=== PATIENT | male | born 1935 | race Caucasian/White ===

== ENCOUNTER → 2017-01-11 | Outpatient (CLI) | payer OTHER ==
[~2017-01-11] MED LIST: ADVIN25050 INH; ALBUAER INH; ASPI-232 PO; CLOP1TAB15 PO; ISOS120T5 PO; LPT/40 PO; LSN/10125 PO; METO50TA16 PO; MULT-506 PO; NITR0.4S UT; PANT40TA PO; SENNTAB23 PO
[2017-01-11 13:35] LABS: BLOOD UREA NITROGEN 21 mg/dl (7-18); BUN/CREATININE RATIO 13.1 (10-20); CALCIUM 8.8 mg/dl (8.5-10.1); CARBON DIOXIDE 29 mmol/L (21-32); CHLORIDE 105 mmol/L (98-107); CHOLESTEROL 94 mg/dl (0-200); GLUCOSE 87 mg/dl (70-99); POTASSIUM 4.4 mmol/L (3.5-5.1); SODIUM 141 mmol/L (136-145); TRIGLYCERIDES 129 mg/dl (0-150); VERY LOW DENSITY LIPOPROT CALC 26 mg/dl
[2017-01-11 13:38] LABS: CHOLESTEROL/HDL RATIO 2.9; HDL CHOLESTEROL 32 mg/dl
[2017-01-11 13:47] LABS: ESTIMATED AVERAGE GLUCOSE 126 mg/dl; HA1C FLAG Normal (Normal)
== END | disposition home or self-care (01) ==
LOC: C.LABSPEC 12:31
PROVIDERS: ATTEND Internal Medicine
DX: Z00.00 Encounter for general adult medical examination without abnormal findings (principal); R73.9 Hyperglycemia, unspecified; I25.10 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of native coronary artery without angina pectoris; I10 Essential (primary) hypertension

== ENCOUNTER → 2017-02-01 | Outpatient (CLI) | payer OTHER | END | disposition home or self-care (01) | LOC: C.LABSPEC 14:37 | PROVIDERS: ATTEND Internal Medicine | DX: Z12.11 Encounter for screening for malignant neoplasm of colon (principal) ==

== ENCOUNTER → 2017-04-23 | Outpatient (CLI) | payer OTHER ==
[~2017-04-23] MED LIST changes: +REGADENOSON 0.4 MG/5 ML SYR ONE
--- NOTE | 2017-04-23 23:47 | Myocardial Perfusion Study ---
Myocardial Perfusion Study Rpt Myocardial Perfusion Study Rpt Date of Service 04/23/2017 Myocardial Perfusion Study Rpt ONE DAY NUCLEAR MEDICINE LEXISCAN TECHNETIUM 99M MYOCARDIAL PERFUSION SCAN Indication: History of CAD Baseline ECG: Sinus bradycardia, resting inferior T wave inversions. Ventricular rate 57. Stress ECG: No Lexiscan induced ST changes. Occasional PVCs. HR petr from 56 - 71 representing 51% MPHR. Technique: For the stress portion of the study 33 mCi of Technetium 99m Cardiolite IV was injected at 11:30 am on 04/23/2017. 30 minutes following the injection, imaging of the heart was performed in multiple projections. For the rest portion of the study, 10.9 mCi of Technetium 99m Cardiolite was injected IV at 09:30 am. One hour following the injection, imaging of the hear was performed in the same projections. Findings: Rotating raw images were reviewed in detail. Potential sources of attenuation included diaphragmatic shadow, and minimal gut/liver uptake impacting the inferior imaging border of the heart. No significant extracardiac pathologic uptake. Short axis, vertical long axis and horizontal long axis images were reviewed in detail. No visual TID. Small, mild in intensity, mostly reversible perfusion defect involving base to mid inferior wall. Otherwise normal myocardial perfusion on both stress and rest. Normal LV size. EDV 72 ml. Calculated EF 74%. No regional wall motion abnormalities. SUMMARY: 1. Grossly normal resting/Lexiscan-induced myocardial perfusion. There is a small, mild, mostly reversible perfusion defect involving the inferior wall from base to mid segments. Similar defects have been seen on prior studies and suspect this represents diaphragmatic attenuation. Cannot rule out a small amount of single-vessel, low risk coronary ischemia (SDS 3). 2. Normal LV size and function. LVEF 74% with no regional wall motion abnormalities. 3. Non-diagnostic stress ECG due to inability to reach target HR with Lexiscan. 4. Compared with prior study on 12/16/2015: No significant changes.
== END | disposition home or self-care (01) ==
LOC: C.NUCL 09:10
PROVIDERS: ATTEND Internal Medicine
DX: I25.10 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of native coronary artery without angina pectoris (principal); R07.9 Chest pain, unspecified; R94.31 Abnormal electrocardiogram [ECG] [EKG]

== ENCOUNTER → 2017-12-23 | Outpatient (CLI) | payer OTHER ==
[~2017-12-23] MED LIST changes: -REGADENOSON 0.4 MG/5 ML SYR ONE
--- NOTE | 2017-12-23 15:34 | DIAGNOSTIC IMAGING REPORT ---
CHEST 2 VIEWS ROUTINE HISTORY: 82 years-old Male J44.9 Chronic obstructive pulmonary [id number] COMPARISON: Chest radiograph 11/27/2015 TECHNIQUE: PA and lateral views of the chest FINDINGS: Cardiomediastinal and hilar silhouettes are within normal limits. Suggested coronary arterial stent graft. Atherosclerosis of the aorta. No pneumothorax, pleural effusion or overt pulmonary edema. Minimal dependent subsegmental bibasilar atelectasis. Lungs are mildly hyperinflated. Increased lucency of the lungs suggests emphysema. IMPRESSION: Hyperinflation without acute process. The above report was generated using voice recognition software. It may contain grammatical, syntax or spelling errors. Electronically signed by: Shilo Olivo M.D. 12/23/2017 3:33 PM Dictated Date/Time: 12/23/2017 3:30 PM
== END | disposition home or self-care (01) ==
LOC: C.RAD1850 15:23
PROVIDERS: ATTEND Internal Medicine Pulmonary Disease
DX: J44.9 Chronic obstructive pulmonary disease, unspecified (principal); R91.8 Other nonspecific abnormal finding of lung field

== ENCOUNTER → 2018-01-06 | Outpatient (CLI) | payer OTHER ==
--- NOTE | 2018-01-10 07:56 | POLYSOMNOGRAPH REPORT ---
CLINICAL DATA: The patient is an 82-year-old male with a history of snoring and disturbed nocturnal sleep and excessive daytime somnolence. His [place] sleepiness scale score is 9. His BMI is 31.77. This was an in lab overnight polysomnography. SLEEP ARCHITECTURE: The total sleep period was 258 minutes. The total sleep time was 165.5 minutes. The sleep efficiency was severely reduced to 42%. The sleep latency was 20 minutes. Wake after sleep onset was prolonged to 216 minutes. The patient had no sleep after 2:00 a.m. Sleep consisted of stage N1 17%, stage N2 64%, stage N3 19%, stage REM 0%. AROUSAL DATA: The patient had a total of 35 arousals including 8 spontaneous arousals, 2 respiratory arousals, 21 PLM arousals, and 4 snoring arousals. The arousal index was 13. PLM DATA: The patient had 172 periodic limb movements of sleep for a PLM index of 62.4. There were 21 arousals, associated with limb movements for a PLM arousal index of 7.6. EKG: The cardiac rates ranged from 51-83 beats per minute with an average of 75 beats per minute. No arrhythmias noted. RESPIRATORY DATA: The patient had a total of 6 respiratory events, all hypopneas. Hypopneas were scored according to the 4% desaturation rule. The mean duration of the hypopneas was 22 seconds. There were 2 RERAs. The apnea hypopnea index was 2.2. This would suggest no significant sleep apnea. OXIMETRY DATA: The average saturation for the night was 89%. The minimum recorded saturation was 65%, but this was clearly artifactual. His true minimum saturation is 85%. He did have 185.4 minutes with saturations less than 89%. DITCH CLEANER COMMENTS: The patient slept in the right, left, and supine positions. No cardiac arrhythmia. PLMs noted. No bruxism noted. Snoring was noted and scored as a 1 on a scale of 0 through 5. The patient awakened to use the restroom once during the night. Following the study, he stated that he did not think he slept. IMPRESSION: 1. No evidence of significant obstructive sleep apnea. 2. Periodic limb movement disorder. 3. Hypoxia. COMMENTS: The patient had severe insomnia with poor sleep. His sleep efficiency was poor. It was unknown if this was due to a first night effect. He typically has disturbed sleep at home but that would be more frequent brief awakenings. He did have a modest number of periodic limb movements with a mild number of arousals. The patient's had noticed leg movements during sleep. Consideration could be given to a trial of medication for the limb movements if clinically indicated. Oxygen saturations were decreased somewhat as noted. He does have a history of shortness of breath and COPD. RECOMMENDATIONS: 1. Clinical correlation is advised to determine if he is a candidate for pharmacologic treatment of the limb movements. 2. If he is not already on nocturnal oxygen therapy, consideration is given to doing an overnight pulse oximetry to see if he may be a candidate for nocturnal oxygen therapy. 3. The patient should be advised of the appropriate principles of sleep hygiene including having a regular sleep-wake schedule and allowing sufficient sleep time.
== END | disposition home or self-care (01) ==
LOC: C.NEUR 20:00
PROVIDERS: ATTEND Internal Medicine Pulmonary Disease
DX: G47.33 Obstructive sleep apnea (adult) (pediatric) (principal); J44.9 Chronic obstructive pulmonary disease, unspecified; Z88.0 Allergy status to penicillin

== ENCOUNTER → 2018-01-21 | Outpatient (CLI) | payer OTHER | END | disposition home or self-care (01) | LOC: C.LAB1850 15:12 | PROVIDERS: ATTEND Internal Medicine Pulmonary Disease | DX: G25.81 Restless legs syndrome (principal) ==

== ENCOUNTER 2018-11-10 09:32 | Inpatient (IN) ==
[2018-11-10] MEDS ORDERED: ALBUT/IPRATROP 3MG/0.5MG NEB 3 ML VIAL NEB STA (09:49)
[2018-11-10 10:29] LABS: Basophils # (auto) 0.02 K/uL (0-0.2); Basophils % (auto) 0.2 %; Eosinophils % (auto) 2.3 %; Hematocrit (blood only) 34.6 % (42-52); Hemoglobin 11.2 g/dL (14.0-18.0); Immature Granulocytes # (auto) 0.05 K/uL (0.00-0.02); Immature Granulocytes % (auto) 0.6 %; Lymphocytes # (auto) 1.45 K/uL (1.2-3.4); Lymphocytes % (auto) 16.4 %; Mean Corpuscular Hgb Conc 32.4 g/dL (32-36); Mean Platelet Volume 9.2 fL (7.4-10.4); Monocytes # (auto) 0.85 K/uL (0.11-0.59); Monocytes % (auto) 9.6 %; Neutrophils # (auto) 6.28 K/uL (1.4-6.5); Neutrophils % (auto) 70.9 %; Platelet Count 434 K/uL (130-400); RDW Standard Deviation 53.8 fL (36.4-46.3); Red Blood Count 3.53 M/uL (4.7-6.1); White Blood Count 8.85 K/uL (4.8-10.8)
--- NOTE | 2018-11-10 10:29 | XRay Report ---
XR chest 1V portable CLINICAL HISTORY: Chest Pain COMPARISON STUDY: Chest radiograph and chest CT October 12, 2018. FINDINGS: There is no pneumothorax or pleural effusion. Cardiomediastinal silhouette is stable. Mild interstitial thickening is noted. There is underlying emphysema. There is mild left lower lung opacit y. Right midlung opacity is no longer identified. IMPRESSION: 1. Mild left lower lung opacity which may reflect atelectasis or an infectious process. 2. Slight increase in interstitial thickening, a nonspecific finding. 3. Emphysema. Electronically signed by: Fidel Strauss M.D. 11/10/2018 10:28 AM
[2018-11-10 10:38] LABS: INR 1.2 (0.9-1.1); Prothrombin Time 12.1 Seconds (9.0-12.0)
--- NOTE | 2018-11-10 10:38 | CT Scan Report ---
CT OF THE HEAD WITHOUT CONTRAST CLINICAL HISTORY: LUE weakness, resolved COMPARISON STUDY: Head CT June 17, 2018. CT DOSE: 729.78 mGycm TECHNIQUE: Helical axial images of the head were obtained without IV contrast. Automated exposure con trol was utilized for the study. A dose lowering technique was utilized adhering to the principles o f ALARA. FINDINGS: No acute intracranial hemorrhage, midline shift or mass effect is present. Ventricular syst em is stable. Basilar cisterns are patent. There are no extra-axial collections. White matter hypoden sity suggests small vessel disease. There are no findings to suggest acute dural sinus thrombosis or acute territorial infarct. Small lucencies within the bilateral basal ganglia may reflect old lacunar infarcts or prominent perivascular spaces. There are no significant calvarial abnormalities. There a re left maxillary sinus secretions. These are decreased when compared to CT of June 17, 2018. IMPRESSION: No acute intracranial findings. Electronically signed by: Fidel Strauss M.D. 11/10/2018 10:37 AM
[2018-11-10 10:41] LABS: Base Excess VBG 2.8 mEq/L; HCO3 VBG 29 mmol/L; PCO2 VBG 52 mmHg (38-50); PO2 VBG 25 mmHg; pH VBG 7.37 (7.36-7.41)
[2018-11-10 10:46] LABS: Albumin Level 1.9 gm/dl (3.4-5.0); BUN Creatinine Ratio 13.8 (10-20); Calcium 8.6 mg/dl (8.5-10.1); Creatinine Clr Calc Pharmacy 44.6 ml/min; Est GFR (African American) 52.9; Est GFR (Non-African American) 45.7; Potassium 4.3 mmol/L (3.5-5.1)
[2018-11-10 10:53] LABS: Albumin Globulin Ratio 0.4 (0.9-2); Bilirubin,Total 0.8 mg/dl (0.2-1); Globulin 5.2 gm/dl (2.5-4.0); Phosphorus 3.9 mg/dl (2.5-4.9); Total Protein 7.1 gm/dl (6.4-8.2); Troponin I 0.073 ng/ml (0-0.045)
[2018-11-10 10:54] LABS: Oxygen Saturation VBG < 60.0 %
--- NOTE | 2018-11-10 12:27 | History & Physical Report ---
Date of Service November 10, 2018 Assessment & Plan (1) Stroke-like symptoms: Likely TIA given quick resolution CT head neg for acute MRI/MRA pending ECHO pending Takes aspirin 81mg at baseline, may need to increase this to full strength vs plavix pending further studies Hold on neuro c/s pending imaging PT/OT (2) Elevated troponin: In the setting of CKD Elevated to 0.07, serials pending EKG with 1st degree AV block, seen prior (3) COPD (chronic obstructive pulmonary disease): Stable, no exacerbation Upper airway congestion noted Nebs as at home Baseline O2 2L at rest, HS and 4L with activity (4) Chronic kidney disease: Cr 1.4 on admission which is improved from more recent admission Monitor (5) Congestive heart failure: Stable, continue home meds (6) Hypertension: continue home meds (7) Hyperlipidemia: continue home meds (8) Restless leg syndrome: continue home meds (9) GERD (gastroesophageal reflux disease): continue home meds (10) CAD (coronary artery disease): s/p stents x5, completed course of plavix (11) 1st degree AV block: Seen prior Does appear to have regular lightheadedness moving from seated to standing Monitor (12) DVT prophylaxis: SCDs, Heparin for DVT proph History of Present Illness Primary Care Provider: Berry Tan MD 83 y/o M c/o L LE/UE weakness. Pt states he woke around 4am to use his bedside urinal and could not use his L UE/LE. He states that he could move both of them , but could not stand or push off with his arm. He yelled for his to help him and she states that his speech was not slurred. He had no issues with vision, although the room was dark so he is not certain. This lasted about 30 minutes and resolved fully without recurrence. Pt was not planning to seek care for this, however a home nurse called to check on him as was planned prior and advised they come to the ED. Pt has no prior hx of similar sx. He states that he has felt a bit "run down" the last two days. "Like I don't want to do nothing." His states that he had been "zipping right around" the few days prior to that though. Pt states he is tired now, but otherwise feels fine. Pt denies fever, SOB, chest pain, abd pain, n/v/c/d, LE pain or swelling now or with this incident early this AM. Pt takes aspirin 81mg daily and does not miss doses. Pt was a recent d/c from [facility] on 10/20 after being hospitalized for COPD flare and possible aspiration PNA. Since that d/c he has had increased O2 use. Prior to admission he used 2L HS only. Since d/c he uses 2L around the clock and increases to 4L with activity. This has worked well for him. He also has two neb tx which he is consistent with. states that pt gets lightheaded when moving from seating to standing frequently. No syncope though other than an isolated episode in July. Allergies Allergy/AdvReac Type Severity Reaction Status Date / Time Penicillins Allergy Unknown PASSES OUT Verified 06/17/18 17:23 AND LOW HEART RATE Home Medications Home Medications Medication Instructions Recorded Confirmed Type albuterol sulfate 2 puff INHALATION Q6H PRN 06/17/18 11/10/18 History aspirin [Aspir-81] 81 mg PO QAM 06/17/18 11/10/18 History atorvastatin 40 mg PO QAM 06/17/18 11/10/18 History furosemide 40 mg PO BID 10/09/18 11/10/18 History isosorbide mononitrate 60 mg PO QAM 10/09/18 11/10/18 History metoprolol succinate 25 mg PO HS 10/09/18 11/10/18 History multivitamin 1 tab PO QAM 10/09/18 11/10/18 History nitroglycerin [Nitrostat] 0.4 mg SUBLINGUAL DAILY PRN 10/09/18 11/10/18 History pantoprazole 40 mg PO BID 10/09/18 11/10/18 History ranolazine 500 mg PO BID 10/09/18 11/10/18 History sennosides-docusate sodium [Stool 8.6 mg PO BID 10/09/18 11/10/18 History Softener-Laxative] budesonide 1 ml INH Q12H #60 ml 10/17/18 11/10/18 Rx formoterol fumarate 2 ml INH Q12H #60 ml 10/17/18 11/10/18 Rx gabapentin 100 mg PO BID 30 Days #60 cap 10/17/18 11/10/18 Rx pramipexole 0.25 mg PO HS 11/10/18 11/10/18 History Past Med/Surg History Medical History CHF (congestive heart failure) GERD (gastroesophageal reflux disease) HTN (hypertension) Hyperlipidemia CAD (coronary artery disease) RLS (restless legs syndrome) COPD (chronic obstructive pulmonary disease) 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[place] coronary artery w/angina pectoris (Acute ) Coronary arteriosclerosis (Acute 03/30/14) Family History Father Heart attack Other No pertinent family history Social History Current Living Situation: Significant Other Current Living Situation Comment: Girlfriend Other Information That Helps Us Care for You: No Feels Safe at Home: Yes Safety Concerns: Feels Safe At This Time Smoking Status: Former smoker Tobacco Type: cigarettes Number of Years Since Quit: 8 Hx Alcohol Use: No Hx Substance Use: No Beliefs That Will Affect Care: None Preferred Language: [place] Communication Ability: Effective Review of Systems Pertinent positives and negatives reviewed in HPI--all others negative Physical Exam 2 Vital Signs (Past 24 Hours): Last Vital Signs Temp 36.4 C L 11/10/18 09:43 Pulse 86 11/10/18 10:58 Resp 16 11/10/18 10:58 BP 122/70 11/10/18 10:58 Pulse Ox 93 11/10/18 10:58 Constitutional: WD/WN, vitals as above Eyes: normal visual moura by confrontation and + anicteric sclerae Neck: normal visual inspection and trachea midline Respiratory: normal respiratory effort; no respiratory distress upper airway congestion Cardiovascular: Rate/Rhythm: regular rate and regular rhythm Gastrointestinal (Abdomen): Inspection/Auscultation: abdomen not distended Percussion/Palpation: abdomen soft; abdomen nontender Musculoskeletal: Head/Neck/Chest: normocephalic and head atraumatic negative for edema, peripheral pulses intact Skin: no rashes, warm and dry Neurologic: CN's II-XI intact bilaterally and awake; not confused Speech / Cognition: normal speech Skin Specialist strength 5/5 b/l, LE strength against resistance 5/5 in all planes Psychiatric: A+Ox3, euthymic affect Results & Data Diagnostic Findings CXR: neg for acute CT head: neg for acute ECG Findings: + 1st degree AV block (seen prior) Code Status & VTE Plan Code Status Full code VTE Prophylaxis Plan VTE Prophylaxis will be ordered: Yes _ (1) Congestive heart failure Heart failure type: diastolic Heart failure chronicity: acute on chronic Qualified Code(s): I50.33 - Acute on chronic diastolic (congestive) heart failure (2) Hypertension Hypertension type: essential hypertension Qualified Code(s): I10 - Essential (primary) hypertension
[2018-11-10] MEDS ORDERED: MAGNESIUM HYDROXIDE SUSP 30 ML UDC PO PRN (13:14)
[2018-11-10] MEDS ORDERED: ALBUTEROL HFA 8 GM INHALER INH PRN (13:14)
[2018-11-10] MEDS ORDERED: ONDANSETRON INJ 2 MG/ML 2 ML VIAL IV PRN (13:14)
[2018-11-10] MEDS ORDERED: NITROGLYCERIN SL 0.4 MG/TAB TAB SL PRN (13:14)
[2018-11-10] MEDS ORDERED: PHARMACIST DISCHARGE MED REC CONSULT PRN (13:14)
[2018-11-10] MEDS ORDERED: ACETAMINOPHEN 325 MG TAB PO PRN (13:14)
--- NOTE | 2018-11-10 13:27 | Emergency Department Note ---
Entered by Fernando Finn acting as a scribe for History of Present Illness General Chief complaint: Illness Time Seen by Provider: 11/10/18 09:36 Source: patient Limitations: no limitations History of Present Illness Provider complaint: Weakness Onset (ago): hour(s) (5.5) Location: upper extremity and left Pain Consistency: + now resolved Quality: + other (weakness) Associated symptoms: + cough, + shortness of breath and + weakness (Diffuse) The patient is an 83 year old male who presents to the Emergency Room with complaints of an episode of weakness that he noticed at 0400 this morning, about 5.5 hours ago. The patient states that he woke up from sleep this morning at 0400 to use the restroom. He sat up and swung his legs over the side of his bed when he noticed that he felt weak all over his body. The weakness was most prevalent in the left upper extremity which was totally limp. He called his home -health nurse for help, and she did come help the patient get up. When the home- health nurse staff called later on this morning they referred him to the ED immediately. The patient notes the weakness is now resolved at this time, and he currently feels how he has throughout the past week. The patient does feel short of breath intermittently and is coughing, but this is baseline for him since his discharge from a recent inpatient stay. The cough is intermittently productive. He denies any other nausea, vomiting, diarrhea, fevers, or headaches. The patient is on 2 L of nasal cannula at baseline, but will intermittently increase the flow rate. Review of the patient's EMS shows that he was discharged from the hospital on October 20 for COPD exacerbation with Aspiration. He did have hematuria at this time, which resolved throughout the stay. There was no evidence of urethral cancer on urine cytology. He was experiencing dysphagia throughout the stay, Barium swallow showed a normal esophagus. He has CKD with baseline creatinine of 2.0. The patient has a history of chronic hyponatremia. Diastolic CHF on Lasix. On IMDUR for coronary artery disease. Home Medications Home Medications Medication Instructions Recorded Confirmed Type albuterol sulfate 2 puff INHALATION Q6H PRN 06/17/18 11/10/18 History aspirin [Aspir-81] 81 mg PO QAM 06/17/18 11/10/18 History atorvastatin 40 mg PO QAM 06/17/18 11/10/18 History furosemide 40 mg PO BID 10/09/18 11/10/18 History isosorbide mononitrate 60 mg PO QAM 10/09/18 11/10/18 History metoprolol succinate 25 mg PO HS 10/09/18 11/10/18 History multivitamin 1 tab PO QAM 10/09/18 11/10/18 History nitroglycerin [Nitrostat] 0.4 mg SUBLINGUAL DAILY PRN 10/09/18 11/10/18 History pantoprazole 40 mg PO BID 10/09/18 11/10/18 History ranolazine 500 mg PO BID 10/09/18 11/10/18 History sennosides-docusate sodium [Stool 8.6 mg PO BID 10/09/18 11/10/18 History Softener-Laxative] budesonide 1 ml INH Q12H #60 ml 10/17/18 11/10/18 Rx formoterol fumarate 2 ml INH Q12H #60 ml 10/17/18 11/10/18 Rx gabapentin 100 mg PO BID 30 Days #60 cap 10/17/18 11/10/18 Rx pramipexole 0.25 mg PO HS 11/10/18 11/10/18 History Allergies Allergy/AdvReac Type Severity Reaction Status Date / Time Penicillins Allergy Unknown PASSES OUT Verified 06/17/18 17:23 AND LOW HEART RATE Past Med/Surg History Medical History CHF (congestive heart failure) GERD (gastroesophageal reflux disease) HTN (hypertension) Hyperlipidemia CAD (coronary artery disease) RLS (restless legs syndrome) COPD (chronic obstructive pulmonary disease) 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cachil dehe coronary artery w/angina pectoris (Acute ) Coronary arteriosclerosis (Acute 03/30/14) Family History Father Heart attack Other No pertinent family history Social History Current Living Situation: Significant Other Current Living Situation Comment: Girlfriend Other Information That Helps Us Care for You: No Feels Safe at Home: Yes Safety Concerns: Feels Safe At This Time Smoking Status: Former smoker Tobacco Type: cigarettes Number of Years Since Quit: 8 Hx Alcohol Use: No Hx Substance Use: No Beliefs That Will Affect Care: None Preferred Language: Turkmen Communication Ability: Effective Review of Systems See HPI for pertinent positives & negatives. and A total of 10 systems reviewed and were otherwise negative Physical Exam Vital Signs Vital Signs - 24 hr 11/10/18 09:43 11/10/18 10:58 11/10/18 11:39 Temperature 36.4 C L Temperature Source Oral Sepsis Recent Fever Within 48 Hours No Sepsis New/Unexplained Change in Mental Status No Sepsis Action Taken by Nursing No Action Required Pulse Rate 88 84 Pulse Rate [Right Finger] 86 Pulse Rhythm Regular Regular Pulse Rhythm [Right Finger] Regular Pulse Strength Normal Pulse Strength [Right Finger] Normal Respiratory Rate 16 16 Respiratory Effort / Characteristics Non-Labored Non-Labored Respiratory Depth Normal Normal Respiratory Pattern Regular Regular Regular Blood Pressure 109/60 Blood Pressure [Left Arm] 122/70 Blood Pressure Mean 76 Blood Pressure Mean [Left Arm] 87 Blood Pressure Position Sitting Blood Pressure Position [Left Arm] Sitting Pulse Oximetry 96 93 Oxygen Delivery Method Nasal Cannula Nasal Cannula Nasal Cannula Oxygen Flow Rate 3 2 2 11/10/18 12:31 11/10/18 12:57 11/10/18 15:59 Temperature 36.7 C Temperature Source Oral Sepsis Recent Fever Within 48 Hours Sepsis New/Unexplained Change in Mental Status Sepsis Action Taken by Nursing Pulse Rate 92 H Pulse Rate [Right Finger] 84 90 Pulse Rhythm Pulse Rhythm [Right Finger] Regular Pulse Strength Pulse Strength [Right Finger] Normal Respiratory Rate 16 16 Respiratory Effort / Characteristics Non-Labored Respiratory Depth Normal Respiratory Pattern Regular Blood Pressure 104/58 L Blood Pressure [Left Arm] 93/53 L 96/61 L Blood Pressure Mean Blood Pressure Mean [Left Arm] 66 72 Blood Pressure Position Blood Pressure Position [Left Arm] Sitting Pulse Oximetry 94 95 Oxygen Delivery Method Nasal Cannula Nasal Cannula Oxygen Flow Rate 2 2 11/10/18 17:00 11/10/18 17:55 11/10/18 19:11 Temperature Temperature Source Sepsis Recent Fever Within 48 Hours Sepsis New/Unexplained Change in Mental Status Sepsis Action Taken by Nursing Pulse Rate 91 H Pulse Rate [Right Finger] 97 H 93 H Pulse Rhythm Pulse Rhythm [Right Finger] Pulse Strength Pulse Strength [Right Finger] Respiratory Rate 18 Respiratory Effort / Characteristics Non-Labored Spontaneous Respiratory Depth Respiratory Pattern Blood Pressure Blood Pressure [Left Arm] 112/67 Blood Pressure Mean Blood Pressure Mean [Left Arm] 82 Blood Pressure Position Blood Pressure Position [Left Arm] Sitting Pulse Oximetry 95 Oxygen Delivery Method Nasal Cannula Nasal Cannula Oxygen Flow Rate 2 2 11/10/18 20:00 11/10/18 20:25 11/10/18 20:29 Temperature 36.6 C Temperature Source Oral Sepsis Recent Fever Within 48 Hours Sepsis New/Unexplained Change in Mental Status Sepsis Action Taken by Nursing Pulse Rate Pulse Rate [Right Finger] 98 H 96 H 98 H Pulse Rhythm Pulse Rhythm [Right Finger] Pulse Strength Pulse Strength [Right Finger] Respiratory Rate 20 Respiratory Effort / Characteristics Respiratory Depth Respiratory Pattern Blood Pressure Blood Pressure [Left Arm] 93/55 L 97/60 L 96/61 L Blood Pressure Mean Blood Pressure Mean [Left Arm] 67 72 72 Blood Pressure Position Blood Pressure Position [Left Arm] Standing Lying Sitting Pulse Oximetry 95 Oxygen Delivery Method Nasal Cannula Oxygen Flow Rate 2 GENERAL: Awake, alert, chronically ll-appearing, in no distress HENT: Normocephalic, atraumatic. Oropharynx with dry mucous membranes and otherwise unremarkable. EYES: Normal conjunctiva. Sclera non-icteric. NECK: Supple. No nuchal rigidity. FROM. No JVD. RESPIRATORY: Scattered wheezes and rhonchi throughout. CARDIAC: Regular rate, normal rhythm. Extremities warm and well perfused. Pulses equal. ABDOMEN: Soft, non-distended. No tenderness to palpation. No rebound or guarding. No masses. RECTAL: Deferred. MUSCULOSKELETAL: Chest examination reveals no tenderness. The back is symmetrical on inspection without obvious abnormality. There is no CVA tenderness to palpation. No joint edema. LOWER EXTREMITIES: Calves are equal size bilaterally and non-tender. Scant edema. No discoloration. NEURO: Cranial nerves 2-12 grossly intact. Normal sensorium. No sensory or motor deficits noted. Speech normal. No pronator drift. 5/5 strength and SILT x4 extremities. Intact finger to nose. SKIN: No rash or jaundice noted. Course 0940: Past medical records reviewed. The patient was evaluated in room B11B, and a complete history and physical examination were performed. 1139: I reviewed the patient's case with Dr. Yissel Mane [facility] Hospitalist. She will evaluate the patient for further management. Consultations Consultation #1: 1139: I reviewed the patient's case with Dr. Yissel Mane [facility] Hospitalist. She will evaluate the patient for further management. Administered Medications Budesonide (Pulmicort Respules) 0.25 mg INH Q12R NADEEN Stop: 12/10/18 19:59 Last Admin: 11/10/18 19:10 Dose: 0.25 mg Formoterol Fumarate (Perforomist) 20 mcg INH Q12R NADEEN Stop: 12/10/18 19:59 Last Admin: 11/10/18 19:10 Dose: 20 mcg Furosemide (Lasix) 40 mg PO BID17 NADEEN Stop: 12/10/18 16:59 Last Admin: 11/10/18 17:56 Dose: 40 mg Gabapentin (Neurontin) 100 mg PO BID NADEEN Stop: 12/10/18 20:59 Last Admin: 11/10/18 20:25 Dose: 100 mg Gadobutrol (Gadavist 65ml) 9.5 ml IV ONCE PRN PRN Reason: Interaction Checking Stop: 11/14/18 17:38 Last Admin: 11/10/18 17:39 Dose: 9.5 ml Heparin Sodium (Porcine) (Heparin Sodium (Porcine)) 5,000 units SQ Q8 NADEEN Stop: 12/10/18 13:59 Last Admin: 11/10/18 20:31 Dose: Not Given Admin: 11/10/18 15:07 Dose: Not Given Metoprolol Succinate (Toprol Xl) 25 mg PO HS NADEEN Stop: 12/10/18 20:59 Last Admin: 11/10/18 20:23 Dose: Not Given Pantoprazole Sodium (Protonix) 40 mg PO BID NADEEN Stop: 12/10/18 20:59 Last Admin: 11/10/18 20:25 Dose: 40 mg Pramipexole Dihydrochloride (Mirapex) 0.25 mg PO HS NADEEN Stop: 12/10/18 20:59 Last Admin: 11/10/18 20:25 Dose: 0.25 mg Ranolazine (Ranexa) 500 mg PO BID NADEEN Stop: 12/10/18 20:59 Last Admin: 11/10/18 20:24 Dose: 500 mg Senna/Docusate Sodium (Senokot S) 1 tab PO BID NADEEN Stop: 12/10/18 20:59 Last Admin: 11/10/18 20:24 Dose: Not Given Discontinued Medications Albuterol (Duoneb) 3 ml NEB NOW STA Stop: 11/10/18 09:50 Last Admin: 11/10/18 10:56 Dose: 3 ml Perflutren Lipid Microsphere (Definity) 2 ml IV ONCE ONE Stop: 11/10/18 14:44 Last Admin: 11/10/18 14:44 Dose: 2 ml Medical Decision Making Differential Diagnosis Differential Diagnosis includes: Differential includes acute coronary syndrome, myocardial infarction, CVA, TIA, anemia, infection, pneumonia, UTI, pyelonephritis, poor nutrition, dehydration, electrolyte disturbance,hypoglycemia. Medical Records Attestation: I reviewed the patient's medical records. Home Medications Current Medication List: was personally reviewed by me Laboratory Data Attestation: I reviewed the patient's lab results. Result diagrams: 11/10/18 10:19 11/10/18 10: Lab Results 11/10/18 11/10/18 11/10/18 Range/Units 10:19 10:19 10:19 WBC 8.85 (4.8-10.8) K/uL RBC 3.53 L (4.7-6.1) M/uL Hgb 11.2 L (14.0-18.0) g/dL Hct 34.6 L (42-52) % MCV 98.0 (80-100) fL MCH 31.7 (25-34) pg MCHC 32.4 (32-36) g/dL RDW Std Deviation 53.8 H (36.4-46.3) fL RDW Coeff of Tim 15.0 H (11.5-14.5) % Plt Count 434 H (130-400) K/uL MPV 9.2 (7.4-10.4) fL Immature Gran % (Auto) 0.6 % Neut % (Auto) 70.9 % Lymph % (Auto) 16.4 % Mills % (Auto) 9.6 % Eos % (Auto) 2.3 % Baso % (Auto) 0.2 % Immature Gran # (Auto) 0.05 H (0.00-0.02) K/uL Neut # (Auto) 6.28 (1.4-6.5) K/uL Lymph # (Auto) 1.45 (1.2-3.4) K/uL Mills # (Auto) 0.85 H (0.11-0.59) K/uL Eos # (Auto) 0.20 (0-0.5) K/uL Baso # (Auto) 0.02 (0-0.2) K/uL PT 12.1 H (9.0-12.0) Seconds INR 1.2 H (0.9-1.1) VBG pH (7.36-7.41) VBG pCO2 (38-50) mmHg VBG pO2 mmHg VBG HCO3 mmol/L VBG O2 Saturation % VBG Base Excess mEq/L Barometric Pressure mm/Hg Sodium 135 L (136-145) mmol/L Potassium 4.3 (3.5-5.1) mmol/L Chloride 100 (98-107) mmol/L Carbon Dioxide 29 (21-32) mmol/L Anion Gap 6.0 (3-11) BUN 20 H (7-18) mg/dl Creatinine 1.42 H (0.6-1.4) mg/dl Est Cr Clr Drug Dosing 44.6 ml/min Est GFR ( Amer) 52.9 Est GFR (Non-Af Amer) 45.7 BUN/Creatinine Ratio 13.8 (10-20) Glucose 74 (70-99) mg/dl Calcium 8.6 (8.5-10.1) mg/dl Phosphorus 3.9 (2.5-4.9) mg/dl Magnesium 2.0 (1.8-2.4) mg/dl Total Bilirubin 0.8 (0.2-1) mg/dl AST 12 L (15-37) U/L ALT 22 (12-78) U/L Alkaline Phosphatase 104 (45-117) U/L Troponin I 0.073 H* (0-0.045) ng/ml NT-Pro-B Natriuret Pep 4684 H (0-1800) pg/ml Total Protein 7.1 (6.4-8.2) gm/dl Albumin 1.9 L (3.4-5.0) gm/dl Globulin 5.2 H (2.5-4.0) gm/dl Albumin/Globulin Ratio 0.4 L (0.9-2) Lipase 72 L (73-393) U/L 11/10/18 11/10/18 11/10/18 Range/Units 10:19 14:53 19:14 WBC (4.8-10.8) K/uL RBC (4.7-6.1) M/uL Hgb (14.0-18.0) g/dL Hct (42-52) % MCV (80-100) fL MCH (25-34) pg MCHC (32-36) g/dL RDW Std Deviation (36.4-46.3) fL RDW Coeff of Tim (11.5-14.5) % Plt Count (130-400) K/uL MPV (7.4-10.4) fL Immature Gran % (Auto) % Neut % (Auto) % Lymph % (Auto) % Mills % (Auto) % Eos % (Auto) % Baso % (Auto) % Immature Gran # (Auto) (0.00-0.02) K/uL Neut # (Auto) (1.4-6.5) K/uL Lymph # (Auto) (1.2-3.4) K/uL Mills # (Auto) (0.11-0.59) K/uL Eos # (Auto) (0-0.5) K/uL Baso # (Auto) (0-0.2) K/uL PT (9.0-12.0) Seconds INR (0.9-1.1) VBG pH 7.37 (7.36-7.41) VBG pCO2 52 H (38-50) mmHg VBG pO2 25 mmHg VBG HCO3 29 mmol/L VBG O2 Saturation < 60.0 % VBG Base Excess 2.8 mEq/L Barometric Pressure 733.8 mm/Hg Sodium (136-145) mmol/L Potassium (3.5-5.1) mmol/L Chloride (98-107) mmol/L Carbon Dioxide (21-32) mmol/L Anion Gap (3-11) BUN (7-18) mg/dl Creatinine (0.6-1.4) mg/dl Est Cr Clr Drug Dosing ml/min Est GFR ( Amer) Est GFR (Non-Af Amer) BUN/Creatinine Ratio (10-20) Glucose (70-99) mg/dl Calcium (8.5-10.1) mg/dl Phosphorus (2.5-4.9) mg/dl Magnesium (1.8-2.4) mg/dl Total Bilirubin (0.2-1) mg/dl AST (15-37) U/L ALT (12-78) U/L Alkaline Phosphatase (45-117) U/L Troponin I 0.065 H* 0.070 H* (0-0.045) ng/ml NT-Pro-B Natriuret Pep (0-1800) pg/ml Total Protein (6.4-8.2) gm/dl Albumin (3.4-5.0) gm/dl Globulin (2.5-4.0) gm/dl Albumin/Globulin Ratio (0.9-2) Lipase (73-393) U/L Imaging Data Attestation: I personally reviewed and interpreted this imaging study as follows : Radiologist's Impression: XR chest 1V portable CLINICAL HISTORY: Chest Pain COMPARISON STUDY: Chest radiograph and chest CT October 12, 2018. FINDINGS: There is no pneumothorax or pleural effusion. Cardiomediastinal silhouette is stable. Mild interstitial thickening is noted. There is underlying emphysema. There is mild left lower lung opacity. Right midlung opacity is no longer identified. IMPRESSION: 1. Mild left lower lung opacity which may reflect atelectasis or an infectious process. 2. Slight increase in interstitial thickening, a nonspecific finding. 3. Emphysema. Electronically signed by: Fidel Strauss M.D. 11/10/2018 10:[address] OF THE HEAD WITHOUT CONTRAST CLINICAL HISTORY: LUE weakness, resolved COMPARISON STUDY: Head CT June 17, 2018. CT DOSE: 729.78 mGycm TECHNIQUE: Helical axial images of the head were obtained without IV contrast. Automated exposure control was utilized for the study. A dose lowering technique was utilized adhering to the principles of ALARA. FINDINGS: No acute intracranial hemorrhage, midline shift or mass effect is present. Ventricular system is stable. Basilar cisterns are patent. There are no extra-axial collections. White matter hypodensity suggests small vessel disease. There are no findings to suggest acute dural sinus thrombosis or acute territorial infarct. Small lucencies within the bilateral basal ganglia may reflect old lacunar infarcts or prominent perivascular spaces. There are no significant calvarial abnormalities. There are left maxillary sinus secretions. These are decreased when compared to CT of June 17, 2018. IMPRESSION: No acute intracranial findings. Electronically signed by: Fidel Strauss M.D. 11/10/2018 10:37 AM ECG Data Attestation: I personally reviewed and interpreted this ECG as follows: Indication: weakness Rate (beats per minute): 84 Rhythm: sinus rhythm Findings: + 1st degree AV block and + nonspecific-ST abn; no acute ischemic change Comparison ECG Date: from (10/16/2018) Change: no significant change Blood Pressure Blood Pressure Findings: Normal blood pressure MDM Narrative The patient is a pleasant 83-year-old gentleman with a past medical history of COPD on 2 L home O2, CHF, CAD who presents emergency department with transient episode of left upper extremity weakness that happened around 4 AM this morning per hpi. Otherwise, the patient reports feeling at his recent baseline ending in setting of recent admission for COPD exacerbation and aspiration in October. On arrival the patient is chronically ill-appearing but no acute distress, afebrile stable vital signs on his home 2 L nasal cannula saturating 95%. EKG demonstrates first-degree AV block with nonspecific inferior T wave abnormality but otherwise no evidence of acute ischemia. Chest x-ray with questionable left basilar opacity that could be atelectasis versus pneumonia. CT head with evidence of old lacunar infarcts however negative for acute findings. WBC within normal limits. H/H 11.2/34.6 decreased from 12.6/36.9 on 10/17. Platelets 434 increased from 262 on 10/17. Chemistry without acidosis. Cr. 1.4 similar to recent baseline. Troponin elevated at 0.073 without prior history of chronic elevations. BNP 4600 decreased from prior values. Given the patient's transient left upper extremity weakness as well as patient's troponin elevation reasonable to admit the patient for further stroke rule out as well as trending of troponins. Case was discussed with Dr. Mahmood, [facility] hospitalist, who will evaluate the patient for admission. Impression & Plan Stroke-like symptoms, Elevated troponin Discharge Plan Visit Data *Final* Discharge Date/Time: 11/10/18 12:57 Chief Complaint: Illness ED Provider: Ernst Bedoya Discharge Problem: Stroke-like symptoms, Elevated troponin Patient Disposition: Admitted As Inpatient Discharge Instructions Interventions: ED Discharge Assessment Last Done: 11/10/18 12:57 The scribe's documentation has been prepared under my direction and personally reviewed by me in its entirety. I confirm that the note above accurately reflects all work, treatment, procedures, and medical decision making performed by me.
[2018-11-10] MEDS ORDERED: PERFLUTREN LIPID MICROSPHERE (DEFINITY) IV ONE (14:43)
[2018-11-10] MEDS: HEPARIN SOD 5,000 UNIT/0.5 ML VIAL SQ SCH ×2 (15:07→20:31)
--- NOTE | 2018-11-10 16:28 | XRay Report ---
XR orbits for MRI HISTORY: Pre-MRI pre-MRI screening. COMPARISON: None. FINDINGS: There are no radiopaque foreign bodies identified within the orbits. IMPRESSION: No radiopaque foreign bodies identified within the orbits. The above report was generated using voice recognition software. It may contain grammatical, syntax or spelling errors. Electronically signed by: Oscar Handley M.D. 11/10/2018 4:26 PM
[2018-11-10] MEDS ORDERED: GADOBUTROL 65ML VIAL IV PRN (17:39)
--- NOTE | 2018-11-10 17:49 | Magnetic Resonance Report ---
MR brain wo/w con HISTORY: 83 years-old Male stroke vs TIA acute strokelike symptoms COMPARISON: CT head of same day TECHNIQUE: Multiplanar multisequence MRI of the brain was obtained both with and without the use of 9 .5 mL Gadavist FINDINGS: There is no restricted diffusion to suggest acute or subacute infarct. Midline structures including t he corpus callosum, brainstem, optic chiasm, pituitary gland, infundibulum and pineal gland appear un remarkable the sagittal T1 series. No cerebellar tonsillar herniation. Degenerative changes are noted about the imaged cervical spine. Study is mildly motion degraded. No acute intracranial hemorrhage, midline shift, abnormal extra-axia l collections, hydrocephalus or intracranial mass. Age-related involutional changes with mild ex vacu o ventriculomegaly. Mild to moderate scattered T2/FLAIR hyperintensities about the white matter sugge stive of chronic microvascular ischemic changes. There is no abnormal intra-axial or extra-axial enha ncement identified. The major flow voids appear to be patent. Mastoid air cells are clear. Mild to mo derate mucosal thickening with aerosolized secretions noted about the left maxillary sinus. Skull and soft tissues are unremarkable. Prior bilateral cataract repair. IMPRESSION: 1. No acute intracranial abnormality. 2. No acute or subacute infarction or abnormal enhancement. 3. Age-related involutional changes with suggestion of chronic microvascular ischemic changes. The above report was generated using voice recognition software. It may contain grammatical, syntax o r spelling errors. Electronically signed by: Shilo Olivo M.D. 11/10/2018 5:48 PM
--- NOTE | 2018-11-10 17:53 | Magnetic Resonance Report ---
MR angio head wo con HISTORY: Mental status change stroke vs TIA TECHNIQUE: 3-D [id number] MRA of the brain was performed without contrast. COMPARISON STUDY: None. FINDINGS: Visualized intracranial internal carotid arteries, distal vertebral arteries, and basilar a rtery are widely patent. There is no significant stenosis, occlusion, or aneurysm seen within the johanna ateral ACAs, MCAs, or latin teacher. IMPRESSION: No significant stenosis, occlusion, or aneurysm within the [place] of [place]. The above report was generated using voice recognition software. It may contain grammatical, syntax or spelling errors. Electronically signed by: Oscar Handley M.D. 11/10/2018 5:51 PM
[2018-11-10] MEDS: FUROSEMIDE 40 MG TAB PO SCH (17:56)
--- NOTE | 2018-11-10 17:58 | Magnetic Resonance Report ---
MR angio neck wo/w con HISTORY: 83 years-old Male stroke vs TIA acute strokelike symptoms COMPARISON: MRI brain of same day TECHNIQUE: MRA of the neck was obtained both with and without the use of 9.5 mL Gadavist utilizing 3- D [id number] sequencing with MIP reformats. All measurements were obtained according to NASCET cr iteria. FINDINGS: The advance scout localizer images demonstrate no gross abnormality about the imaged soft tissues and upper t horax. Mild luminal narrowing about the proximal cervical segments of the bilaterally ICAs of less th an 50%, likely secondary to underlying atherosclerotic plaque. Mild narrowing about the petrous segme nt left ICA of less than than 50% is also likely secondary to underlying atherosclerotic vascular dis ease. Dominant left vertebral artery. Bilateral vertebral arteries and basilar artery appear to be widely p atent and unremarkable. No aneurysm, dissection, high-grade stenosis or proximal branch occlusion. IMPRESSION: 1. No aneurysm, dissection, high-grade stenosis or proximal branch occlusion. 2. Mild luminal narrowing of less than 50% involves the bilateral carotid bulbs, proximal ICA's and p etrous segment left ICA, likely secondary to underlying atherosclerotic vascular disease. The above report was generated using voice recognition software. It may contain grammatical, syntax o r spelling errors. Electronically signed by: Shilo Olivo M.D. 11/10/2018 5:57 PM
[2018-11-10] MEDS: BUDESONIDE 0.5 MG/2 ML VIAL (PULMICORT) INH SCH (19:10)
[2018-11-10] MEDS: FORMOTEROL 20 MCG/2 ML VIAL INH SCH (19:10)
[2018-11-10] MEDS: DOCUSATE SODIUM/SENNA 50/8.6MG TAB PO SCH (20:24)
[2018-11-10] MEDS: RANOLAZINE 500 MG ER TAB PO SCH (20:24)
[2018-11-10] MEDS: PANTOprazole 40 MG TAB PO SCH (20:25)
[2018-11-10] MEDS: GABAPENTIN 100 MG CAP PO SCH (20:25)
[2018-11-10] MEDS ORDERED: METOPROLOL SUCC 25MG EXT REL TAB PO SCH (21:00)
[2018-11-10] MEDS ORDERED: PRAMIPEXOLE DIHYDROCHLO 0.25 MG TAB PO SCH (21:00)
[2018-11-11 00:12] LABS: Appearance Urine Clear (Clear); Bacteria Urine Automated Negative (Negative); Bilirubin Urine Negative (Negative); Color Urine Dark Yellow; Epithelial Cell Urine Auto 0-5 /lpf (0-5); Glucose Urine UA Negative (Negative); Ketones Urine Negative (Negative); Leukocyte Esterase Urine Trace (Negative); Nitrite Urine Negative (Negative); Protein Urine Trace (Negative); Specific Gravity Urine 1.023 (1.000-1.030); Urobilinogen Urine Negative (Negative)
[2018-11-11 06:04] LABS: Estimated Average Glucose 134 mg/dl
[2018-11-11] MEDS: HEPARIN SOD 5,000 UNIT/0.5 ML VIAL SQ SCH (06:13)
[2018-11-11 07:02] LABS: Basophils # (auto) 0.02 K/uL (0-0.2); Basophils % (auto) 0.2 %; Eosinophils # (auto) 0.24 K/uL (0-0.5); Eosinophils % (auto) 2.3 %; Hematocrit (blood only) 33.9 % (42-52); Immature Granulocytes # (auto) 0.05 K/uL (0.00-0.02); Immature Granulocytes % (auto) 0.5 %; Lymphocytes # (auto) 1.29 K/uL (1.2-3.4); Lymphocytes % (auto) 12.3 %; Mean Corpuscular Hgb Conc 32.4 g/dL (32-36); Mean Corpuscular Volume 96.3 fL (80-100); Mean Platelet Volume 9.3 fL (7.4-10.4); Monocytes # (auto) 0.96 K/uL (0.11-0.59); Monocytes % (auto) 9.1 %; Neutrophils # (auto) 7.97 K/uL (1.4-6.5); Neutrophils % (auto) 75.6 %; Platelet Count 431 K/uL (130-400); RDW Coefficient of Variation 14.8 % (11.5-14.5); Red Blood Count 3.52 M/uL (4.7-6.1); White Blood Count 10.53 K/uL (4.8-10.8)
[2018-11-11] MEDS: BUDESONIDE 0.5 MG/2 ML VIAL (PULMICORT) INH SCH (07:10)
[2018-11-11] MEDS: FORMOTEROL 20 MCG/2 ML VIAL INH SCH (07:10)
[2018-11-11 07:34] LABS: Potassium 4.1 mmol/L (3.5-5.1)
[2018-11-11 07:35] LABS: BUN Creatinine Ratio 14.1 (10-20); Calcium 8.3 mg/dl (8.5-10.1); Creatinine Clr Calc Pharmacy 37.3 ml/min; Est GFR (African American) 42.9
[2018-11-11] MEDS ORDERED: ISOSORBIDE MONO EXTENDED REL 60 MG TABCR PO SCH (09:00)
[2018-11-11] MEDS ORDERED: MULTIVITAMIN TAB PO SCH (09:00)
[2018-11-11] MEDS ORDERED: ATORVASTATIN 40 MG TAB PO SCH (09:00)
[2018-11-11] MEDS ORDERED: ASPIRIN 81 MG ECTAB PO SCH (09:00)
[2018-11-11] MEDS: DOCUSATE SODIUM/SENNA 50/8.6MG TAB PO SCH (09:44)
[2018-11-11] MEDS: PANTOprazole 40 MG TAB PO SCH (09:46)
[2018-11-11] MEDS: GABAPENTIN 100 MG CAP PO SCH (09:46)
[2018-11-11] MEDS: RANOLAZINE 500 MG ER TAB PO SCH (09:47)
[2018-11-11] MEDS: FUROSEMIDE 40 MG TAB PO SCH (09:47)
[2018-11-11] MEDS ORDERED: ASPIRIN 325 MG ECTAB PO SCH (10:00)
--- NOTE | 2018-11-11 13:44 | Discharge Summary ---
Date of Service November 11, 2018 Admission HPI Per Admitting Provider 83 y/o M c/o L LE/UE weakness. Pt states he woke around 4am to use his bedside urinal and could not use his L UE/LE. He states that he could move both of them , but could not stand or push off with his arm. He yelled for his to help him and she states that his speech was not slurred. He had no issues with vision, although the room was dark so he is not certain. This lasted about 30 minutes and resolved fully without recurrence. Pt was not planning to seek care for this, however a home nurse called to check on him as was planned prior and advised they come to the ED. Pt has no prior hx of similar sx. He states that he has felt a bit "run down" the last two days. "Like I don't want to do nothing." His states that he had been "zipping right around" the few days prior to that though. Pt states he is tired now, but otherwise feels fine. Pt denies fever, SOB, chest pain, abd pain, n/v/c/d, LE pain or swelling now or with this incident early this AM. Pt takes aspirin 81mg daily and does not miss doses. Pt was a recent d/c from [facility] on 10/20 after being hospitalized for COPD flare and possible aspiration PNA. Since that d/c he has had increased O2 use. Prior to admission he used 2L HS only. Since d/c he uses 2L around the clock and increases to 4L with activity. This has worked well for him. He also has two neb tx which he is consistent with. states that pt gets lightheaded when moving from seating to standing frequently. No syncope though other than an isolated episode in July. Principal Diagnosis TIA Discharge Exam Constitutional WD/WN, vitals as above Respiratory normal respiratory effort, lungs clear to auscultation Cardiovascular RRR, no murmur, no edema Gastrointestinal (Abdomen) normal bowel sounds, soft, nontender, no hepatosplenomegaly Musculoskeletal no cyanosis or clubbing, extremities motor strength 5/5 Skin no rashes, warm and dry Neurologic CN's II-XI intact bilaterally Psychiatric A+Ox3, euthymic affect Discharge Data Allergies Allergy/AdvReac Type Severity Reaction Status Date / Time Penicillins Allergy Unknown PASSES OUT Verified 06/17/18 17:23 AND LOW HEART RATE Consultations 11/10/18 11:35 ED Decision to Admit Stat 11/10/18 13:14 Consult Case Management - Discharge Planning Routine Ordered Studies 11/10/18 09:49 CT head/brain wo con Stat 11/10/18 13:14 MR angio head wo con Urgent MR angio neck wo/w con Routine MR brain wo/w con Routine Hospital Course (1) Stroke-like symptoms: Likely TIA given quick resolution - no further symptoms this admission CT head neg for acute Neck MRA: No aneurysm, dissection, high-grade stenosis or proximal branch occlusion. Mild luminal narrowing of less than 50% involves the bilateral carotid bulbs, proximal ICA's and petrous segment left ICA, likely secondary to underlying atherosclerotic vascular disease. - per UpToDate recommendations - medical management rather than carotid endarterectomy or carotid stenting for patients with symptomatic carotid stenosis that is less than 50 percent. Patient should follow with primary care provider Head MRA, Brain MRI without acute changes ECHO showed normal EF, without WMA Takes aspirin 81mg at baseline - increased to ASA 325 mg daily. Will leave atorvastatin at 40 mg as LDL was 34, HDL 31 PT/OT - recommend continuing home health PT/OT (2) Elevated troponin: In the setting of CKD Troponins around 0.07 x 3 - no chest pain or EKG changes or changes on echo, patient should follow with primary care provider, no need for further testing at this time as this likely does not represent a cardiac event EKG with 1st degree AV block, seen prior (3) COPD (chronic obstructive pulmonary disease): chronic hypoxic respiratory failure Stable, no exacerbation CXR showing left lower lung opacity atelectasis vs infectious - no s/s of infection -no cough, fever, sob, altered mental status or leukocytosis Nebs as at home Baseline O2 2L at rest, HS and 4L with activity (4) Chronic kidney disease: Cr 1.69 which appears to be around his baseline (5) Congestive heart failure: Stable, continue home meds (6) Hypertension: will decrease furosemide by half to 40 mg daily as blood pressures were running a bit on the low side 90s/60s but with ok maps in the 70s. Given cardiac history and mild elevation in troponins, will hold off on changing isosorbide or metoprolol, may need to consider titrating these medications with outpatient providers. (7) Hyperlipidemia: continue atorvastatin 40 mg (8) Restless leg syndrome: continue pramipexole (9) GERD (gastroesophageal reflux disease): continue Protonix (10) CAD (coronary artery disease): s/p stents x5, completed course of plavix - ASA as above (11) 1st degree AV block: Seen prior (12) DVT prophylaxis: SCDs, Heparin for DVT proph Total Time Total Time Spent Total Time Spent (In Minutes): greater than 30 minutes Total Time Includes: Examination of the Patient, Discharge Planning, Medication Reconciliation and Communication With Other Providers Discharge Plan Discharge Items Patient Disposition: Home - Home Health Services Reason For Visit: ILLNESS Discharge Diagnosis: Trans ischemic attack (TIA) Discharge Goals: Diagnostic testing Activity: Resume your previous activity Non-emergency contact: Primary Care Provider Call non-emergency contact if: your symptoms worsen Follow-up/Referrals: Berry Tan MD [Primary Care Provider] - 11/17/18 2:30 pm (Please, follow up with Dr. Stacey Alarcon on SaturdayNovember 17 at 2:30 pm. ) Diet: Heart Healthy Addtl Provider Instructions: Please return to the hospital if your symptoms return. Keep your follow up appointments. I have decreased your furosemide to once daily instead of twice as your blood pressure has been running a bit low. Please take your blood pressure daily at home and bring a log to your provider so that he can adjust the dosing as needed. As I have decreased your water pill (furosemide), please be sure to weight yourself daily and adhere to the following instructions: Call 911 and go to the Emergency Room if: * You have tightness or pain in your chest that does not go away with rest or Nitroglycerin * You are very short of breath even with rest Call your doctor if any of the following symptoms or problems start or get worse: * Shortness of breath or difficulty breathing * Wake up at night short of breath * Chest pain * Cough * Swelling of your hands, fee, or legs * More fatigued or tired with your normal activity * Palpitations - sudden fast heart beats WEIGHT * Weigh yourself every morning after using the bathroom. * Use the same scale. * Wear the same amount of clothing. * Write your weight down on your chart. * Call your doctor if you gain more than 2-3 pounds in 1-2 days. MEDICATIONS * Use this discharge instruction sheet for instructions. * Take your medications at the time your doctor ordered. * Do not skip a dose of your medicines. * If you miss a dose of medicine, take as soon as possible, but DO NOT DOUBLE A DOSE. * Read your medicine information when you get home. * Know all of the side effects of your medicine. * Call your doctor's office if you have any side effects. * Be sure all of your doctors know what medicine and herbs you take (including cold, flu, and herbal medicine). * Pain Medicine: If you do not get relief from your pain, please call your doctor for help. Take the following with you to your follow-up doctor appointments: * Weight Chart * Medication List * List of questions Do not drink excessive alcohol, beer or wine. Prescriptions: New aspirin 325 mg Tablet,Delayed Release (Dr/Ec) 325 mg PO QAM 30 Days Qty: 30 RF: 0 Continue multivitamin Tablet 1 tab PO QAM RF: 0 sennosides-docusate sodium [Stool Softener-Laxative] 8.6-50 mg Tablet 8.6 mg PO BID RF: 0 isosorbide mononitrate 60 mg tablet extended release 24 hr 60 mg PO QAM RF: 0 pantoprazole 40 mg tablet,delayed release (DR/EC) 40 mg PO BID RF: 0 nitroglycerin [Nitrostat] 0.4 mg Tablet, Sublingual 0.4 mg Sublingual DAILY PRN (Reason: Unknown) RF: 0 metoprolol succinate 25 mg tablet extended release 24 hr 25 mg PO HS RF: 0 ranolazine 500 mg tablet extended release 12 hr 500 mg PO BID RF: 0 gabapentin 100 mg Capsule 100 mg PO BID 30 Days Qty: 60 RF: 0 budesonide 0.5 mg/2 mL suspension for nebulization 1 ml INH Q12H Qty: 60 RF: 3 formoterol fumarate 20 mcg/2 mL solution for nebulization 2 ml INH Q12H Qty: 60 RF: 3 atorvastatin 40 mg Tablet 40 mg PO QAM RF: 0 albuterol sulfate 90 mcg/actuation Hfa Aerosol Inhaler 2 puff INHALATION Q6H PRN (Reason: Shortness Of Breath) RF: 0 pramipexole 0.25 mg tablet 0.25 mg PO HS RF: 0 Changed furosemide 40 mg tablet 40 mg PO DAILY Qty: 0 RF: 0 Discontinued aspirin [Aspir-81] 81 mg Tablet,Delayed Release (Dr/Ec) 81 mg PO QAM RF: 0 Stand-Alone Forms: Medications to Prevent Stroke, My [facility]/Other Patient Handouts: Attack Transient Ischemic Dc Discharge Orders: Discharge Order (Routine); Ordered 11/11/18 Ordered By: Clarissa Garcia Admission Data Admit Date/Time: 11/10/18 12:16 Attending Provider: Mitul Bender Admit Provider: Yissel Mahmood Primary Care Provider: Berry Tan Other Providers: Yissel Mahmood ; Home,Nursing Agency ; Clarissa Garcia Service: Telemetry Medical Other Interventions: Discharge Summary Assessment (RN) Last Done: 11/11/18 15:12 DC Date/Time DO NOT enter until pt leaves facility: 11/11/18 16:00 Supervising Physician Co-Signing Physician Notes WEALTH MANAGEMENT MANAGER Physician Supervision Note: I discussed with Clarissa Garcia WEALTH MANAGEMENT MANAGER and agree with findings and plan as documented in the note. Any exceptions or clarifications are listed here: None Documented By: Mitul Bender
[2018-11-11] MEDS ORDERED: STROKE PATIENT DISCHARGE STA (14:24)
--- NOTE | 2018-11-12 07:34 | Pharmacy Report ---
Pharmacist Stroke Counseling - Date of Service November 12, 2018 - Scope: Pharmacy has been consulted to provide medication discharge counseling for this patient admitted with transient ischemic attack as per the Pharmacist Discharge Counseling for Stroke Patients Protocol. - Medications on Discharge: Home Medications Medication Instructions Recorded Confirmed albuterol sulfate 2 puff INHALATION Q6H PRN 06/17/18 11/10/18 atorvastatin 40 mg PO QAM 06/17/18 11/10/18 isosorbide mononitrate 60 mg PO QAM 10/09/18 11/10/18 metoprolol succinate 25 mg PO HS 10/09/18 11/10/18 multivitamin 1 tab PO QAM 10/09/18 11/10/18 nitroglycerin [Nitrostat] 0.4 mg SUBLINGUAL DAILY PRN 10/09/18 11/10/18 pantoprazole 40 mg PO BID 10/09/18 11/10/18 ranolazine 500 mg PO BID 10/09/18 11/10/18 sennosides-docusate sodium [Stool 8.6 mg PO BID 10/09/18 11/10/18 Softener-Laxative] pramipexole 0.25 mg PO HS 11/10/18 11/10/18 New Rx's Medication Instructions Recorded budesonide 1 ml INH Q12H #60 ml 10/17/18 formoterol fumarate 2 ml INH Q12H #60 ml 10/17/18 gabapentin 100 mg PO BID 30 Days #60 cap 10/17/18 aspirin 325 mg PO QAM 30 Days #30 tab 11/11/18 furosemide 40 mg PO DAILY #0 tab 11/11/18 - Action: The above medications, specifically ones for stroke treatment/prophylaxis, have been reviewed in detail with the patient and his prior to discharge. This includes indication, common adverse reactions, drug interactions, and medication administration. Medication counseling has been employed using the teach-back method to ensure understanding. - Outcome: The patient and/o his have demonstrated understanding of the medications. Please note, they are aware that the pharmacist will call them within 72 hours post-discharge to confirm that the appropriate medications are being taken and answer any further medication related questions the patient might have at that time. Contact information Individual to be contacted: patient Relationship to patient (if applicable): N/A Phone number: [phone] Best time to call: after 9 AM Additional comments: Patient had hematuria while on aspirin 81 mg which resolved. This had occurred three times. Referred to Clarissa Garcia regarding increased dose right now. Patient ultimately discharged on higher dose. Instructed him to monitor himself closely. Patient and his are extremely friendly and knowledgeable. Thank you for allowing pharmacy to be involved in the care of this patient. Please call [phone] or [phone] with any additional questions
--- NOTE | 2018-11-12 14:18 | Pharmacy Report ---
Pharmacist Post D/C Phone Note - Phone Note: Date of phone call: November 12, 2018. Individual with whom pharmacist spoke to: RAMANA DOWNEY & The following questions were reviewed during the phone call with responses listed below each: Can you tell me the medications that you are currently taking as well as when and how you take each medication? -See Table Below When have you missed any doses of your medications? - None What side effects are you having from your medications, specifically, the new medications you were started on? - none What questions do you have about your medications? - none What problems are you having obtaining your medications? - none When is your next appointment with your primary care doctor? - 11/17/18 Additional comments: - home health nurse was in today and said he looked good. As per the Pharmacist Discharge Counseling for Stroke Patients Protocol, this phone call has been completed within 72 hours of discharge. . Thank you for allowing us to be involved in the care of this patient. - Home Medications: Home Medications Medication Instructions Recorded Confirmed albuterol sulfate 2 puff INHALATION Q6H PRN 06/17/18 11/10/18 atorvastatin 40 mg PO QAM 06/17/18 11/10/18 isosorbide mononitrate 60 mg PO QAM 10/09/18 11/10/18 metoprolol succinate 25 mg PO HS 10/09/18 11/10/18 multivitamin 1 tab PO QAM 10/09/18 11/10/18 nitroglycerin [Nitrostat] 0.4 mg SUBLINGUAL DAILY PRN 10/09/18 11/10/18 pantoprazole 40 mg PO BID 10/09/18 11/10/18 ranolazine 500 mg PO BID 10/09/18 11/10/18 sennosides-docusate sodium [Stool 8.6 mg PO BID 10/09/18 11/10/18 Softener-Laxative] pramipexole 0.25 mg PO HS 11/10/18 11/10/18 New Rx's Medication Instructions Recorded budesonide 1 ml INH Q12H #60 ml 10/17/18 formoterol fumarate 2 ml INH Q12H #60 ml 10/17/18 gabapentin 100 mg PO BID 30 Days #60 cap 10/17/18 aspirin 325 mg PO QAM 30 Days #30 tab 11/11/18 furosemide 40 mg PO DAILY #0 tab 11/11/18
== END 2018-11-11 16:00 | disposition home health service (06) | DRG 69 ==
LOC: ED 09:32 → 2N 12:16 → SUATTDRO 12:16 → 2N 12:57

== ENCOUNTER 2018-12-06 03:11 | Observation (INO) ==
[2018-12-06 03:51] LABS: Basophils # (auto) 0.05 K/uL (0-0.2); Basophils % (auto) 0.3 %; Eosinophils # (auto) 0.33 K/uL (0-0.5); Eosinophils % (auto) 2.3 %; Hematocrit (blood only) 34.3 % (42-52); Hemoglobin 11.2 g/dL (14.0-18.0); Immature Granulocytes # (auto) 0.05 K/uL (0.00-0.02); Immature Granulocytes % (auto) 0.3 %; Lymphocytes # (auto) 3.64 K/uL (1.2-3.4); Lymphocytes % (auto) 25.1 %; Mean Corpuscular Hgb Conc 32.7 g/dL (32-36); Mean Corpuscular Volume 100.3 fL (80-100); Monocytes # (auto) 0.79 K/uL (0.11-0.59); Monocytes % (auto) 5.4 %; Neutrophils # (auto) 9.67 K/uL (1.4-6.5); Neutrophils % (auto) 66.6 %; Platelet Count 315 K/uL (130-400); RDW Coefficient of Variation 17.2 % (11.5-14.5); RDW Standard Deviation 62.8 fL (36.4-46.3); Red Blood Count 3.42 M/uL (4.7-6.1); White Blood Count 14.53 K/uL (4.8-10.8)
[2018-12-06 04:01] LABS: Albumin Level 2.4 gm/dl (3.4-5.0); BUN Creatinine Ratio 12.7 (10-20); Calcium 8.5 mg/dl (8.5-10.1); Creatinine Clr Calc Pharmacy 36.4 ml/min; Est GFR (African American) 39.7; Est GFR (Non-African American) 34.3; Magnesium 2.3 mg/dl (1.8-2.4); Potassium 4.8 mmol/L (3.5-5.1)
[2018-12-06 04:06] LABS: Albumin Globulin Ratio 0.5 (0.9-2); Bilirubin,Total 0.4 mg/dl (0.2-1); Globulin 5.2 gm/dl (2.5-4.0); Total Protein 7.6 gm/dl (6.4-8.2)
[2018-12-06 04:07] LABS: Troponin I 0.051 ng/ml (0-0.045)
--- NOTE | 2018-12-06 05:10 | History & Physical Report ---
Date of Service December 06, 2018 Assessment & Plan (1) Syncope: 83 y/o M Hx COPD - 2l 02, CAD - multiple stents, HTN, HLD, CKD III, GERD, diastolic CHF, admission for syncope 06/2018. Pt presents following a syncopal episode which occurred after he got up at night to urinate. He was returning to bed when he lost consciousness and struck his head on the floor. He remained basically unresponsive although possibly semiconscious for a period of 15 minutes per his . He was fully conscious when he arrived in the ER, having a poor recollection of the syncopal episode. He sustained significant trauma to his L eye and an orbital floor fracture was confirmed by CT. The pt denies any preceding CP, SOB, N/V or diaphoresis. No seizure activity was witnessed. His prior episode of syncope in June 2018 followed a similar course and also occurred after he got up to urinate. He wore a halter for 30 days in July and was told that "he never missed a beat". Initial labs are notable for an elevated troponin which appears to be chronic. An EKG is unchanged. 1) Syncope - not likely micturition-related as he had finished urinating on both occasions. Previous ambulatory monitor did not show any significant abnormalities. We will monitor him on telemetry and consult his steam drier tender. We will trend his trop although the elevation appears chronic. He may need EPS testing or an additional stint with an ambulatory monitor. This will be left to the discretion of his steam drier tender. A neurogenic etiology is not likely. 2) Orbital fracture - location is unliley to require intervention 3) COPD - no evidence of exacerbation. Continue prescribed inhalers. 4) CHF - euvolemic on admission - cont Lasix, B elliot 5) CAD - trop elevation appears chronic - we will trend to insure this is not trending up. Cont Statin, ASA, Metoprolol, Imdur. 6) CKD - creatinine is at baseline Full code - SCDs due to orbital fracture/head trauma Total time for this admit including review of labs, meds, imaging, records - discussion with pt and ER attendning - 40 min History of Present Illness Chief Complaint: Syncope, orbital fracture Primary Care Provider: Berry Tan MD 83 y/o M Hx COPD - 2l 02, CAD - multiple stents, HTN, HLD, CKD III, GERD, diastolic CHF, admission for syncope 06/2018. Pt presents following a syncopal episode which occurred after he got up at night to urinate. He was returning to bed when he lost consciousness and struck his head on the floor. He remained basically unresponsive although possibly semiconscious for a period of 15 minutes per his . He was fully conscious when he arrived in the ER, having a poor recollection of the syncopal episode. He sustained significant trauma to his L eye and an orbital floor fracture was confirmed by CT. The pt denies any preceding CP, SOB N/V or diaphoresis. No seizure activity was witnessed. His prior episode of syncope in June 2018 followed a similar course and also occurred after he got up to urinate. He wore a halter for 30 days in July and was told that "he never missed a beat". Initial labs are notable for an elevated troponin which appears to be chronic. An EKG is unchanged. 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 Family: Noncontributory to current complaint Allergies Allergy/AdvReac Type Severity Reaction Status Date / Time Penicillins Allergy Unknown PASSES OUT Verified 12/06/18 03:22 AND LOW HEART RATE Home Medications Home Medications Medication Instructions Recorded Confirmed Type albuterol sulfate 2 puff INHALATION Q6H PRN 06/17/18 12/06/18 History atorvastatin 40 mg PO QAM 06/17/18 12/06/18 History isosorbide mononitrate 60 mg PO QAM 10/09/18 12/06/18 History metoprolol succinate 25 mg PO HS 10/09/18 12/06/18 History multivitamin 1 tab PO QAM 10/09/18 12/06/18 History nitroglycerin [Nitrostat] 0.4 mg SUBLINGUAL DIRECTED PRN 10/09/18 12/06/18 History pantoprazole 40 mg PO BID 10/09/18 12/06/18 History ranolazine 500 mg PO BID 10/09/18 12/06/18 History sennosides-docusate sodium [Stool 8.6 mg PO BID 10/09/18 12/06/18 History Softener-Laxative] budesonide 1 ml INH Q12H #60 ml 10/17/18 12/06/18 Rx pramipexole 0.25 mg PO HS 11/10/18 12/06/18 History aspirin, buffered 325 mg PO DAILY 12/06/18 12/06/18 History fluticasone-salmeterol [Advair 1 inh INHALATION BID 12/06/18 12/06/18 History Diskus] furosemide 40 mg PO BID 12/06/18 12/06/18 History Past Med/Surg History Medical History CHF (congestive heart failure) GERD (gastroesophageal reflux disease) HTN (hypertension) Hyperlipidemia CAD (coronary artery disease) RLS (restless legs syndrome) COPD (chronic obstructive pulmonary disease) (Chronic) 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[place] coronary artery w/angina pectoris (Acute 11/25/14) Coronary arteriosclerosis (Acute 03/30/14) TIA (transient ischemic attack) (Chronic) Social History Preferred Language: Welsh Beliefs That Will Affect Care: None Current Living Situation: Significant Other Current Living Situation Comment: Girlfriend Feels Safe at Home: Yes Smoking Status: Former smoker Hx Alcohol Use: No Hx Substance Use: No Review of Systems Gen: Denies fevers, night sweats, rigors, fatigue, malaise, weight loss/gain ENT: Denies orbital pain or visual loss despite fracture Eyes: Denies acute visual changes CV: Denies CP, palpitations Pulmonary: Denies SOB, cough, wheezing GI: Denies N/V, diarrhea, constipation Neuro: Syncopal episode as above - LOC for up to 15 min Musculoskeletal: Denies joint pain, inflammation Endocrine: Denies polydipsia, polyuria Skin: Denies acute rashes or ulcers Physical Exam Vital Signs (Past 24 Hours): Last Vital Signs Temp 36.4 C L 12/06/18 03:15 Pulse 81 12/06/18 04:45 Resp 18 12/06/18 04:45 BP 106/82 12/06/18 04:45 Pulse Ox 98 12/06/18 04:45 Physical Exam: General: AAO x 3, no distress ENT: No erythema or exudates, no thrush Eyes: JUN, EOMI - conjunctival hemorhage present Head and neck: Periorbital swelling L Chest/heart: Nontender, S1,2, RRR, no murmurs, no gallops Lungs: CTAB, no wheezing or crackles Abdomen: Nontender, nondistended, BS+ Neuro: AAO x 3, speech is clear, no unilateral weakness or loss of sensation, coordination intact Musculoskeletal: No joint inflammation, muscle tenderness, FROM Skin: No acute rashes or ulcers Extremities: No clubbing, cyanosis, edema
--- NOTE | 2018-12-06 06:49 | CT Scan Report ---
CT head/brain wo con CT DOSE: HISTORY: Mental status change syncope TECHNIQUE: Multiaxial CT images of the head were performed without the use of intravenous contrast. A dose lowering technique was utilized adhering to the principles of ALARA. Comparison: 11/10/2018 Findings: The paranasal sinuses and mastoid air cells are clear. The calvarium and skull base are int act. The ventricles and sulci are within normal limits. There is no mass, hematoma, midline shift, or acute infarct. Age-related atrophy and chronic small vessel change Impression: No acute intracranial abnormality. Age-related change. The above report was generated using voice recognition software. It may contain grammatical, syntax or spelling errors. Electronically signed by: Oscar Handley M.D. 12/06/2018 6:48 AM
--- NOTE | 2018-12-06 06:59 | CT Scan Report ---
CT facial bones wo con CT DOSE: HISTORY: Trauma eval for left orbital fx TECHNIQUE: Multiaxial CT images of the maxillofacial region were performed and reformatted in the cor onal plane without the use of contrast. A dose lowering technique was utilized adhering to the princ iples of KEVIN. COMPARISON: None. FINDINGS: The visualized cervical spine, skull base, pterygoid plates, nasal bones, lamina papyracea, orbital floors, mandible, and zygomatic arches are intact. No fractures. The orbits are unremarkable . Moderate generalized degenerative change of the bony structures throughout. Moderate mucosal [place]ke [place] of the left and to lesser extent right maxillary sinus. Mild hyperplastic changes the nasal turb inates. IMPRESSION: No acute process. Degenerative change is noted. The above report was generated using voice recognition software. It may contain grammatical, syntax or spelling errors. Electronically signed by: Oscar Handley M.D. 12/06/2018 6:57 AM
--- NOTE | 2018-12-06 07:01 | CT Scan Report ---
CT cervical spine wo con CT DOSE: 1739.57 mGy.cm HISTORY: Trauma fall TECHNIQUE: Multiaxial CT images of the cervical spine were performed and reformatted in the sagittal and coronal plane without the use of contrast. A dose lowering technique was utilized adhering to th e principles of ALARA. COMPARISON: None. FINDINGS: No fractures. No subluxation. Prevertebral soft tissues and the C1-C2 interval are intact. No pneumothorax. Generalized degenerative change IMPRESSION: No fractures within the cervical spine. Degenerative change The above report was generated using voice recognition software. It may contain grammatical, syntax or spelling errors. Electronically signed by: Oscar Handley M.D. 12/06/2018 7:00 AM
[2018-12-06] MEDS ORDERED: ALBUTEROL HFA 8 GM INHALER INH PRN (07:58)
[2018-12-06] MEDS ORDERED: NITROGLYCERIN SL 0.4 MG/TAB TAB SL PRN (07:58)
[2018-12-06] MEDS: FLUTICASONE/SALMETEROL 250/50 (ADVAIR) 14 PUFF/1 INHALER INH SCH ×2 (08:51→20:09)
[2018-12-06] MEDS: ASPIRIN/ALUM/MAGNES/CAL CARB 325 MG TAB PO SCH (08:51)
[2018-12-06] MEDS: ISOSORBIDE MONO EXTENDED REL 60 MG TABCR PO SCH (08:51)
[2018-12-06] MEDS: RANOLAZINE 500 MG ER TAB PO SCH ×2 (08:52→20:10)
[2018-12-06] MEDS: FUROSEMIDE 40 MG TAB PO SCH ×2 (08:52→20:13)
[2018-12-06] MEDS: DOCUSATE SODIUM/SENNA 50/8.6MG TAB PO SCH ×2 (08:52→20:11)
[2018-12-06] MEDS: PANTOprazole 40 MG TAB PO SCH ×2 (08:53→20:11)
[2018-12-06] MEDS: ATORVASTATIN 40 MG TAB PO SCH (08:53)
[2018-12-06 10:58] LABS: Appearance Urine Clear (Clear); Bacteria Urine Automated Negative (Negative); Bilirubin Urine Negative (Negative); Blood Urine Negative (Negative); Color Urine Dark Yellow; Glucose Urine UA Negative (Negative); Ketones Urine Negative (Negative); Leukocyte Esterase Urine Trace (Negative); Nitrite Urine Negative (Negative); Protein Urine 1+ (Negative); RBC Urine Automated 0-4 /hpf (0-4); Specific Gravity Urine 1.025 (1.000-1.030); Urobilinogen Urine Negative (Negative); pH Urine 6.5 (4.5-7.5)
[2018-12-06] MEDS: BUDESONIDE 0.5 MG/2 ML VIAL (PULMICORT) INH SCH ×2 (11:20→19:05)
--- NOTE | 2018-12-06 14:15 | Cardiology Consultation ---
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 Initial episode occurred back in June 2018. Would recommend continued the monitoring on telemetry. We could consider implantation of a loop recorder. We will discuss further with the electrophysiology team. (2) Elevated troponin: The patient's troponin I level is mildly elevated and has been recognized as a chronic finding. May be related to his renal insufficiency. No need for further cardiac evaluation at this time. (3) Coronary artery disease: The patient has stents within the mid LAD and left circumflex coronary artery. He has not experienced any exertional angina pectoris on his current medical regimen. No changes necessary at this time. (4) Aortic stenosis: Aortic stenosis was mild in degree along with mild to moderate aortic insufficiency on an echocardiogram performed last month. History of Present Illness Attending Physician: Torin Steward History of Present Illness Mr. Cosme is an 83-year-old male admitted earlier today after an episode of traumatic syncope. This consultation was ordered to assist his cardiac management. Of note, the patient follows with Cardiology within the [facility]. The patient was in his usual state of health until earlier this morning. The patient awoke and walked to the bathroom to urinate. On walking back to bed, the patient had an episode of syncope falling and injuring his left eye causing an orbital fracture. Although the patient's memory of the event is incomplete, he does not recall any premorbid symptoms. He specifically denies chest discomfort, shortness of breath, nausea, vomiting, and diaphoresis. The patient had a similar event back in June of 2018. The patient [place], and experienced an episode of syncope while walking to his truck. Again, there were no premorbid symptoms. The patient underwent extensive evaluation which was unremarkable. He also wore a 30 day event monitor which was unrevealing according to his report. The patient was admitted here last month with a TIA. His workup included a negative MRI of the brain and negative MRA of the neck. He was found to have less than 50% stenoses of the internal carotid arteries bilaterally. An echocardiogram noted normal left ventricular systolic function, mild aortic s tenosis, mild to moderate aortic insufficiency, and left ventricular hypertrophy. The patient's coronary artery disease has been quiescent. He had a drug-eluting stent placed in the mid LAD in November 2014. He also had a drug-eluting stent placed in the left circumflex in May 2015. Only other disease noted at that time was 60% stenosis in the small diagonal branch. Fortunately, he does not experience exertional angina pectoris or limiting dyspnea. Currently, patient is resting comfortably in bed without complaints. Past medical history 1. Coronary artery disease-see above 2. LAD JENNIFER-November 2014 3. LCx JENNIFER-May 2015 4. Mild aortic stenosis-November 2018 5. Mild to moderate aortic insufficiency 6. Mild LVH 7. Hypertension 8. Hypercholesterolemia 9. Chronically elevated troponin I level 10. Diastolic CHF 11. Syncope-June 2018 12. COPD 13. Chronic renal failure 14. GERD 15. TIA-November 2018 Social history The patient is lives with his Does not use tobacco or alcohol. Family history Noncontributory Review of systems A 10 point review of systems was negative except for that described above. Allergies Allergy/AdvReac Type Severity Reaction Status Date / Time Penicillins Allergy Unknown PASSES OUT Verified 12/06/18 03:22 AND LOW HEART RATE Home Medications Home Medications Medication Instructions Recorded Confirmed Type albuterol sulfate 2 puff INHALATION Q6H PRN 06/17/18 12/06/18 History atorvastatin 40 mg PO QAM 06/17/18 12/06/18 History isosorbide mononitrate 60 mg PO QAM 10/09/18 12/06/18 History metoprolol succinate 25 mg PO HS 10/09/18 12/06/18 History multivitamin 1 tab PO QAM 10/09/18 12/06/18 History nitroglycerin [Nitrostat] 0.4 mg SUBLINGUAL DIRECTED PRN 10/09/18 12/06/18 History pantoprazole 40 mg PO BID 10/09/18 12/06/18 History ranolazine 500 mg PO BID 10/09/18 12/06/18 History sennosides-docusate sodium [Stool 8.6 mg PO BID 10/09/18 12/06/18 History Softener-Laxative] budesonide 1 ml INH Q12H #60 ml 10/17/18 12/06/18 Rx pramipexole 0.25 mg PO HS 11/10/18 12/06/18 History aspirin, buffered 325 mg PO DAILY 12/06/18 12/06/18 History fluticasone-salmeterol [Advair 1 inh INHALATION BID 12/06/18 12/06/18 History Diskus] furosemide 40 mg PO BID 12/06/18 12/06/18 History Patient History Medical History CHF (congestive heart failure) GERD (gastroesophageal reflux disease) HTN (hypertension) Hyperlipidemia CAD (coronary artery disease) RLS (restless legs syndrome) COPD (chronic obstructive pulmonary disease) (Chronic) 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hughes coronary artery w/angina pectoris (Acute 11/25/14) Coronary arteriosclerosis (Acute 03/30/14) TIA (transient ischemic attack) (Chronic) Social History Preferred Language: Citizen Of [place] Communication Ability: Effective Comprehensive Ophthalmologist Required: No Beliefs That Will Affect Care: None Current Living Situation: Significant Other Current Living Situation Comment: Girlfriend Other Information That Helps Us Care for You: No Feels Safe at Home: Yes Safety Concerns: Feels Safe At This Time Smoking Status: Former smoker Hx Alcohol Use: No Hx Substance Use: No Physical Exam Vital Signs (Past 24 Hours): Last Vital Signs Temp 36.3 C L 12/06/18 12:12 Pulse 92 H 12/06/18 12:12 Resp 18 12/06/18 12:12 BP 119/74 12/06/18 12:12 Pulse Ox 97 12/06/18 12:12 Physical Exam: In general is well-developed well-nourished white male in no acute distress. HEENT exam notes ecchymosis across the left orbit. Ecchymosis also noted of the left eye. Extraocular motion intact. Neck is supple with full carotid upstrokes. No obvious bruits. Jugular venous pressure is flat 90. No thyromegaly. Cardiovascular exam reveals a regular rhythm with distant heart sounds. A 1/6 basal systolic ejection murmur is noted. No S3 or S4. Lungs are clear without rales, rhonchi or wheezes. Abdomen is soft nontender without bruises. Extremities reveal intact radial artery pulses bilaterally. Trace pedal edema is noted bilaterally. Results & Data Laboratory Results CBC notes a hemoglobin of 11.2, hematocrit 34.3, white count 14.5, platelet count 315 1000. Electrolytes notice of 140, potassium 4.8, chloride 106, bicarb 30, BUN 23, creatinine 1.8, glucose 99. Initial troponin was 0.051 follow-up positive 0.057 and 0.058. Diagnostic Findings EKG notes sinus rhythm with a first-degree AV block, low voltage, and nonspecific T-wave abnormality. telemetry monitor is benign.
[2018-12-06] MEDS: PRAMIPEXOLE DIHYDROCHLO 0.25 MG TAB PO SCH (20:10)
[2018-12-06] MEDS: METOPROLOL SUCC 25MG EXT REL TAB PO SCH (20:11)
[2018-12-06] MEDS ORDERED: Nursing to Pharmacy Communication ONE (21:46)
--- NOTE | 2018-12-07 01:15 | Emergency Department Note ---
Entered by Edward Dewey acting as a scribe for Margaret Ashley DO History of Present Illness General Chief complaint: Fall Time Seen by Provider: 12/06/18 03:18 Source: patient and family () History of Present Illness Onset (ago): hour(s) (prior to arrival) Location: face (fall) Pain Consistency: + other (episode) Maximum Pain Intensity: 0 Exacerbated By: + none Associated symptoms: + denies other symptoms (neck pain, facial pain, chest pain) and + shortness of breath The patient is a 83 year old M who presents to the Emergency Room with complaints of an episode of a fall that occurred prior to arrival. The patient initially states that he does not know what happened. He adds that he passed out coming back from the bathroom to his bed. He notes that he normally uses a cane but did not use it today. The patients states that her daughter called that the patient was lying on the ground on his stomach. She notes that the patient might have fell and hit his eye on the side of his bed or on the heater. She notes that the patient does not have any current mental health issues The patient states that he is a little short of breath. He denies having neck pain, facial pain, and chest pain. The patients states that the patient has a history of COPD and a TIA. She adds that the patient currently takes Plavix. Home Medications Home Medications Medication Instructions Recorded Confirmed Type albuterol sulfate 2 puff INHALATION Q6H PRN 06/17/18 12/06/18 History atorvastatin 40 mg PO QAM 06/17/18 12/06/18 History isosorbide mononitrate 60 mg PO QAM 10/09/18 12/06/18 History metoprolol succinate 25 mg PO HS 10/09/18 12/06/18 History multivitamin 1 tab PO QAM 10/09/18 12/06/18 History nitroglycerin [Nitrostat] 0.4 mg SUBLINGUAL DIRECTED PRN 10/09/18 12/06/18 History pantoprazole 40 mg PO BID 10/09/18 12/06/18 History ranolazine 500 mg PO BID 10/09/18 12/06/18 History sennosides-docusate sodium [Stool 8.6 mg PO BID 10/09/18 12/06/18 History Softener-Laxative] budesonide 1 ml INH Q12H #60 ml 10/17/18 12/06/18 Rx pramipexole 0.25 mg PO HS 11/10/18 12/06/18 History aspirin, buffered 325 mg PO DAILY 12/06/18 12/06/18 History furosemide 40 mg PO BID 12/06/18 12/06/18 History Allergies Allergy/AdvReac Type Severity Reaction Status Date / Time Penicillins Allergy Unknown PASSES OUT Verified 12/06/18 03:22 AND LOW HEART RATE Past Med/Surg History Medical History CHF (congestive heart failure) GERD (gastroesophageal reflux disease) HTN (hypertension) Hyperlipidemia CAD (coronary artery disease) RLS (restless legs syndrome) COPD (chronic obstructive pulmonary disease) (Chronic) 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 and A total of 10 systems reviewed and were otherwise negative Physical Exam Vital Signs Vital Signs - 24 hr 12/06/18 03:15 12/06/18 04:04 12/06/18 04:45 Temperature 36.4 C L Temperature Source Oral Sepsis Recent Fever Within 48 Hours No Sepsis Action Taken by Nursing No Action Required Pulse Rate 91 H Pulse Rate [Right Finger] 81 Pulse Rhythm Regular Pulse Rhythm [Right Finger] Regular Pulse Strength Normal Pulse Strength [Right Finger] Normal Respiratory Rate 18 18 Respiratory Effort / Characteristics Non-Labored Non-Labored Spontaneous Respiratory Depth Normal Normal Respiratory Pattern Regular Blood Pressure 113/73 Blood Pressure [Right Arm] 106/82 Blood Pressure Mean 86 Blood Pressure Mean [Right Arm] 90 Blood Pressure Position Sitting Blood Pressure Position [Right Arm] Pulse Oximetry 98 98 98 Oxygen Delivery Method Nasal Cannula Room Air Room Air Oxygen Flow Rate 3 12/06/18 05:41 12/06/18 06:45 12/06/18 07:30 Temperature Temperature Source Sepsis Recent Fever Within 48 Hours Sepsis Action Taken by Nursing Pulse Rate 79 Pulse Rate [Right Finger] 80 Pulse Rhythm Pulse Rhythm [Right Finger] Regular Pulse Strength Pulse Strength [Right Finger] Normal Respiratory Rate 18 16 Respiratory Effort / Characteristics Non-Labored Spontaneous Non-Labored Spontaneous Respiratory Depth Normal Normal Respiratory Pattern Regular Regular Blood Pressure 104/61 Blood Pressure [Right Arm] 97/59 L Blood Pressure Mean Blood Pressure Mean [Right Arm] 71 Blood Pressure Position Blood Pressure Position [Right Arm] Pulse Oximetry 99 98 Oxygen Delivery Method Room Air Nasal Cannula Room Air Oxygen Flow Rate 3 12/06/18 07:58 12/06/18 11:20 12/06/18 11:30 Temperature 36.4 C L Temperature Source Oral Sepsis Recent Fever Within 48 Hours Sepsis Action Taken by Nursing Pulse Rate 78 Pulse Rate [Right Finger] 86 78 Pulse Rhythm Pulse Rhythm [Right Finger] Regular Pulse Strength Pulse Strength [Right Finger] Normal Respiratory Rate 18 18 Respiratory Effort / Characteristics Non-Labored Spontaneous Non-Labored Spontaneous Non-Labored Spontaneous SOB on Exertion Respiratory Depth Normal Normal Respiratory Pattern Regular Regular Blood Pressure Blood Pressure [Right Arm] 127/75 Blood Pressure Mean Blood Pressure Mean [Right Arm] 92 Blood Pressure Position Blood Pressure Position [Right Arm] Sitting Pulse Oximetry 100 98 Oxygen Delivery Method Nasal Cannula Nasal Cannula Nasal Cannula Oxygen Flow Rate 2 3 2 12/06/18 12:12 12/06/18 15:20 12/06/18 16:00 Temperature 36.3 C L 36.4 C L Temperature Source Oral Oral Sepsis Recent Fever Within 48 Hours Sepsis Action Taken by Nursing Pulse Rate Pulse Rate [Right Finger] 92 H 83 Pulse Rhythm Pulse Rhythm [Right Finger] Regular Pulse Strength Pulse Strength [Right Finger] Normal Respiratory Rate 18 18 Respiratory Effort / Characteristics Non-Labored Respiratory Depth Normal Normal Normal Respiratory Pattern Regular Blood Pressure Blood Pressure [Right Arm] 119/74 100/65 Blood Pressure Mean Blood Pressure Mean [Right Arm] 89 76 Blood Pressure Position Blood Pressure Position [Right Arm] Sitting Lying Pulse Oximetry 97 99 Oxygen Delivery Method Room Air Nasal Cannula Oxygen Flow Rate 3 12/06/18 19:07 12/06/18 19:24 12/06/18 20:31 Temperature 36.7 C Temperature Source Oral Sepsis Recent Fever Within 48 Hours Sepsis Action Taken by Nursing Pulse Rate Pulse Rate [Right Finger] 83 85 Pulse Rhythm Pulse Rhythm [Right Finger] Pulse Strength Pulse Strength [Right Finger] Respiratory Rate 20 17 Respiratory Effort / Characteristics Non-Labored Spontaneous Non-Labored Spontaneous SOB on Exertion Respiratory Depth Normal Respiratory Pattern Regular Blood Pressure Blood Pressure [Right Arm] 111/75 Blood Pressure Mean Blood Pressure Mean [Right Arm] 87 Blood Pressure Position Blood Pressure Position [Right Arm] Lying Pulse Oximetry 98 99 Oxygen Delivery Method Nasal Cannula Nasal Cannula Nasal Cannula Oxygen Flow Rate 3 3 2 12/07/18 00:00 Temperature 36.7 C Temperature Source Oral Sepsis Recent Fever Within 48 Hours Sepsis Action Taken by Nursing Pulse Rate Pulse Rate [Right Finger] 81 Pulse Rhythm Pulse Rhythm [Right Finger] Pulse Strength Pulse Strength [Right Finger] Respiratory Rate 18 Respiratory Effort / Characteristics Respiratory Depth Normal Respiratory Pattern Blood Pressure Blood Pressure [Right Arm] 112/67 Blood Pressure Mean Blood Pressure Mean [Right Arm] 82 Blood Pressure Position Blood Pressure Position [Right Arm] Lying Pulse Oximetry 99 Oxygen Delivery Method Nasal Cannula Oxygen Flow Rate 2.0 HEENT: Head - normocephalic. Pupils are equal, round, and reactive to light. Extraocular eye muscles are intact and sclera are anicteric. Significant left eye hyphema, subconjunctival hemorrhage, 3cm curvalinear abrasion beneath left eye, contusion to lateral left eye extending up to left temporal region. Ears - bilaterally patent canals with no evidence of hemotympanum. Nose - moist nasal mucosa without evidence of trauma or discharge. Mouth - moist buccal mucosa with no trauma to the teeth or signs of malocclusion. Neck: The cervical collar was removed while in-line stabilization was main tained. The neck is supple and there is no pain to palpation over the posterior cervical spine and no obvious step-offs or deformities. There is no JVD or tracheal deviation. Chest: There are no signs of deformities, contusions or abrasions to the chest wall. There is no obvious crepitus or paradoxical chest rise. Heart: Regular, rate, and rhythm. There is a normal S1 and S2 with no murmurs, clicks, or gallops appreciated. Lungs: Clear to auscultation bilaterally with no wheezes, rales, or rhonchi. Abdomen: Soft, completely nontender, nondistended, with good bowel sounds. There is no sign of trauma such as contusions, abrasions or penetrations. There are no palpable pulsatile masses or hepatosplenomegaly. There is no guarding, rigidity, or rebound noted. Pelvis: Stable to rock and compression. Extremities: No obvious trauma, deformities, contusions, or edema. There are easily palpable peripheral pulses. Neuro: The patient is awake and alert and easily able to follow commands. Muscle strength is 5 out of 5 in all 4 extremities. Otherwise, neuro exam is unremarkable. Back: The entire thoracic, lumbar, and sacral spine were palpated. There are no obvious step-offs or deformities noted. There are no obvious signs of trauma such as contusions abrasions penetrations noted to the back. Course 0328: Past medical records reviewed. The patient was evaluated in room B2, and a complete history and physical examination were performed. Laboratory studies were drawn as above. A twelve-lead EKG was obtained as described above. Patient went for CT scan of the brain, cervical spine, and facial bones. 0451: I re-evaluated the patient and updated him on his test results. The patient states that he is willing to be admitted. 0458: I reviewed the patient's case with Dr. Loi Bingham, [facility] Hospitalist. He will evaluate the patient for further management. Consultations Consultation #1: I reviewed the patient's case with Dr. Loi Bingham, [facility] Hospitalist. He will evaluate the patient for further management. Time: 04:54 Administered Medications Aspirin Buffered (Ascriptin) 325 mg PO DAILY [facility] Stop: 01/05/19 08:59 Last Admin: 12/06/18 08:51 Dose: 325 mg Documented by: [id number] Atorvastatin Calcium (Lipitor) 40 mg PO QAM [facility] Stop: 01/05/19 08:59 Last Admin: 12/06/18 08:53 Dose: 40 mg Documented by: [id number] Budesonide (Pulmicort Respules) 0.25 mg INH Q12R [facility] Stop: 01/05/19 07:59 Last Admin: 12/06/18 19:05 Dose: 0.25 mg Documented by: [id number] Admin: 12/06/18 11:20 Dose: 0.5 mg Documented by: [id number] Isosorbide Mononitrate (Imdur Extended Rel) 60 mg PO QAM [facility] Stop: 01/05/19 08:59 Last Admin: 12/06/18 08:51 Dose: 60 mg Documented by: [id number] Metoprolol Succinate (Toprol Xl) 25 mg PO HS [facility] Stop: 01/05/19 20:59 Last Admin: 12/06/18 20:11 Dose: 25 mg Documented by: [id number] Pantoprazole Sodium (Protonix) 40 mg PO BID [facility] Stop: 01/05/19 08:59 Last Admin: 12/06/18 20:11 Dose: 40 mg Documented by: [id number] Admin: 12/06/18 08:53 Dose: 40 mg Documented by: [id number] Pramipexole Dihydrochloride (Mirapex) 0.25 mg PO HS [facility] Stop: 01/05/19 20:59 Last Admin: 12/06/18 20:10 Dose: 0.25 mg Documented by: [id number] Ranolazine (Ranexa) 500 mg PO BID [facility] Stop: 01/05/19 08:59 Last Admin: 12/06/18 20:10 Dose: 500 mg Documented by: [id number] Admin: 12/06/18 08:52 Dose: 500 mg Documented by: [id number] Fluticasone/Salmeterol (Advair Diskus 250/50) 1 puffs INH BID [facility] Stop: 01/05/19 08:59 Last Admin: 12/06/18 20:09 Dose: 1 puffs Documented by: [id number] Admin: 12/06/18 08:51 Dose: Not Given Documented by: [id number] Senna/Docusate Sodium (Senokot S) 1 tab PO BID [facility] Stop: 01/05/19 08:59 Last Admin: 12/06/18 20:11 Dose: 1 tab Documented by: [id number] Admin: 12/06/18 08:52 Dose: 1 tab Documented by: [id number] Discontinued Medications Furosemide (Lasix) 40 mg PO BID [facility] Stop: 01/05/19 08:59 Last Admin: 12/06/18 20:13 Dose: Not Given Documented by: [id number] Admin: 12/06/18 08:52 Dose: 40 mg Documented by: [id number] Medical Decision Making Differential Diagnosis Differential Diagnosis includes: orbital fracture, facial fracture, head injury, c-spine fracture, syncope, cardiac dysrhythmia, and mechanical fall Medical Records Attestation: I reviewed the patient's medical records. Home Medications Current Medication List: was personally reviewed by me Laboratory Data Attestation: I reviewed the patient's lab results. Result diagrams: 12/06/18 02:52 12/06/18 02:52 Lab Results 12/06/18 12/06/18 12/06/18 Range/Units 02:52 02:52 08:14 WBC 14.53 H (4.8-10.8) K/uL RBC 3.42 L (4.7-6.1) M/uL Hgb 11.2 L (14.0-18.0) g/dL Hct 34.3 L (42-52) % MCV 100.3 H (80-100) fL MCH 32.7 (25-34) pg MCHC 32.7 (32-36) g/dL RDW Std Deviation 62.8 H (36.4-46.3) fL RDW Coeff of Tim 17.2 H (11.5-14.5) % Plt Count 315 (130-400) K/uL MPV 10.0 (7.4-10.4) fL Immature Gran % (Auto) 0.3 % Neut % (Auto) 66.6 % Lymph % (Auto) 25.1 % Parmer % (Auto) 5.4 % Eos % (Auto) 2.3 % Baso % (Auto) 0.3 % Immature Gran # (Auto) 0.05 H (0.00-0.02) K/uL Neut # (Auto) 9.67 H (1.4-6.5) K/uL Lymph # (Auto) 3.64 H (1.2-3.4) K/uL Parmer # (Auto) 0.79 H (0.11-0.59) K/uL Eos # (Auto) 0.33 (0-0.5) K/uL Baso # (Auto) 0.05 (0-0.2) K/uL Sodium 140 (136-145) mmol/L Potassium 4.8 (3.5-5.1) mmol/L Chloride 106 (98-107) mmol/L Carbon Dioxide 30 (21-32) mmol/L Anion Gap 4.0 (3-11) BUN 23 H (7-18) mg/dl Creatinine 1.80 H (0.6-1.4) mg/dl Est Cr Clr Drug Dosing 36.4 ml/min Est GFR ( Amer) 39.7 Est GFR (Non-Af Amer) 34.3 BUN/Creatinine Ratio 12.7 (10-20) Glucose 99 (70-99) mg/dl Calcium 8.5 (8.5-10.1) mg/dl Magnesium 2.3 (1.8-2.4) mg/dl Total Bilirubin 0.4 (0.2-1) mg/dl AST 21 (15-37) U/L ALT 20 (12-78) U/L Alkaline Phosphatase 96 (45-117) U/L Troponin I 0.051 H* 0.057 H* (0-0.045) ng/ml Total Protein 7.6 (6.4-8.2) gm/dl Albumin 2.4 L (3.4-5.0) gm/dl Globulin 5.2 H (2.5-4.0) gm/dl Albumin/Globulin Ratio 0.5 L (0.9-2) Specimen Hemolysis Urine Color Urine Appearance (Clear) Urine pH (4.5-7.5) Ur Specific Ethridge (1.000-1.030) Urine Protein (Negative) Urine Glucose (UA) (Negative) Urine Ketones (Negative) Urine Blood (Negative) Urine Nitrite (Negative) Urine Bilirubin (Negative) Urine Urobilinogen (Negative) Ur Leukocyte Esterase (Negative) Urine WBC (Auto) (0-5) /hpf Urine RBC (Auto) (0-4) /hpf U Hyaline Cast (Auto) (0-5) /lpf U Epithel Cells (Auto) (0-5) /lpf Urine Bacteria (Auto) (Negative) 12/06/18 12/06/18 Range/Units 10:20 12:05 WBC (4.8-10.8) K/uL RBC (4.7-6.1) M/uL Hgb (14.0-18.0) g/dL Hct (42-52) % MCV (80-100) fL MCH (25-34) pg MCHC (32-36) g/dL RDW Std Deviation (36.4-46.3) fL RDW Coeff of Tim (11.5-14.5) % Plt Count (130-400) K/uL MPV (7.4-10.4) fL Immature Gran % (Auto) % Neut % (Auto) % Lymph % (Auto) % Parmer % (Auto) % Eos % (Auto) % Baso % (Auto) % Immature Gran # (Auto) (0.00-0.02) K/uL Neut # (Auto) (1.4-6.5) K/uL Lymph # (Auto) (1.2-3.4) K/uL Parmer # (Auto) (0.11-0.59) K/uL Eos # (Auto) (0-0.5) K/uL Baso # (Auto) (0-0.2) K/uL Sodium (136-145) mmol/L Potassium (3.5-5.1) mmol/L Chloride (98-107) mmol/L Carbon Dioxide (21-32) mmol/L Anion Gap (3-11) BUN (7-18) mg/dl Creatinine (0.6-1.4) mg/dl Est Cr Clr Drug Dosing ml/min Est GFR ( Amer) Est GFR (Non-Af Amer) BUN/Creatinine Ratio (10-20) Glucose (70-99) mg/dl Calcium (8.5-10.1) mg/dl Magnesium (1.8-2.4) mg/dl Total Bilirubin (0.2-1) mg/dl AST (15-37) U/L ALT (12-78) U/L Alkaline Phosphatase (45-117) U/L Troponin I 0.058 H* (0-0.045) ng/ml Total Protein (6.4-8.2) gm/dl Albumin (3.4-5.0) gm/dl Globulin (2.5-4.0) gm/dl Albumin/Globulin Ratio (0.9-2) Specimen Hemolysis Urine Color Dark Yellow Urine Appearance Clear (Clear) Urine pH 6.5 (4.5-7.5) Ur Specific Ethridge 1.025 (1.000-1.030) Urine Protein 1+ H (Negative) Urine Glucose (UA) Negative (Negative) Urine Ketones Negative (Negative) Urine Blood Negative (Negative) Urine Nitrite Negative (Negative) Urine Bilirubin Negative (Negative) Urine Urobilinogen Negative (Negative) Ur Leukocyte Esterase Trace H (Negative) Urine WBC (Auto) 1-5 (0-5) /hpf Urine RBC (Auto) 0-4 (0-4) /hpf U Hyaline Cast (Auto) 1-5 (0-5) /lpf U Epithel Cells (Auto) 5-10 H (0-5) /lpf Urine Bacteria (Auto) Negative (Negative) Imaging Data Radiologist's Impression: CT Head: Negative CT Facial: Nondisplaced left orbital floor fracture CT C Spine: Negative ECG Data Attestation: I personally reviewed and interpreted this ECG as follows: Indication: syncope Rate (beats per minute): 85 Rhythm: normal sinus Findings: + 1st degree AV block; no acute ischemic change and no ectopy Comparison ECG Date: from (11/10/18) Change: no significant change Blood Pressure Blood Pressure Findings: Normal blood pressure Blood Pressure Disposition: did not require urgent referral MDM Narrative The patient is a 83 year old M who presents to the ED with complaints of an epis ode of a fall that occurred prior to arrival. Differential diagnosis includes orbital fracture, facial fracture, head injury, c-spine fracture, syncope, cardiac dysrhythmia, and mechanical fall. The patient describes another recent episode of syncope. He describes falling to the ground in a parking lot after running back into the building to urinate. His PCP felt that he may be suffering from micturition syncope. This could be the source of what happened tonight as well. I remain somewhat concerned as the patient did pass out, follow the ground, and fracture his left orbit. The patient does have an elevated troponin. This has been elevated in the past during previous visits. The patient has had a recent visit to the hospital for a TIA. He has no strokelike symptoms here today. I discussed the case with the [facility] Hospitalist and they will evaluate for further management. Impression & Plan Syncope, Elevated troponin, Orbital fracture Discharge Plan Visit Data *Final* Discharge Date/Time: 12/06/18 07:30 Chief Complaint: Fall ED Provider: Margaret Ashley Discharge Problem: Syncope, Elevated troponin, Orbital fracture Patient Disposition: Admitted As Inpatient Discharge Instructions Interventions: ED Discharge Assessment Last Done: 12/06/18 07:30 Discharge Problem: Syncope Qualifiers: Syncope type: unspecified Qualified Code(s): R55 - Syncope and collapse Orbital fracture Qualifiers: Encounter type: initial encounter Fracture type: closed Qualified Code(s): S02.80XA - Fracture of other specified skull and facial bones, unspecified side, initial encounter for closed fracture The scribe's documentation has been prepared under my direction and personally reviewed by me in its entirety. I confirm that the note above accurately reflects all work, treatment, procedures, and medical decision making performed by me.
[2018-12-07] MEDS: BUDESONIDE 0.5 MG/2 ML VIAL (PULMICORT) INH SCH ×2 (07:17→19:08)
[2018-12-07] MEDS: PANTOprazole 40 MG TAB PO SCH ×2 (07:56→20:06)
[2018-12-07] MEDS: ASPIRIN/ALUM/MAGNES/CAL CARB 325 MG TAB PO SCH (07:56)
[2018-12-07] MEDS: ATORVASTATIN 40 MG TAB PO SCH (07:56)
[2018-12-07] MEDS: ISOSORBIDE MONO EXTENDED REL 60 MG TABCR PO SCH (07:56)
[2018-12-07] MEDS: FUROSEMIDE 40 MG TAB PO SCH ×2 (07:57→16:15)
[2018-12-07] MEDS: RANOLAZINE 500 MG ER TAB PO SCH ×2 (07:57→20:05)
[2018-12-07] MEDS: FLUTICASONE/SALMETEROL 250/50 (ADVAIR) 14 PUFF/1 INHALER INH SCH ×2 (07:57→20:07)
[2018-12-07] MEDS: DOCUSATE SODIUM/SENNA 50/8.6MG TAB PO SCH ×2 (07:57→20:06)
--- NOTE | 2018-12-07 13:14 | Cardiology Progress Note ---
Date of Service December 07, 2018 Assessment & Plan (1) Syncope: This represents the patient's 2nd episode of post micturition syncope. Initial episode occurred back in June 2018. We will discuss the possibility of loop recorder with Dr. Rojas tomorrow. (2) Elevated troponin: The patient's troponin I level is mildly elevated and is a chronic finding. This may be related to his chronic renal insufficiency. (3) Coronary artery disease: The patient has stents within the mid LAD and left circumflex coronary artery, both placed back in 2014.. He has not experienced any exertional angina pectoris on his current medical regimen. No changes necessary at this time. (4) Aortic stenosis: Aortic stenosis is mild in degree as noted on an echocardiogram performed last month. Was also found have mild to moderate aortic insufficiency. Subjective The patient is resting comfortably in the bedside chair without complaints of chest pain or dyspnea. No recurrent syncope. Physical Exam Vital Signs (Past 24 Hours): Last Vital Signs Temp 36.4 C L 12/07/18 11:34 Pulse 79 12/07/18 11:34 Resp 20 12/07/18 11:34 BP 103/68 12/07/18 11:34 Pulse Ox 98 12/07/18 11:34 Physical Exam: In general is well-developed well-nourished white male in no acute distress. HEENT exam notes ecchymosis across the left orbit. Ecchymosis also noted of the left eye and sclera. Neck is supple with full carotid upstrokes. No obvious bruits. Jugular venous pressure is flat 90. No thyromegaly. Cardiovascular exam reveals a regular rhythm with distant heart sounds. A 1/6 basal systolic ejection murmur is noted. No S3 or S4. Lungs are clear without rales, rhonchi or wheezes. Abdomen is soft nontender without bruises. Extremities reveal intact radial artery pulses bilaterally. Trace pedal edema is noted bilaterally. Results & Data Diagnostic Findings personnel monitor notes sinus rhythm with a first-degree AV block. No pauses were appropriate bradycardias.
[2018-12-07] MEDS: PRAMIPEXOLE DIHYDROCHLO 0.25 MG TAB PO SCH (20:05)
[2018-12-07] MEDS: METOPROLOL SUCC 25MG EXT REL TAB PO SCH (20:07)
--- NOTE | 2018-12-07 22:10 | Hospitalist Progress Note ---
Date of Service December 07, 2018 Assessment & Plan (1) Syncope: 83 y/o M Hx COPD - 2l 02, CAD - multiple stents, HTN, HLD, CKD III, GERD, diastolic CHF, admission for syncope 06/2018. Pt presents following a syncopal episode which occurred after he got up at night to urinate. He was returning to bed when he lost consciousness and struck his head on the floor. He remained basically unresponsive although possibly semiconscious for a period of 15 minutes per his . He was fully conscious when he arrived in the ER, having a poor recollection of the syncopal episode. He sustained significant trauma to his L eye and an orbital floor fracture was confirmed by CT. The pt denies any preceding CP, SOB, N/V or diaphoresis. No seizure activity was witnessed. His prior episode of syncope in June 2018 followed a similar course and also occurred after he got up to urinate. He wore a halter for 30 days in July and was told that "he never missed a beat". Initial labs are notable for an elevated troponin which appears to be chronic. An EKG is unchanged. 1) Syncope - not likely micturition-related as he had finished urinating on both occasions. Previous ambulatory monitor did not show any significant abnormalities. We will monitor him on telemetry and consult his aml analyst. We will trend his trop although the elevation appears chronic. Patient will have a loop recorder placed tomorrow. Appreciate cardio input. 2) Orbital fracture - location is unliley to require intervention 3) COPD - no evidence of exacerbation. Continue prescribed inhalers. 4) CHF - euvolemic on admission - cont Lasix, B elliot 5) CAD - trop elevation appears chronic - we will trend to insure this is not trending up. Cont Statin, ASA, Metoprolol, Imdur. 6) CKD - creatinine is at baseline Full code - SCDs due to orbital fracture/head trauma Spent 25 minutes in management of patient. Subjective Patient reports feeling well. Patient has loop recorder scheduled for tomorrow. Patient denies nausea, vomiting, chest pain, SOB. Physical Exam Vital Signs (Past 24 Hours): Last Vital Signs Temp 36.6 C 12/07/18 19:56 Pulse 91 H 12/07/18 19:56 Resp 18 12/07/18 19:56 BP 110/67 12/07/18 19:56 Pulse Ox 99 12/07/18 19:56 Physical Exam: General: AAO x 3, no distress ENT: No erythema or exudates, no thrush Eyes: JUN, EOMI - conjunctival hemorhage present Head and neck: Periorbital swelling L Chest/heart: Nontender, S1,2, RRR, no murmurs, no gallops Lungs: CTAB, no wheezing or crackles Abdomen: Nontender, nondistended, BS+ Neuro: AAO x 3, speech is clear, no unilateral weakness or loss of sensation, c oordination intact Musculoskeletal: No joint inflammation, muscle tenderness, FROM Skin: No acute rashes or ulcers Extremities: No clubbing, cyanosis, edema
[2018-12-08 06:26] LABS: Basophils # (auto) 0.04 K/uL (0-0.2); Basophils % (auto) 0.3 %; Eosinophils # (auto) 0.37 K/uL (0-0.5); Hematocrit (blood only) 32.5 % (42-52); Hemoglobin 10.3 g/dL (14.0-18.0); Immature Granulocytes # (auto) 0.04 K/uL (0.00-0.02); Immature Granulocytes % (auto) 0.3 %; Lymphocytes # (auto) 2.79 K/uL (1.2-3.4); Lymphocytes % (auto) 22.6 %; Mean Corpuscular Hgb Conc 31.7 g/dL (32-36); Mean Corpuscular Volume 98.8 fL (80-100); Mean Platelet Volume 9.9 fL (7.4-10.4); Monocytes # (auto) 0.79 K/uL (0.11-0.59); Monocytes % (auto) 6.4 %; Neutrophils # (auto) 8.29 K/uL (1.4-6.5); Neutrophils % (auto) 67.4 %; Platelet Count 261 K/uL (130-400); RDW Coefficient of Variation 17.3 % (11.5-14.5); RDW Standard Deviation 62.1 fL (36.4-46.3); Red Blood Count 3.29 M/uL (4.7-6.1); White Blood Count 12.32 K/uL (4.8-10.8)
[2018-12-08] MEDS: BUDESONIDE 0.5 MG/2 ML VIAL (PULMICORT) INH SCH (07:05)
[2018-12-08 07:07] LABS: BUN Creatinine Ratio 13.4 (10-20); Est GFR (African American) 45.8; Est GFR (Non-African American) 39.5
[2018-12-08] MEDS: DOCUSATE SODIUM/SENNA 50/8.6MG TAB PO SCH (08:54)
[2018-12-08] MEDS: PANTOprazole 40 MG TAB PO SCH (08:54)
[2018-12-08] MEDS: ISOSORBIDE MONO EXTENDED REL 60 MG TABCR PO SCH (08:55)
[2018-12-08] MEDS: ASPIRIN/ALUM/MAGNES/CAL CARB 325 MG TAB PO SCH (08:55)
[2018-12-08] MEDS: RANOLAZINE 500 MG ER TAB PO SCH (08:55)
[2018-12-08] MEDS: ATORVASTATIN 40 MG TAB PO SCH (08:55)
[2018-12-08] MEDS: FUROSEMIDE 40 MG TAB PO SCH ×2 (08:56→17:28)
[2018-12-08] MEDS: FLUTICASONE/SALMETEROL 250/50 (ADVAIR) 14 PUFF/1 INHALER INH SCH ×2 (08:56→08:59)
--- NOTE | 2018-12-08 11:12 | Cardiology Progress Note ---
Date of Service December 08, 2018 Assessment & Plan (1) Syncope: This represents the patient's 2nd episode of post micturition syncope. Initial episode occurred back in June 2018. Will likely proceed with a loop recorder later today. (2) Elevated troponin: The patient's troponin I level is mildly elevated chronically. This may be related to his chronic renal insufficiency. (3) Coronary artery disease: The patient has stents within the mid LAD and left circumflex coronary artery, both placed back in 2014. He has not experienced any exertional angina pectoris on his current medical regimen. (4) Aortic stenosis: Aortic stenosis is mild in degree on an echocardiogram performed last month. Was also found have mild to moderate aortic insufficiency. Subjective The patient is resting comfortably in the bed without complaints of chest pain or dyspnea. No recurrent syncope. Physical Exam Vital Signs (Past 24 Hours): Last Vital Signs Temp 37.1 C 12/08/18 07:10 Pulse 90 12/08/18 07:10 Resp 18 12/08/18 07:10 BP 122/75 12/08/18 07:10 Pulse Ox 97 12/08/18 07:10 Physical Exam: In general is well-developed well-nourished white male in no acute distress. HEENT exam notes ecchymosis across the left orbit. Ecchymosis also noted of the left orbit and sclera. Neck is supple with full carotid upstrokes. No obvious bruits. Jugular venous pressure is flat 90. No thyromegaly. Cardiovascular exam reveals a regular rhythm with distant heart sounds. A 1/6 basal systolic ejection murmur is noted. No S3 or S4. Lungs are clear without rales, rhonchi or wheezes. Abdomen is soft nontender without bruises. Extremities reveal intact radial artery pulses bilaterally. Trace pe eamon edema is noted bilaterally. Results & Data Laboratory Results Laboratory Results - last 24 hr 12/08/18 12/08/18 06:14 06:14 WBC 12.32 H RBC 3.29 L Hgb 10.3 L Hct 32.5 L MCV 98.8 MCH 31.3 MCHC 31.7 L RDW Std Deviation 62.1 H RDW Coeff of Tim 17.3 H Plt Count 261 MPV 9.9 Immature Gran % (Auto) 0.3 Neut % (Auto) 67.4 Lymph % (Auto) 22.6 [place] % (Auto) 6.4 Eos % (Auto) 3.0 Baso % (Auto) 0.3 Immature Gran # (Auto) 0.04 H Neut # (Auto) 8.29 H Lymph # (Auto) 2.79 [place] # (Auto) 0.79 H Eos # (Auto) 0.37 Baso # (Auto) 0.04 Sodium 140 Potassium 4.0 Chloride 103 Carbon Dioxide 29 Anion Gap 8.0 BUN 22 H Creatinine 1.60 H Est Cr Clr Drug Dosing 40.0 Est GFR ( Amer) 45.8 Est GFR (Non-Af Amer) 39.5 BUN/Creatinine Ratio 13.4 Glucose 85 Calcium 9.0 Diagnostic Findings artificial inseminator notes sinus rhythm with first-degree AV block.
[2018-12-08] MEDS ORDERED: COUGH DROP (SUGAR FREE) LOZ 24 LOZ/1 BOX BUCCAL ONE (11:58)
[2018-12-08] MEDS ORDERED: COUGH DROP (SUGAR FREE) LOZ 24 LOZ/1 BOX BUCCAL PRN (12:04)
[2018-12-08] MEDS ORDERED: BACITRACIN OINT 0.9 GM PKT ONE (12:43)
[2018-12-08] MEDS ORDERED: LIDOCAINE HCL 1% 20 ML VIAL ONE (12:43)
--- NOTE | 2018-12-08 12:59 | History & Physical Bridge Note ---
Date of Service December 08, 2018 History & Physical Bridge Note I have examined the patient, reviewed the History & Physical and in the interval since the performance of the History & Physical I have noted the following changes of clinical significance: no changes noted. I reviewed the indications, procedure, risks and alternatives of loop recorder implantation with patient and he understands and agrees to proceed. Consent obtained. No sedation required.
[2018-12-08] MEDS ORDERED: CLINDAMYCIN 600 MG/54 ML BAG IV SCH (13:00)
--- NOTE | 2018-12-08 17:36 | Operative Report ---
Post Operative Report Pre & Post Diagnosis Operation Date: 12/08/18 13:00 Pre-Op Diagnosis: syncope Postop diagnosis: Same Procedure Operation Date: 12/08/18 13:00 Actual Procedures p Implant Cardiac Event Recorder(Left) - Tomasz Rojas MD Surgeon Tomasz Rojas MD System Consultant None Estimated Blood Loss 2 Findings Consistent with Post-Op Diagnosis Good implant position Specimens None Complications none Disposition Accompanied Patient To Recovery: No Disposition: PCU Description of Procedure After obtaining informed consent for the procedure, the patient was brought to the laboratory. The patient was prepped and draped in the standard sterile manner for a loop recorder implantation. An area at the fourth left intercostal space and 1 cm left of the left sternal border was infiltrated with 1% lidocaine local anesthetic and a 0.5 cm incision was made through the skin. Using the loop recorder insertion tool the loop recorder was inserted through the incision at a 30 downward and leftward angle. The incision was closed with a subcutaneous continuous closure of 4-0 Vicryl followed by a running subcuticular skin closure of 4-0 Vicryl. Bacitracin ointment was placed on the incision. A dressing was applied. I attest to the content of the Intraoperative Record and any orders documented therein. Any exceptions are noted below.
--- NOTE | 2018-12-15 07:30 | Discharge Summary ---
Date of Service December 08, 2018 Admission HPI Per Admitting Provider 83 y/o M Hx COPD - 2l 02, CAD - multiple stents, HTN, HLD, CKD III, GERD, diastolic CHF, admission for syncope 06/2018. Pt presents following a syncopal episode which occurred after he got up at night to urinate. He was returning to bed when he lost consciousness and struck his head on the floor. He remained basically unresponsive although possibly semiconscious for a period of 15 minutes per his . He was fully conscious when he arrived in the ER, having a poor recollection of the syncopal episode. He sustained significant trauma to his L eye and an orbital floor fracture was confirmed by CT. The pt denies any preceding CP, SOB N/V or diaphoresis. No seizure activity was witnessed. His prior episode of syncope in June 2018 followed a similar course and also occurred after he got up to urinate. He wore a halter for 30 days in July and was told that "he never missed a beat". Initial labs are notable for an elevated troponin which appears to be chronic. An EKG is unchanged. 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 9) Impressive 1' AV block Surgical: Cath x 2 - 2014 Social: retired team truck driver Family: Noncontributory to current complaint Principal Diagnosis Syncope Discharge Exam General: AAO x 3, no distress ENT: No erythema or exudates, no thrush Eyes: JUN, EOMI - conjunctival hemorhage present Head and neck: Periorbital swelling L Chest/heart: Nontender, S1,2, RRR, no murmurs, no gallops Lungs: CTAB, no wheezing or crackles Abdomen: Nontender, nondistended, BS+ Neuro: AAO x 3, speech is clear, no unilateral weakness or loss of sensation, coordination intact Musculoskeletal: No joint inflammation, muscle tenderness, FROM Skin: No acute rashes or ulcers Extremities: No clubbing, cyanosis, edema Discharge Data Allergies Allergy/AdvReac Type Severity Reaction Status Date / Time Penicillins Allergy Unknown PASSES OUT Verified 12/10/18 07:23 AND LOW HEART RATE Consultations 12/06/18 04:53 ED Decision to Admit Stat 12/06/18 07:58 Consult Cardiology Stat Procedures Performed Operation Date: 12/08/18 13:00 Actual Procedures p Implant Cardiac Event Recorder(Left) - Tomasz Rojas MD Ordered Studies 12/06/18 03:35 CT cervical spine wo con Urgent CT facial bones wo con Urgent 12/06/18 03:36 CT head/brain wo con Urgent Hospital Course (1) Syncope: 83 y/o M Hx COPD - 2l 02, CAD - multiple stents, HTN, HLD, CKD III, GERD, diastolic CHF, admission for syncope 06/2018. Pt presents following a syncopal episode which occurred after he got up at night to urinate. He was returning to bed when he lost consciousness and struck his head on the floor. He remained basically unresponsive although possibly semiconscious for a period of 15 minutes per his . He was fully conscious when he arrived in the ER, having a poor recollection of the syncopal episode. He sustained significant trauma to his L eye and an orbital floor fracture was confirmed by CT. The pt denies any preceding CP, SOB, N/V or diaphoresis. No seizure activity was witnessed. His prior episode of syncope in June 2018 followed a similar course and also occurred after he got up to urinate. He wore a halter for 30 days in July and was told that "he never missed a beat". Initial labs are notable for an elevated troponin which appears to be chronic. An EKG is unchanged. 1) Syncope - not likely micturition-related as he had finished urinating on both occasions. Previous ambulatory monitor did not show any significant abnormalities. He was monitored on tele. We will trend his trop although the elevation appears chronic. Patient had a loop recorder placed during hospital sta. Appreciate cardio input. - Syncope: This represents the patient's 2nd episode of post micturition syncope. Initial episode occurred back in June 2018. Will likely proceed with a loop recorder later today. - Elevated troponin: The patient's troponin I level is mildly elevated chronically. This may be related to his chronic renal insufficiency. - Coronary artery disease: The patient has stents within the mid LAD and left circumflex coronary artery, both placed back in 2014. He has not experienced any exertional angina pectoris on his current medical regimen. - Aortic stenosis: Aortic stenosis is mild in degree on an echocardiogram performed last month. Was also found have mild to moderate aortic insufficiency. 2) Orbital fracture - location is unliley to require intervention 3) COPD - no evidence of exacerbation. Continue prescribed inhalers. 4) CHF - euvolemic - cont Lasix, B elliot 5) CAD - trop elevation appears chronic - Cont Statin, ASA, Metoprolol, Imdur. 6) CKD - creatinine is at baseline Full code - SCDs due to orbital fracture/head trauma Patient is requesting to be discharged. Total Time Total Time Spent Total Time Spent (In Minutes): 31 Total Time Includes: Examination of the Patient, Discharge Planning and Medication Reconciliation Discharge Plan Discharge Items Patient Disposition: Home - Home Health Services Reason For Visit: syncope Discharge Diagnosis: Syncope Discharge Goals: Decrease discomfort Activity: Resume your previous activity Non-emergency contact: Primary Care Provider Call non-emergency contact if: you have any medication questions Follow-up/Referrals: Berry Tan MD [Primary Care Provider] - 12/15/18 3:00 pm (Please, follow up with Dr. Stacey Alarcon on SaturdayDecember 15 at 3:00 pm. *If you need to change this appointment, call the office at [phone].) Diet: Heart Healthy Addtl Provider Instructions: Patient will followup with Cardio and primary care provider as an outpatient. You are being evaluated with a loop recorder. Prescriptions: Continued multivitamin Tablet 1 tab PO QAM RF: 0 sennosides-docusate sodium [Stool Softener-Laxative] 8.6-50 mg Tablet 8.6 mg PO BID RF: 0 isosorbide mononitrate 60 mg tablet extended release 24 hr 60 mg PO QAM RF: 0 pantoprazole 40 mg tablet,delayed release (DR/EC) 40 mg PO BID RF: 0 nitroglycerin [Nitrostat] 0.4 mg Tablet, Sublingual 0.4 mg Sublingual DIRECTED PRN (Reason: Chest Pain) RF: 0 metoprolol succinate 25 mg tablet extended release 24 hr 25 mg PO HS RF: 0 ranolazine 500 mg tablet extended release 12 hr 500 mg PO BID RF: 0 budesonide 0.5 mg/2 mL suspension for nebulization 1 ml INH Q12H Qty: 60 RF: 3 atorvastatin 40 mg Tablet 40 mg PO QAM RF: 0 albuterol sulfate 90 mcg/actuation Hfa Aerosol Inhaler 2 puff INHALATION Q6H PRN (Reason: Shortness Of Breath) RF: 0 pramipexole 0.25 mg tablet 0.25 mg PO HS RF: 0 furosemide 40 mg tablet 40 mg PO BID RF: 0 aspirin, buffered 325 mg Tablet 325 mg PO DAILY RF: 0 Stand-Alone Forms: Replaced By [facility] Discharge Orders: Discharge Order (Routine); Ordered 12/08/18 Ordered By: Torin Steward Admission Data Admit Date/Time: 12/06/18 06:32 Attending Provider: Torin Steward Admit Provider: Loi Bingham Primary Care Provider: Berry Tan Other Providers: Loi Bingham ; Catalino Hooper ; Home,Nursing Agency Service: Telemetry Other Interventions: Discharge Summary Assessment (RN) Last Done: 12/08/18 18:46 DC Date/Time DO NOT enter until pt leaves facility: 12/08/18 19:15
== END 2018-12-08 19:15 | disposition home health service (06) ==
LOC: 2S 03:11 → ED 03:11 → SUATTDRO 06:32 → 2S 07:30

== ENCOUNTER 2018-12-10 06:36 | Inpatient (IN) ==
[2018-12-10 07:27] LABS: Basophils # (auto) 0.01 K/uL (0-0.2); Basophils % (auto) 0.1 %; Eosinophils # (auto) 0.28 K/uL (0-0.5); Eosinophils % (auto) 2.7 %; Hematocrit (blood only) 31.6 % (42-52); Hemoglobin 10.1 g/dL (14.0-18.0); Immature Granulocytes # (auto) 0.04 K/uL (0.00-0.02); Immature Granulocytes % (auto) 0.4 %; Lymphocytes # (auto) 1.59 K/uL (1.2-3.4); Lymphocytes % (auto) 15.6 %; Mean Corpuscular Volume 99.1 fL (80-100); Mean Platelet Volume 10.1 fL (7.4-10.4); Monocytes # (auto) 0.71 K/uL (0.11-0.59); Neutrophils # (auto) 7.56 K/uL (1.4-6.5); Neutrophils % (auto) 74.2 %; Platelet Count 228 K/uL (130-400); RDW Coefficient of Variation 17.5 % (11.5-14.5); RDW Standard Deviation 62.6 fL (36.4-46.3); Red Blood Count 3.19 M/uL (4.7-6.1); White Blood Count 10.19 K/uL (4.8-10.8)
--- NOTE | 2018-12-10 07:35 | XRay Report ---
XR chest 1V portable CLINICAL HISTORY: 83 years-old Male presenting with Chest Pain. TECHNIQUE: Portable upright AP view of the chest was obtained. COMPARISON: Chest CT from 10/12/2018 and chest x-ray from 11/20/2018. FINDINGS: Atherosclerosis of the aortic arch. Cardiac silhouette top normal in size. Diffusely coarsened lung m arkings with mildly low lung volume. Persistent vague opacity most pronounced in the left lung base. Degenerative changes of the thoracic spine. IMPRESSION: 1. Persistent vague left basilar opacity on background of chronic lung disease. Chest CT would shiraz r demonstrate the true extent of residual infiltrates that were present on prior CT examination from October. Electronically signed by: Bharath Roldan M.D. 12/10/2018 7:34 AM
[2018-12-10 07:45] LABS: Albumin Level 2.4 gm/dl (3.4-5.0); BUN Creatinine Ratio 13.5 (10-20); Calcium 8.6 mg/dl (8.5-10.1); Creatinine Clr Calc Pharmacy 36.8 ml/min; Est GFR (African American) 41.1; Est GFR (Non-African American) 35.5; Magnesium 2.1 mg/dl (1.8-2.4)
[2018-12-10 07:57] LABS: Albumin Globulin Ratio 0.5 (0.9-2); Bilirubin,Total 0.6 mg/dl (0.2-1); Globulin 4.6 gm/dl (2.5-4.0); Troponin I 0.047 ng/ml (0-0.045)
[2018-12-10] MEDS ORDERED: SODIUM CHLORIDE 0.9% 1000ML 1,000 ML IV SCH (08:30)
[2018-12-10 08:34] LABS: INR 1.1 (0.9-1.1); Partial Thromboplastin Ratio 0.9; Partial Thromboplastin Time 25.5 Seconds (21.0-31.0); Prothrombin Time 11.6 Seconds (9.0-12.0)
[2018-12-10] MEDS ORDERED: ICU PROTOCOL FOR HYPERGLYCEMIA PRN (08:52)
[2018-12-10] MEDS ORDERED: NITROGLYCERIN SL 0.4 MG/TAB TAB SL PRN (08:58)
[2018-12-10] MEDS ORDERED: ALBUTEROL HFA 8 GM INHALER INH PRN (08:58)
--- NOTE | 2018-12-10 09:06 | History & Physical Report ---
Date of Service December 10, 2018 Assessment & Plan (1) Syncope: He has had recurrent syncope, this is similar to what he had before. On this occasion he is seen to have asystole on his loop recorder. (2) Sinus pause: He had either sinus arrest or complete heart block, from the available recordings I cannot tell for sure but I do not see atrial activity. In either case he had prolonged asystole requiring several chest compressions before he awoke. At this point he needs a pacemaker, I discussed this with him and his family who are present at the bedside in the emergency room. I discussed the indications, procedure, risks and alternatives and they understand and agree to proceed. I will admit him to the ICU with an external pacemaker on standby in case this happens again. We will proceed with pacemaker implantation as soon as we can schedule it. (3) Elevated troponin: He has a slightly elevated troponin, similar to what he had before. This is probably consistent to his renal insufficiency and is minimally elevated. If anything it would be demand ischemia from his event. I would not pursue further evaluation. (4) CKD (chronic kidney disease): He has chronic kidney disease and his current creatinine is in a similar range to what he had during his recent hospitalization. I will not further evaluate. History of Present Illness Chief Complaint: Loss of consciousness Primary Care Provider: Berry Tan MD This is an 83-year-old male who has a history of several episodes of syncope, he was recently admitted with an episode however the cause was not clear and he was monitored for several days with no arrhythmia identified. He therefore had an implantable loop recorder placed on December 08, 2018. He was sent home that day, during the night he went to the bathroom, then his noticed that he was unresponsive and she could not wake him up, a neighbor came over and administered several chest compressions and he awoke. His loop recorder was interrogated in the emergency room and he was noted to have asystole, P waves are not easy to discern and I cannot tell whether this is complete heart block or atrial asystole. He had a very poor escape rhythm. He awoke without difficulty in the emergency room is awake and alert. Allergies Allergy/AdvReac Type Severity Reaction Status Date / Time Penicillins Allergy Unknown PASSES OUT Verified 12/10/18 07:23 AND LOW HEART RATE Home Medications Home Medications Medication Instructions Recorded Confirmed Type albuterol sulfate 2 puff INHALATION Q6H PRN 06/17/18 12/10/18 History atorvastatin 40 mg PO QAM 06/17/18 12/10/18 History isosorbide mononitrate 60 mg PO QAM 10/09/18 12/10/18 History metoprolol succinate 25 mg PO HS 10/09/18 12/10/18 History multivitamin 1 tab PO QAM 10/09/18 12/10/18 History nitroglycerin [Nitrostat] 0.4 mg SUBLINGUAL DIRECTED PRN 10/09/18 12/10/18 History pantoprazole 40 mg PO BID 10/09/18 12/10/18 History ranolazine 500 mg PO BID 10/09/18 12/10/18 History sennosides-docusate sodium [Stool 8.6 mg PO BID 10/09/18 12/10/18 History Softener-Laxative] budesonide 1 ml INH Q12H #60 ml 10/17/18 12/10/18 Rx pramipexole 0.25 mg PO HS 11/10/18 12/10/18 History aspirin, buffered 325 mg PO DAILY 12/06/18 12/10/18 History furosemide 40 mg PO BID 12/06/18 12/10/18 History Past Med/Surg History Medical History CHF (congestive heart failure) GERD (gastroesophageal reflux disease) HTN (hypertension) Hyperlipidemia CAD (coronary artery disease) RLS (restless legs syndrome) COPD (chronic obstructive pulmonary disease) (Chronic) 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[place] coronary artery w/angina pectoris (Acute 11/25/14) Coronary arteriosclerosis (Acute 03/30/14) TIA (transient ischemic attack) (Chronic) Family History Father Heart attack Other No pertinent family history Social History Preferred Language: Faroese Beliefs That Will Affect Care: None marital status: Life Partner Current Living Situation: Significant Other Current Living Situation Comment: Girlfriend Feels Safe at Home: Yes Smoking Status: Former smoker Hx Alcohol Use: No Hx Substance Use: No Review of Systems All systems reviewed & are unremarkable except as noted in HPI & below Physical Exam Vital Signs (Past 24 Hours): Last Vital Signs Temp 36.4 C L 12/10/18 06:45 Pulse 82 12/10/18 08:30 Resp 19 12/10/18 08:30 BP 101/69 12/10/18 08:30 Pulse Ox 98 12/10/18 08:30 Physical Exam: Constitutional: Alert, cooperative and in no distress. HEENT: Unremarkable Neck: No jugular venous distention, carotid pulses are normal and equal bilaterally without bruits. Pulmonary: Clear to auscultation bilaterally. Cardiac: Regular rhythm with no murmur, gallop or rub. Abdomen: Soft, nontender with normal bowel sounds. Extremities: No edema. Distal pulses intact. Neurologic: No focal findings. Gait is steady. Skin: No rash, ecchymoses or petechiae. (1) Syncope Syncope type: unspecified Qualified Code(s): R55 - Syncope and collapse (2) CKD (chronic kidney disease) Chronic kidney disease stage: unspecified stage Qualified Code(s): N18.9 - Chronic kidney disease, unspecified
--- NOTE | 2018-12-10 10:11 | Emergency Department Note ---
Entered by Lady Vergara acting as a scribe for Gregory Lebron MD History of Present Illness General Chief complaint: Cardiac Assessment Source: patient and other (nursing staff) History of Present Illness Provider complaint: an episode of unresponsiveness Onset (ago): hour(s) (this morning) Location: left and right Quality: + other (unresponsive) Associated symptoms: + syncope; no fever/chills and no nausea/vomiting The patient is a white 83 year old male w/ PMHx of hypoxia, aortic stenosis, CHF, COPD, CAD, HTN, and GERD who presents to the ED w/ an episode of unresponsiveness this morning. The patient currently denies having any pain. He states that he must have passed out and that he does not remember. The patient currently denies having any chills, nausea, or vomiting. The patient does report having swelling in his legs but states that this is chronic. He states that he is a former smoker and that he last smoked about 9 years ago. The patient states that he has been taking his medication. Per nursing staff, the patient was admitted here several days ago for a syncopal episode. Nursing staff states that the patient's girlfriend heard the patient gasp, saw that he was rubio, and was then unresponsive. Nursing staff states that the patient's neighbor performed compressions on him and then he became responsive. Review of EMR shows that Dr. Rojas put in an implantable cardiac event recorder on December 08. The patient was discharged on the same day. He suffered an orbital fracture the last time he passed out. Home Medications Home Medications Medication Instructions Recorded Confirmed Type albuterol sulfate 2 puff INHALATION Q6H PRN 06/17/18 12/10/18 History atorvastatin 40 mg PO QAM 06/17/18 12/10/18 History isosorbide mononitrate 60 mg PO QAM 10/09/18 12/10/18 History metoprolol succinate 25 mg PO HS 10/09/18 12/10/18 History multivitamin 1 tab PO QAM 10/09/18 12/10/18 History nitroglycerin [Nitrostat] 0.4 mg SUBLINGUAL DIRECTED PRN 10/09/18 12/10/18 History pantoprazole 40 mg PO BID 10/09/18 12/10/18 History ranolazine 500 mg PO BID 10/09/18 12/10/18 History sennosides-docusate sodium [Stool 8.6 mg PO BID 10/09/18 12/10/18 History Softener-Laxative] budesonide 1 ml INH Q12H #60 ml 10/17/18 12/10/18 Rx pramipexole 0.25 mg PO HS 11/10/18 12/10/18 History aspirin, buffered 325 mg PO DAILY 12/06/18 12/10/18 History furosemide 40 mg PO BID 12/06/18 12/10/18 History Allergies Allergy/AdvReac Type Severity Reaction Status Date / Time Penicillins Allergy Unknown PASSES OUT Verified 12/10/18 07:23 AND LOW HEART RATE Past Med/Surg History Medical History CHF (congestive heart failure) GERD (gastroesophageal reflux disease) HTN (hypertension) Hyperlipidemia CAD (coronary artery disease) RLS (restless legs syndrome) COPD (chronic obstructive pulmonary disease) (Chronic) 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[place] coronary artery w/angina pectoris (Acute 11/25/14) Coronary arteriosclerosis (Acute 03/30/14) TIA (transient ischemic attack) (Chronic) Family History Father Heart attack Other No pertinent family history Social History Preferred Language: Yakut Communication Ability: Effective Business Employment Specialist Required: No Beliefs That Will Affect Care: None marital status: Life Partner Current Living Situation: Significant Other Current Living Situation Comment: Girlfriend Feels Safe at Home: Yes Safety Concerns: Feels Safe At This Time Smoking Status: Former smoker Hx Alcohol Use: No Hx Substance Use: No Review of Systems See HPI for pertinent positives & negatives. and A total of 10 systems reviewed and were otherwise negative Physical Exam Vital Signs Vital Signs - 24 hr 12/10/18 06:45 12/10/18 06:53 12/10/18 06:56 Temperature 36.4 C L Temperature Source Oral Sepsis Recent Fever Within 48 Hours No Sepsis New/Unexplained Change in Mental Status No Sepsis Action Taken by Nursing No Action Required Pulse Rate 85 Pulse Rate [Right Finger] 80 Pulse Rhythm [Right Finger] Pulse Strength [Right Finger] Respiratory Rate 15 16 Respiratory Effort / Characteristics Non-Labored Spontaneous Non-Labored Respiratory Depth Normal Normal Respiratory Pattern Blood Pressure 92/61 L Blood Pressure [Right Arm] 85/58 L Blood Pressure Mean 71 Blood Pressure Mean [Right Arm] 67 Blood Pressure Position [Right Arm] Pulse Oximetry 94 94 99 Oxygen Delivery Method Nasal Cannula Nasal Cannula Nasal Cannula Oxygen Flow Rate 2 0 2 12/10/18 07:00 12/10/18 07:15 12/10/18 07:30 Temperature Temperature Source Sepsis Recent Fever Within 48 Hours Sepsis New/Unexplained Change in Mental Status Sepsis Action Taken by Nursing Pulse Rate Pulse Rate [Right Finger] 80 78 80 Pulse Rhythm [Right Finger] Pulse Strength [Right Finger] Respiratory Rate 20 16 18 Respiratory Effort / Characteristics Non-Labored Non-Labored Respiratory Depth Normal Normal Respiratory Pattern Blood Pressure Blood Pressure [Right Arm] 88/61 L 87/60 L 95/61 L Blood Pressure Mean Blood Pressure Mean [Right Arm] 70 69 72 Blood Pressure Position [Right Arm] Pulse Oximetry 97 97 98 Oxygen Delivery Method Nasal Cannula Nasal Cannula Nasal Cannula Oxygen Flow Rate 2 2 2 12/10/18 08:00 12/10/18 08:30 12/10/18 09:00 Temperature Temperature Source Sepsis Recent Fever Within 48 Hours Sepsis New/Unexplained Change in Mental Status Sepsis Action Taken by Nursing Pulse Rate 84 Pulse Rate [Right Finger] 80 82 81 Pulse Rhythm [Right Finger] Pulse Strength [Right Finger] Respiratory Rate 18 19 14 Respiratory Effort / Characteristics Non-Labored Non-Labored Non-Labored Respiratory Depth Normal Normal Normal Respiratory Pattern Regular Blood Pressure Blood Pressure [Right Arm] 89/59 L 101/69 102/73 Blood Pressure Mean Blood Pressure Mean [Right Arm] 69 79 82 Blood Pressure Position [Right Arm] Pulse Oximetry 100 98 98 Oxygen Delivery Method Nasal Cannula Nasal Cannula Nasal Cannula Oxygen Flow Rate 2 2 2 12/10/18 09:30 12/10/18 09:40 12/10/18 10:00 Temperature Temperature Source Sepsis Recent Fever Within 48 Hours Sepsis New/Unexplained Change in Mental Status Sepsis Action Taken by Nursing Pulse Rate 82 Pulse Rate [Right Finger] 83 82 Pulse Rhythm [Right Finger] Regular Pulse Strength [Right Finger] Normal Respiratory Rate 14 14 17 Respiratory Effort / Characteristics Non-Labored Non-Labored Spontaneous Respiratory Depth Normal Normal Respiratory Pattern Regular Blood Pressure Blood Pressure [Right Arm] 99/70 L 102/73 Blood Pressure Mean Blood Pressure Mean [Right Arm] 79 82 Blood Pressure Position [Right Arm] Lying Pulse Oximetry 98 98 100 Oxygen Delivery Method Nasal Cannula Nasal Cannula Nasal Cannula Oxygen Flow Rate 2 2 2 12/10/18 10:18 12/10/18 11:00 12/10/18 12:00 Temperature 36.3 C L Temperature Source Oral Sepsis Recent Fever Within 48 Hours Sepsis New/Unexplained Change in Mental Status Sepsis Action Taken by Nursing Pulse Rate Pulse Rate [Right Finger] 84 84 83 Pulse Rhythm [Right Finger] Regular Regular Pulse Strength [Right Finger] Normal Normal Respiratory Rate 18 15 17 Respiratory Effort / Characteristics Non-Labored Spontaneous Non-Labored Spontaneous Non-Labored Spontaneous Respiratory Depth Normal Normal Respiratory Pattern Regular Regular Blood Pressure Blood Pressure [Right Arm] 98/61 L 112/72 Blood Pressure Mean Blood Pressure Mean [Right Arm] 73 85 Blood Pressure Position [Right Arm] Lying Lying Pulse Oximetry 96 98 97 Oxygen Delivery Method Nasal Cannula Nasal Cannula Nasal Cannula Oxygen Flow Rate 2 2 2 12/10/18 13:00 12/10/18 14:00 Temperature Temperature Source Sepsis Recent Fever Within 48 Hours Sepsis New/Unexplained Change in Mental Status Sepsis Action Taken by Nursing Pulse Rate Pulse Rate [Right Finger] 93 H 100 H Pulse Rhythm [Right Finger] Regular Regular Pulse Strength [Right Finger] Normal Normal Respiratory Rate 17 16 Respiratory Effort / Characteristics Non-Labored Spontaneous Non-Labored Spontaneous Respiratory Depth Normal Normal Respiratory Pattern Regular Regular Blood Pressure Blood Pressure [Right Arm] 106/68 104/65 Blood Pressure Mean Blood Pressure Mean [Right Arm] 80 78 Blood Pressure Position [Right Arm] Lying Lying Pulse Oximetry 95 96 Oxygen Delivery Method Nasal Cannula Nasal Cannula Oxygen Flow Rate 2 2 GENERAL: Well appearing, well nourished, NAD, non-toxic. Nasal cannula in place. EYE EXAM: Some mild chemosis of the left eye. PERRL, no anisocoria and EOM's grossly intact w/o pain OROPHARYNX: No exudate, posterior pharynx is clear, no tonsillar/uvular deviation or swelling. NECK: Supple, no nuchal rigidity, no adenopathy, non-tender. No signs of meningismus. LUNGS: Clear to auscultation bilaterally. Normal chest wall mechanics. HEART: Normal sinus rhythm. Faint systolic ejection murmur. CHEST: Device in the left chest with bandage covering. ABDOMEN: Abdomen soft, non-tender, no masses, no rebound or guarding. BACK: No CVA TTP. SKIN: No rashes and no bruising. UPPER EXTREMITIES: Upper extremities are grossly normal. LOWER EXTREMITIES: No pitting edema. No calf pain. NEURO EXAM: Cranial nerves II-XII grossly intact, normal speech, 5/5 strength throughout, moves all 4 extremities on command w/o issue. Course 0640: Past medical records reviewed. The patient was evaluated in room C2B, and a complete history and physical examination were performed. 0820: I discussed the patient's case with Dr. Rojas-Cardiology who said that he will admit the patient. 0827: I updated the patient who verbalized agreement and understanding of the treatment plan. Consultations Consultation #1: Dr. Rojas-Cardiology Time: 08:20 Administered Medications Aspirin Buffered (Ascriptin) 325 mg PO DAILY NADEEN Stop: 01/09/19 08:59 Last Admin: 12/10/18 11:29 Dose: 325 mg Documented by: [id number] Atorvastatin Calcium (Lipitor) 40 mg PO QAM NADEEN Stop: 01/09/19 08:59 Last Admin: 12/10/18 11:29 Dose: 40 mg Documented by: [id number] Budesonide (Pulmicort Respules) 0.25 mg INH Q12R NADENE Stop: 01/09/19 08:59 Last Admin: 12/10/18 11:40 Dose: 0.25 mg Documented by: [id number] Furosemide (Lasix) 40 mg PO BID NADEEN Stop: 01/09/19 08:59 Last Admin: 12/10/18 11:59 Dose: 40 mg Documented by: [id number] Isosorbide Mononitrate (Imdur Extended Rel) 60 mg PO QAM NADEEN Stop: 01/09/19 08:59 Last Admin: 12/10/18 11:29 Dose: 60 mg Documented by: [id number] Multivitamins (Multivitamin Tab) 1 tab PO QA NADEEN Stop: 01/09/19 08:59 Last Admin: 12/10/18 11:29 Dose: 1 tab Documented by: [id number] Pantoprazole Sodium (Protonix) 40 mg PO BID NADEEN Stop: 01/09/19 08:59 Last Admin: 12/10/18 11:29 Dose: 40 mg Documented by: [id number] Ranolazine (Ranexa) 500 mg PO BID NADEEN Stop: 01/09/19 08:59 Last Admin: 12/10/18 11:28 Dose: 500 mg Documented by: [id number] Senna/Docusate Sodium (Senokot S) 1 tab PO BID [facility] Stop: 01/09/19 08:59 Last Admin: 12/10/18 11:29 Dose: 1 tab Documented by: [id number] Discontinued Medications Sodium Chloride (Nss 1000ml) 1,000 mls @ 80 mls/hr IV .[id number] [facility] Stop: 01/09/19 08:29 Last Admin: 12/10/18 08:44 Dose: 80 mls/hr Documented by: [id number] Medical Decision Making Medical Records Attestation: I reviewed the patient's medical records. Home Medications Current Medication List: was personally reviewed by me Laboratory Data Attestation: I reviewed the patient's lab results. Result diagrams: 12/10/18 07:15 12/10/18 07:15 Lab Results 12/10/18 12/10/18 12/10/18 Range/Units 07:15 07:15 07:15 WBC 10.19 (4.8-10.8) K/uL RBC 3.19 L (4.7-6.1) M/uL Hgb 10.1 L (14.0-18.0) g/dL Hct 31.6 L (42-52) % MCV 99.1 (80-100) fL MCH 31.7 (25-34) pg MCHC 32.0 (32-36) g/dL RDW Std Deviation 62.6 H (36.4-46.3) fL RDW Coeff of Tim 17.5 H (11.5-14.5) % Plt Count 228 (130-400) K/uL MPV 10.1 (7.4-10.4) fL Immature Gran % (Auto) 0.4 % Neut % (Auto) 74.2 % Lymph % (Auto) 15.6 % Parker % (Auto) 7.0 % Eos % (Auto) 2.7 % Baso % (Auto) 0.1 % Immature Gran # (Auto) 0.04 H (0.00-0.02) K/uL Neut # (Auto) 7.56 H (1.4-6.5) K/uL Lymph # (Auto) 1.59 (1.2-3.4) K/uL Parker # (Auto) 0.71 H (0.11-0.59) K/uL Eos # (Auto) 0.28 (0-0.5) K/uL Baso # (Auto) 0.01 (0-0.2) K/uL PT Cancelled INR Cancelled APTT Cancelled PTT Ratio Cancelled Sodium 139 (136-145) mmol/L Potassium 4.0 (3.5-5.1) mmol/L Chloride 104 (98-107) mmol/L Carbon Dioxide 30 (21-32) mmol/L Anion Gap 5.0 (3-11) BUN 24 H (7-18) mg/dl Creatinine 1.75 H (0.6-1.4) mg/dl Est Cr Clr Drug Dosing 36.8 ml/min Est GFR ( Amer) 41.1 Est GFR (Non-Af Amer) 35.5 BUN/Creatinine Ratio 13.5 (10-20) Glucose 89 (70-99) mg/dl Calcium 8.6 (8.5-10.1) mg/dl Magnesium 2.1 (1.8-2.4) mg/dl Total Bilirubin 0.6 (0.2-1) mg/dl AST 13 L (15-37) U/L ALT 17 (12-78) U/L Alkaline Phosphatase 80 (45-117) U/L Troponin I 0.047 H* (0-0.045) ng/ml Total Protein 7.0 (6.4-8.2) gm/dl Albumin 2.4 L (3.4-5.0) gm/dl Globulin 4.6 H (2.5-4.0) gm/dl Albumin/Globulin Ratio 0.5 L (0.9-2) Lipase 107 (73-393) U/L Nasal Screen MRSA (PCR) (Negative) 12/10/18 12/10/18 Range/Units 08:06 10:00 WBC (4.8-10.8) K/uL RBC (4.7-6.1) M/uL Hgb (14.0-18.0) g/dL Hct (42-52) % MCV (80-100) fL MCH (25-34) pg MCHC (32-36) g/dL RDW Std Deviation (36.4-46.3) fL RDW Coeff of Tim (11.5-14.5) % Plt Count (130-400) K/uL MPV (7.4-10.4) fL Immature Gran % (Auto) % Neut % (Auto) % Lymph % (Auto) % Parker % (Auto) % Eos % (Auto) % Baso % (Auto) % Immature Gran # (Auto) (0.00-0.02) K/uL Neut # (Auto) (1.4-6.5) K/uL Lymph # (Auto) (1.2-3.4) K/uL Parker # (Auto) (0.11-0.59) K/uL Eos # (Auto) (0-0.5) K/uL Baso # (Auto) (0-0.2) K/uL PT 11.6 INR 1.1 APTT 25.5 PTT Ratio 0.9 Sodium (136-145) mmol/L Potassium (3.5-5.1) mmol/L Chloride (98-107) mmol/L Carbon Dioxide (21-32) mmol/L Anion Gap (3-11) BUN (7-18) mg/dl Creatinine (0.6-1.4) mg/dl Est Cr Clr Drug Dosing ml/min Est GFR ( Amer) Est GFR (Non-Af Amer) BUN/Creatinine Ratio (10-20) Glucose (70-99) mg/dl Calcium (8.5-10.1) mg/dl Magnesium (1.8-2.4) mg/dl Total Bilirubin (0.2-1) mg/dl AST (15-37) U/L ALT (12-78) U/L Alkaline Phosphatase (45-117) U/L Troponin I (0-0.045) ng/ml Total Protein (6.4-8.2) gm/dl Albumin (3.4-5.0) gm/dl Globulin (2.5-4.0) gm/dl Albumin/Globulin Ratio (0.9-2) Lipase (73-393) U/L Nasal Screen MRSA (PCR) Negative (Negative) Imaging Data Radiologist's Impression: Radiology results as stated below per my review and the radiologist's interpretation: XR chest 1V portable CLINICAL HISTORY: 83 years-old Male presenting with Chest Pain. TECHNIQUE: Portable upright AP view of the chest was obtained. COMPARISON: Chest CT from 10/12/2018 and chest x-ray from 11/20/2018. FINDINGS: Atherosclerosis of the aortic arch. Cardiac silhouette top normal in size. Diffusely coarsened lung markings with mildly low lung volume. Persistent vague opacity most pronounced in the left lung base. Degenerative changes of the thoracic spine. IMPRESSION: 1. Persistent vague left basilar opacity on background of chronic lung disease. Chest CT would better demonstrate the true extent of residual infiltrates that were present on prior CT examination from October. Electronically signed by: Bharath Roldan M.D. 12/10/2018 7:34 AM ECG Data Attestation: I personally reviewed and interpreted this ECG as follows: Indication: syncope Rate (beats per minute): 84 Rhythm: sinus rhythm Findings: + other (T wave flattening inferiorly), + 1st degree AV block and + left axis deviation Comparison ECG Date: from (12/06/18) Change: no significant change Blood Pressure Blood Pressure Findings: Low blood pressure Blood Pressure Disposition: further management by hospitalist MDM Narrative The patient is a white 83 year old male w/ PMHx of hypoxia, aortic stenosis, CHF, COPD, CAD, HTN, and GERD who presents to the ED w/ an episode of unresponsiveness this morning. Differential diagnosis: Etiologies such as vasovagal event, infection, anemia, hypoglycemia, hypovolemia, electrolyte abnormalities, dysrhythmias, cardiac ischemia, cardiac tamponade, valvular heart disease, structural heart disease, seizure, vascular stenosis/dissection, pulmonary embolism, intracerebral event, toxicological process, neurologic event, as well as others were entertained. Patient was seen and evaluated the bedside. The patient does have significant medical comorbidities including CAD status post stent placement, aortic stenosis, COPD previous smoker 9 years prior presents after concern for possible syncope. Patient states that he is relatively asymptomatic currently. No chest pain shortness of breath. Patient does have some pedal edema which he says is chronic per patient. Patient is otherwise well-appearing at the bedside. Pacemaker pads were placed on the patient's upon presentation. Patient did a blood complete along with EKG troponin chest x-ray. Patient did recently have admission and did have an implantable cardiac event recorder. This is placed by Dr. Gusman on December 08. The reported story is that the patient woke up gasping for air appeared pale and diaphoretic he did receive several compressions at his home and improved. Patient's blood work is fairly unremarkable. The patient does have an elevated troponin but it is chronically elevated and improved today. The patient did have his implantable cardiac device interrogated which showed the gentleman likely had a long pause. The patient was seen by Dr. Lewis subsequently admitted to his service for likely pacemaker placement. Impression & Plan Syncope, Sinus pause Critical Care Time I have personally spent greater than 35 minutes of critical care time in direct management of this patient. This includes bedside care, interpretation of diagnostic studies, and testing, discussion with consultants, patient, and family members, and other require inpatient management activities. This 35 minutes is in excess of all separately billable procedures. Critical Care Time: Yes Total Critical Care Time: 35 Discharge Plan Visit Data *Final* Discharge Date/Time: 12/10/18 09:40 Chief Complaint: Cardiac Assessment ED Provider: Gregory Lebron Discharge Problem: Syncope, Sinus pause Patient Disposition: Admitted As Inpatient Discharge Instructions Interventions: ED Discharge Assessment Last Done: 12/10/18 09:40 Discharge Problem: Syncope Qualifiers: Syncope type: unspecified Qualified Code(s): R55 - Syncope and collapse The scribe's documentation has been prepared under my direction and personally reviewed by me in its entirety. I confirm that the note above accurately ref lects all work, treatment, procedures, and medical decision making performed by me.
[2018-12-10] MEDS: RANOLAZINE 500 MG ER TAB PO SCH ×2 (11:28→20:48)
[2018-12-10] MEDS: ISOSORBIDE MONO EXTENDED REL 60 MG TABCR PO SCH (11:29)
[2018-12-10] MEDS: ASPIRIN/ALUM/MAGNES/CAL CARB 325 MG TAB PO SCH (11:29)
[2018-12-10] MEDS: ATORVASTATIN 40 MG TAB PO SCH (11:29)
[2018-12-10] MEDS: DOCUSATE SODIUM/SENNA 50/8.6MG TAB PO SCH ×2 (11:29→20:48)
[2018-12-10] MEDS: MULTIVITAMIN TAB PO SCH (11:29)
[2018-12-10] MEDS: PANTOprazole 40 MG TAB PO SCH ×2 (11:29→20:48)
[2018-12-10] MEDS: BUDESONIDE 0.5 MG/2 ML VIAL (PULMICORT) INH SCH ×2 (11:40→19:04)
[2018-12-10] MEDS: FUROSEMIDE 40 MG TAB PO SCH ×2 (11:59→20:47)
[2018-12-10] MEDS ORDERED: COUGH DROP (SUGAR FREE) LOZ 24 LOZ/1 BOX BUCCAL ONE (15:55)
[2018-12-10] MEDS ORDERED: LACTATED RINGER'S 1,000 ML IV SCH (16:45)
[2018-12-10] MEDS: PRAMIPEXOLE DIHYDROCHLO 0.25 MG TAB PO SCH (20:47)
[2018-12-11] MEDS ORDERED: CLINDAMYCIN 600 MG/54 ML BAG IV SCH (06:00)
[2018-12-11] MEDS: BUDESONIDE 0.5 MG/2 ML VIAL (PULMICORT) INH SCH ×2 (07:17→20:25)
[2018-12-11] MEDS ORDERED: MIDAZOLAM HCL 5 MG/ML 1 ML VIAL ONE (07:51)
[2018-12-11] MEDS ORDERED: fentaNYL citrate 100 MCG/2 ML VIAL ONE (07:51)
[2018-12-11] MEDS ORDERED: LIDOCAINE HCL 1% 20 ML VIAL ONE ×2 (07:54→07:57)
[2018-12-11] MEDS ORDERED: BACITRACIN OINT 0.9 GM PKT ONE (07:54)
[2018-12-11] MEDS ORDERED: BACITRACIN INJ 50,000 UNIT VIAL ONE (07:54)
--- NOTE | 2018-12-11 07:57 | History & Physical Bridge Note ---
Date of Service December 11, 2018 History & Physical Bridge Note I have examined the patient, reviewed the History & Physical and in the interval since the performance of the History & Physical I have noted the following changes of clinical significance: no changes noted. I reviewed the indications, procedure, risks and alternatives of pacemaker implantation with him and he understands and agrees to proceed. Consent obtained. I reviewed conscious sedation with him and he agrees. Consent obtained.
--- NOTE | 2018-12-11 07:59 | Pre Anesthesia Assessment ---
Date of Service December 11, 2018 Pre Sedation Assessment Vital Signs Temp Pulse Pulse Pulse Resp BP BP 12/11/18 07:19 91 H 18 12/11/18 07:00 92 H 12 131/80 12/11/18 06:00 90 12 109/69 12/11/18 04:00 36.6 C 89 14 107/66 12/11/18 02:00 89 18 97/50 L 12/11/18 00:00 36.7 C 85 14 91/52 L 12/10/18 22:00 84 17 111/61 12/10/18 20:00 36.5 C 87 15 99/61 L 12/10/18 19:04 86 16 12/10/18 17:00 91 H 25 H 108/62 12/10/18 16:00 36.5 C 85 18 92/57 L 12/10/18 15:00 86 18 114/67 12/10/18 14:00 100 H 16 104/65 12/10/18 13:00 93 H 17 106/68 12/10/18 12:00 36.3 C L 83 17 112/72 12/10/18 11:00 84 15 98/61 L 12/10/18 10:18 84 18 12/10/18 10:00 82 17 102/73 12/10/18 09:40 82 14 12/10/18 09:30 83 14 99/70 L 12/10/18 09:00 81 14 102/73 12/10/18 08:30 82 19 101/69 12/10/18 08:00 84 80 18 89/59 L Pulse Ox 12/11/18 07:19 97 12/11/18 07:00 97 12/11/18 06:00 95 12/11/18 04:00 94 12/11/18 02:00 97 12/11/18 00:00 96 12/10/18 22:00 96 12/10/18 20:00 100 12/10/18 19:04 97 12/10/18 17:00 98 12/10/18 16:00 100 12/10/18 15:00 98 12/10/18 14:00 96 12/10/18 13:00 95 12/10/18 12:00 97 12/10/18 11:00 98 12/10/18 10:18 96 12/10/18 10:00 100 12/10/18 09:40 98 12/10/18 09:30 98 12/10/18 09:00 98 12/10/18 08:30 98 12/10/18 08:00 100 Cardiovascular RRR, no murmur, no edema Respiratory normal respiratory effort, lungs clear to auscultation Pre-Sedation Airway Assessment Smoking Status: Former smoker Hx Sleep Apnea: No Hx Difficult Intubation: No Short, Thick Neck: No Thyromental Distance: < 3.5 Finger Breadths Mallampati Class: II ASA III NPO Status Date of Last Intake of Fluids: 12/10/18 Date of Last Intake of Solid Food: 12/10/18 Procedure Planning Contraindications for Sedation: none Current Medications Reviewed: Yes Notes The planned sedation has been discussed with the patient. Informed Consent was obtained. I have identified the patient, determined the appropriateness of sedation and have assessed the patient immediately prior to the procedure. All medicine(s) and interventions are by my order.
--- NOTE | 2018-12-11 09:19 | Operative Report ---
Post Operative Report Pre & Post Diagnosis Operation Date: 12/11/18 08:00 Preoperative diagnosis: Sinus arrest Postoperative diagnosis: Same Procedure Operation Date: 12/11/18 08:00 Actual Procedures p Pacer with A/V Leads (Dual)(Left) - Tomasz Rojas MD s Remove Cardiac Event Recorder(Left) - Tomasz Rojas MD Surgeon Tomasz Rojas MD Tree Girdler None Estimated Blood Loss 50 Findings Consistent with Post-Op Diagnosis Good lead position, good measurements. Increased blood loss due to high venous pressures. Specimens Loop recorder, return to [employer] Complications none Slight hypotension several times, this was due to sedation and resolved with fluid administration. No adverse sequela. Disposition Accompanied Patient To Recovery: No Disposition: PCU Description of Procedure After obtaining informed consent for the procedure, the patient was brought to the laboratory and prepped and draped in the standard sterile manner. The left prepectoral region was anesthetized with 1% lidocaine local anesthetic and left axillary venipuncture was performed by percutaneous technique and a guidewire placed through the left subclavian vein into the superior vena cava. The area was further infiltrated with 1% lidocaine local anesthetic and a 5 cm incision was made parallel to the left clavicle and 2 cm below it and carried down to the anterior pectoralis fascia. A pacemaker pocket was formed by blunt dissection anterior to the pectoralis fascia and a bacitracin-soaked sponge (50,000 units in 50 cc normal saline solution) was placed in the pocket. An 8 [place]zer[place] Medtronic lead introducer was placed over the guidewire into the left subclavian vein, the dilator and guidewire were removed and a bipolar active fixation steroid tipped ventricular lead was advanced through the introducer into the superior vena cava. A guidewire was placed through the introducer and the introducer was stripped from the lead and guidewire. Another 8 [place] Medtronic lead introducer was placed over the guidewire into the left subclavian vein, the dilator and guidewire were removed and a bipolar active fixation steroid tipped atrial lead was advanced through the introducer into the superior vena cava. A guidewire was placed back through the introducer and the introducer was stripped from the lead and guidewire. Using a curved stylette the ventricular lead was advanced through the right ventricular outflow tract into the pulmonary artery and then using a straight stylette was positioned in the right ventricular apex. The screw was extended fixing the lead in position. Pacing and sensing thresholds were evaluated in bipolar configuration and are recorded on the implant data sheet. Using a curved stylette the atrial lead was positioned in the region of the atrial appendage and the screw extended fixing the lead in position. Pacing and sensing thresholds were evaluated in bipolar configuration and are recorded on the implant data sheet. Once the leads were in position they were attached to the anterior pectoralis fascia using 2 sutures of 2-0 silk around each lead collar. The bacitracin- soaked sponge was removed from the pocket, hemostasis was obtained, the pacemaker was attached to the leads and placed in the pocket with the leads coiled beneath it. Prior to closing the incision the loop recorder was removed. That incision was anesthetized with lidocaine local anesthetic, a 1 cm incision was made and the loop recorder explanted. The pacemaker incision was then closed with a running double subcutaneous closure of 3-0 Vicryl absorbable suture, followed by running subcuticular skin closure of 4-0 Vicryl absorbable suture. The loop recorder incision was then closed with a subcutaneous closure of 4-0 Vicryl. Bacitracin ointment was placed on the incisions and a dressing applied. I attest to the content of the Intraoperative Record and any orders documented therein. Any exceptions are noted below.
[2018-12-11] MEDS ORDERED: KETOROLAC TROMETHAMINE 10 MG TABLET PO PRN (09:25)
[2018-12-11] MEDS ORDERED: ACETAMINOPHEN 325 MG TAB PO PRN (09:25)
[2018-12-11] MEDS: RANOLAZINE 500 MG ER TAB PO SCH ×2 (10:07→20:12)
[2018-12-11] MEDS: DOCUSATE SODIUM/SENNA 50/8.6MG TAB PO SCH ×2 (10:07→20:13)
[2018-12-11] MEDS: PANTOprazole 40 MG TAB PO SCH ×2 (10:07→20:12)
[2018-12-11] MEDS: ASPIRIN/ALUM/MAGNES/CAL CARB 325 MG TAB PO SCH (10:07)
[2018-12-11] MEDS: FUROSEMIDE 40 MG TAB PO SCH ×2 (10:07→20:11)
[2018-12-11] MEDS: ATORVASTATIN 40 MG TAB PO SCH (10:07)
[2018-12-11] MEDS: MULTIVITAMIN TAB PO SCH (10:07)
[2018-12-11] MEDS: ISOSORBIDE MONO EXTENDED REL 60 MG TABCR PO SCH (10:07)
[2018-12-11] MEDS: PRAMIPEXOLE DIHYDROCHLO 0.25 MG TAB PO SCH (20:11)
[2018-12-11] MEDS ORDERED: METOPROLOL SUCC 25MG EXT REL TAB PO SCH (21:00)
[2018-12-12] MEDS: FUROSEMIDE 40 MG TAB PO SCH (07:11)
[2018-12-12] MEDS: DOCUSATE SODIUM/SENNA 50/8.6MG TAB PO SCH (07:12)
[2018-12-12] MEDS: ISOSORBIDE MONO EXTENDED REL 60 MG TABCR PO SCH (07:13)
[2018-12-12] MEDS: ATORVASTATIN 40 MG TAB PO SCH (07:13)
[2018-12-12] MEDS: ASPIRIN/ALUM/MAGNES/CAL CARB 325 MG TAB PO SCH (07:13)
[2018-12-12] MEDS: RANOLAZINE 500 MG ER TAB PO SCH (07:13)
[2018-12-12] MEDS: PANTOprazole 40 MG TAB PO SCH (07:14)
[2018-12-12] MEDS: MULTIVITAMIN TAB PO SCH (07:14)
[2018-12-12] MEDS: BUDESONIDE 0.5 MG/2 ML VIAL (PULMICORT) INH SCH ×2 (07:19→07:50)
--- NOTE | 2018-12-12 07:21 | XRay Report ---
XR chest 2V routine CLINICAL HISTORY: 83 years-old Male presenting with EXACT TIME ORDERED Evaluate for pneumothorax and l. TECHNIQUE: PA and lateral views of the chest were obtained. COMPARISON: 12/10/2018. FINDINGS: Interval placement of a left subclavian pacer with leads to the right atrium and right ventricular ap ex. Numerous overlying external leads project over the lower thorax degrading evaluation. Allowing fo r this, leads are appropriately positioned. No retained surgical material associated with the pacer. Atherosclerosis of the aortic arch. Cardiac silhouette moderately enlarged. Mild pulmonary vascular p rominence with diffuse coarsening of lung markings. Small right pleural effusion. Improved aeration o f the left lung base. No pneumothorax. Degenerative changes of the thoracic spine. Upper abdomen norm al. IMPRESSION: 1. Left subclavian 2-lead pacer placement. Leads are appropriately positioned. No pneumothorax. 2. Cardiomegaly with mild volume overload and small right pleural effusion. 3. Improved aeration of the left lung base. Electronically signed by: Bharath Roldan M.D. 12/12/2018 7:20 AM
--- NOTE | 2018-12-12 09:24 | Discharge Summary ---
Date of Service December 12, 2018 Admission HPI This is an 83-year-old male who has a history of several episodes of syncope, he was recently admitted with an episode however the cause was not clear and he was monitored for several days with no arrhythmia identified. He therefore had an implantable loop recorder placed on December 08, 2018. He was sent home that day, during the night he went to the bathroom, then his noticed that he was unresponsive and she could not wake him up, a neighbor came over and adm inistered several chest compressions and he awoke. His loop recorder was interrogated in the emergency room and he was noted to have asystole, P waves are not easy to discern and I cannot tell whether this is complete heart block or atrial asystole. He had a very poor escape rhythm. He awoke without difficulty in the emergency room is awake and alert. Admission Exam Per Admitting Provider Constitutional: Alert, cooperative and in no distress. HEENT: Unremarkable Neck: No jugular venous distention, carotid pulses are normal and equal bilaterally without bruits. Pulmonary: Clear to auscultation bilaterally. Cardiac: Regular rhythm with no murmur, gallop or rub. Abdomen: Soft, nontender with normal bowel sounds. Extremities: No edema. Distal pulses intact. Neurologic: No focal findings. Gait is steady. Skin: No rash, ecchymoses or petechiae. Principal Diagnosis Principal Diagnosis Status post loop recorder explantation and dual-chamber pacemaker insertion Discharge Exam Vital Signs (Past 24 Hours): Last Vital Signs Temp 36.5 C 12/12/18 06:57 Pulse 84 12/12/18 07:50 Resp 20 12/12/18 07:50 BP 114/73 12/12/18 06:57 Pulse Ox 98 12/12/18 07:50 Physical Exam: The incision looks clean and dry, minimal ecchymosis. No swelling. Discharge Data Allergies Allergy/AdvReac Type Severity Reaction Status Date / Time Penicillins Allergy Unknown PASSES OUT Verified 12/10/18 07:23 AND LOW HEART RATE Consultations 12/10/18 08:28 ED Decision to Admit Stat 12/10/18 08:53 Consult Case Management - Discharge Planning Routine Procedures Performed Operation Date: 12/11/18 08:00 Actual Procedures p Pacer with A/V Leads (Dual)(Left) - Tomasz Rojas MD s Remove Cardiac Event Recorder(Left) - Tomasz Rojas MD Ordered Studies 12/11/18 07:17 CL Cath Imgs for PACS use only Routine 12/11/18 07:30 EP Lab Images for PACS ONCE Hospital Course (1) Pacemaker: Patient is an 83-year-old male with recurrent syncope and asystole documented on loop recorder who underwent loop recorder explantation and dual- chamber pacemaker insertion on 12/11/[address] Rojas. He tolerated the procedure well. Device check following the procedure showed excellent sensing and pacing characteristics. CXR showed good lead placement with no evidence of pneumothorax. He was deemed stable for discharge on 12/12/2018. He will have follow-up in 3 days for incision check and 1 month for device check. Total Time Total Time Spent Total Time Spent (In Minutes): 20 minutes Discharge Plan Discharge Items Patient Disposition: Home - Self-Care Reason For Visit: CARDIAC ASYSTOLE Discharge Diagnosis: Status post loop recorder explantation and dual-chamber pac emaker implantation Discharge Goals: Improve disease control Activity: Per 'Additional Instructions' section Non-emergency contact: Primary Care Provider and Audiovisual Librarian Call non-emergency contact if: you have any medication questions, your pain is not controlled, you have a fever, your wound has increased redness, your wound has increased drainage and your wound pain has increased Follow-up/Referrals: Berry Tan MD [Primary Care Provider] - Diet: Heart Healthy Addtl Provider Instructions: ACTIVITY RECOMMENDATIONS: * Do not raise affected arm over head for 2 weeks. SPECIAL CARE INSTRUCTIONS: * If bleeding occurs, apply direct pressure to area for 5 minutes. * Call your doctor if you have severe pain, fever, drainage or bleeding at site. * Keep dressing on and dry for 48 hours then remove. * Keep any scheduled doctor's appointment. * Implant Card - hand held device with website information given. SKIN IRRITATION: * You may experience some redness and/or swelling in the area where radiation was administered. If any skin irritation occurs, please contact your family physician. FOLLOW UP VISIT: 12/15/2018 @ 10:30 am for incision check 01/07/2019 @ 2:00 pm for pacemaker check Prescriptions: Continued multivitamin Tablet 1 tab PO QAM RF: 0 sennosides-docusate sodium [Stool Softener-Laxative] 8.6-50 mg Tablet 8.6 mg PO BID RF: 0 isosorbide mononitrate 60 mg tablet extended release 24 hr 60 mg PO QAM RF: 0 pantoprazole 40 mg tablet,delayed release (DR/EC) 40 mg PO BID RF: 0 nitroglycerin [Nitrostat] 0.4 mg Tablet, Sublingual 0.4 mg Sublingual DIRECTED PRN (Reason: Chest Pain) RF: 0 metoprolol succinate 25 mg tablet extended release 24 hr 25 mg PO HS RF: 0 ranolazine 500 mg tablet extended release 12 hr 500 mg PO BID RF: 0 budesonide 0.5 mg/2 mL suspension for nebulization 1 ml INH Q12H Qty: 60 RF: 3 atorvastatin 40 mg Tablet 40 mg PO QAM RF: 0 albuterol sulfate 90 mcg/actuation Hfa Aerosol Inhaler 2 puff INHALATION Q6H PRN (Reason: Shortness Of Breath) RF: 0 pramipexole 0.25 mg tablet 0.25 mg PO HS RF: 0 furosemide 40 mg tablet 40 mg PO BID RF: 0 aspirin, buffered 325 mg Tablet 325 mg PO DAILY RF: 0 Stand-Alone Forms: [facility] Discharge Orders: Discharge Order (Routine); Ordered 12/12/18 Ordered By: Emilee Siegel Admission Data Admit Date/Time: 12/10/18 08:53 Attending Provider: Tomasz Rojas Admit Provider: Tomasz Rojas Primary Care Provider: Berry Tan Other Providers: Tomasz Rojas ; Home,Nursing Agency Service: Telemetry Other Interventions: Discharge Summary Assessment (RN) Last Done: 12/12/18 09:51 DC Date/Time DO NOT enter until pt leaves facility: 12/12/18 10:35
--- NOTE | 2018-12-12 09:35 | Cardiology Progress Note ---
Date of Service December 12, 2018 Assessment & Plan (1) Pacemaker: He is doing well postop day #1, the site looks good, the leads are in good position and measurements are good. He is stable for discharge. Subjective He feels well today, no significant incisional discomfort. Physical Exam Vital Signs (Past 24 Hours): Last Vital Signs Temp 36.5 C 12/12/18 06:57 Pulse 84 12/12/18 07:50 Resp 20 12/12/18 07:50 BP 114/73 12/12/18 06:57 Pulse Ox 98 12/12/18 07:50 Physical Exam: The incision looks clean and dry, minimal ecchymosis. No swelling. Results & Data Diagnostic Findings ECG: Sinus rhythm with first-degree AV block, appropriate pacemaker inhibition Telemetry: Sinus rhythm with first-degree AV block Chest x-ray: Good lead position, no pneumothorax Pacemaker evaluation: Excellent pacing and sensing characteristics
--- NOTE | 2018-12-12 09:46 | Post Anesthesia Assessment ---
Date of Service December 12, 2018 Post Sedation Assessment Vital Signs Temp Pulse Pulse Pulse Resp BP BP 12/12/18 07:50 84 20 12/12/18 06:57 36.5 C 81 18 114/73 12/12/18 03:35 36.8 C 76 18 100/65 12/11/18 23:22 84 18 102/66 12/11/18 21:07 120/70 12/11/18 20:26 98 H 16 12/11/18 18:00 91 H 15 12/11/18 17:00 97 H 21 12/11/18 16:01 88 16 108/64 12/11/18 16:00 88 20 12/11/18 15:01 36.4 C L 85 21 94/59 L 12/11/18 15:00 84 16 12/11/18 14:31 83 16 100/67 12/11/18 14:00 81 20 12/11/18 13:00 81 15 12/11/18 12:00 90 16 12/11/18 11:30 83 20 106/67 12/11/18 11:00 36.6 C 84 16 111/68 12/11/18 10:45 84 16 104/70 12/11/18 10:30 85 18 103/71 12/11/18 10:15 85 20 114/65 12/11/18 10:00 85 24 100/72 Pulse Ox 12/12/18 07:50 98 12/12/18 06:57 100 12/12/18 03:35 97 12/11/18 23:22 97 12/11/18 21:07 12/11/18 20:26 93 12/11/18 18:00 12/11/18 17:00 12/11/18 16:01 94 12/11/18 16:00 94 12/11/18 15:01 96 12/11/18 15:00 97 12/11/18 14:31 96 12/11/18 14:00 12/11/18 13:00 12/11/18 12:00 12/11/18 11:30 98 12/11/18 11:00 95 12/11/18 10:45 97 12/11/18 10:30 92 12/11/18 10:15 91 12/11/18 10:00 93 Recovery Score Activity: Moves 4 extremities Respiration: Deep Breath/Cough Circulation: +/-20% PreAnes Value Consciousness: Fully Awake Oxygen Saturation: > 92% On Room Air Discharge Sedation Level of Care: Fast Track Phase II Post Sedation Plan On clinical assessment, the patient appears to have tolerated the sedation without complications. Patient is recovering as anticipated. Patient will continue to be monitored by nursing and may be discharged when sedation discharge criteria are met per below protocol. Upon Completions of procedure and additional 15 minutes continue every 5 minute vital signs and the P.A.R. score; then discharge to a Phase I or Fast Track to Phase II per the following guidelines: * Discharge Patient to appropriate Phase II area if PAR is 8 or greater or return to pre- procedure baseline. The post - procedure orders will be as directed. * If PAR score is less than 8 or not return to pre-procedure baseline then patient will follow Phase I monitoring till PAR is reached for Phase II. The Phase I may be done in procedure room or may call to secure a Phase I area. * If naloxone or flumazenil are used for reversal, hold in Phase I for continued monitoring from when last reversal dose was given for a minimum of 60 minutes or longer pending the nurse and/or physician discretion of patient condition before discharge to Phase II. Please call the Sedation Physician to re-evaluate and complete post-note for discharge to Phase II area. Do NOT discharge from procedure sedation or Phase 1 until post- sedation evaluation note is complete by procedure /sedation MD Sedation Discharge Instructions to be given to the patient at discharge to home.
== END 2018-12-12 10:35 | disposition home health service (06) | DRG 242 ==
LOC: ED 06:36 → 1E 08:53 → 2S 12-11 20:57

== ENCOUNTER 2019-03-14 09:27 | Inpatient (IN) ==
[2019-03-14] MEDS ORDERED: SODIUM CHLORIDE 0.9% 1000ML 250 ML IV ONE (10:12)
--- NOTE | 2019-03-14 10:14 | XRay Report ---
XR chest 1V portable CLINICAL HISTORY: 84 years-old Male presenting with syncope, wheezing. TECHNIQUE: Portable supine AP view of the chest was obtained. COMPARISON: 12/12/2018. FINDINGS: Left subclavian pacer with leads to the right atrium and right ventricular apex. Atherosclerosis of a ortic arch. Cardiac silhouette mildly enlarged. Mildly low lung volumes. Coarsened lung markings, lik steve prominent interstitial lung markings. No other focal opacity. Trace pleural effusions may be pres ent. No pneumothorax. Degenerative changes of the thoracic spine. Upper abdomen normal. IMPRESSION: 1. Interstitial lung prominence may relate to volume overload/congestive change or interstitial thic kening in the setting of an inflammatory process. No focal infiltrate to suggest pneumonia. 2. Mild cardiomegaly. Trace bilateral pleural effusions suspected. Electronically signed by: Bharath Roldan M.D. 03/14/2019 10:12 AM
[2019-03-14 10:18] LABS: Basophils # (auto) 0.02 K/uL (0-0.2); Basophils % (auto) 0.3 %; Eosinophils # (auto) 0.19 K/uL (0-0.5); Eosinophils % (auto) 2.6 %; Hematocrit (blood only) 32.1 % (42-52); Hemoglobin 10.4 g/dL (14.0-18.0); Immature Granulocytes # (auto) 0.01 K/uL (0.00-0.02); Immature Granulocytes % (auto) 0.1 %; Lymphocytes # (auto) 0.95 K/uL (1.2-3.4); Lymphocytes % (auto) 12.9 %; Mean Corpuscular Hgb Conc 32.4 g/dL (32-36); Mean Corpuscular Volume 92.5 fL (80-100); Mean Platelet Volume 10.5 fL (7.4-10.4); Monocytes % (auto) 6.8 %; Neutrophils # (auto) 5.67 K/uL (1.4-6.5); Neutrophils % (auto) 77.3 %; Platelet Count 210 K/uL (130-400); RDW Coefficient of Variation 15.5 % (11.5-14.5); RDW Standard Deviation 51.8 fL (36.4-46.3); Red Blood Count 3.47 M/uL (4.7-6.1); White Blood Count 7.34 K/uL (4.8-10.8)
[2019-03-14 10:34] LABS: Alanine Aminotransferase 15 U/L (12-78); BUN Creatinine Ratio 10.3 (10-20); Blood Urea Nitrogen 27 mg/dl (7-18); Calcium 9.1 mg/dl (8.5-10.1); Carbon Dioxide 31 mmol/L (21-32); Chloride 103 mmol/L (98-107); Est GFR (African American) 25.7; Est GFR (Non-African American) 22.1; Glucose 89 mg/dl (70-99); Sodium 138 mmol/L (136-145)
[2019-03-14] MEDS ORDERED: ALBUT/IPRATROP 3MG/0.5MG NEB 3 ML VIAL NEB STA (10:45)
[2019-03-14] MEDS ORDERED: methylPREDNISolone 125 MG/2 ML VIAL IV STA ×2 (10:45→13:16)
[2019-03-14 10:50] LABS: INR 1.2 (0.9-1.1); Prothrombin Time 12.5 Seconds (9.0-12.0)
[2019-03-14 10:51] LABS: Albumin Globulin Ratio 0.6 (0.9-2); Alkaline Phosphatase 104 U/L (45-117); Bilirubin,Total 0.9 mg/dl (0.2-1); Creatine Kinase MB 1.1 ng/ml (0.5-3.6); Globulin 4.9 gm/dl (2.5-4.0); Total Protein 7.9 gm/dl (6.4-8.2); Troponin I 0.035 ng/ml (0-0.045)
[2019-03-14 11:19] LABS: Potassium 4.2 mmol/L (3.5-5.1)
[2019-03-14 11:28] LABS: Magnesium 2.5 mg/dl (1.8-2.4)
[2019-03-14] MEDS ORDERED: NORMOSOL-R 1,000 ML IV SCH (12:20)
--- NOTE | 2019-03-14 12:30 | History & Physical Report ---
Date of Service March 14, 2019 Assessment & Plan (1) Orthostasis: Patient presented to the emergency room from home with episode of syncope this morning Prior episodes of syncope with loop recorder evidence of asystole Status post permanent pacemaker placement 12/08/2018 -pacer interrogated in the emergency room and found to have no events Labs demonstrate increased creatinine; orthostatic labs indicate evidence of orthostasis Admit patient to telemetry unit for observation Consult cardiology We will start IV fluids with 70 mL an hour of Normosol IV x1 L Check orthostatics every shift Monitor telemetry Most recent echocardiogram 11/10/2018: Normal LV Mild concentric LVH LVEF 65 to 70% No regional wall motion irregularities Mild aortic stenosis Mild to moderate aortic regurgitation No change as compared to previous echocardiogram 06/18/2018 (2) Syncope and collapse: Prior evidence of asystole with status post pacemaker placement 12/08/2018 Interrogation today reveals no events Patient orthostatic IV fluids Monitor on telemetry Fall precautions (3) CKD (chronic kidney disease): Elevated creatinine Baseline creatinine 1.6-1.8 Hold home diuretics Gentle hydration with normosol at 70 mL/h x 1 L Check repeat labs in the morning No flank pain or CVA tenderness Check UA with reflex culture Follow urine output (4) Coronary artery disease: Patient reports placement of drug-eluting stents x4 over several years No chest pain or tightness Daily EKG Continue metoprolol succinate 12.5 mg at bedtime Continue statin, aspirin, as needed sublingual nitro Following telemetry (5) COPD (chronic obstructive pulmonary disease): Diffuse wheezes consistent with what patient has at home Hold outpatient medications and start every 6 hour leave albuterol/ipratropium nebulizer treatments as well as every 3 as needed nebulizer treatments No current hypoxia Will start methylprednisolone Supplemental oxygen as needed No indication for antibiotics secondary to review of chest x-ray (6) GERD (gastroesophageal reflux disease): Continue home dose of pantoprazole No acute symptoms (7) DVT prophylaxis: Heparin 5000 units every 12 hours [facility] SCDs Please refer to Dr. Bauman's addendum for further recommendations History of Present Illness Attending: Dr. Tres Bauman This is an 84-year-old male with a past medical history of syncope, status post pacemaker placement secondary to asystole as noted on loop recorder, CAD with 4 previous stents placed, chronic kidney disease with a baseline creatinine of 1.6-1.8, COPD, congestive heart failure, hypertension, hyperlipidemia, restless leg syndrome, GERD, obesity and prior tobacco abuse. He was recently admitted in December for syncope. At that time he had a pacemaker inserted by Dr. Rojas. Prior to having the pacemaker placed he was found to have multiple episodes of asystole on loop recorder secondary to previous syncope. This morning the patient was getting up to go to the bathroom and had what appeared to be another syncopal event. He states that he was using his walker and was able to get seated on the cushion without a fall. He was brought to the emergency room and found to be orthostatic with an elevated creatinine. Patient's pacemaker was interrogated and had no events. Patient denies any recent illness. He has no chest pain or tightness. He has no unusual shortness of breath, cough, sputum production. He has no recent nausea, vomiting, diarrhea. He was just in to see his primary care provider secondary to conjunctival hemorrhage what appears to be conjunctivitis. He reports that his primary care provider did not start him on any medications for his eye. He denies any change in vision, diplopia, eye pain. Appetite is usual. He has no other acute complaints. Primary Care Provider: Berry Tan MD Allergies Allergy/AdvReac Type Severity Reaction Status Date / Time Penicillins Allergy Unknown PASSES OUT Verified 03/14/19 11:09 AND LOW HEART RATE Home Medications Home Medications Medication Instructions Recorded Confirmed Type albuterol sulfate 2 puff INHALATION Q6H PRN 06/17/18 03/14/19 History atorvastatin 40 mg PO QAM 06/17/18 03/14/19 History metoprolol succinate 12.5 mg PO HS 10/09/18 03/14/19 History multivitamin 1 tab PO QAM 10/09/18 03/14/19 History nitroglycerin [Nitrostat] 0.4 mg SUBLINGUAL DIRECTED PRN 10/09/18 03/14/19 History pantoprazole 40 mg PO BID 10/09/18 03/14/19 History ranolazine 500 mg PO BID 10/09/18 03/14/19 History sennosides-docusate sodium [Stool 8.6 mg PO BID 10/09/18 03/14/19 History Softener-Laxative] budesonide 1 ml INH Q12H #60 ml 10/17/18 03/14/19 Rx pramipexole 0.25 mg PO HS 11/10/18 03/14/19 History aspirin, buffered 325 mg PO QAM 12/06/18 03/14/19 History bumetanide 1 mg PO UD 03/14/19 03/14/19 History formoterol fumarate [Perforomist] 2 ml INHALATION Q12 03/14/19 03/14/19 History gabapentin 100 mg PO PM 03/14/19 03/14/19 History ipratropium-albuterol 3 ml INHALATION DAILY PRN 03/14/19 03/14/19 History polyethylene glycol 3350 [Miralax] 17 g PO DAILY PRN 03/14/19 03/14/19 History potassium chloride [Klor-Con M20] 20 meq PO QAM 03/14/19 03/14/19 History tamsulosin 0.4 mg PO HS 03/14/19 03/14/19 History Past Med/Surg History Medical History CHF (congestive heart failure) GERD (gastroesophageal reflux disease) HTN (hypertension) Hyperlipidemia CAD (coronary artery disease) RLS (restless legs syndrome) COPD (chronic obstructive pulmonary disease) (Chronic) 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[place] coronary artery w/angina pectoris (Acute 11/25/14) Coronary arteriosclerosis (Acute 03/30/14) CKD (chronic kidney disease) TIA (transient ischemic attack) (Chronic) Surgical History History of permanent cardiac pacemaker placement p Pacer with A/V Leads (Dual)(Left) - Tomasz Rojas MD 12/08/2018 s Remove Cardiac Event Recorder(Left) - Tomasz Rojas MD 12/08/2018 [employer] pacer: Model: [id number] LINQ; serial number [id number]; implanted 12/08/2018 S/P drug eluting coronary stent placement X4 Family History Father Myocardial infarction Other No pertinent family history Social History Preferred Language: Citizen Of [place] Communication Ability: Effective Fine [employer]el[employer] Sales Associate Required: No Beliefs That Will Affect Care: None marital status: Life Partner Current Living Situation: Spouse Current Living Situation Comment: Girlfriend Other Information That Helps Us Care for You: No Feels Safe at Home: No Is there a partner from a previous relationship who is making you feel unsafe now?: No Any Concerns about Your Family Situation: No Would You Like to Speak to Someone About Your Situation: No Safety Concerns: Feels Safe At This Time Smoking Status: Former smoker Tobacco Type: cigarettes Do You Dip or Chew Tobacco: No Second Hand Exposure: No Tobacco Cessation Education Requested by Patient: No Hx Alcohol Use: No Hx Substance Use: No Review of Systems Review of Systems: All systems reviewed & are unremarkable except as noted in HPI & below Physical Exam Physical Exam: GENERAL : No acute distress. Pleasant EYES: No icterus, gaze conjugate. Conjunctivitis/conjunctival hemorrhage right eye. Pupils equal round and reactive to light NOSE: No evidence of epistaxis MOUTH: No lesions or candidiasis. No teeth in place. Tongue midline. [place] score IV NECK: Supple. No JVD LUNGS: Diffuse bronchospasm. Breath sounds equal to bases. HEART: Regular, rate controlled. ABDOMEN: Soft, NT, ND, BS Present. Protuberant EXTREMITIES: Bilateral +1 LE edema, pedal pulses intact and equal bilaterally NEURO: A&OX3. No neurological deficits identified Results & Data Vital Signs (Past 12 Hours) Vital Signs Temp Pulse Pulse Resp BP BP Pulse Ox 03/14/19 11:16 83 19 100/66 96 03/14/19 11:01 81 16 101/59 L 100 03/14/19 10:58 81 18 95 03/14/19 10:46 81 16 96/56 L 94 03/14/19 10:45 80 15 74/49 L 96 03/14/19 10:30 109 H 22 123/72 96 03/14/19 10:22 107 H 21 113/74 98 03/14/19 10:20 109 H 17 94 03/14/19 10:16 108 H 17 82/54 L 90 03/14/19 10:15 108 H 16 113/78 94 03/14/19 10:14 107 H 15 102/71 96 03/14/19 10:10 108 H 19 98 03/14/19 10:08 108 H 22 111/82 93 03/14/19 10:00 107 H 18 92 03/14/19 09:50 108 H 19 95 03/14/19 09:49 97 03/14/19 09:47 107 H 20 94 03/14/19 09:46 101 H 96/70 L 03/14/19 09:42 108 H 21 94 03/14/19 09:39 36.6 C 108 H 20 86/68 L 95 03/14/19 09:33 108 H 17 96/70 L 93 Laboratory Results 03/14/19 09:36 03/14/19 10:51 Laboratory Tests 03/14/19 03/14/19 09:36 10:51 Sodium 138 Potassium 4.2 BUN 27 H Creatinine 2.57 H Magnesium 2.5 H NT-Pro-B Natriuret Pep 4887 H TSH 1.710 Diagnostic Findings XR chest 1V portable CLINICAL HISTORY: 84 years-old Male presenting with syncope, wheezing. TECHNIQUE: Portable supine AP view of the chest was obtained. COMPARISON: 12/12/2018. FINDINGS: Left subclavian pacer with leads to the right atrium and right ventricular apex. Atherosclerosis of aortic arch. Cardiac silhouette mildly enlarged. Mildly low lung volumes. Coarsened lung markings, likely prominent interstitial lung markings. No other focal opacity. Trace pleural effusions may be present. No pneumothorax. Degenerative changes of the thoracic spine. Upper abdomen normal. IMPRESSION: 1. Interstitial lung prominence may relate to volume overload/congestive change or interstitial thickening in the setting of an inflammatory process. No focal infiltrate to suggest pneumonia. 2. Mild cardiomegaly. Trace bilateral pleural effusions suspected. Electronically signed by: Bharath Roldan M.D. 03/14/2019 10:12 AM Code Status & VTE Plan Code Status Level 5: DNR/DNI Supervising Physician Co-Signing Physician Notes Attending note: patient seen and examined with Gabe NELSON I agree with his HPI, history, exam, ROS and A/P. I personally reviewed the labs and imaging findings. Discussed the case with Dr. Esposito, he reviewed the brief report from the pacer interrogation, concerns about the past three weeks with HR in the 100-110 range. On two separate EKG it appears that he has an SVT, could be atrial flu tter. Limited role for beta blockade at the time due to orthostatic hypotenstion. Asked RN to get orthostatic vital signs, the patient's pressure dropped 20 points while standing, although he did not have any symptoms of light headedness or dizziness. - Syncope: most likely due to orthostatic changes, given one liter of Normosol, would not give any further could consider adding Florinef but want to determine rhythm will get a more detailed interrogation of the pacer when wet process technician returns to the hospital Dr. Esposito will follow for time being, patient's hepatologist Dr. Hooper will assume care on Saturday patient with history of atrial pauses that were causing syncope, was treated with pacemaker no history of severe valve disease for rest of details see the H&P (1) CKD (chronic kidney disease) Chronic kidney disease stage: unspecified stage Qualified Code(s): N18.9 - Chronic kidney disease, unspecified
[2019-03-14] MEDS ORDERED: NITROGLYCERIN SL 0.4 MG/TAB TAB SL PRN ×2 (13:16)
[2019-03-14] MEDS ORDERED: POLYETHYLENE (MIRALAX) 17 GM PACK PO PRN ×2 (13:16)
[2019-03-14] MEDS ORDERED: ALBUT/IPRATROP 3MG/0.5MG NEB 3 ML VIAL INH PRN ×2 (13:16)
[2019-03-14] MEDS ORDERED: ALBUTEROL HFA 8 GM INHALER INH PRN (13:16)
[2019-03-14] MEDS ORDERED: BUDESONIDE 0.5 MG/2 ML VIAL (PULMICORT) INH SCH (13:16)
[2019-03-14] MEDS ORDERED: PNEUMOCOCCAL POLYSACCHARIDES 25 MCG/0.5 ML VIAL/SYR IM ONE (13:45)
[2019-03-14] MEDS ORDERED: PNEUMOCOCCAL ADMINISTRATION CHARGE ONE (13:45)
[2019-03-14] MEDS ORDERED: XOPENEX/ATROVENT 1.25mg/0.5MG NEB COMBO NEB SCH (14:00)
[2019-03-14] MEDS: LEVALBUTEROL 1.25MG/0.5ML NEB INH SCH ×2 (14:38→20:30)
[2019-03-14] MEDS: IPRATROPIUM BROMIDE NEB SOLN 0.02% 2.5 ML VIAL INH SCH ×2 (14:39→20:33)
--- NOTE | 2019-03-14 14:52 | Cardiology Consultation ---
Date of Consultation March 14, 2019 Assessment & Plan (1) Syncope: Etiology uncertain however orthostatic hypotension was reported in the ER. Formal orthostatic vitals requested from nursing staff. He has received IV fluids. If he is found to be orthostatic, would consider fludrocortisone but monitor lower extremity edema. Support stockings. Change positions slowly. Remain well hydrated. No significant pauses reported from pacemaker interrogation and pacemaker reportedly functioning in an appropriate fashion. (2) Tachycardia: He appears to have a narrow complex tachycardia. His heart rate remained at 116 bpm +/-1 or 2 beats throughout our conversation. Unfortunately, there is not an ECG available for review. Nursing staff was asked to check an ECG. Also, it was felt on initial interrogation that he was in sinus tachycardia. A formal interrogation was requested but this can be done when a biosolids management technician is available. It is not urgent as this is a narrow complex rhythm based on telemetry. Findings currently on telemetry concerning for atrial tachycardia versus atrial flutter given consistent heart rate. If he does have orthostatic hypotension, and also an atrial arrhythmia, this could contribute to his syncopal episode perhaps. He is currently asymptomatic. (3) CAD (coronary artery disease): Status post LAD and circumflex stents x5. Continue aspirin. Aspirin 81 mg daily is sufficient from a cardiac standpoint and should be continued indefinitely. Continue low-dose beta-elliot for now. Continue high-intensity statin therapy. No angina. (4) Orthostasis: Repeat orthostatic vitals. If continues to have issues and he is found to be orthostatic, would want to address potential tachyarrhythmia as above and could also consider fludrocortisone if symptoms persist. Otherwise, plan as above. (5) Pacemaker: Formal interrogation requested. Dual-chamber Medtronic pacemaker. (6) Edema: When reviewing records, it appears as though he has been having issues with edema. Bumex currently held by hospitalist service for concern of orthostat ic hypotension and instead, he has received fluids. He does not appear to be hypervolemic currently. Some degree of edema could be due to hypoalbuminemia and possibly venous insufficiency. As per primary service. Disposition: Formal interrogation of pacemaker requested. ECG pending. Dr. Hooper, his primary mass spec, will resume his cardiology care on Saturday. Plan of care discussed with Dr. Bauman of the primary hospitalist service. Thank you for allowing me to participate in the care of your patient. Please call for any other questions or concerns. Sincerely, Raj Esposito M.D. History of Present Illness Reason for Consultation: Syncope Requesting Physician: Dr. Bauman Attending Physician: Tres Bauman, DO History of Present Illness Mr. Cosme is an 84-year-old gentleman with a history significant for CAD status post PCI x5, syncope, sinus arrest with prolonged cardiac pauses noted on loop recorder status post dual-chamber Medtronic pacemaker 12/09/2018, hypertension, dyslipidemia, COPD, CKD, and TIA. He was also noted to have paroxysmal atrial flutter on pacemaker interrogation with longest episode of 43 minutes when last seen in [facility] cardiology office on 01/07/2019. Primary mass spec is Dr. Hooper of [facility]. In 2013, for chest discomfort, he underwent cardiac catheterization and PCI x3 to his LAD. In 2014, he had another LAD stent placed locally and then a circumflex stent placed at [facility]. Despite this, he continued to have chest discomfort which he now states was due to acid reflux. He then began having syncope. He had 2 prior syncopal episodes after urinating. This led to a loop recorder with significant pauses which led to a dual-chamber pacemaker placed On 12/09/[address] Rojas. He has not had another syncopal episode until this presentation. Earlier this morning, he was sitting in a recliner and got up to go weigh himself which he does on a daily basis. Prior to walking, he typically stands for a while, which he did this morning. Despite this, he had a syncopal event. He sat down on his walker because he was feeling shaky. His then noted that he was losing consciousness. She was able to help him to the floor and help avoid major injury. She estimates that he was unconscious for approximately 5 minutes but she is not sure of the time. She went to call her neighbor quickly and when she came back from making the telephone call, he was starting to wake up. She states that his �color was not right.� He was also diaphoretic/clammy. He denies chest pain, lightheadedness, palpitations, or any other symptoms just prior to or following the syncopal event. He remembers waking up sitting on the floor. For the past week or so he has had worsening breathing and wheezing. He states that his COPD has been flaring. He has productive cough with ridley sputum. He has chronic lower extremity swelling for which he takes Bumex. He has been taking Bumex 1 mg twice daily according to his home list. He believes that his lower extremity swelling is �good today.� His has noted that his urine has been darker but no hematuria. He was hospitalized for significant hematuria over the winter months with clotting. He did not require transfusion. He has not had melena or hematochezia. He denies fevers, abdominal pain, nausea, vomiting, angina. He has been taking medications as prescribed. Gabapentin was recently reduced to 100 mg daily by his clearing hand. He follows with Nephrology with sujey. Pulmonology is followed by Dr. Miner of [facility]. He follows with Cardiology with [facility]. His stepdaughter, Shaina, was present at the bedside. His was also present at the bedside. He and his stated that if things do not progress as expected, they would request that he be transferred to [facility]. They were made aware that if that is their wish, to notify any of the staff/physicians so that there wishes can be met. They stated that they would like to remain here for this hospitalization for now. According to report, he underwent pacemaker interrogation, however there are no records available to reflect this. Adrien Doyle of [employer] was contacted via telephone. He states that it was interrogated in the emergency department remotely. He has paroxysmal atrial fibrillation intermittently with the most recent episode being 03/08/2019 for approximately 2 hours. Total time in atrial fibrillation is less than 1% of time. He rarely paces in the atrium and has not paced in the ventricle. Since mid February however his baseline heart rate has increased from approximately 75-80 up to approximately 110 bpm. In the emergency department, he also apparently underwent orthostatic vitals which according to records these vitals were abnormal. Unfortunately, the actual data has not been located at the time of this note. Nursing staff was asked to check another set of orthostatic vitals this afternoon. Currently he denies lightheadedness. Review of systems: As above. Review of systems otherwise negative/unremarkable. Social history: He quit smoking approximately 10 years ago. No alcohol. He lives at home with his and stepdaughter, Shaina. Family history: No known premature CAD. Father at the age of 98 from [place]. Mother at 95. Allergies Allergy/AdvReac Type Severity Reaction Status Date / Time Penicillins Allergy Unknown PASSES OUT Verified 03/14/19 11:09 AND LOW HEART RATE Home Medications Home Medications Medication Instructions Recorded Confirmed Type albuterol sulfate 2 puff INHALATION Q6H PRN 06/17/18 03/14/19 History atorvastatin 40 mg PO QAM 06/17/18 03/14/19 History metoprolol succinate 12.5 mg PO HS 10/09/18 03/14/19 History multivitamin 1 tab PO QAM 10/09/18 03/14/19 History nitroglycerin [Nitrostat] 0.4 mg SUBLINGUAL DIRECTED PRN 10/09/18 03/14/19 History pantoprazole 40 mg PO BID 10/09/18 03/14/19 History ranolazine 500 mg PO BID 10/09/18 03/14/19 History sennosides-docusate sodium [Stool 8.6 mg PO BID 10/09/18 03/14/19 History Softener-Laxative] budesonide 1 ml INH Q12H #60 ml 10/17/18 03/14/19 Rx pramipexole 0.25 mg PO HS 11/10/18 03/14/19 History aspirin, buffered 325 mg PO QAM 12/06/18 03/14/19 History bumetanide 1 mg PO UD 03/14/19 03/14/19 History formoterol fumarate [Perforomist] 2 ml INHALATION Q12 03/14/19 03/14/19 History gabapentin 100 mg PO PM 03/14/19 03/14/19 History ipratropium-albuterol 3 ml INHALATION DAILY PRN 03/14/19 03/14/19 History polyethylene glycol 3350 [Miralax] 17 g PO DAILY PRN 03/14/19 03/14/19 History potassium chloride [Klor-Con M20] 20 meq PO QAM 03/14/19 03/14/19 History tamsulosin 0.4 mg PO HS 03/14/19 03/14/19 History Patient History Medical History CHF (congestive heart failure) GERD (gastroesophageal reflux disease) HTN (hypertension) Hyperlipidemia CAD (coronary artery disease) RLS (restless legs syndrome) COPD (chronic obstructive pulmonary disease) (Chronic) 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false pass coronary artery w/angina pectoris (Acute 11/25/14) Coronary arteriosclerosis (Acute 03/30/14) CKD (chronic kidney disease) TIA (transient ischemic attack) (Chronic) Surgical History History of permanent cardiac pacemaker placement p Pacer with A/V Leads (Dual)(Left) - Tomasz Rojas MD 12/08/2018 s Remove Cardiac Event Recorder(Left) - Tomasz Rojas MD 12/08/2018 Medtronic pacer: Model: [id number]; serial number [id number]; implanted 12/08/2018 S/P drug eluting coronary stent placement X4 Family History Father Myocardial infarction Other No pertinent family history Social History Preferred Language: German Communication Ability: Effective Gas Pumper Required: No Beliefs That Will Affect Care: None marital status: Life Partner Current Living Situation: Spouse Current Living Situation Comment: Girlfriend Other Information That Helps Us Care for You: No Feels Safe at Home: No Is there a partner from a previous relationship who is making you feel unsafe now?: No Any Concerns about Your Family Situation: No Would You Like to Speak to Someone About Your Situation: No Safety Concerns: Feels Safe At This Time Smoking Status: Former smoker Tobacco Type: cigarettes Do You Dip or Chew Tobacco: No Second Hand Exposure: No Tobacco Cessation Education Requested by Patient: No Hx Alcohol Use: No Hx Substance Use: No Physical Exam Physical Exam: Gen.: No acute distress. Alert. HEENT: Anicteric sclera. Neck: No appreciable JVD. No bruits. Normal carotid upstrokes bilaterally. Cardiac: PMI was nonpalpable . No ventricular heave. Regular but tachycardic. Normal S1-S2. No audible murmurs, rubs, or gallops. Pulmonary: Bilateral expiratory wheezing throughout all lung moura. Abdomen: Soft, nontender, nondistended, with normoactive bowel sounds. No bruits noted. Extremities: 2+ radial pulses bilaterally. 2+ posterior tibialis pulses bilat erally. 1 to 2+ bilateral pedal edema, right greater than left. No cyanosis. Psychiatric: Affect appears appropriate. Results & Data Vital Signs (Past 12 Hours) Vital Signs Temp Pulse Pulse Resp BP BP Pulse Ox 03/14/19 14:38 94 03/14/19 13:00 36.6 C 117 H 22 131/91 94 03/14/19 12:30 114 H 16 115/77 95 03/14/19 12:20 114 H 15 93 03/14/19 12:15 114 H 17 116/85 94 03/14/19 12:10 113 H 20 93 03/14/19 12:01 83 16 94/67 L 92 03/14/19 12:00 88 15 93 03/14/19 11:50 113 H 19 95 03/14/19 11:45 113 H 18 104/69 95 03/14/19 11:40 113 H 16 94 03/14/19 11:31 83 23 98/71 L 94 03/14/19 11:30 84 17 94 03/14/19 11:20 83 13 94 03/14/19 11:17 83 18 95 03/14/19 11:16 83 19 100/66 96 03/14/19 11:01 81 16 101/59 L 100 03/14/19 10:58 81 18 95 03/14/19 10:46 81 16 96/56 L 94 03/14/19 10:45 80 15 74/49 L 96 03/14/19 10:30 109 H 22 123/72 96 03/14/19 10:22 107 H 21 113/74 98 03/14/19 10:20 109 H 17 94 03/14/19 10:16 108 H 17 82/54 L 90 03/14/19 10:15 108 H 16 113/78 94 03/14/19 10:14 107 H 15 102/71 96 03/14/19 10:10 108 H 19 98 03/14/19 10:08 108 H 22 111/82 93 03/14/19 10:00 107 H 18 92 03/14/19 09:50 108 H 19 95 03/14/19 09:49 97 03/14/19 09:47 107 H 20 94 03/14/19 09:46 101 H 96/70 L 03/14/19 09:42 108 H 21 94 03/14/19 09:39 36.6 C 108 H 20 86/68 L 95 03/14/19 09:33 108 H 17 96/70 L 93 Laboratory Results Laboratory Results - last 24 hr 03/14/19 03/14/19 03/14/19 09:36 09:36 09:36 WBC 7.34 RBC 3.47 L Hgb 10.4 L Hct 32.1 L MCV 92.5 MCH 30.0 MCHC 32.4 RDW Std Deviation 51.8 H RDW Coeff of Tim 15.5 H Plt Count 210 MPV 10.5 H Immature Gran % (Auto) 0.1 Neut % (Auto) 77.3 Lymph % (Auto) 12.9 Terry % (Auto) 6.8 Eos % (Auto) 2.6 Baso % (Auto) 0.3 Immature Gran # (Auto) 0.01 Neut # (Auto) 5.67 Lymph # (Auto) 0.95 L Terry # (Auto) 0.50 Eos # (Auto) 0.19 Baso # (Auto) 0.02 PT INR Sodium 138 Potassium Chloride 103 Carbon Dioxide 31 Anion Gap 4.0 BUN 27 H Creatinine 2.57 H Est Cr Clr Drug Dosing Not Reportable Est GFR ( Amer) 25.7 Est GFR (Non-Af Amer) 22.1 BUN/Creatinine Ratio 10.3 Glucose 89 Calcium 9.1 Magnesium Total Bilirubin 0.9 AST ALT 15 Alkaline Phosphatase 104 Total Creatine Kinase Cancelled CK-MB (CK-2) 1.1 CK/CKMB % Calc TNP Troponin I 0.035 NT-Pro-B Natriuret Pep Total Protein 7.9 Albumin 3.0 L Globulin 4.9 H Albumin/Globulin Ratio 0.6 L TSH 1.710 03/14/19 03/14/19 03/14/19 09:36 09:36 10:51 WBC RBC Hgb Hct MCV MCH MCHC RDW Std Deviation RDW Coeff of Tim Plt Count MPV Immature Gran % (Auto) Neut % (Auto) Lymph % (Auto) Terry % (Auto) Eos % (Auto) Baso % (Auto) Immature Gran # (Auto) Neut # (Auto) Lymph # (Auto) Terry # (Auto) Eos # (Auto) Baso # (Auto) PT 12.5 H INR 1.2 H Sodium Potassium 4.2 Chloride Carbon Dioxide Anion Gap BUN Creatinine Est Cr Clr Drug Dosing Est GFR ( Amer) Est GFR (Non-Af Amer) BUN/Creatinine Ratio Glucose Calcium Magnesium 2.5 H Total Bilirubin AST 13 L ALT Alkaline Phosphatase Total Creatine Kinase 41 CK-MB (CK-2) CK/CKMB % Calc Troponin I Cancelled NT-Pro-B Natriuret Pep 4887 H Total Protein Albumin Globulin Albumin/Globulin Ratio TSH Diagnostic Findings Echocardiogram 11/10/2018: Normal LV size, wall motion, systolic function. EF 65-70%. Mild . Mild to moderate AI. Cardiac catheterization/PCI: 1. PCI 03/30/2014 at [facility]: Mid to distal LAD with 2.25 x 15 mm, 2.25 x 12 mm, and 2.5 x 18 mm stents 2. PCI 11/15/2014 at [facility]: Mid to distal LAD overlapping with previous stent. 2.25 x 15 mm JENNIFER. 3. PCI 05/17/2015 at [facility]: Circumflex 2.5 x 12 mm PFT's 01/26/2019: Moderate to severe obstructive pattern. Significant decline from 12/23/2017 study per report. Lower extremity Doppler 01/27/2019: No DVT bilateral lower extremities. Chest x-ray 03/14/2019: Interstitial lung prominence. No focal infiltrate per Radiology. Trace bilateral pleural effusions suspected. Medications Administered Current Inpatient Medications Acetaminophen (Tylenol) 650 mg PO Q4H PRN PRN Reason: Pain or Fever Stop: 04/13/19 13:15 Albuterol (Ventolin Hfa) 2 puffs INH Q6H PRN PRN Reason: Shortness Of Breath Stop: 04/13/19 13:15 Albuterol (Duoneb) 3 ml INH DAILY PRN PRN Reason: Wheezing Stop: 04/13/19 13:15 Aspirin Buffered (Ascriptin) 325 mg PO QAM NADEEN Stop: 04/14/19 08:59 Atorvastatin Calcium (Lipitor) 40 mg PO QAM NADEEN Stop: 04/14/19 08:59 Budesonide (Pulmicort Respules) 0.25 mg INH Q12R NADEEN Stop: 04/13/19 19:59 Formoterol Fumarate (Perforomist) 20 mcg INH Q12R NADEEN Stop: 04/13/19 19:59 Gabapentin (Neurontin) 100 mg PO PM NADEEN Stop: 04/13/19 20:59 Heparin Sodium (Porcine) (Heparin Sodium (Porcine)) 5,000 units SQ Q12 NADEEN Stop: 04/13/19 20:59 Parenteral Electrolytes (Normosol-R) 1,000 mls @ 70 mls/hr IV .[id number] NADEEN Stop: 03/15/19 02:37 Last Admin: 03/14/19 13:35 Dose: 70 mls/hr Documented by: Methylprednisolone 40 mg/ (Syringe) 0.64 mls @ 1.5 mls/min IV Q12H NADEEN Stop: 04/13/19 17:59 Ipratropium [place] (Atrovent 0.02% 0.5mg/2.5ml) 0.5 mg INH Q6R NADEEN Stop: 04/13/19 13:59 Last Admin: 03/14/19 14:39 Dose: Not Given Documented by: Levalbuterol HCl (Xopenex 1.25mg/0.5ml Neb) 1.25 mg INH Q6R NADEEN Stop: 04/13/19 13:59 Last Admin: 03/14/19 14:38 Dose: Not Given Documented by: Metoprolol Succinate (Toprol Xl) 12.5 mg PO HS [facility] Stop: 04/13/19 20:59 Multivitamins (Multivitamin Tab) 1 tab PO QAM [facility] Stop: 04/14/19 08:59 Nitroglycerin (Nitrostat) 0.4 mg SL UD PRN PRN Reason: Chest Pain Stop: 04/13/19 13:15 Pantoprazole Sodium (Protonix) 40 mg PO BID [facility] Stop: 04/13/19 20:59 Polyethylene Glycol (Miralax Powder Packet) 17 gm PO DAILY PRN PRN Reason: Constipation Stop: 04/13/19 13:15 Potassium Chloride (Klor-Con M20) 20 meq PO QAM [facility] Stop: 04/14/19 08:59 Pramipexole Dihydrochloride (Mirapex) 0.25 mg PO HS [facility] Stop: 04/13/19 20:59 Ranolazine (Ranexa) 500 mg PO BID [facility] Stop: 04/13/19 20:59 Senna/Docusate Sodium (Senokot S) 1 tab PO BID [facility] Stop: 04/13/19 20:59 Tamsulosin HCl (Flomax) 0.4 mg PO HS [facility] Stop: 04/13/19 20:59 (1) Syncope Syncope type: unspecified Qualified Code(s): R55 - Syncope and collapse
--- NOTE | 2019-03-14 14:54 | Emergency Department Note ---
ED Visit Note I have personally seen and evaluated the patient with the PA. I agree with the diagnosis and management decisions and have been personally involved in the case. Patient was given 250 cc of IV normal saline solution x2 separate boluses for persistent hypotension. The patient does have chronic kidney disease with a creatinine today of 2.57. I do suspect he is running dry at this time contributing to his syncopal event. The pacemaker was interrogated without evidence of dysrhythmia to cause the event. Patient will be evaluated by the hospitalist service for further management. Please see Malachi Urbina PA-C's notes for further details of the history, physical and visit. .
[2019-03-14 16:48] LABS: Appearance Urine Clear (Clear); Bacteria Urine Automated Negative (Negative); Blood Urine Negative (Negative); Color Urine Dark Yellow; Glucose Urine UA Negative (Negative); Ketones Urine Negative (Negative); Leukocyte Esterase Urine 1+ (Negative); Nitrite Urine Positive (Negative); Protein Urine 3+ (Negative); RBC Urine Automated 0-4 /hpf (0-4); Specific Gravity Urine 1.024 (1.000-1.030); Urobilinogen Urine Negative (Negative); pH Urine 6.5 (4.5-7.5)
[2019-03-14 16:51] LABS: Bilirubin Urine Negative (Negative); Ictotest Urine Negative (Negative)
[2019-03-14] MEDS: methylPREDNISolone 40 MG in SYRINGE 0 ML IV SCH (18:33)
[2019-03-14] MEDS: FORMOTEROL 20 MCG/2 ML VIAL INH SCH (20:29)
[2019-03-14] MEDS: BUDESONIDE 0.25 MG/2 ML VIAL (PULMICORT) INH SCH (20:30)
[2019-03-14] MEDS ORDERED: METOPROLOL SUCC 25MG EXT REL TAB PO SCH (21:00)
[2019-03-14] MEDS: TAMSULOSIN HCL 0.4 MG CAP PO SCH (21:21)
[2019-03-14] MEDS: PANTOprazole 40 MG TAB PO SCH (21:22)
[2019-03-14] MEDS: PRAMIPEXOLE DIHYDROCHLO 0.25 MG TAB PO SCH (21:22)
[2019-03-14] MEDS: GABAPENTIN 100 MG CAP PO SCH (21:22)
[2019-03-14] MEDS: DOCUSATE SODIUM/SENNA 50/8.6MG TAB PO SCH (21:23)
[2019-03-14] MEDS: RANOLAZINE 500 MG ER TAB PO SCH (21:23)
[2019-03-14] MEDS: HEPARIN SOD 5,000 UNIT/0.5 ML VIAL SQ SCH (21:25)
[2019-03-15] MEDS: LEVALBUTEROL 1.25MG/0.5ML NEB INH SCH ×4 (01:38→20:26)
[2019-03-15] MEDS: IPRATROPIUM BROMIDE NEB SOLN 0.02% 2.5 ML VIAL INH SCH ×3 (01:38→13:43)
[2019-03-15] MEDS: ALBUTEROL HFA 8 GM INHALER INH PRN ×3 (02:13→19:50)
[2019-03-15] MEDS: methylPREDNISolone 40 MG in SYRINGE 0 ML IV SCH ×2 (05:25→17:23)
[2019-03-15] MEDS: FORMOTEROL 20 MCG/2 ML VIAL INH SCH ×2 (07:10→19:26)
[2019-03-15] MEDS: BUDESONIDE 0.25 MG/2 ML VIAL (PULMICORT) INH SCH ×2 (07:12→19:26)
[2019-03-15 07:13] LABS: Hematocrit (blood only) 31.5 % (42-52); Hemoglobin 10.4 g/dL (14.0-18.0); Immature Granulocytes # (auto) 0.02 K/uL (0.00-0.02); Immature Granulocytes % (auto) 0.2 %; Lymphocytes # (auto) 0.47 K/uL (1.2-3.4); Lymphocytes % (auto) 5.5 %; Mean Corpuscular Volume 91.6 fL (80-100); Mean Platelet Volume 10.2 fL (7.4-10.4); Monocytes # (auto) 0.37 K/uL (0.11-0.59); Monocytes % (auto) 4.3 %; Neutrophils # (auto) 7.68 K/uL (1.4-6.5); Platelet Count 229 K/uL (130-400); RDW Coefficient of Variation 15.5 % (11.5-14.5); RDW Standard Deviation 51.1 fL (36.4-46.3); Red Blood Count 3.44 M/uL (4.7-6.1); White Blood Count 8.54 K/uL (4.8-10.8)
[2019-03-15 07:43] LABS: Calcium 9.5 mg/dl (8.5-10.1); Creatinine Clr Calc Pharmacy 27.8 ml/min; Est GFR (African American) 28.9; Est GFR (Non-African American) 24.9; Potassium 4.4 mmol/L (3.5-5.1)
[2019-03-15] MEDS: ASPIRIN/ALUM/MAGNES/CAL CARB 325 MG TAB PO SCH (07:59)
[2019-03-15] MEDS: MULTIVITAMIN TAB PO SCH (08:00)
[2019-03-15] MEDS: ATORVASTATIN 40 MG TAB PO SCH (08:00)
[2019-03-15] MEDS: RANOLAZINE 500 MG ER TAB PO SCH ×2 (08:00→20:03)
[2019-03-15] MEDS: POTASSIUM CHLORIDE 20 MEQ TABCR PO SCH (08:00)
[2019-03-15] MEDS: PANTOprazole 40 MG TAB PO SCH ×2 (08:00→20:01)
[2019-03-15] MEDS: HEPARIN SOD 5,000 UNIT/0.5 ML VIAL SQ SCH ×2 (08:01→20:05)
[2019-03-15] MEDS: DOCUSATE SODIUM/SENNA 50/8.6MG TAB PO SCH ×2 (09:54→20:03)
--- NOTE | 2019-03-15 10:49 | Cardiology Progress Note ---
Date of Service March 15, 2019 Assessment & Plan (1) Syncope: He was found to have orthostatic hypotension yesterday by nursing staff. Orthostatic vitals today have improved. Although he does have lower extremity edema, may have to lower the overall dose of Outpatient diuretics. He had been taking Bumex 1 mg twice daily. Consider restarting 1 mg of oral Bumex tomorrow. Continue support stockings. (2) Tachycardia: Based on most recent ECG, rhythm appears to be accelerated junctional rhythm with retrograde P-wave. Formal interrogation of the pacemaker is pending. He may be able to be paced out of this rhythm and hopefully with adjustments of his pacemaker, and perhaps more atrial pacing with higher rates, this rhythm can be avoided in the future. He was (3) CAD (coronary artery disease): Status post LAD and circumflex stents x5. Continue aspirin. Aspirin 81 mg daily is sufficient from a cardiac standpoint and should be continued indefinitely. Continue low-dose beta-elliot for now. Continue high-intensity statin therapy. No angina. (4) Orthostasis: Found to be orthostatic yesterday but orthostatic vitals today have improved. Consider lowering outpatient dose of Bumex however he does have lower extremity edema. May have to accept some degree of edema for quality of life issues to avoid syncope and possible injury. Support stockings recommended. Change positions slowly. (5) Pacemaker: Formal interrogation requested and is pending. Dual-chamber Medtronic pacemaker. (6) Edema: Consider lowering outpatient dose of Bumex to avoid syncope given orthostatic hypotension, likely causing his syncopal episodes. Support stockings. Low-sodium diet. Disposition: Awaiting formal interrogation of pacemaker with possible adjustments. He is also being treated for COPD by the primary hospitalist service. Dr. Hooper, his primary operator specialist communications, will resume his cardiology care tomorrow. Subjective Breathing is stable. He has dyspnea with exertion. Inhalers are helping. He is upset that he is on prednisone as he is fearful of weight gain. He denies chest pain, palpitations, syncope or worsening edema. No reported bleeding. Formal interrogation of pacemaker has not yet been done but is currently pending. Overnight, his rhythm did break transiently as he was paced for a few beats and appeared to have sinus rhythm for short period of time before once again developing which now appears to be an accelerated junctional rhythm with retrograde P wave. Nursing staff called yesterday after checking orthostatic vitals. On 03/14/2019 at 3:35 p.m., supine blood pressure was 109/78 with a sitting blood pressure of 99/72 and a standing blood pressure 85/62mmHg. Review of systems: As above. Physical Exam Physical Exam: Gen.: No acute distress. Alert. HEENT: Anicteric sclera. Neck: No appreciable JVD. . Cardiac: Regular but tachycardic. Normal S1-S2. No audible murmurs, rubs, or gallops. Pulmonary: Bilateral expiratory wheezing throughout all lung moura. Overall, sounds tight. Abdomen: Soft, nontender, nondistended, with normoactive bowel sounds. No bruits noted. Extremities: 1 to 2+ bilateral pedal edema, right greater than left. No cyanosis. Psychiatric: Affect appears appropriate. Results & Data Vital Signs (Past 12 Hours) Vital Signs Temp Pulse Pulse Resp BP Pulse Ox 03/15/19 08:09 36.6 C 122 H 18 124/77 91 03/15/19 07:15 115 H 18 95 03/15/19 03:38 36.6 C 118 H 16 116/79 93 03/15/19 01:38 115 H 16 95 03/15/19 01:03 79 03/14/19 23:19 36.5 C 118 H 18 131/89 92 Intake & Output 03/13/19 03/14/19 03/15/19 03/16/19 06:59 06:59 06:59 06:59 Intake Total 1650 / 1650 Output Total 602 / 602 Balance 1048 / 1048 Weight 102 kg Laboratory Results Laboratory Results - last 24 hr 03/14/19 03/14/19 03/15/19 10:51 16:37 07:00 WBC 8.54 RBC 3.44 L Hgb 10.4 L Hct 31.5 L MCV 91.6 MCH 30.2 MCHC 33.0 RDW Std Deviation 51.1 H RDW Coeff of Tim 15.5 H Plt Count 229 MPV 10.2 Immature Gran % (Auto) 0.2 Neut % (Auto) 90.0 Lymph % (Auto) 5.5 [place] % (Auto) 4.3 Eos % (Auto) 0.0 Baso % (Auto) 0.0 Immature Gran # (Auto) 0.02 Neut # (Auto) 7.68 H Lymph # (Auto) 0.[address] [place] # (Auto) 0.37 Eos # (Auto) 0.00 Baso # (Auto) 0.00 Sodium Potassium 4.2 Chloride Carbon Dioxide Anion Gap BUN Creatinine Est Cr Clr Drug Dosing Est GFR ( Amer) Est GFR (Non-Af Amer) BUN/Creatinine Ratio Glucose Calcium Magnesium 2.5 H AST 13 L Total Creatine Kinase 41 NT-Pro-B Natriuret Pep 4887 H Urine Color Dark Yellow Urine Appearance Clear Urine pH 6.5 Ur Specific [place] 1.024 Urine Protein 3+ H Urine Glucose (UA) Negative Urine Ketones Negative Urine Blood Negative Urine Nitrite Positive A Urine Bilirubin Negative Urine Urobilinogen Negative Ur Leukocyte Esterase 1+ H Urine WBC (Auto) 1-5 Urine RBC (Auto) 0-4 U Hyaline Cast (Auto) 1-5 U Epithel Cells (Auto) 5-10 H Urine Bacteria (Auto) Negative 03/15/19 07:00 WBC RBC Hgb Hct MCV MCH MCHC RDW Std Deviation RDW Coeff of Tim Plt Count MPV Immature Gran % (Auto) Neut % (Auto) Lymph % (Auto) [place] % (Auto) Eos % (Auto) Baso % (Auto) Immature Gran # (Auto) Neut # (Auto) Lymph # (Auto) [place] # (Auto) Eos # (Auto) Baso # (Auto) Sodium 137 Potassium 4.4 Chloride 101 Carbon Dioxide 29 Anion Gap 7.0 BUN 30 H Creatinine 2.33 H Est Cr Clr Drug Dosing 27.8 Est GFR ( Amer) 28.9 Est GFR (Non-Af Amer) 24.9 BUN/Creatinine Ratio 13.0 Glucose 135 H Calcium 9.5 Magnesium AST Total Creatine Kinase NT-Pro-B Natriuret Pep Urine Color Urine Appearance Urine pH Ur Specific [place] Urine Protein Urine Glucose (UA) Urine Ketones Urine Blood Urine Nitrite Urine Bilirubin Urine Urobilinogen Ur Leukocyte Esterase Urine WBC (Auto) Urine RBC (Auto) U Hyaline Cast (Auto) U Epithel Cells (Auto) Urine Bacteria (Auto) Diagnostic Findings telemetry personally reviewed: Possible accelerated junctional rhythm. There was a few beats of paced rhythm and probable sinus rhythm overnight. ECG personally reviewed: ECG 03/15/2019 at 7:31 a.m.: Accelerated junctional rhythm with retrograde P- wave. Nonspecific T-wave abnormality. Medications Administered Current Inpatient Medications Acetaminophen (Tylenol) 650 mg PO Q4H PRN PRN Reason: Pain or Fever Stop: 04/13/19 13:15 Albuterol (Ventolin Hfa) 2 puffs INH Q6H PRN PRN Reason: Shortness Of Breath Stop: 04/13/19 13:15 Last Admin: 03/15/19 09:53 Dose: 2 puffs Documented by: Albuterol (Duoneb) 3 ml INH DAILY PRN PRN Reason: Wheezing Stop: 04/13/19 13:15 Aspirin Buffered (Ascriptin) 325 mg PO QAM [facility] Stop: 04/14/19 08:59 Last Admin: 03/15/19 07:59 Dose: 325 mg Documented by: Atorvastatin Calcium (Lipitor) 40 mg PO QAM [facility] Stop: 04/14/19 08:59 Last Admin: 03/15/19 08:00 Dose: 40 mg Documented by: Budesonide (Pulmicort Respules) 0.25 mg INH Q12R [facility] Stop: 04/13/19 19:59 Last Admin: 03/15/19 07:12 Dose: 0.25 mg Documented by: Formoterol Fumarate (Perforomist) 20 mcg INH Q12R [facility] Stop: 04/13/19 19:59 Last Admin: 03/15/19 07:10 Dose: 20 mcg Documented by: Gabapentin (Neurontin) 100 mg PO PM [facility] Stop: 04/13/19 20:59 Last Admin: 03/14/19 21:22 Dose: 100 mg Documented by: Heparin Sodium (Porcine) (Heparin Sodium (Porcine)) 5,000 units SQ Q12 [facility] Stop: 04/13/19 20:59 Last Admin: 03/15/19 08:01 Dose: 5,000 units Documented by: Methylprednisolone 40 mg/ (Syringe) 0.64 mls @ 1.5 mls/min IV Q12H [facility] Stop: 04/13/19 17:59 Last Admin: 03/15/19 05:25 Dose: 1.5 mls/min Documented by: Ipratropium [place] (Atrovent 0.02% 0.5mg/2.5ml) 0.5 mg INH Q6R [facility] Stop: 04/13/19 13:59 Last Admin: 03/15/19 07:14 Dose: Not Given Documented by: Levalbuterol HCl (Xopenex 1.25mg/0.5ml Neb) 1.25 mg INH Q6R [facility] Stop: 04/13/19 13:59 Last Admin: 03/15/19 07:14 Dose: Not Given Documented by: Metoprolol Succinate (Toprol Xl) 12.5 mg PO [facility] Stop: 04/13/19 20:59 Last Admin: 03/14/19 21:24 Dose: 12.5 mg Documented by: Multivitamins (Multivitamin Tab) 1 tab PO QAM [facility] Stop: 04/14/19 08:59 Last Admin: 03/15/19 08:00 Dose: 1 tab Documented by: Nitroglycerin (Nitrostat) 0.4 mg SL UD PRN PRN Reason: Chest Pain Stop: 04/13/19 13:15 Pantoprazole Sodium (Protonix) 40 mg PO BID [facility] Stop: 04/13/19 20:59 Last Admin: 03/15/19 08:00 Dose: 40 mg Documented by: Polyethylene Glycol (Miralax Powder Packet) 17 gm PO DAILY PRN PRN Reason: Constipation Stop: 04/13/19 13:15 Potassium Chloride (Klor-Con M20) 20 meq PO QAM [facility] Stop: 04/14/19 08:59 Last Admin: 03/15/19 08:00 Dose: 20 meq Documented by: Pramipexole Dihydrochloride (Mirapex) 0.25 mg PO [facility] Stop: 04/13/19 20:59 Last Admin: 03/14/19 21:22 Dose: 0.25 mg Documented by: Ranolazine (Ranexa) 500 mg PO BID [facility] Stop: 04/13/19 20:59 Last Admin: 03/15/19 08:00 Dose: 500 mg Documented by: Senna/Docusate Sodium (Senokot S) 1 tab PO BID [facility] Stop: 04/13/19 20:59 Last Admin: 03/15/19 09:54 Dose: Not Given Documented by: Tamsulosin HCl (Flomax) 0.4 mg PO [facility] Stop: 04/13/19 20:59 Last Admin: 03/14/19 21:21 Dose: 0.4 mg Documented by: (1) Syncope Syncope type: unspecified Qualified Code(s): R55 - Syncope and collapse
[2019-03-15] MEDS ORDERED: COUGH DROP (SUGAR FREE) LOZ 24 LOZ/1 BOX BUCCAL ONE (11:16)
[2019-03-15] MEDS ORDERED: METOPROLOL TARTRATE 1 MG/ML VIAL IV STA (13:29)
[2019-03-15] MEDS: METOPROLOL TARTRATE 25 MG TAB PO SCH ×2 (15:17→20:37)
--- NOTE | 2019-03-15 16:02 | Hospitalist Progress Note ---
Date of Service March 15, 2019 Assessment & Plan (1) Orthostasis: Found to be orthostatic upon admission but orthostatic vitals have since improved with holding Bumex and giving 1 L IV fluids on admission. -Likely cause of recent syncope -Continue holding Bumex but consider restarting at 1 mg daily in the morning tomorrow as per cardiology -Continue checking orthostatic vital signs -Continue VALENTINE stafford (2) Syncope and collapse: Prior evidence of asystole with status post pacemaker placement 12/08/2018 Formal interrogation here pending but appears to have the same accelerated junctional rhythm noted on telemetry here-cardiology notes may try to adjust pacemaker to pace him out of this rhythm Patient orthostatic as above and likely contributed to syncope Received IV fluids Continue to monitor on telemetry Fall precautions (3) CKD (chronic kidney disease): With KRISTIE Elevated creatinine here on admission which is improved today to 2.33 with IV fluids Baseline creatinine 1.6-1.8 Continue to hold home diuretics No flank pain or CVA tenderness Urinalysis with nitrates but no WBCs, and has no urinary symptoms -Follow urine culture but no antibiotics at this time -Follow urine output (4) Tachycardia: With accelerated junctional rhythm with rates consistently in the 1 teens today -Cardiology increase metoprolol to 25 mg p.o. twice daily of the tartrate version-Home dose was Toprol-XL 12.5 mg once daily -Plans to change pacer settings possibly to pace him out of this rhythm tomorrow -Continue telemetry monitoring (5) Coronary artery disease: Status post LAD and circumflex stents x5. No chest pain or tightness -Cardiology increased metoprolol dose and changed him to tartrate 25 mg p.o. twice daily for tachycardia -Continue statin, aspirin, as needed sublingual nitro, and Ranexa (6) COPD (chronic obstructive pulmonary disease): With acute exacerbation here-has diffuse wheezes here and dyspnea with exertion With chronic hypoxic respiratory failure with 2 L nasal cannula nightly and as needed at home -Continue IV Solu-Medrol No indication for antibiotics -Continue albuterol inhaler as needed, and continue budesonide and formoterol nebulizers every 12 hours here -Consider repeating two-step test prior to discharge to better instruct patient on how much oxygen to use and when as he seems to use it as needed, but perhaps hypoxia from exertion is contributing to some of his syncope (7) GERD (gastroesophageal reflux disease): Continue home dose of pantoprazole No acute symptoms (8) Edema: Secondary to dependent edema, holding Bumex at this time due to orthostasis as above -Continue VALENTINE hose, low-sodium diet Follow (9) Pacemaker: Noted as above Placed for asystole with syncope (10) Aortic stenosis: Mild as noted on echocardiogram from 11/2018-would not contribute to syncope -Follow as an outpatient (11) KRISTIE (acute kidney injury): As above (12) Aortic insufficiency: Mild to moderate as noted on echocardiogram from 11/2018 -Follow as an outpatient (13) Restless leg syndrome: Stable -Continue Mirapex at bedtime -Continue gabapentin at bedtime (14) BPH (benign prostatic hyperplasia): No evidence of urinary retention at this time -Continue BladderScan as needed -Continue tamsulosin with caution as can also contribute to orthostasis (15) DVT prophylaxis: Heparin 5000 units every 12 hours VALENTINE hose SCDs Disposition-remain on telemetry unit Subjective Patient reports he does not feel much better but is happy that he did not pass out today. He did feel almost like he was going to pass out when he was transferring from the chair back to the bed today. He was very short of breath with that. He notes that he was not wearing oxygen at the time he passed out prior to this admission, but typically wears oxygen with exertion at home and at nighttime. I discussed the case with cardiology today. Telemetry shows an accelerated junctional rhythm with rates consistently in the 1 teens. Patient denies chest pains. He reports he is not making as much urine as usual, but denies dysuria or urgency, no foul odor. Review of Systems Review of Systems: All systems reviewed & are unremarkable except as noted in HPI & below Physical Exam Constitutional: WD/WN, vitals as above Eyes: + scleral abnormality (Right knee with subconjunctival hemorrhage) ENMT: external ear and nose normal, oropharynx normal Neck: trachea midline, no thyromegaly Respiratory: normal respiratory effort Auscultation: + crackles (Mild at the right base), + rhonchi (Scattered bilaterally) and + wheezes (Diffuse expiratory) Cardiovascular: Rate/Rhythm: regular rhythm and + tachycardic Heart Sounds: no murmur Extremities: + edema (1+ pitting edema of the feet and ankles bilaterally) Gastrointestinal (Abdomen): normal bowel sounds, soft, nontender, no hepatosplenomegaly Musculoskeletal: Extremities: extremities normal to inspection; no cyanosis and no clubbing Skin: no rashes, warm and dry Neurologic: moves all extremities and awake; no focal motor deficits Psychiatric: A+Ox3, euthymic affect Results & Data Vital Signs (Past 12 Hours) Vital Signs Temp Pulse Pulse Resp BP BP Pulse Ox 03/15/19 15:31 36.7 C 113 H 18 116/77 90 03/15/19 13:43 81 16 95 03/15/19 13:37 116 H 115/84 03/15/19 12:03 36.5 C 120 H 22 117/87 97 03/15/19 11:00 119 H 03/15/19 08:09 36.6 C 122 H 18 124/77 91 03/15/19 07:15 115 H 18 95 Laboratory Results 03/15/19 03/15/19 03/15/19 Range/Units 18:08 07:00 07:00 WBC 8.54 (4.8-10.8) K/uL RBC 3.44 L (4.7-6.1) M/uL Hgb 10.4 L (14.0-18.0) g/dL Hct 31.5 L (42-52) % MCV 91.6 (80-100) fL MCH 30.2 (25-34) pg MCHC 33.0 (32-36) g/dL RDW Std Deviation 51.1 H (36.4-46.3) fL RDW Coeff of Tim 15.5 H (11.5-14.5) % Plt Count 229 (130-400) K/uL MPV 10.2 (7.4-10.4) fL Immature Gran % (Auto) 0.2 % Neut % (Auto) 90.0 % Lymph % (Auto) 5.5 % [place] % (Auto) 4.3 % Eos % (Auto) 0.0 % Baso % (Auto) 0.0 % Immature Gran # (Auto) 0.02 (0.00-0.02) K/uL Neut # (Auto) 7.68 H (1.4-6.5) K/uL Lymph # (Auto) 0.47 L (1.2-3.4) K/uL [place] # (Auto) 0.37 (0.11-0.59) K/uL Eos # (Auto) 0.00 (0-0.5) K/uL Baso # (Auto) 0.00 (0-0.2) K/uL Sodium 137 (136-145) mmol/L Potassium 4.4 (3.5-5.1) mmol/L Chloride 101 (98-107) mmol/L Carbon Dioxide 29 (21-32) mmol/L Anion Gap 7.0 (3-11) BUN 30 H (7-18) mg/dl Creatinine 2.33 H (0.6-1.4) mg/dl Est Cr Clr Drug Dosing 27.8 ml/min Est GFR ( Amer) 28.9 Est GFR (Non-Af Amer) 24.9 BUN/Creatinine Ratio 13.0 (10-20) Glucose 135 H (70-99) mg/dl Calcium 9.5 (8.5-10.1) mg/dl Urine Color Dark Yellow Urine Appearance Clear (Clear) Urine pH 5.0 (4.5-7.5) Ur Specific [place] 1.031 H (1.000-1.030) Urine Protein 3+ H (Negative) Urine Glucose (UA) Negative (Negative) Urine Ketones Negative (Negative) Urine Blood Negative (Negative) Urine Nitrite Positive A (Negative) Urine Bilirubin Negative (Negative) Urine Urobilinogen Negative (Negative) Ur Leukocyte Esterase Trace H (Negative) Urine WBC (Auto) 1-5 (0-5) /hpf Urine RBC (Auto) 0-4 (0-4) /hpf U Hyaline Cast (Auto) 5-10 H (0-5) /lpf U Epithel Cells (Auto) 5-10 H (0-5) /lpf Urine Bacteria (Auto) Negative (Negative) (1) CKD (chronic kidney disease) Chronic kidney disease stage: unspecified stage Qualified Code(s): N18.9 - Chronic kidney disease, unspecified
[2019-03-15 18:20] LABS: Appearance Urine Clear (Clear); Bacteria Urine Automated Negative (Negative); Blood Urine Negative (Negative); Color Urine Dark Yellow; Glucose Urine UA Negative (Negative); Ketones Urine Negative (Negative); Leukocyte Esterase Urine Trace (Negative); Nitrite Urine Positive (Negative); Protein Urine 3+ (Negative); RBC Urine Automated 0-4 /hpf (0-4); Specific Gravity Urine 1.031 (1.000-1.030); Urobilinogen Urine Negative (Negative)
[2019-03-15 18:23] LABS: Bilirubin Urine Negative (Negative); Ictotest Urine Negative (Negative)
[2019-03-15] MEDS: ALUMINUM/MAGNESIUM SUSP 30 ML UDC PO PRN (19:49)
[2019-03-15] MEDS: TAMSULOSIN HCL 0.4 MG CAP PO SCH (20:02)
[2019-03-15] MEDS: GABAPENTIN 100 MG CAP PO SCH (20:02)
[2019-03-15] MEDS: PRAMIPEXOLE DIHYDROCHLO 0.25 MG TAB PO SCH (20:04)
[2019-03-16] MEDS: ALUMINUM/MAGNESIUM SUSP 30 ML UDC PO PRN ×3 (01:49→21:13)
[2019-03-16] MEDS: LEVALBUTEROL 1.25MG/0.5ML NEB INH SCH ×4 (01:55→20:06)
[2019-03-16] MEDS: methylPREDNISolone 40 MG in SYRINGE 0 ML IV SCH (05:45)
[2019-03-16 06:26] LABS: BUN Creatinine Ratio 18.3 (10-20); Calcium 9.4 mg/dl (8.5-10.1); Creatinine Clr Calc Pharmacy 27.2 ml/min; Est GFR (Non-African American) 24.2; Potassium 4.8 mmol/L (3.5-5.1)
[2019-03-16] MEDS: FORMOTEROL 20 MCG/2 ML VIAL INH SCH ×2 (07:08→20:12)
[2019-03-16] MEDS: BUDESONIDE 0.25 MG/2 ML VIAL (PULMICORT) INH SCH ×2 (07:08→20:12)
--- NOTE | 2019-03-16 10:04 | Cardiology Progress Note ---
Date of Service March 16, 2019 Subjective He denies any chest pain chest pressure chest heaviness. He does have shortness of breath today and is audibly wheezing. His lightheadedness and dizziness has improved. His lower extremity edema looks much better than when I last saw him. He denies any palpitations or fluttering or feeling his heart racing. This morning but prior to that his appetite is been stable. Denies any fevers chills or sweats. Denies any dark stools or black stools. He is frustrated given the fact he is back in the hospital and not feeling well. He did smoke 2 packs/day for greater than 50 years. Results & Data Vital Signs (Past 12 Hours) Vital Signs Temp Pulse Resp BP Pulse Ox 03/16/19 08:06 36.6 C 115 H 22 130/95 96 03/16/19 07:10 83 20 95 03/16/19 02:48 36.4 C L 112 H 24 113/87 95 03/16/19 01:55 110 H 16 95 03/15/19 22:57 36.5 C 113 H 15 115/79 93 He is awake alert oriented x3 he appears to be in a mild degree of distress HEENT: 2+ carotid upstrokes no evidence of carotid bruits his hearing is diminished sclerae anicteric Lungs: Inspiratory and expiratory wheezing without evidence of rhonchi Heart regular rate and rhythm no appreciable murmurs rubs or gallops Abdomen firm distended positive bowel sounds nontender Extremities trace to mild bilateral lower extremity edema Psychiatric his affect appeared appropriate 1) Syncope: Secondary to orthostatic hypotension and intravascular depletion from diuretics (2) Tachycardia: At time she appears to be in sinus rhythm at 80 bpm with a KS interval at approximately 250 ms. He then has a rhythm for which the rate is in the 1 teens and he appears to have a very long KS interval that is approaching 450 ms. I do not see a second P wave to suggest that this is 2-1 atrial tach or 2-1 atrial flutter. What is unusual is that the pacemaker is not V pacing him when the KS interval is so prolonged (greater than 400 ms). As an outpatient he was almost never V paced and therefore this is not a reason for him to have diastolic heart failure. We will have his device interrogated today. If it is not pacemaker mediated tachycardia and it appears to be an atrial tachycardia we can try to up titrate his calcium channel blockers as his blood pressure allows the other option would be to add amiodarone to his medical regiment. Depending on his interrogation we may need the EP service to see him. I will stop his beta- blockers due to his ongoing wheezing (3) CAD (coronary artery disease): Status post LAD and circumflex stents x5. Continue aspirin. Aspirin 81 mg daily is sufficient from a cardiac standpoint and should be continued indefinitely. Continue high-intensity statin therapy. (4) Orthostasis: Resolved (5) Pacemaker: Formal interrogation requested. Dual-chamber Medtronic pacemaker. (6) Edema: When reviewing records, it appears as though he has been having issues with edema. Bumex currently held by hospitalist service. I think he has venous insufficiency and chronic lower extremity edema that is not related to heart failure. I would recommend compression stockings and/or Wally wraps and elevation of his feet. Await formal interrogation of his pacemaker and further recommendations will be forthcoming
--- NOTE | 2019-03-16 10:34 | XRay Report ---
XR KUB/Abdomen 1 view CLINICAL HISTORY: 84 years-old Male presenting with Vomiting. TECHNIQUE: Single supine view of the abdomen was obtained. COMPARISON: 10/09/2018. FINDINGS: Thickening of the gastric rugae suggested. Nonobstructive bowel gas pattern. Mild stool burden in the rectum. Allowing for bowel gas and stool, no calcifications to suggest nephrolithiasis. Phleboliths or athero sclerotic calcification noted in the pelvis. Additional hyperdensity projects over the pelvis of inde terminate etiology. Osseous structures normal. Pacer leads to the right atrium and right ventricular apex. IMPRESSION: 1. Findings suggest gastric fold thickening, which can be seen in the setting of gastritis. 2. No bowel obstruction. 3. Indeterminate hyperdensity projects over the rectum. Correlate for an external object versus intr aluminal. This was not apparent on prior CT. Electronically signed by: Bharath Roldan M.D. 03/16/2019 10:33 AM
[2019-03-16] MEDS: HEPARIN SOD 5,000 UNIT/0.5 ML VIAL SQ SCH ×2 (10:35→20:17)
[2019-03-16] MEDS: MULTIVITAMIN TAB PO SCH (10:36)
[2019-03-16] MEDS: ASPIRIN/ALUM/MAGNES/CAL CARB 325 MG TAB PO SCH (10:36)
[2019-03-16] MEDS: POTASSIUM CHLORIDE 20 MEQ TABCR PO SCH (10:36)
[2019-03-16] MEDS: RANOLAZINE 500 MG ER TAB PO SCH ×2 (10:36→20:16)
[2019-03-16] MEDS: PANTOprazole 40 MG TAB PO SCH ×2 (10:36→20:19)
[2019-03-16] MEDS: DOCUSATE SODIUM/SENNA 50/8.6MG TAB PO SCH ×2 (10:36→20:16)
[2019-03-16] MEDS: ATORVASTATIN 40 MG TAB PO SCH (10:37)
[2019-03-16] MEDS: METOPROLOL TARTRATE 25 MG TAB PO SCH (10:37)
--- NOTE | 2019-03-16 11:07 | XRay Report ---
XR chest 1V portable CLINICAL HISTORY: Cough. COMPARISON STUDY: Chest CT January 23, 2019. Chest radiograph March 24, 2019. FINDINGS: Left subclavian pacer is in place. There is no pneumothorax or pleural effusion. Cardiomedi astinal silhouette is stable. No consolidation is identified. Pulmonary vascular congestion is noted. IMPRESSION: Pulmonary vascular congestion with possible mild pulmonary edema. Electronically signed by: Fidel Strauss M.D. 03/16/2019 11:06 AM
[2019-03-16] MEDS: dilTIAZem HCL 30 MG TAB PO SCH ×2 (13:28→20:16)
--- NOTE | 2019-03-16 15:50 | Hospitalist Progress Note ---
Date of Service March 16, 2019 Assessment & Plan (1) Orthostasis: Found to be orthostatic upon admission but orthostatic vitals have since improved with holding Bumex and giving 1 L IV fluids on admission. -Likely cause of recent syncope -Continue holding Bumex today, reassess need to resume tomorrow -Continue checking orthostatic vital signs -Continue VALENTINE stafford (2) Syncope and collapse: Prior evidence of asystole with status post pacemaker placement 12/08/2018 Formal interrogation here pending but appears to have the same accelerated junctional rhythm noted on telemetry here-cardiology notes may try to adjust pacemaker to pace him out of this rhythm Patient orthostatic as above and likely contributed to syncope Received IV fluids Continue to monitor on telemetry Fall precautions (3) CKD (chronic kidney disease): unsure if patient with KRISTIE, a lot of his Cr readings in past months have been above 2, some as high as 3 Cr is 2.39 today, 2.33 yesterday, making uring Continue to hold home diuretics No flank pain or CVA tenderness Urinalysis with nitrates but no WBCs, and has no urinary symptoms -Follow urine culture but no antibiotics at this time -Follow urine output (4) Tachycardia: With accelerated junctional rhythm with rates consistently in the 110's however, when resting his HR is more consistently in the 70-80 range will stop metoprolol due to COPD start on Diltiazem 30mg TID per cardiology, follow response (5) Coronary artery disease: Status post LAD and circumflex stents x5. No chest pain or tightness currently stop metoprolol due to wheezing, bronchospasm -Continue statin, aspirin, as needed sublingual nitro, and Ranexa (6) COPD (chronic obstructive pulmonary disease): With acute exacerbation here-has diffuse wheezes here and dyspnea with exertion With chronic hypoxic respiratory failure with 2 L nasal cannula nightly and as needed at home will increase Solu Medrol to 60mg IV q12 from 40mg, look for improvement still no indication for antibiotics (no fever, no infiltrates on CXR, no change in sputum) -Continue albuterol inhaler as needed, and continue budesonide and formoterol nebulizers every 12 hours here (7) GERD (gastroesophageal reflux disease): Continue home dose of pantoprazole No acute symptoms (8) Edema: Secondary to dependent edema, holding Bumex at this time due to orthostasis as above -Continue VALENTINE hose, low-sodium diet Follow (9) Pacemaker: Noted as above Placed for asystole with syncope (10) Aortic stenosis: Mild as noted on echocardiogram from 11/2018-would not contribute to syncope -Follow as an outpatient (11) KRISTIE (acute kidney injury): As above, unsure if this truly represents KRISTIE repeat BMP tomorrow to better gauge renal function at this time (12) Aortic insufficiency: Mild to moderate as noted on echocardiogram from 11/2018 -Follow as an outpatient (13) Restless leg syndrome: Stable -Continue Mirapex at bedtime -Continue gabapentin at bedtime (14) BPH (benign prostatic hyperplasia): No evidence of urinary retention at this time -Continue BladderScan as needed -Continue tamsulosin with caution as can also contribute to orthostasis (15) DVT prophylaxis: Heparin 5000 units every 12 hours VALENTINE stafford SCDs Disposition-remain on telemetry unit Subjective patient with some nausea and vomiting this morning, came on all of a sudden, unable to eat breakfast said he moved bowels two days ago, does not feel distended no chest pain or pressure continues to have cough with some "stringy" phlegm that is difficult to get out discussed with Dr. Hooper today, awaiting detailed pacer interrogation to determine when tachycardia started he is unsure of why he is having issues pacer was placed and he has never been V paced always has peripheral edema treated with compression, it appears he is intravascularly depleted due to orthostasis and sensitivity to diuretics lungs more course on exam today, more wheezing Dr. Hooper will change metoprolol to Diltiazem personally viewed CXR and KUB no obstruction seen, CXR with some edema but no infiltrates Review of Systems Review of Systems: All systems reviewed & are unremarkable except as noted in HPI & below Constitutional: + fatigue and + weakness; no fever Respiratory: + cough, + dyspnea, + dyspnea on exertion, + sputum production and + wheezing Cardiovascular: + edema; no chest pain, no palpitations and no syncope Gastrointestinal: + nausea and + vomiting; no abdominal pain, no constipation and no diarrhea/loose stools Psychiatric: + hallucinations (visual) Physical Exam Constitutional: WD/WN, vitals as above Eyes: normal visual moura by confrontation, + conjunctival abnormality (subconjunctival hemorrhage on right, improving), PERRL and EOM intact bilaterally; no eyelid abnormality ENMT: external ear and nose normal, oropharynx normal Neck: trachea midline, no thyromegaly Respiratory: normal respiratory effort; no respiratory distress Auscultation: + diminished lung sounds, + rhonchi and + wheezes (end expiratory, auditory); no crackles and no rales Cardiovascular: Rate/Rhythm: regular rhythm and + tachycardic Heart Sounds: normal S1 and normal S2; no murmur Vessels: no JVD Extremities: normal capillary refill; no edema Gastrointestinal (Abdomen): Inspection/Auscultation: + abdomen distended and normal bowel sounds Percussion/Palpation: abdomen soft; abdomen nontender, no guarding and abdomen not rigid Musculoskeletal: no cyanosis or clubbing, extremities motor strength 5/5 Skin: no rashes, warm and dry + turgor decreased Neurologic: patellar DTR's 2+ bilat, sensation intact and PERRL, EOMI, accommodation nl, no face palsy, no dysarthria Psychiatric: A+Ox3, euthymic affect Hallucinations: + visual hallucinations Lymphatic: no cervical or axillary lymphadenopathy Results & Data Vital Signs (Past 12 Hours) Vital Signs Temp Pulse Resp BP Pulse Ox 03/16/19 14:19 98 H 18 94 03/16/19 12:27 36.5 C 112 H 18 111/83 97 03/16/19 08:06 36.6 C 115 H 22 130/95 96 03/16/19 07:10 83 20 95 Laboratory Results Laboratory Results - last 24 hr 03/15/19 03/16/19 18:08 05:37 Sodium 135 L Potassium 4.8 Chloride 99 Carbon Dioxide 28 Anion Gap 8.0 BUN 44 H Creatinine 2.39 H Est Cr Clr Drug Dosing 27.2 Est GFR ( Amer) 28.0 Est GFR (Non-Af Amer) 24.2 BUN/Creatinine Ratio 18.3 Glucose 119 H Calcium 9.4 Magnesium 3.0 H Urine Color Dark Yellow Urine Appearance Clear Urine pH 5.0 Ur Specific Mitchell 1.031 H Urine Protein 3+ H Urine Glucose (UA) Negative Urine Ketones Negative Urine Blood Negative Urine Nitrite Positive A Urine Bilirubin Negative Urine Urobilinogen Negative Ur Leukocyte Esterase Trace H Urine WBC (Auto) 1-5 Urine RBC (Auto) 0-4 U Hyaline Cast (Auto) 5-10 H U Epithel Cells (Auto) 5-10 H Urine Bacteria (Auto) Negative Diagnostic Findings XR KUB/Abdomen 1 view FINDINGS: Thickening of the gastric rugae suggested. Nonobstructive bowel gas pattern. Mild stool burden in the rectum. Allowing for bowel gas and stool, no calcifications to suggest nephrolithiasis. Phleboliths or atherosclerotic calcification noted in the pelvis. Additional hyperdensity projects over the pelvis of indeterminate etiology. Osseous structures normal. Pacer leads to the right atrium and right ventricular apex. IMPRESSION: 1. Findings suggest gastric fold thickening, which can be seen in the setting of gastritis. 2. No bowel obstruction. 3. Indeterminate hyperdensity projects over the rectum. Correlate for an external object versus intraluminal. This was not apparent on prior CT. XR chest 1V portable FINDINGS: Left subclavian pacer is in place. There is no pneumothorax or pleural effusion. Cardiomediastinal silhouette is stable. No consolidation is identified. Pulmonary vascular congestion is noted. IMPRESSION: Pulmonary vascular congestion with possible mild pulmonary edema. Medications Administered Current Inpatient Medications Acetaminophen (Tylenol) 650 mg PO Q4H PRN PRN Reason: Pain or Fever Stop: 04/13/19 13:15 Al Hydrox/Mg Hydrox/Simethicone (Maalox) 15 ml PO Q6H PRN PRN Reason: Indigestion Stop: 04/14/19 19:29 Last Admin: 03/16/19 09:04 Dose: 15 ml Documented by: Albuterol (Ventolin Hfa) 2 puffs INH Q6H PRN PRN Reason: Shortness Of Breath Stop: 04/13/19 13:15 Last Admin: 03/15/19 19:50 Dose: 2 puffs Documented by: Aspirin Buffered (Ascriptin) 325 mg PO QAM [facility] Stop: 04/14/19 08:59 Last Admin: 03/16/19 10:36 Dose: 325 mg Documented by: Atorvastatin Calcium (Lipitor) [facility] [place] Stop: 04/14/19 08:59 Last Admin: 03/16/19 10:37 Dose: 40 mg Documented by: Budesonide (Pulmicort Respules) 0.25 mg INH Q12R [facility] Stop: 04/13/19 19:59 Last Admin: 03/16/19 07:08 Dose: 0.25 mg Documented by: Diltiazem HCl (Cardizem) 30 mg PO TID [facility] Stop: 04/15/19 13:59 Last Admin: 03/16/19 13:28 Dose: 30 mg Documented by: Formoterol Fumarate (Perforomist) 20 mcg INH Q12R [facility] Stop: 04/13/19 19:59 Last Admin: 03/16/19 07:08 Dose: 20 mcg Documented by: Gabapentin (Neurontin) 100 mg PO PM [facility] Stop: 04/13/19 20:59 Last Admin: 03/15/19 20:02 Dose: 100 mg Documented by: Heparin Sodium (Porcine) (Heparin Sodium (Porcine)) 5,000 units SQ Q12 [facility] Stop: 04/13/19 20:59 Last Admin: 03/16/19 10:35 Dose: 5,000 units Documented by: Methylprednisolone 60 mg/ (Syringe) 0.96 mls @ 1.5 mls/min IV Q12H [facility] Stop: 04/15/19 17:59 Levalbuterol HCl (Xopenex 1.25mg/0.5ml Neb) 1.25 mg INH Q6R [facility] Stop: 04/13/19 13:59 Last Admin: 03/16/19 14:18 Dose: 1.25 mg Documented by: Multivitamins (Multivitamin Tab) 1 tab PO QAM [facility] Stop: 04/14/19 08:59 Last Admin: 03/16/19 10:36 Dose: 1 tab Documented by: Nitroglycerin (Nitrostat) 0.4 mg SL UD PRN PRN Reason: Chest Pain Stop: 04/13/19 13:15 Pantoprazole Sodium (Protonix) 40 mg PO BID [facility] Stop: 04/13/19 20:59 Last Admin: 03/16/19 10:36 Dose: 40 mg Documented by: Polyethylene Glycol (Miralax Powder Packet) 17 gm PO DAILY PRN PRN Reason: Constipation Stop: 04/13/19 13:15 Potassium Chloride (Klor-Con M20) 20 meq PO QAM [facility] Stop: 04/14/19 08:59 Last Admin: 03/16/19 10:36 Dose: 20 meq Documented by: Pramipexole Dihydrochloride (Mirapex) 0.25 mg PO HS [facility] Stop: 04/13/19 20:59 Last Admin: 03/15/19 20:04 Dose: 0.25 mg Documented by: Ranolazine (Ranexa) 500 mg PO BID [facility] Stop: 04/13/19 20:59 Last Admin: 03/16/19 10:36 Dose: 500 mg Documented by: Senna/Docusate Sodium (Senokot S) 1 tab PO BID [facility] Stop: 04/13/19 20:59 Last Admin: 03/16/19 10:36 Dose: Not Given Documented by: Tamsulosin HCl (Flomax) 0.4 mg PO HS [facility] Stop: 04/13/19 20:59 Last Admin: 03/15/19 20:02 Dose: 0.4 mg Documented by: (1) CKD (chronic kidney disease) Chronic kidney disease stage: unspecified stage Qualified Code(s): N18.9 - Chronic kidney disease, unspecified
[2019-03-16] MEDS: methylPREDNISolone 60 MG in SYRINGE 0 ML IV SCH (17:09)
[2019-03-16] MEDS: PRAMIPEXOLE DIHYDROCHLO 0.25 MG TAB PO SCH (20:16)
[2019-03-16] MEDS: GABAPENTIN 100 MG CAP PO SCH (20:16)
[2019-03-16] MEDS: TAMSULOSIN HCL 0.4 MG CAP PO SCH (20:16)
[2019-03-17] MEDS: LEVALBUTEROL 1.25MG/0.5ML NEB INH SCH ×4 (02:14→19:53)
[2019-03-17] MEDS: methylPREDNISolone 60 MG in SYRINGE 0 ML IV SCH ×2 (05:06→18:30)
[2019-03-17] MEDS: BUDESONIDE 0.25 MG/2 ML VIAL (PULMICORT) INH SCH ×2 (07:19→19:13)
[2019-03-17] MEDS: FORMOTEROL 20 MCG/2 ML VIAL INH SCH ×2 (07:19→19:12)
[2019-03-17] MEDS: POTASSIUM CHLORIDE 20 MEQ TABCR PO SCH (08:23)
[2019-03-17] MEDS: DOCUSATE SODIUM/SENNA 50/8.6MG TAB PO SCH ×2 (08:23→20:29)
[2019-03-17] MEDS: ATORVASTATIN 40 MG TAB PO SCH (08:23)
[2019-03-17] MEDS: MULTIVITAMIN TAB PO SCH (08:23)
[2019-03-17] MEDS: PANTOprazole 40 MG TAB PO SCH ×2 (08:23→20:30)
[2019-03-17] MEDS: dilTIAZem HCL 30 MG TAB PO SCH ×3 (08:23→20:31)
[2019-03-17] MEDS: ASPIRIN/ALUM/MAGNES/CAL CARB 325 MG TAB PO SCH (08:23)
[2019-03-17] MEDS: RANOLAZINE 500 MG ER TAB PO SCH ×2 (08:23→20:31)
[2019-03-17] MEDS: HEPARIN SOD 5,000 UNIT/0.5 ML VIAL SQ SCH ×2 (08:24→20:30)
[2019-03-17 08:37] LABS: Hematocrit (blood only) 31.5 % (42-52); Hemoglobin 10.7 g/dL (14.0-18.0); Mean Corpuscular Volume 90.5 fL (80-100); Mean Platelet Volume 10.2 fL (7.4-10.4); Platelet Count 206 K/uL (130-400); RDW Coefficient of Variation 15.7 % (11.5-14.5); RDW Standard Deviation 51.3 fL (36.4-46.3); Red Blood Count 3.48 M/uL (4.7-6.1); White Blood Count 12.12 K/uL (4.8-10.8)
[2019-03-17 09:04] LABS: BUN Creatinine Ratio 22.6 (10-20); Calcium 9.6 mg/dl (8.5-10.1); Creatinine Clr Calc Pharmacy 23.7 ml/min; Est GFR (African American) 23.6; Est GFR (Non-African American) 20.4; Potassium 5.8 mmol/L (3.5-5.1)
--- NOTE | 2019-03-17 09:20 | Cardiology Progress Note ---
Date of Service March 17, 2019 Subjective Feeling better this morning. He denies any chest pain or chest pressure he is not audibly wheezing today. His shortness of breath seems to be improving. He is unaware of any palpitations. He denies any lightheadedness or dizziness. He seems to be tolerating diltiazem better than metoprolol. Results & Data Vital Signs (Past 12 Hours) Vital Signs Temp Pulse Pulse Resp BP Pulse Ox 03/17/19 07:20 63 20 97 03/17/19 06:59 36.9 C 17 112/68 96 03/17/19 03:57 36.4 C L 107 H 22 95/68 L 96 03/17/19 02:15 64 20 94 03/17/19 00:00 70 03/16/19 23:24 36.6 C 20 94 He is awake alert oriented x3 HEENT: 2+ carotid upstrokes no evidence of carotid bruits his hearing is diminished sclerae anicteric Lungs: Coarse breath sounds bilaterally Heart regular rate and rhythm no appreciable murmurs rubs or gallops Abdomen firm distended positive bowel sounds nontender Extremities trace to mild bilateral lower extremity edema Psychiatric his affect appeared appropriate 1) Syncope: Secondary to orthostatic hypotension and intravascular depletion from diuretics --resolved (2) Tachycardia: Yesterday at time she appears to be in sinus rhythm at 80 bpm with a MS interval at approximately 250 ms. He then has a rhythm for which the rate is in the 1 teens and he appears to have a very long MS interval that is approaching 450 ms. I do not see a second P wave to suggest that this is 2-1 atrial tach or 2-1 atrial flutter. What is unusual is that the pacemaker is not V pacing him when the MS interval is so prolonged (greater than 400 ms). As an outpatient he was almost never V paced and therefore this is not a reason for him to have diastolic heart failure. This probably represents an atrial tachycardia. With switching him from met oprolol to diltiazem he has had a marked improvement in his heart rate. He is currently atrial paced at 60 bpm. In addition with stopping his beta-elliot hopefully this will improve his breathing given his underlying lung disease. (3) CAD (coronary artery disease): Status post LAD and circumflex stents x5. Continue aspirin. Aspirin 81 mg daily is sufficient from a cardiac standpoint and should be continued indefinitely. Continue high-intensity statin therapy. (4) Orthostasis: Resolved (5) Pacemaker: Dual-chamber Medtronic pacemaker. (6) Edema: His lower extremity edema is markedly improved with the use of compression stockings. I do wonder if some of his edema at home is not related to dietary indiscretion. We will have to be careful to not over diurese him.
[2019-03-17] MEDS ORDERED: SODIUM POLYSTYRENE SULFONATE 30 GM/120 ML UDP PO STA (09:41)
--- NOTE | 2019-03-17 09:41 | Hospitalist Progress Note ---
Date of Service March 17, 2019 Assessment & Plan (1) Orthostasis: Found to be orthostatic upon admission but orthostatic vitals have since improved with holding Bumex and giving 1 L IV fluids on admission. -Likely cause of recent syncope -Continue holding Bumex today, actually give a little more volume today as he is not drinking well -Continue checking orthostatic vital signs -Continue VALENTINE stafford (2) Syncope and collapse: Prior evidence of asystole with status post pacemaker placement 12/08/2018 Formal interrogation here pending but appears to have the same accelerated junctional rhythm noted on telemetry here-cardiology notes may try to adjust pacemaker to pace him out of this rhythm Patient orthostatic as above and likely contributed to syncope Received IV fluids Continue to monitor on telemetry Fall precautions no symptoms since admission (3) Hyperkalemia: due to rise in Cr, K was 5.8 this morning down to 5.1 after Kayexalate will give some gentle fluid to also help dilute it down repeat BMP in the morning remain on tele (4) CKD (chronic kidney disease): CKD stage III - IV unsure if patient with KRISTIE, a lot of his Cr readings in past months have been above 2, some as high as 3 Cr up to 2.8 this afternoon appears a little dry, intravascularly, not drinking a lot will give NSS for one bag Continue to hold home diuretics No flank pain or CVA tenderness Urinalysis with nitrates but no WBCs, and has no urinary symptoms (5) Tachycardia: With accelerated junctional rhythm with rates consistently in the 110's however, when resting his HR is more consistently in the 70-80 range will stop metoprolol due to COPD start on Diltiazem 30mg TID per cardiology great response, actually V paced majority of the day today with rates in 60's (6) Coronary artery disease: Status post LAD and circumflex stents x5. No chest pain or tightness currently stop metoprolol due to wheezing, bronchospasm -Continue statin, aspirin, as needed sublingual nitro, and Ranexa (7) COPD (chronic obstructive pulmonary disease): With acute exacerbation here-has diffuse wheezes here and dyspnea with exertion With chronic hypoxic respiratory failure with 2 L nasal cannula nightly and as needed at home increased Solu Medrol to 60mg IV q12 from 40mg on 03/16 far less wheezing today will change to Prednisone tomorrow still no indication for antibiotics (no fever, no infiltrates on CXR, no change in sputum) -Continue albuterol inhaler as needed, and continue budesonide and formoterol nebulizers every 12 hours here (8) GERD (gastroesophageal reflux disease): Continue home dose of pantoprazole No acute symptoms (9) Edema: Secondary to dependent edema, holding Bumex at this time due to orthostasis as above -Continue VALENTINE hose, low-sodium diet Follow (10) Pacemaker: Noted as above Placed for asystole with syncope (11) Aortic stenosis: Mild as noted on echocardiogram from 11/2018-would not contribute to syncope -Follow as an outpatient (12) KRISTIE (acute kidney injury): As above, unsure if this truly represents KRISTIE Cr continues to rise slightly to 2.8 but it is within his range past few months will give gentle fluids, follow UO, repeat BMP in the morning (13) Aortic insufficiency: Mild to moderate as noted on echocardiogram from 11/2018 -Follow as an outpatient (14) Restless leg syndrome: Stable -Continue Mirapex at bedtime -Continue gabapentin at bedtime (15) BPH (benign prostatic hyperplasia): No evidence of urinary retention at this time -Continue BladderScan as needed -Continue tamsulosin with caution as can also contribute to orthostasis (16) DVT prophylaxis: Heparin 5000 units every 12 hours VALENTINE stafford SCDs Disposition-remain on telemetry unit Subjective patient much better today in terms of breathing and heart rate the diltiazem is controlling HR, he is actually V paced currently discussed with Dr. Hooper, pleased with this finding also, no wheezing or respiratory distress, was sensitive to the metoprolol, caused a lot of bronchospasm minimal cough still not eating great, has nausea this morning, no vomiting cannot clearly remember his last BM, says he has to take stuff at home to help move bowels reviewed labs, K up to 5.8 and Cr is up to 2.75 from 2.39 Physical Exam Constitutional: WD/WN, vitals as above Eyes: normal visual moura by confrontation, + conjunctival abnormality (subconjunctival hemorrhage on right, improving), PERRL and EOM intact bilaterally; no eyelid abnormality ENMT: external ear and nose normal, oropharynx normal Neck: trachea midline, no thyromegaly Respiratory: normal respiratory effort; no respiratory distress Auscultation: + diminished lung sounds, + rhonchi and + wheezes (end expiratory, auditory); no crackles and no rales Cardiovascular: Rate/Rhythm: regular rhythm and + tachycardic Heart Sounds: normal S1 and normal S2; no murmur Vessels: no JVD Extremities: normal capillary refill; no edema Gastrointestinal (Abdomen): Inspection/Auscultation: + abdomen distended and normal bowel sounds Percussion/Palpation: abdomen soft; abdomen nontender, no guarding and abdomen not rigid Musculoskeletal: no cyanosis or clubbing, extremities motor strength 5/5 Skin: no rashes, warm and dry + turgor decreased Neurologic: patellar DTR's 2+ bilat, sensation intact and PERRL, EOMI, accommodation nl, no face palsy, no dysarthria Psychiatric: A+Ox3, euthymic affect Hallucinations: + visual hallucinations Lymphatic: no cervical or axillary lymphadenopathy Results & Data Vital Signs (Past 12 Hours) Vital Signs Temp Pulse Pulse Resp BP Pulse Ox 03/17/19 07:20 63 20 97 03/17/19 06:59 36.9 C 17 112/68 96 03/17/19 03:57 36.4 C L 107 H 22 95/68 L 96 03/17/19 02:15 64 20 94 03/17/19 00:00 70 03/16/19 23:24 36.6 C 20 94 (1) CKD (chronic kidney disease) Chronic kidney disease stage: unspecified stage Qualified Code(s): N18.9 - Chronic kidney disease, unspecified
[2019-03-17] MEDS ORDERED: SODIUM CHLORIDE 0.9% 500 ML IV SCH (09:45)
[2019-03-17] MEDS ORDERED: SODIUM POLYSTYRENE SULFONATE 15G/60ML SUSP PO STA (09:48)
[2019-03-17 14:04] LABS: Calcium 9.8 mg/dl (8.5-10.1); Creatinine Clr Calc Pharmacy 22.9 ml/min; Est GFR (African American) 22.7; Est GFR (Non-African American) 19.6; Potassium 5.1 mmol/L (3.5-5.1)
[2019-03-17] MEDS: TAMSULOSIN HCL 0.4 MG CAP PO SCH (20:28)
[2019-03-17] MEDS: PRAMIPEXOLE DIHYDROCHLO 0.25 MG TAB PO SCH (20:29)
[2019-03-17] MEDS: GABAPENTIN 100 MG CAP PO SCH (20:31)
[2019-03-17] MEDS: ALUMINUM/MAGNESIUM SUSP 30 ML UDC PO PRN (21:59)
[2019-03-17] MEDS: ACETAMINOPHEN 325 MG TAB PO PRN (23:23)
[2019-03-18] MEDS ORDERED: ONDANSETRON INJ 2 MG/ML 2 ML VIAL IV PRN (00:09)
[2019-03-18] MEDS: LEVALBUTEROL 1.25MG/0.5ML NEB INH SCH ×4 (02:03→19:50)
[2019-03-18 06:57] LABS: Hematocrit (blood only) 32.2 % (42-52); Hemoglobin 10.6 g/dL (14.0-18.0); Immature Granulocytes # (auto) 0.01 K/uL (0.00-0.02); Immature Granulocytes % (auto) 0.1 %; Lymphocytes # (auto) 0.76 K/uL (1.2-3.4); Mean Corpuscular Hgb Conc 32.9 g/dL (32-36); Mean Platelet Volume 9.9 fL (7.4-10.4); Monocytes # (auto) 0.33 K/uL (0.11-0.59); Monocytes % (auto) 2.6 %; Neutrophils # (auto) 11.52 K/uL (1.4-6.5); Neutrophils % (auto) 91.3 %; Platelet Count 207 K/uL (130-400); RDW Coefficient of Variation 15.7 % (11.5-14.5); Red Blood Count 3.54 M/uL (4.7-6.1); White Blood Count 12.62 K/uL (4.8-10.8)
[2019-03-18] MEDS: FORMOTEROL 20 MCG/2 ML VIAL INH SCH ×2 (07:10→19:50)
[2019-03-18] MEDS: BUDESONIDE 0.25 MG/2 ML VIAL (PULMICORT) INH SCH ×2 (07:11→19:51)
[2019-03-18 07:32] LABS: BUN Creatinine Ratio 22.9 (10-20); Creatinine Clr Calc Pharmacy 22.8 ml/min; Est GFR (African American) 22.7; Est GFR (Non-African American) 19.6; Potassium 4.5 mmol/L (3.5-5.1)
[2019-03-18] MEDS ORDERED: predniSONE 50 MG TAB PO SCH (09:00)
--- NOTE | 2019-03-18 09:14 | XRay Report ---
XR chest 1V portable HISTORY: 84 years-old Male Hypoxia acute shortness of breath with wheezing COMPARISON: Chest radiograph 03/16/2019 TECHNIQUE: Portable AP view of the chest FINDINGS: Cardiac silhouette is enlarged, unchanged. Calcification of the thoracic aortic arch. Stable position ing of the left subclavian pacer. No pneumothorax, large pleural effusion, overt pulmonary edema or l obar airspace consolidation. Mild atelectasis/scarring about the lateral left midlung. Bones appear g rossly intact. IMPRESSION: Cardiomegaly without acute process. The above report was generated using voice recognition software. It may contain grammatical, syntax o r spelling errors. Electronically signed by: Shilo Olivo M.D. 03/18/2019 9:13 AM
[2019-03-18] MEDS: RANOLAZINE 500 MG ER TAB PO SCH ×2 (10:14→20:32)
[2019-03-18] MEDS: dilTIAZem HCL 30 MG TAB PO SCH ×3 (10:14→20:31)
[2019-03-18] MEDS: ASPIRIN/ALUM/MAGNES/CAL CARB 325 MG TAB PO SCH (10:15)
[2019-03-18] MEDS: PANTOprazole 40 MG TAB PO SCH ×2 (10:15→20:33)
[2019-03-18] MEDS: ATORVASTATIN 40 MG TAB PO SCH (10:15)
[2019-03-18] MEDS: MULTIVITAMIN TAB PO SCH (10:15)
[2019-03-18] MEDS: DOCUSATE SODIUM/SENNA 50/8.6MG TAB PO SCH ×2 (10:16→20:33)
[2019-03-18] MEDS: HEPARIN SOD 5,000 UNIT/0.5 ML VIAL SQ SCH ×2 (10:16→20:32)
--- NOTE | 2019-03-18 10:31 | Cardiology Progress Note ---
Date of Service March 18, 2019 Subjective Feeling better this morning. He had a large bowel movement which helped his abdominal distention. He is had no further nausea. Next He is unaware of any arrhythmias and denies any palpitations lightheadedness or dizziness. Denies any chest pain chest pressure chest heaviness. He has no lower extremity edema. His creatinine has risen and it appears he is just not drinking very much he only had 50 cc of urine output overnight. Results & Data Vital Signs (Past 12 Hours) Vital Signs Temp Pulse Pulse Resp BP Pulse Ox 03/18/19 07:11 67 15 92 03/18/19 07:00 36.5 C 82 16 99/51 L 93 03/18/19 03:02 36.4 C L 74 20 106/80 93 03/18/19 02:03 77 16 93 03/17/19 22:47 36.5 C 86 18 106/63 95 He is awake alert oriented x3 HEENT: 2+ carotid upstrokes no evidence of carotid bruits his hearing is diminished sclerae anicteric Lungs: Coarse breath sounds bilaterally Heart regular rate and rhythm no appreciable murmurs rubs or gallops Abdomen firm distended positive bowel sounds nontender Extremities trace to mild bilateral lower extremity edema Psychiatric his affect appeared appropriate 1) Syncope: Secondary to orthostatic hypotension and intravascular depletion from diuretics --resolved (2) Tachycardia: At time she appears to be in sinus rhythm at 70-80 bpm with a VA interval at approximately 250 ms. He then has a rhythm for which the rate is in the 1 teens and he appears to have a very long VA interval that is approaching 450 ms. I do not see a second P wave to suggest that this is 2-1 atrial tach or 2-1 atrial flutter. What is unusual is that the pacemaker is not V pacing him when the VA interval is so prolonged (greater than 400 ms). As an outpatient he was almost never V paced and therefore this is not a reason for him to have diastolic heart failure. This probably represents an atrial tachycardia. With switching him from metoprolol to diltiazem he has had an improvement in his heart rate. He continues to go in and out of this rhythm. I will the EP service who placed his pacemaker to make the recommendations as to whether he should be on an antiarrhythmic like amiodarone to maintain an atrial paced rhythm. It is possible the tachycardia that he is having is leading to worsening heart failure symptoms. In addition with stopping his beta-elliot hopefully this will improve his breathing given his underlying lung disease. (3) CAD (coronary artery disease): Status post LAD and circumflex stents x5. Continue aspirin. Aspirin 81 mg daily is sufficient from a cardiac standpoint and should be continued indefinitely. Continue high-intensity statin therapy. (4) Orthostasis: Resolved (5) Pacemaker: Dual-chamber Medtronic pacemaker. (6) Edema: His lower extremity edema is markedly improved with the use of compression stockings. I do wonder if some of his edema at home is not related to dietary indiscretion. We will have to be careful to not over diurese him.
--- NOTE | 2019-03-18 15:35 | Hospitalist Progress Note ---
Date of Service March 18, 2019 Assessment & Plan (1) Orthostasis: Found to be orthostatic upon admission but orthostatic vitals have since improved with holding Bumex and giving 1 L IV fluids on admission. -Likely cause of recent syncope -Continue holding Bumex today -Continue checking orthostatic vital signs -Continue VALENTINE nydia certainly an AV node re-entry arrhythmia could be making compensation for orthostasis difficult (2) Syncope and collapse: Prior evidence of asystole with status post pacemaker placement 12/08/2018 Formal interrogation here suggests AV node re entry tachcycardia Patient orthostatic as above and likely contributed to syncope Received IV fluids Continue to monitor on telemetry Fall precautions no symptoms since admission (3) Hyperkalemia: due to rise in Cr, K was 5.8 yesterday down to 4.5 with some Kayexalate and IV fluids repeat BMP in the morning remain on tele (4) CKD (chronic kidney disease): CKD stage III - IV unsure if patient with KRISTIE, a lot of his Cr readings in past months have been above 2, some as high as 3 Cr up but stable at 2.8 this morning appears a little dry, intravascularly, not drinking a lot gave 500cc of NSS yesterday eating and drinking better today so hold off on further fluids Continue to hold home diuretics No flank pain or CVA tenderness Urinalysis with nitrates but no WBCs, and has no urinary symptoms will look into 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 No chest pain or tightness during entire admission stop metoprolol due to wheezing, bronchospasm -Continue statin, aspirin, as needed sublingual nitro, and Ranexa (7) COPD (chronic obstructive pulmonary disease): With acute exacerbation here-has diffuse wheezes here and dyspnea with exertion With chronic hypoxic respiratory failure with 2 L nasal cannula nightly and as needed at home increased Solu Medrol to 60mg IV q12 from 40mg on 03/16 far less wheezing for three days Prednisone 50mg this morning, taper to 40mg tomorrow no indication for antibiotics (no fever, no infiltrates on CXR, no change in sputum) -Continue albuterol inhaler as needed, and continue budesonide and formoterol nebulizers every 12 hours here (8) GERD (gastroesophageal reflux disease): Continue home dose of pantoprazole No acute symptoms (9) Edema: Secondary to dependent edema, holding Bumex at this time due to orthostasis as above -Continue VALENTINE hose, low-sodium diet Follow (10) Pacemaker: Noted as above Placed for asystole with syncope (11) Aortic stenosis: Mild as noted on echocardiogram from 11/2018-would not contribute to syncope -Follow as an outpatient (12) KRISTIE (acute kidney injury): As above, unsure if this truly represents KRISTIE Cr up but stable at 2.8 follow UO, repeat BMP in the morning (13) Aortic insufficiency: Mild to moderate as noted on echocardiogram from 11/2018 -Follow as an outpatient (14) Restless leg syndrome: Stable -Continue Mirapex at bedtime -Continue gabapentin at bedtime (15) BPH (benign prostatic hyperplasia): No evidence of urinary retention at this time -Continue BladderScan as needed -Continue tamsulosin with caution as can also contribute to orthostasis (16) DVT prophylaxis: Heparin 5000 units every 12 hours VALENTINE stafford SCDs Disposition-remain on telemetry unit plan for ablation tomorrow with Dr Watts Subjective patient feeling a lot better today, breathing easier he is actually eating today which is the first in 2 days d/w Dr. Hooper, patient continues to be in and out of this atrial tachycardia will ask Dr. Rojas to see patient, weigh in on amiodarone appreciate note from Dr. Rojas, he feels that the patient has a slow AV node re-entry arrhythmia will plan for ablation tomorrow, patient and agreeable, NPO after midnight reviewed labs, Cr is 2.8, still elevated but stable K is normal today he is making urine d/w his and daughter, he does follow with a laundry bag punch operator, they have been calling his house about a follow up some concerns expressed as outpatient that he may soon need hemodialysis d/w family that he does not need immediate HD, his renal function is stable, stage IV Review of Systems Review of Systems: All systems reviewed & are unremarkable except as noted in HPI & below Constitutional: + fatigue and + weakness; no fever Respiratory: + dyspnea on exertion; no cough, no dyspnea and no sputum production Cardiovascular: no chest pain, no palpitations, no syncope and no edema Gastrointestinal: no abdominal pain, no nausea, no vomiting, no constipation and no diarrhea/loose stools Physical Exam Constitutional: WD/WN, vitals as above Eyes: normal visual moura by confrontation, + conjunctival abnormality (subconjunctival hemorrhage on right, improving), PERRL and EOM intact bilaterally; no eyelid abnormality ENMT: external ear and nose normal, oropharynx normal Neck: trachea midline, no thyromegaly Respiratory: normal respiratory effort; no respiratory distress Auscultation: + diminished lung sounds; no crackles and no rales Cardiovascular: Rate/Rhythm: regular rhythm and + tachycardic Heart Sounds: normal S1 and normal S2; no murmur Vessels: no JVD Extremities: normal capillary refill; no edema Gastrointestinal (Abdomen): Inspection/Auscultation: abdomen normal to inspection and normal bowel sounds Percussion/Palpation: abdomen soft; abdomen nontender, no guarding and abdomen not rigid Musculoskeletal: no cyanosis or clubbing, extremities motor strength 5/5 Skin: no rashes, warm and dry + turgor decreased Neurologic: patellar DTR's 2+ bilat, sensation intact and PERRL, EOMI, accommodation nl, no face palsy, no dysarthria Psychiatric: A+Ox3, euthymic affect Lymphatic: no cervical or axillary lymphadenopathy Results & Data Vital Signs (Past 12 Hours) Vital Signs Temp Pulse Pulse Pulse Resp BP Pulse Ox 03/18/19 14:00 80 17 94 03/18/19 11:59 36.6 C 107 H 20 112/73 93 03/18/19 07:11 67 15 92 03/18/19 07:00 36.5 C 82 16 99/51 L 93 Laboratory Results Laboratory Results - last 24 hr 03/18/19 03/18/19 06:40 06:40 WBC 12.62 H RBC 3.54 L Hgb 10.6 L Hct 32.2 L MCV 91.0 MCH 29.9 MCHC 32.9 RDW Std Deviation 52.0 H RDW Coeff of Tim 15.7 H Plt Count 207 MPV 9.9 Immature Gran % (Auto) 0.1 Neut % (Auto) 91.3 Lymph % (Auto) 6.0 [place] % (Auto) 2.6 Eos % (Auto) 0.0 Baso % (Auto) 0.0 Immature Gran # (Auto) 0.01 Neut # (Auto) 11.52 H Lymph # (Auto) 0.76 L [place] # (Auto) 0.33 Eos # (Auto) 0.00 Baso # (Auto) 0.00 Sodium 139 Potassium 4.5 Chloride 103 Carbon Dioxide 28 Anion Gap 8.0 BUN 65 H Creatinine 2.84 H Est Cr Clr Drug Dosing 22.8 Est GFR ( Amer) 22.7 Est GFR (Non-Af Amer) 19.6 BUN/Creatinine Ratio 22.9 H Glucose 113 H Calcium 9.0 Medications Administered Current Inpatient Medications Acetaminophen (Tylenol) 650 mg PO Q4H PRN PRN Reason: Pain or Fever Stop: 04/13/19 13:15 Last Admin: 03/17/19 23:23 Dose: 650 mg Documented by: Al Hydrox/Mg Hydrox/Simethicone (Maalox) 15 ml PO Q6H PRN PRN Reason: Indigestion Stop: 04/14/19 19:29 Last Admin: 03/17/19 21:59 Dose: 15 ml Documented by: Albuterol (Ventolin Hfa) 2 puffs INH Q6H PRN PRN Reason: Shortness Of Breath Stop: 04/13/19 13:15 Last Admin: 03/15/19 19:50 Dose: 2 puffs Documented by: Aspirin Buffered (Ascriptin) 325 mg PO QAM [facility] Stop: 04/14/19 08:59 Last Admin: 03/18/19 10:15 Dose: 325 mg Documented by: Atorvastatin Calcium (Lipitor) 40 mg PO QAM [facility] Stop: 04/14/19 08:59 Last Admin: 03/18/19 10:15 Dose: 40 mg Documented by: Budesonide (Pulmicort Respules) 0.25 mg INH Q12R [facility] Stop: 04/13/19 19:59 Last Admin: 03/18/19 07:11 Dose: 0.25 mg Documented by: Diltiazem HCl (Cardizem) 30 mg PO TID [facility] Stop: 04/15/19 13:59 Last Admin: 03/18/19 10:14 Dose: 30 mg Documented by: Formoterol Fumarate (Perforomist) 20 mcg INH Q12R [facility] Stop: 04/13/19 19:59 Last Admin: 03/18/19 07:10 Dose: 20 mcg Documented by: Gabapentin (Neurontin) 100 mg PO PM [facility] Stop: 04/13/19 20:59 Last Admin: 03/17/19 20:31 Dose: 100 mg Documented by: Heparin Sodium (Porcine) (Heparin Sodium (Porcine)) 5,000 units SQ Q12 [facility] Stop: 04/13/19 20:59 Last Admin: 03/18/19 10:16 Dose: 5,000 units Documented by: Levalbuterol HCl (Xopenex 1.25mg/0.5ml Neb) 1.25 mg INH Q6R [facility] Stop: 04/13/19 13:59 Last Admin: 03/18/19 13:59 Dose: 1.25 mg Documented by: Multivitamins (Multivitamin Tab) 1 tab PO QAM [facility] Stop: 04/14/19 08:59 Last Admin: 03/18/19 10:15 Dose: 1 tab Documented by: Nitroglycerin (Nitrostat) 0.4 mg SL UD PRN PRN Reason: Chest Pain Stop: 04/13/19 13:15 Ondansetron HCl (Zofran) 4 mg IV Q6H PRN PRN Reason: Nausea Stop: 04/17/19 00:08 Last Admin: 03/18/19 00:32 Dose: 4 mg Documented by: Pantoprazole Sodium (Protonix) 40 mg PO BID [facility] Stop: 04/13/19 20:59 Last Admin: 03/18/19 10:15 Dose: 40 mg Documented by: Polyethylene Glycol (Miralax Powder Packet) 17 gm PO DAILY PRN PRN Reason: Constipation Stop: 04/13/19 13:15 Pramipexole Dihydrochloride (Mirapex) 0.25 mg PO HS [facility] Stop: 04/13/19 20:59 Last Admin: 03/17/19 20:29 Dose: 0.25 mg Documented by: Prednisone (Prednisone) 50 mg PO QAM [facility] Stop: 04/17/19 08:59 Last Admin: 03/18/19 10:13 Dose: 50 mg Documented by: Ranolazine (Ranexa) 500 mg PO BID [facility] Stop: 04/13/19 20:59 Last Admin: 03/18/19 10:14 Dose: 500 mg Documented by: Senna/Docusate Sodium (Senokot S) 1 tab PO BID [facility] Stop: 04/13/19 20:59 Last Admin: 03/18/19 10:16 Dose: Not Given Documented by: Tamsulosin HCl (Flomax) 0.4 mg PO HS [facility] Stop: 04/13/19 20:59 Last Admin: 03/17/19 20:28 Dose: 0.4 mg Documented by: (1) CKD (chronic kidney disease) Chronic kidney disease stage: unspecified stage Qualified Code(s): N18.9 - Chronic kidney disease, unspecified
--- NOTE | 2019-03-18 16:03 | Cardiology Progress Note ---
Date of Service March 18, 2019 Assessment & Plan (1) Syncope: I suspect his syncope is multifactorial, probably a combination of orthostasis and his arrhythmia which will make cardiac compensation for hypotension difficult for him. This may improve with correction of his arrhythmia. (2) Tachycardia: I believe his tachycardia is an AV jillian reentrant arrhythmia, it could be what is called slow slow AV node reentry or just typical AV node reentry at a slower heart rate due to poor AV jillian conduction. The initiation is consistent with that as is the termination. He is in enough and it is potentially detrimental to him hemodynamically and I think it should be corrected. 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 In any case I think it should be done and he is agreeable. Dr. Watts will be doing the procedure tomorrow, the patient and his are agreeable. (3) CAD (coronary artery disease): He does not have symptoms to suggest ischemia. (4) Pacemaker: His pacemaker is working well, it is programmed to MVP mode which results in long DC intervals and potentially even A-V dissociation with some degree of Wenkebach type behavior. It can be reprogrammed, but this is not an abnormal operating mode. Subjective Currently he is feeling quite well, he is not short of breath other than when he exerts himself or when he lays flat, he is not having palpitations despite his arrhythmia. He has no chest discomfort. Physical Exam Physical Exam: Constitutional: Alert, cooperative and in no distress. Pulmonary: Clear to auscultation bilaterally. Cardiac: Regular rapid rhythm with no murmur, gallop or rub. Abdomen: Soft, nontender with normal bowel sounds. Extremities: +1 bilateral pretibial edema. Skin: No rash, ecchymoses or petechiae. Results & Data Vital Signs (Past 12 Hours) Vital Signs Temp Pulse Pulse Pulse Resp BP Pulse Ox 03/18/19 14:00 80 17 94 03/18/19 11:59 36.6 C 107 H 20 112/73 93 03/18/19 07:11 67 15 92 03/18/19 07:00 36.5 C 82 16 99/51 L 93 Diagnostic Findings His electrocardiogram during tachycardia suggests a junctional rhythm which could be a junctional tachycardia or an AV jillian reentrant rhythm. From the twelve-lead electrocardiogram I cannot tell, however I believe it is an AV jillian reentrant rhythm. Telemetry: He has very frequent episodes of tachycardia, they are little hard to evaluate for initiation due to a lot of artifact most of the time but it appears they start with premature atrial beats and DC prolongation consistent with AV jillian reentry. The rate is slow, probably due to AV jillian disease. They terminate with ventricular ectopy as well as spontaneously. Although not incessant he is in this tachycardia as much as he is out of it. (1) Syncope Syncope type: unspecified Qualified Code(s): R55 - Syncope and collapse
[2019-03-18] MEDS: GABAPENTIN 100 MG CAP PO SCH (20:32)
[2019-03-18] MEDS: PRAMIPEXOLE DIHYDROCHLO 0.25 MG TAB PO SCH (20:32)
[2019-03-18] MEDS: TAMSULOSIN HCL 0.4 MG CAP PO SCH (20:33)
[2019-03-19] MEDS: LEVALBUTEROL 1.25MG/0.5ML NEB INH SCH ×4 (02:14→19:19)
[2019-03-19] MEDS: BUDESONIDE 0.25 MG/2 ML VIAL (PULMICORT) INH SCH ×2 (07:22→19:17)
[2019-03-19] MEDS: FORMOTEROL 20 MCG/2 ML VIAL INH SCH ×2 (07:23→19:18)
[2019-03-19 07:27] LABS: Eosinophils # (auto) 0.01 K/uL (0-0.5); Eosinophils % (auto) 0.1 %; Hematocrit (blood only) 32.4 % (42-52); Hemoglobin 10.6 g/dL (14.0-18.0); Immature Granulocytes # (auto) 0.02 K/uL (0.00-0.02); Immature Granulocytes % (auto) 0.2 %; Lymphocytes # (auto) 0.49 K/uL (1.2-3.4); Lymphocytes % (auto) 3.8 %; Mean Corpuscular Hgb Conc 32.7 g/dL (32-36); Mean Corpuscular Volume 91.5 fL (80-100); Mean Platelet Volume 10.1 fL (7.4-10.4); Monocytes % (auto) 7.9 %; Neutrophils # (auto) 11.21 K/uL (1.4-6.5); Platelet Count 195 K/uL (130-400); RDW Coefficient of Variation 15.7 % (11.5-14.5); Red Blood Count 3.54 M/uL (4.7-6.1); White Blood Count 12.73 K/uL (4.8-10.8)
[2019-03-19 08:03] LABS: BUN Creatinine Ratio 25.7 (10-20); Calcium 9.4 mg/dl (8.5-10.1); Creatinine Clr Calc Pharmacy 24.3 ml/min; Est GFR (African American) 24.6; Est GFR (Non-African American) 21.2; Magnesium 3.3 mg/dl (1.8-2.4); Potassium 4.9 mmol/L (3.5-5.1)
--- NOTE | 2019-03-19 09:12 | Cardiology Progress Note ---
Date of Service March 19, 2019 Subjective He feels more short of breath this morning. He also seems to be more audibly wheezing. He denies any chest pain or chest pressure. He denies any lightheadedness or dizziness. He has no lower extremity edema he has less abdominal distention. Fortunately he is not drinking a significant amount liquids and remains prerenal. Results & Data Vital Signs (Past 12 Hours) Vital Signs Temp Pulse Pulse Resp BP Pulse Ox 03/19/19 07:26 84 18 91 03/19/19 07:01 36.2 C L 14 94 03/19/19 02:48 36.2 C L 70 20 106/57 L 92 03/18/19 23:36 36.9 C 86 21 115/62 97 He is awake alert oriented x3 HEENT: 2+ carotid upstrokes no evidence of carotid bruits his hearing is diminished sclerae anicteric Lungs: Inspiratory and expiratory wheezing Heart irregular rate and rhythm no appreciable murmurs rubs or gallops Abdomen firm less distended positive bowel sounds nontender Extremities no edema Psychiatric his affect appeared appropriate 1) Syncope: Secondary to orthostatic hypotension and intravascular depletion from diuretics --resolved (2) Tachycardia: At time she appears to be in sinus rhythm at 70-80 bpm with a GA interval at approximately 250 ms. He then has a rhythm for which the rate is in the 1 teens and he appears to have a very long GA interval that is approaching 450 ms. I do not see a second P wave to suggest that this is 2-1 atrial tach or 2-1 atrial flutter. What is unusual is that the pacemaker is not V pacing him when the GA interval is so prolonged (greater than 400 ms). As an outpatient he was almost never V paced and therefore this is not a reason for him to have diastolic heart failure. In discussion with the EP service and reviewing the monitor today it appears that he probably went into atrial fibrillation overnight. We will interrogate his pacemaker this morning to determine what his underlying atrial rhythm is. If he is in atrial fibrillation it would appear to be of a duration less than 24 hours and cardioversion will be planned with the need for long-term anticoagulation. 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 There is obviously a risk of amiodarone given his lung disease. He does seem to be tolerating calcium channel blockers better than beta-blockers from a pulmonary standpoint. (3) CAD (coronary artery disease): Status post LAD and circumflex stents x5. Continue aspirin. Aspirin 81 mg daily is sufficient from a cardiac standpoint and should be continued indefinitely. Continue high-intensity statin therapy. (4) Orthostasis: Resolved (5) Pacemaker: Dual-chamber Medtronic pacemaker. (6) Edema: His lower extremity edema is markedly improved with the use of compression stockings. I do wonder if some of his edema at home is not related to dietary indiscretion.
[2019-03-19] MEDS: predniSONE 20 MG TAB PO SCH (09:22)
[2019-03-19] MEDS: ASPIRIN/ALUM/MAGNES/CAL CARB 325 MG TAB PO SCH (09:23)
[2019-03-19] MEDS: PANTOprazole 40 MG TAB PO SCH ×2 (09:23→21:28)
[2019-03-19] MEDS: DOCUSATE SODIUM/SENNA 50/8.6MG TAB PO SCH ×2 (09:23→21:28)
[2019-03-19] MEDS: dilTIAZem HCL 30 MG TAB PO SCH ×3 (09:24→21:29)
[2019-03-19] MEDS: ATORVASTATIN 40 MG TAB PO SCH (09:24)
[2019-03-19] MEDS: RANOLAZINE 500 MG ER TAB PO SCH ×2 (09:24→21:28)
[2019-03-19] MEDS: MULTIVITAMIN TAB PO SCH (09:24)
[2019-03-19] MEDS: HEPARIN SOD 5,000 UNIT/0.5 ML VIAL SQ SCH (09:25)
[2019-03-19] MEDS ORDERED: AMIODARONE IV BOLUS / DRIP IV ONE (12:29)
[2019-03-19] MEDS ORDERED: AMIODARONE / D5W 150 MG/100 ML BAG IV ONE (12:30)
[2019-03-19] MEDS ORDERED: AMIODARONE / D5W 360 MG/200 ML BAG IV SCH (12:40)
--- NOTE | 2019-03-19 15:01 | Hospitalist Progress Note ---
Date of Service March 19, 2019 Assessment & Plan (1) Orthostasis: Found to be orthostatic upon admission but orthostatic vitals have since improved with holding Bumex and giving 1 L IV fluids on admission. 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 Patient orthostatic as above and likely contributed to syncope Received IV fluids, no more fluids needed Continue to monitor on telemetry Fall precautions no symptoms since admission (3) Hyperkalemia: resolved for two days now was likely combination of taking K supplement and rise in Cr (4) CKD (chronic kidney disease): CKD stage III - IV unsure if patient with KRISTIE, a lot of his Cr readings in past months have been above 2, some as high as 3 Cr down slightly to 2.6 this morning volume appears better eating and drinking better today so hold off on further fluids Continue to hold home diuretics No flank pain or CVA tenderness Urinalysis with nitrates but no WBCs, and has no urinary symptoms (5) Tachycardia: Dr. Rojas feels that this represents an AV node re-entry tachycardia, although at slow rates now with possible atrial fibrillation treating with Amiodarone drip, may perform cardioversion continue Diltiazem 30mg TID per cardiology but may stop after ablation great response, actually V paced at times, especially with addition of the amiodarone (6) Coronary artery disease: Status post LAD and circumflex stents x5. No chest pain or tightness during entire admission stop metoprolol due to wheezing, bronchospasm -Continue statin, aspirin, as needed sublingual nitro, and Ranexa (7) COPD (chronic obstructive pulmonary disease): With acute exacerbation here-has diffuse wheezes here and dyspnea with exertion With chronic hypoxic respiratory failure with 2 L nasal cannula nightly and as needed at home increased Solu Medrol to 60mg IV q12 from 40mg on 03/16 far less wheezing for four days, mild episode this morning but quiet since Prednisone 40mg daily, keep it there for now no indication for antibiotics (no fever, no infiltrates on CXR, no change in sputum) -Continue albuterol inhaler as needed, and continue budesonide and formoterol nebulizers every 12 hours here (8) GERD (gastroesophageal reflux disease): Continue home dose of pantoprazole No acute symptoms (9) Edema: Secondary to dependent edema, holding Bumex at this time due to orthostasis as above -Continue VALENTINE hose, low-sodium diet Follow (10) Pacemaker: Noted as above Placed for asystole with syncope (11) Aortic stenosis: Mild as noted on echocardiogram from 11/2018-would not contribute to syncope -Follow as an outpatient (12) KRISTIE (acute kidney injury): As above, unsure if this truly represents KRISTIE Cr down to 2.66 follow UO, repeat BMP in the morning (13) Aortic insufficiency: Mild to moderate as noted on echocardiogram from 11/2018 -Follow as an outpatient (14) Restless leg syndrome: Stable -Continue Mirapex at bedtime -Continue gabapentin at bedtime (15) BPH (benign prostatic hyperplasia): No evidence of urinary retention at this time -Continue BladderScan as needed -Continue tamsulosin with caution as can also contribute to orthostasis (16) DVT prophylaxis: Heparin 5000 units every 12 hours VALENTINE hose SCDs Disposition-remain on telemetry unit plan for ablation tomorrow with Dr Watts Subjective patient seen in the afternoon, resting comfortably ablation was cancelled this morning, he went into atrial fibrillation amiodarone drip ordered, still appears to be in afib, rates in 60's, occasionally paced had some dyspnea and wheezing this morning but since resolved he is happy after getting some food, no nausea reviewed labs, Cr down to 2.66 from 2.8 yesterday K is normal WBC is stable, Hb stable at 10.[address] Hooper Review of Systems Review of Systems: All systems reviewed & are unremarkable except as noted in HPI & below Constitutional: + fatigue and + weakness; no fever and no chills Respiratory: + cough and + dyspnea on exertion; no dyspnea and no sputum production Cardiovascular: no chest pain and no edema Gastrointestinal: no abdominal pain, no nausea, no vomiting, no constipation and no diarrhea/loose stools Physical Exam Constitutional: WD/WN, vitals as above Eyes: normal visual moura by confrontation, + conjunctival abnormality (subconjunctival hemorrhage on right, improving), PERRL and EOM intact bilaterally; no eyelid abnormality ENMT: external ear and nose normal, oropharynx normal Neck: trachea midline, no thyromegaly Respiratory: normal respiratory effort; no respiratory distress Auscultation: + diminished lung sounds; no crackles and no rales Cardiovascular: Rate/Rhythm: regular rate and + irregularly irregular Heart Sounds: normal S1 and normal S2; no murmur Vessels: no JVD Extremities: normal capillary refill; no edema Gastrointestinal (Abdomen): Inspection/Auscultation: abdomen normal to inspection and normal bowel sounds Percussion/Palpation: abdomen soft; abdomen nontender, no guarding and abdomen not rigid Musculoskeletal: no cyanosis or clubbing, extremities motor strength 5/5 Skin: no rashes, warm and dry + turgor decreased Neurologic: patellar DTR's 2+ bilat, sensation intact and PERRL, EOMI, accommodation nl, no face palsy, no dysarthria Psychiatric: A+Ox3, euthymic affect Hallucinations: + visual hallucinations Lymphatic: no cervical or axillary lymphadenopathy Results & Data Vital Signs (Past 12 Hours) Vital Signs Temp Pulse Pulse Resp BP Pulse Ox 03/19/19 10:58 36.6 C 69 15 129/88 98 03/19/19 10:56 60 15 98 03/19/19 07:26 84 18 91 03/19/19 07:25 76 03/19/19 07:01 36.2 C L 14 94 Laboratory Results Laboratory Results - last 24 hr 03/19/19 03/19/19 07:17 07:17 WBC 12.73 H RBC 3.54 L Hgb 10.6 L Hct 32.4 L MCV 91.5 MCH 29.9 MCHC 32.7 RDW Std Deviation 52.0 H RDW Coeff of Tim 15.7 H Plt Count 195 MPV 10.1 Immature Gran % (Auto) 0.2 Neut % (Auto) 88.0 Lymph % (Auto) 3.8 [place] % (Auto) 7.9 Eos % (Auto) 0.1 Baso % (Auto) 0.0 Immature Gran # (Auto) 0.02 Neut # (Auto) 11.21 H Lymph # (Auto) 0.49 L [place] # (Auto) 1.00 H Eos # (Auto) 0.01 Baso # (Auto) 0.00 Sodium 140 Potassium 4.9 Chloride 103 Carbon Dioxide 29 Anion Gap 8.0 BUN 68 H Creatinine 2.66 H Est Cr Clr Drug Dosing 24.3 Est GFR ( Amer) 24.6 Est GFR (Non-Af Amer) 21.2 BUN/Creatinine Ratio 25.7 H Glucose 104 H Calcium 9.4 Magnesium 3.3 H Specimen Hemolysis Medications Administered Current Inpatient Medications Acetaminophen (Tylenol) 650 mg PO Q4H PRN PRN Reason: Pain or Fever Stop: 04/13/19 13:15 Last Admin: 03/17/19 23:23 Dose: 650 mg Documented by: Al Hydrox/Mg Hydrox/Simethicone (Maalox) 15 ml PO Q6H PRN PRN Reason: Indigestion Stop: 04/14/19 19:29 Last Admin: 03/17/19 21:59 Dose: 15 ml Documented by: Albuterol (Ventolin Hfa) 2 puffs INH Q6H PRN PRN Reason: Shortness Of Breath Stop: 04/13/19 13:15 Last Admin: 03/15/19 19:50 Dose: 2 puffs Documented by: Apixaban (Eliquis) 2.5 mg PO BID [facility] Stop: 04/18/19 20:59 Aspirin Buffered (Ascriptin) 325 mg PO QAM [facility] Stop: 04/14/19 08:59 Last Admin: 03/19/19 09:23 Dose: 325 mg Documented by: Atorvastatin Calcium (Lipitor) 40 mg PO QAM [facility] Stop: 04/14/19 08:59 Last Admin: 03/19/19 09:24 Dose: 40 mg Documented by: Budesonide (Pulmicort Respules) 0.25 mg INH Q12R [facility] Stop: 04/13/19 19:59 Last Admin: 03/19/19 07:22 Dose: 0.25 mg Documented by: Diltiazem HCl (Cardizem) 30 mg PO TID [facility] Stop: 04/15/19 13:59 Last Admin: 03/19/19 09:24 Dose: 30 mg Documented by: Formoterol Fumarate (Perforomist) 20 mcg INH Q12R [facility] Stop: 04/13/19 19:59 Last Admin: 03/19/19 07:23 Dose: 20 mcg Documented by: Gabapentin (Neurontin) 100 mg PO PM [facility] Stop: 04/13/19 20:59 Last Admin: 03/18/19 20:32 Dose: 100 mg Documented by: Amiodarone HCl/Dextrose (Nexterone / D5w) 360 mg in 200 mls @ 33.333 mls/hr IV .Q6H [facility] Stop: 03/19/19 18:39 Last Admin: 03/19/19 12:56 Dose: 1 mg/min, 33.3 mls/hr Documented by: Amiodarone HCl/Dextrose (Nexterone / D5w) 360 mg in 200 mls @ 16.667 mls/hr IV .Q12H [facility] Stop: 04/18/19 18:39 Levalbuterol HCl (Xopenex 1.25mg/0.5ml Neb) 1.25 mg INH Q6R [facility] Stop: 04/13/19 13:59 Last Admin: 03/19/19 13:58 Dose: 1.25 mg Documented by: Multivitamins (Multivitamin Tab) 1 tab PO QAM [facility] Stop: 04/14/19 08:59 Last Admin: 03/19/19 09:24 Dose: 1 tab Documented by: Nitroglycerin (Nitrostat) 0.4 mg SL UD PRN PRN Reason: Chest Pain Stop: 04/13/19 13:15 Ondansetron HCl (Zofran) 4 mg IV Q6H PRN PRN Reason: Nausea Stop: 04/17/19 00:08 Last Admin: 03/18/19 00:32 Dose: 4 mg Documented by: Pantoprazole Sodium (Protonix) 40 mg PO BID [facility] Stop: 04/13/19 20:59 Last Admin: 03/19/19 09:23 Dose: 40 mg Documented by: Polyethylene Glycol (Miralax Powder Packet) 17 gm PO DAILY PRN PRN Reason: Constipation Stop: 04/13/19 13:15 Pramipexole Dihydrochloride (Mirapex) 0.25 mg PO HS [facility] Stop: 04/13/19 20:59 Last Admin: 03/18/19 20:32 Dose: 0.25 mg Documented by: Prednisone (Prednisone) 40 mg PO QAM [facility] Stop: 04/18/19 08:59 Last Admin: 03/19/19 09:22 Dose: 40 mg Documented by: Ranolazine (Ranexa) 500 mg PO BID [facility] Stop: 04/13/19 20:59 Last Admin: 03/19/19 09:24 Dose: 500 mg Documented by: Senna/Docusate Sodium (Senokot S) 1 tab PO BID [facility] Stop: 04/13/19 20:59 Last Admin: 03/19/19 09:23 Dose: 1 tab Documented by: Tamsulosin HCl (Flomax) 0.4 mg PO HS [facility] Stop: 04/13/19 20:59 Last Admin: 03/18/19 20:33 Dose: 0.4 mg Documented by: PG Care Time/CCT Total # of Minutes Spent Total Time Spent with Patient: Total time spent is greater than 50% in coordination of care (as documented) at patient's floor/unit and/or counseling patient: (1) CKD (chronic kidney disease) Chronic kidney disease stage: unspecified stage Qualified Code(s): N18.9 - Chronic kidney disease, unspecified
[2019-03-19] MEDS: AMIODARONE / D5W 360 MG/200 ML BAG IV SCH (18:39)
[2019-03-19] MEDS: TAMSULOSIN HCL 0.4 MG CAP PO SCH (21:29)
[2019-03-19] MEDS: APIXABAN 2.5 MG TAB PO SCH (21:29)
[2019-03-19] MEDS: PRAMIPEXOLE DIHYDROCHLO 0.25 MG TAB PO SCH (21:29)
[2019-03-19] MEDS: GABAPENTIN 100 MG CAP PO SCH (21:29)
[2019-03-20] MEDS: LEVALBUTEROL 1.25MG/0.5ML NEB INH SCH ×4 (02:01→20:31)
[2019-03-20] MEDS: AMIODARONE / D5W 360 MG/200 ML BAG IV SCH (06:18)
[2019-03-20] MEDS: BUDESONIDE 0.25 MG/2 ML VIAL (PULMICORT) INH SCH ×2 (06:58→19:07)
[2019-03-20] MEDS: FORMOTEROL 20 MCG/2 ML VIAL INH SCH ×2 (06:59→19:04)
[2019-03-20 08:39] LABS: Hematocrit (blood only) 32.6 % (42-52); Hemoglobin 10.8 g/dL (14.0-18.0); Mean Corpuscular Hgb Conc 33.1 g/dL (32-36); Mean Corpuscular Volume 92.1 fL (80-100); Mean Platelet Volume 10.9 fL (7.4-10.4); Platelet Count 191 K/uL (130-400); RDW Coefficient of Variation 15.9 % (11.5-14.5); RDW Standard Deviation 52.1 fL (36.4-46.3); Red Blood Count 3.54 M/uL (4.7-6.1); White Blood Count 13.02 K/uL (4.8-10.8)
[2019-03-20] MEDS: DOCUSATE SODIUM/SENNA 50/8.6MG TAB PO SCH ×2 (09:05→20:14)
[2019-03-20] MEDS: ASPIRIN/ALUM/MAGNES/CAL CARB 325 MG TAB PO SCH (09:05)
[2019-03-20] MEDS: predniSONE 20 MG TAB PO SCH (09:06)
[2019-03-20] MEDS: dilTIAZem HCL 30 MG TAB PO SCH ×3 (09:06→20:13)
[2019-03-20] MEDS: APIXABAN 2.5 MG TAB PO SCH ×2 (09:06→20:14)
[2019-03-20] MEDS: ATORVASTATIN 40 MG TAB PO SCH (09:06)
[2019-03-20] MEDS: PANTOprazole 40 MG TAB PO SCH ×2 (09:07→20:14)
[2019-03-20] MEDS: MULTIVITAMIN TAB PO SCH (09:07)
[2019-03-20] MEDS: RANOLAZINE 500 MG ER TAB PO SCH ×2 (09:07→20:14)
[2019-03-20 09:09] LABS: BUN Creatinine Ratio 26.3 (10-20); Creatinine Clr Calc Pharmacy 26.1 ml/min; Est GFR (African American) 26.7; Potassium 4.1 mmol/L (3.5-5.1)
--- NOTE | 2019-03-20 13:45 | Hospitalist Progress Note ---
Date of Service March 20, 2019 Assessment & Plan (1) Orthostasis: Found to be orthostatic upon admission but orthostatic vitals have since improved with holding Bumex and giving 1 L IV fluids on admission. 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 Patient orthostatic as above and likely contributed to syncope Received IV fluids, no more fluids needed Continue to monitor on telemetry Fall precautions no symptoms since admission (3) Hyperkalemia: resolved for three days now was likely combination of taking K supplement and rise in Cr (4) CKD (chronic kidney disease): CKD stage III - IV unsure if patient with KRISTIE, a lot of his Cr readings in past months have been above 2, some as high as 3 Cr down further to 2.49 this morning volume appears normal eating and drinking better today so hold off on further fluids Continue to hold home diuretics (Bumex), wonder if he needs this shelter or just use PRN No flank pain or CVA tenderness Urinalysis with nitrates but no WBCs, and has no urinary symptoms (5) Tachycardia: Dr. 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 No chest pain or tightness during entire admission stop metoprolol due to wheezing, bronchospasm -Continue statin, aspirin, as needed sublingual nitro, and Ranexa (7) COPD (chronic obstructive pulmonary disease): With acute exacerbation here-has diffuse wheezes here and dyspnea with exertion With chronic hypoxic respiratory failure with 2 L nasal cannula nightly and as needed at home increased Solu Medrol to 60mg IV q12 from 40mg on 03/16 far less wheezing for five days, mild episode yesterday morning but quiet since Prednisone 40mg daily, titrate to 30mg tomorrow no indication for antibiotics (no fever, no infiltrates on CXR, no change in sputum) -Continue albuterol inhaler as needed, and continue budesonide and formoterol nebulizers every 12 hours here (8) GERD (gastroesophageal reflux disease): Continue home dose of pantoprazole No acute symptoms (9) Edema: Secondary to dependent edema, holding Bumex at this time due to orthostasis as above -Continue VALENTINE hose, low-sodium diet Follow (10) Pacemaker: Noted as above Placed for asystole with syncope (11) Aortic stenosis: Mild as noted on echocardiogram from 11/2018-would not contribute to syncope -Follow as an outpatient (12) KRISTIE (acute kidney injury): As above, unsure if this truly represents KRISTIE Cr down to 2.49 follow UO, repeat BMP in the morning (13) Aortic insufficiency: Mild to moderate as noted on echocardiogram from 11/2018 -Follow as an outpatient (14) Restless leg syndrome: Stable -Continue Mirapex at bedtime -Continue gabapentin at bedtime (15) BPH (benign prostatic hyperplasia): No evidence of urinary retention at this time -Continue BladderScan as needed -Continue tamsulosin with caution as can also contribute to orthostasis (16) DVT prophylaxis: Heparin 5000 units every 12 hours VALENTINE dominice SCDs Disposition-remain on telemetry unit plan for ablation / cardioversion today with Dr. Watts Subjective patient breathing well this morning, no wheezing, no cough laying flat without any dyspnea, no swelling in legs says he is frustrated that he cannot eat, discussed that cardiology working on getting anesthesia for cardioversion d/w Dr. Watts this morning reviewed tele, he is paced majority of the time, does appear to be in Afib but rates are low patient denies any chest pain reviewed labs, Cr down to 2.4 and K is 4.1 WBC is 13k, Hb stable Review of Systems Review of Systems: All systems reviewed & are unremarkable except as noted in HPI & below Constitutional: no fever, no chills and no sweats Respiratory: + dyspnea on exertion; no cough, no dyspnea, no pain with cough, no sputum production and no wheezing Cardiovascular: no chest pain, no palpitations, no syncope and no edema Gastrointestinal: no abdominal pain, no nausea, no vomiting, no constipation and no diarrhea/loose stools Physical Exam Constitutional: WD/WN, vitals as above Eyes: normal visual moura by confrontation, + conjunctival abnormality (subconjunctival hemorrhage on right, improving), PERRL and EOM intact bilaterally; no eyelid abnormality ENMT: external ear and nose normal, oropharynx normal Neck: trachea midline, no thyromegaly Respiratory: normal respiratory effort; no respiratory distress Auscultation: + diminished lung sounds; no crackles, no rales and no wheezes Cardiovascular: Rate/Rhythm: regular rate and + irregularly irregular Heart Sounds: normal S1 and normal S2; no murmur Vessels: no JVD Extremities: normal capillary refill; no edema Gastrointestinal (Abdomen): Inspection/Auscultation: abdomen normal to inspection and normal bowel sounds Percussion/Palpation: abdomen soft; abdomen nontender, no guarding and abdomen not rigid Musculoskeletal: no cyanosis or clubbing, extremities motor strength 5/5 Skin: no rashes, warm and dry + turgor decreased Neurologic: patellar DTR's 2+ bilat, sensation intact and PERRL, EOMI, acc ommodation nl, no face palsy, no dysarthria Psychiatric: A+Ox3, euthymic affect Hallucinations: + visual hallucinations Lymphatic: no cervical or axillary lymphadenopathy Results & Data Vital Signs (Past 12 Hours) Vital Signs Temp Pulse Pulse Resp BP Pulse Ox 03/20/19 11:37 36.7 C 94 03/20/19 07:30 70 03/20/19 07:04 36.5 C 74 16 101/70 99 03/20/19 06:59 71 18 98 03/20/19 03:50 36.7 C 72 18 94/51 L 93 03/20/19 02:01 67 18 95 Laboratory Results Laboratory Results - last 24 hr 03/20/19 03/20/19 03/20/19 08:00 08:00 08:00 WBC 13.02 H RBC 3.54 L Hgb 10.8 L Hct 32.6 L MCV 92.1 MCH 30.5 MCHC 33.1 RDW Std Deviation 52.1 H RDW Coeff of Tim 15.9 H Plt Count 191 MPV 10.9 H Sodium 140 Potassium 4.1 D Chloride 103 Carbon Dioxide 29 Anion Gap 8.0 BUN 65 H Creatinine 2.49 H Est Cr Clr Drug Dosing 26.1 Est GFR ( Amer) 26.7 Est GFR (Non-Af Amer) 23.0 BUN/Creatinine Ratio 26.3 H Glucose 106 H Calcium 9.0 Magnesium 3.1 H Medications Administered Current Inpatient Medications Acetaminophen (Tylenol) 650 mg PO Q4H PRN PRN Reason: Pain or Fever Stop: 04/13/19 13:15 Last Admin: 03/17/19 23:23 Dose: 650 mg Documented by: Al Hydrox/Mg Hydrox/Simethicone (Maalox) 15 ml PO Q6H PRN PRN Reason: Indigestion Stop: 04/14/19 19:29 Last Admin: 03/17/19 21:59 Dose: 15 ml Documented by: Albuterol (Ventolin Hfa) 2 puffs INH Q6H PRN PRN Reason: Shortness Of Breath Stop: 04/13/19 13:15 Last Admin: 03/15/19 19:50 Dose: 2 puffs Documented by: Apixaban (Eliquis) 2.5 mg PO BID [facility] Stop: 04/18/19 20:59 Last Admin: 03/20/19 09:06 Dose: 2.5 mg Documented by: Aspirin Buffered (Ascriptin) 325 mg PO QAM [facility] Stop: 04/14/19 08:59 Last Admin: 03/20/19 09:05 Dose: 325 mg Documented by: Atorvastatin Calcium (Lipitor) 40 mg PO QAM [facility] Stop: 04/14/19 08:59 Last Admin: 03/20/19 09:06 Dose: 40 mg Documented by: Budesonide (Pulmicort Respules) 0.25 mg INH Q12R [facility] Stop: 04/13/19 19:59 Last Admin: 03/20/19 06:58 Dose: 0.25 mg Documented by: Diltiazem HCl (Cardizem) 30 mg PO TID [facility] Stop: 04/15/19 13:59 Last Admin: 03/20/19 09:06 Dose: 30 mg Documented by: Formoterol Fumarate (Perforomist) 20 mcg INH Q12R [facility] Stop: 04/13/19 19:59 Last Admin: 03/20/19 06:59 Dose: 20 mcg Documented by: Gabapentin (Neurontin) 100 mg PO PM [facility] Stop: 04/13/19 20:59 Last Admin: 03/19/19 21:29 Dose: 100 mg Documented by: Amiodarone HCl/Dextrose (Nexterone / D5w) 360 mg in 200 mls @ 16.667 mls/hr IV .Q12H [facility] Stop: 04/18/19 18:39 Last Admin: 03/20/19 06:18 Dose: 0.5 mg/min, 16.7 mls/hr Documented by: Levalbuterol HCl (Xopenex 1.25mg/0.5ml Neb) 1.25 mg INH Q6R [facility] Stop: 04/13/19 13:59 Last Admin: 03/20/19 06:59 Dose: Not Given Documented by: Multivitamins (Multivitamin Tab) 1 tab PO QAM [facility] Stop: 04/14/19 08:59 Last Admin: 03/20/19 09:07 Dose: 1 tab Documented by: Nitroglycerin (Nitrostat) 0.4 mg SL UD PRN PRN Reason: Chest Pain Stop: 04/13/19 13:15 Ondansetron HCl (Zofran) 4 mg IV Q6H PRN PRN Reason: Nausea Stop: 04/17/19 00:08 Last Admin: 03/18/19 00:32 Dose: 4 mg Documented by: Pantoprazole Sodium (Protonix) 40 mg PO BID [facility] Stop: 04/13/19 20:59 Last Admin: 03/20/19 09:07 Dose: 40 mg Documented by: Polyethylene Glycol (Miralax Powder Packet) 17 gm PO DAILY PRN PRN Reason: Constipation Stop: 04/13/19 13:15 Pramipexole Dihydrochloride (Mirapex) 0.25 mg PO HS [facility] Stop: 04/13/19 20:59 Last Admin: 03/19/19 21:29 Dose: 0.25 mg Documented by: Prednisone (Prednisone) 40 mg PO QAM [facility] Stop: 04/18/19 08:59 Last Admin: 03/20/19 09:06 Dose: 40 mg Documented by: Ranolazine (Ranexa) 500 mg PO BID [facility] Stop: 04/13/19 20:59 Last Admin: 03/20/19 09:07 Dose: 500 mg Documented by: Senna/Docusate Sodium (Senokot S) 1 tab PO BID [facility] Stop: 04/13/19 20:59 Last Admin: 03/20/19 09:05 Dose: 1 tab Documented by: Tamsulosin HCl (Flomax) 0.4 mg PO HS [facility] Stop: 04/13/19 20:59 Last Admin: 03/19/19 21:29 Dose: 0.4 mg Documented by: PG Care Time/CCT Total # of Minutes Spent Total Time Spent with Patient: Total time spent is greater than 50% in coordination of care (as documented) at patient's floor/unit and/or counseling patient: (1) CKD (chronic kidney disease) Chronic kidney disease stage: unspecified stage Qualified Code(s): N18.9 - Chronic kidney disease, unspecified
[2019-03-20] MEDS ORDERED: PROPOFOL IV EMULSION 10 MG/ML 20 ML VIAL IV ONE ×2 (14:11→14:12)
--- NOTE | 2019-03-20 15:22 | Anesthesiology Consultation ---
Date of Service March 20, 2019 Assessment & Plan (1) Encounter for pre-operative examination: Chart Review Chart Review: Acceptable Risk for Surgery and Patient NOT seen in Pre Admission Testing Consults Requested none History Height/Weight Height: 5 ft 8 in Weight: 102.4 kg Allergies Allergy/AdvReac Type Severity Reaction Status Date / Time Penicillins Allergy Unknown PASSES OUT Verified 03/14/19 11:09 AND LOW HEART RATE Medications Home Medications Medication Instructions Recorded Confirmed Last Taken albuterol sulfate 2 puff INHALATION Q6H PRN 06/17/18 03/14/19 Unknown atorvastatin 40 mg PO QAM 06/17/18 03/14/19 03/13/19 metoprolol succinate 12.5 mg PO HS 10/09/18 03/14/19 03/13/19 multivitamin 1 tab PO QAM 10/09/18 03/14/19 03/13/19 nitroglycerin [Nitrostat] 0.4 mg SUBLINGUAL DIRECTED PRN 10/09/18 03/14/19 Unknown pantoprazole 40 mg PO BID 10/09/18 03/14/19 03/13/19 21:00 ranolazine 500 mg PO BID 10/09/18 03/14/19 03/13/19 21:00 sennosides-docusate sodium [Stool 8.6 mg PO BID 10/09/18 03/14/19 03/13/19 21:00 Softener-Laxative] budesonide 1 ml INH Q12H #60 ml 10/17/18 03/14/19 03/13/19 pramipexole 0.25 mg PO HS 11/10/18 03/14/19 03/13/19 aspirin, buffered 325 mg PO QAM 12/06/18 03/14/19 03/13/19 bumetanide 1 mg PO UD 03/14/19 03/14/19 03/13/19 12:00 formoterol fumarate [Perforomist] 2 ml INHALATION Q12 03/14/19 03/14/19 03/13/19 gabapentin 100 mg PO PM 03/14/19 03/14/19 03/13/19 ipratropium-albuterol 3 ml INHALATION DAILY PRN 03/14/19 03/14/19 03/13/19 polyethylene glycol 3350 [Miralax] 17 g PO DAILY PRN 03/14/19 03/14/19 03/12/19 potassium chloride [Klor-Con M20] 20 meq PO QAM 03/14/19 03/14/19 03/13/19 tamsulosin 0.4 mg PO HS 03/14/19 03/14/19 03/13/19 Active Medications Generic Name Dose Route Start Last Admin Trade Name Freq PRN Reason Stop Dose Admin Acetaminophen 650 mg 03/14/19 13:16 03/17/19 23:23 Tylenol PO 04/13/19 13:15 650 mg Q4H PRN Administration Pain or Fever Al Hydrox/Mg Hydrox/Simethicone 15 ml 03/15/19 19:30 03/17/19 21:59 Maalox PO 04/14/19 19:29 15 ml Q6H PRN Administration Indigestion Albuterol 2 puffs 03/14/19 13:16 03/15/19 19:50 Ventolin Hfa INH 04/13/19 13:15 2 puffs Q6H PRN Administration Shortness Of Breath Apixaban 2.5 mg 03/19/19 21:00 03/20/19 09:06 Eliquis PO 04/18/19 20:59 2.5 mg BID NADEEN Administration Aspirin Buffered 325 mg 03/15/19 09:00 03/20/19 09:05 Ascriptin PO 04/14/19 08:59 325 mg QAM NADEEN Administration Atorvastatin Calcium 40 mg 03/15/19 09:00 03/20/19 09:06 Lipitor PO 04/14/19 08:59 40 mg QAM NADEEN Administration Budesonide 0.25 mg 03/14/19 20:00 03/20/19 06:58 Pulmicort Respules INH 04/13/19 19:59 0.25 mg Q12R NADEEN Administration Diltiazem HCl 30 mg 03/16/19 14:00 03/20/19 14:21 Cardizem PO 04/15/19 13:59 30 mg TID NADEEN Administration Formoterol Fumarate 20 mcg 03/14/19 20:00 03/20/19 06:59 Perforomist INH 04/13/19 19:59 20 mcg Q12R NADEEN Administration Gabapentin 100 mg 03/14/19 21:00 03/19/19 21:29 Neurontin PO 04/13/19 20:59 100 mg PM NADEEN Administration Amiodarone HCl/Dextrose 360 mg in 200 mls @ 16.667 mls/hr 03/19/19 18:40 03/20/19 06:18 Nexterone / D5w IV 04/18/19 18:39 0.5 mg/min .Q12H NADEEN 16.7 mls/hr Administration 0.5 MG/MIN Levalbuterol HCl 1.25 mg 03/14/19 14:00 03/20/19 14:25 Xopenex 1.25mg/0.5ml Neb INH 04/13/19 13:59 1.25 mg Q6R NADEEN Administration Multivitamins 1 tab 03/15/19 09:00 03/20/19 09:07 Multivitamin Tab PO 04/14/19 08:59 1 tab QAM NADEEN Administration Ondansetron HCl 4 mg 03/18/19 00:09 03/18/19 00:32 Zofran IV 04/17/19 00:08 4 mg Q6H PRN Administration Nausea Pantoprazole Sodium 40 mg 03/14/19 21:00 03/20/19 09:07 Protonix PO 04/13/19 20:59 40 mg BID NADEEN Administration Pramipexole Dihydrochloride 0.25 mg 03/14/19 21:00 03/19/19 21:29 Mirapex PO 04/13/19 20:59 0.25 mg HS NADEEN Administration Ranolazine 500 mg 03/14/19 21:00 03/20/19 09:07 Ranexa PO 04/13/19 20:59 500 mg BID NADEEN Administration Senna/Docusate Sodium 1 tab 03/14/19 21:00 03/20/19 09:05 Senokot S PO 04/13/19 20:59 1 tab BID NADEEN Administration Tamsulosin HCl 0.4 mg 03/14/19 21:00 03/19/19 21:29 Flomax PO 04/13/19 20:59 0.4 mg HS NADEEN Administration Past Medical History Medical History CHF (congestive heart failure) GERD (gastroesophageal reflux disease) HTN (hypertension) Hyperlipidemia CAD (coronary artery disease) RLS (restless legs syndrome) COPD (chronic obstructive pulmonary disease) (Chronic) 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[place] coronary artery w/angina pectoris (Acute 11/25/14) Coronary arteriosclerosis (Acute 03/30/14) CKD (chronic kidney disease) TIA (transient ischemic attack) (Chronic) Past Family History Family History Father Myocardial infarction Other No pertinent family history Past Surgical History Surgical History History of permanent cardiac pacemaker placement p Pacer with A/V Leads (Dual)(Left) - Tomasz Rojas MD 12/08/2018 s Remove Cardiac Event Recorder(Left) - Tomasz Rojas MD 12/08/2018 [employer] pacer: Model: LNQ11 LINQ; serial number [id number]; implanted 12/08/2018 S/P drug eluting coronary stent placement X4 Social History Smoking Status: Former smoker tobacco type: cigarettes Do You Dip or Chew Tobacco: No Hx Alcohol Use: No alcohol intake frequency: 0-2 drinks per day Hx Substance Use: No substance use type: does not use Physical Exam Vital Signs Last Vital Signs Temp 36.7 C 03/20/19 11:37 Pulse 68 03/20/19 14:25 Resp 18 03/20/19 14:25 BP 101/70 03/20/19 07:04 Pulse Ox 96 03/20/19 14:25
--- NOTE | 2019-03-20 15:46 | Procedure Note ---
Procedure Note Date of Service March 20, 2019 Note Procedure performed: Cardioversion Indication: Atrial fibrillation Staff cannon pinion adjuster: Virgil Watts MD Procedure in detail: The patient was informed of the risks benefits and alternatives to the intended procedure. He understood such which proceed. A general anesthetic was administered by the Anesthesiology Service. Once appropriately anesthetized, the patient was cardioverted using 200 joules delivered in a biphasic fashion. This returned the patient to a paced atrial rhythm. The patient tolerated procedure well, there were no immediate complications. Patient was neurologically intact subsequent to the procedure. Impression: Successful cardioversion from atrial flutter to a paced atrial rhythm Coding
--- NOTE | 2019-03-20 16:56 | Cardiology Progress Note ---
Date of Service March 20, 2019 Assessment & Plan (1) Syncope: I suspect his syncope is multifactorial, probably a combination of orthostasis and his arrhythmia which will make cardiac compensation for hypotension difficult for him. This may improve with correction of his arrhythmia. (2) Tachycardia: This was likely a reentrant rhythm. Curiously when he developed atrial fibrillation he had no additional episodes of this tachycardia. This also supports the diagnosis of a reentrant arrhythmia. Yesterday, there was no availability for performing EP studies or ablation and we elected to try medical therapy both for treatment of his atrial fibrillation and presumed reentrant arrhythmia. Started the patient on amiodarone which will be converted to oral amiodarone. He was also started anticoagulation and underwent cardioversion today. Also made some adjustments in his pacemaker in order to treat atrial arrhythmias and perhaps reduce the incidence of reentry. I think we will monitor him over the course of the evening. If this appears efficacious he could continue this treatment as an outpatient and be reassessed in the outpatient setting. Catheter based therapy appears to be an attractive long- term option. This may obviate the need for continued medical therapy including anticoagulation. (3) CAD (coronary artery disease): He does not have symptoms to suggest ischemia. (4) Pacemaker: I switched his pacing mode to DDD with a relatively short AV interval. This hopefully will reduce episodes of reentry. I also activated atrial therapies and preference pacing. Subjective This morning the patient's primary complaint is being hungry. He is anxious to eat. He has not been aware of any palpitations. He states that his breathing is much better than yesterday. He was comfortable sitting up in a chair today. He is anxious to ambulate more. Review of Systems Review of Systems: Per HPI Physical Exam Physical Exam: The patient is alert and oriented. Mood and affect appeared normal. He answered all questions appropriately. HEENT: Pupils are equal and reactive to light and accommodation. Extraocular movements are intact. The sclerae are anicteric. Neuro: Cranial nerves intact Lungs: Some coarse upper airway sounds but minimal rales. Normal respiratory effort. Cardiac: Heart demonstrates an irregular rate and rhythm. Normal S1 and S2. No murmurs on examination. Pulses: The patient has palpable radial pulses bilaterally that are equal in intensity Extremities: There was no evidence of hypoperfusion. There is no cyanosis or clubbing. Results & Data Vital Signs (Past 12 Hours) Vital Signs Temp Pulse Pulse Resp BP Pulse Ox 03/20/19 15:40 36.7 C 62 20 92/61 L 99 03/20/19 14:25 68 18 96 03/20/19 11:37 36.7 C 94 03/20/19 07:30 70 03/20/19 07:04 36.5 C 74 16 101/70 99 03/20/19 06:59 71 18 98 Laboratory Results Abnormal Lab Results 03/20/19 03/20/19 03/20/19 08:00 08:00 08:00 WBC 13.02 H RBC 3.54 L Hgb 10.8 L Hct 32.6 L MCV 92.1 MCH 30.5 MCHC 33.1 RDW Std Deviation 52.1 H RDW Coeff of Tim 15.9 H Plt Count 191 MPV 10.9 H Sodium 140 Potassium 4.1 D Chloride 103 Carbon Dioxide 29 Anion Gap 8.0 BUN 65 H Creatinine 2.49 H Est Cr Clr Drug Dosing 26.1 Est GFR ( Amer) 26.7 Est GFR (Non-Af Amer) 23.0 BUN/Creatinine Ratio 26.3 H Glucose 106 H Calcium 9.0 Magnesium 3.1 H ECG Additional Comments: Atrial fibrillation controlled ventricular rate (1) Syncope Syncope type: unspecified Qualified Code(s): R55 - Syncope and collapse
[2019-03-20] MEDS: AMIODARONE 200 MG TAB PO SCH (20:13)
[2019-03-20] MEDS: TAMSULOSIN HCL 0.4 MG CAP PO SCH (20:15)
[2019-03-20] MEDS: PRAMIPEXOLE DIHYDROCHLO 0.25 MG TAB PO SCH (20:15)
[2019-03-20] MEDS: GABAPENTIN 100 MG CAP PO SCH (20:15)
[2019-03-21] MEDS: LEVALBUTEROL 1.25MG/0.5ML NEB INH SCH ×4 (01:52→20:48)
[2019-03-21] MEDS: BUDESONIDE 0.25 MG/2 ML VIAL (PULMICORT) INH SCH ×2 (07:02→19:25)
[2019-03-21] MEDS: FORMOTEROL 20 MCG/2 ML VIAL INH SCH ×2 (07:03→19:25)
[2019-03-21 07:10] LABS: BUN Creatinine Ratio 25.6 (10-20); Calcium 8.9 mg/dl (8.5-10.1); Creatinine Clr Calc Pharmacy 24.6 ml/min; Est GFR (Non-African American) 22.5; Potassium 4.3 mmol/L (3.5-5.1)
[2019-03-21] MEDS: MULTIVITAMIN TAB PO SCH (07:56)
[2019-03-21] MEDS: dilTIAZem HCL 30 MG TAB PO SCH ×3 (07:56→20:28)
[2019-03-21] MEDS: AMIODARONE 200 MG TAB PO SCH ×2 (07:57→20:28)
[2019-03-21] MEDS: ATORVASTATIN 40 MG TAB PO SCH (07:57)
[2019-03-21] MEDS: PANTOprazole 40 MG TAB PO SCH ×2 (07:57→20:28)
[2019-03-21] MEDS: ASPIRIN/ALUM/MAGNES/CAL CARB 325 MG TAB PO SCH (07:57)
[2019-03-21] MEDS: predniSONE 20 MG TAB PO SCH (07:58)
[2019-03-21] MEDS: DOCUSATE SODIUM/SENNA 50/8.6MG TAB PO SCH ×2 (07:59→20:30)
[2019-03-21] MEDS: ALBUTEROL HFA 8 GM INHALER INH PRN (08:00)
[2019-03-21] MEDS: APIXABAN 2.5 MG TAB PO SCH ×2 (08:00→20:31)
[2019-03-21] MEDS: RANOLAZINE 500 MG ER TAB PO SCH ×2 (08:00→20:29)
--- NOTE | 2019-03-21 09:58 | Cardiology Progress Note ---
Date of Service March 21, 2019 Assessment & Plan (1) Syncope: I suspect his syncope is multifactorial, probably a combination of orthostasis and his arrhythmia. Overall blood pressures appear to be more stable. He did not report significant dizziness with changes in position yesterday. His rhythm now is paced. (2) Tachycardia: The tachycardia is likely reentrant phenomenon. While catheter based therapy appears to be an attractive option this was not available at the end of this week. As an alternative, he underwent institution of amiodarone therapy and cardioversion for atrial fibrillation. Change in his pacing mode was also made in the hopes of reducing recurrent tachycardia. This appears to have been successful in the short term. In the chcf, I think I would still advocate catheter based therapy which would obviate the need for amiodarone. However, at this point continuing amiodarone and his current pacing would seem reasonable. This would offer an opportunity for discharge, reassessment in the outpatient setting and possibly performance of EP testing and ablation on a scheduled basis. (3) CAD (coronary artery disease): He does not have symptoms to suggest ischemia. (4) Pacemaker: I switched his pacing mode to DDD with a relatively short AV interval. This hopefully will reduce episodes of reentry. I also activated atrial therapies and preference pacing. Subjective This morning the patient claims to be feeling well. He had difficulty sleeping last night due to being uncomfortable. He did not report significant breathing trouble. He states that he was able ambulate in the hallway last evening with some assistance. He did not report recurrent dizziness. He is anxious to go home. Review of Systems Review of Systems: Per HPI Physical Exam Physical Exam: The patient is alert and oriented. Mood and affect appeared normal. He answered all questions appropriately. HEENT: Pupils are equal and reactive to light and accommodation. Extraocular movements are intact. The sclerae are anicteric. Neuro: Cranial nerves intact Lungs: Apices are clear. Occasional expiratory wheeze. Some mildly reduced breath sounds in the right base. No rales. Normal respiratory effort. Cardiac: Heart demonstrates a regular rate and rhythm. Pulses: The patient has palpable radial pulses bilaterally that are equal in intensity Extremities: There was no evidence of hypoperfusion. There is no cyanosis or clubbing. There is mild edema and he is wearing compression stockings. Skin: I did not appreciate any rashes on examination today. Results & Data Vital Signs (Past 12 Hours) Vital Signs Temp Pulse Pulse Resp BP BP Pulse Ox 03/21/19 08:16 36.4 C L 94 03/21/19 08:00 73 03/21/19 07:03 68 16 98 03/21/19 03:51 36.5 C 69 19 117/68 97 03/20/19 23:39 37.0 C 72 18 117/75 92 Pulse Ox 03/21/19 08:16 03/21/19 08:00 94 03/21/19 07:03 03/21/19 03:51 03/20/19 23:39 Laboratory Results Abnormal Lab Results 03/21/19 06:10 Sodium 139 Potassium 4.3 Chloride 103 Carbon Dioxide 28 Anion Gap 8.0 BUN 65 H Creatinine 2.54 H Est Cr Clr Drug Dosing 24.6 Est GFR ( Amer) 26.0 Est GFR (Non-Af Amer) 22.5 BUN/Creatinine Ratio 25.6 H Glucose 107 H Calcium 8.9 ECG Additional Comments: Telemetry demonstrates a paced AV rhythm (1) Syncope Syncope type: unspecified Qualified Code(s): R55 - Syncope and collapse
--- NOTE | 2019-03-21 13:16 | Hospitalist Progress Note ---
Date of Service March 21, 2019 Assessment & Plan (1) Orthostasis: Found to be orthostatic upon admission but orthostatic vitals have since improved with holding Bumex and giving 1 L IV fluids on admission. -Likely cause of recent syncope -Continue holding Bumex, does not appear volume overloaded wonder if patient needs Bumex nursing home given his volume is stable without it likely correcting his heart rate improved volume control -Continue checking orthostatic vital signs -Continue VALENTINE nydia certainly an AV node re-entry arrhythmia and/or atrial fibrillation could be making compensation for orthostasis difficult cardiology managing (2) Syncope and collapse: Prior evidence of asystole with status post pacemaker placement 12/08/2018 Formal interrogation here suggests AV node re entry tachcycardia Patient orthostatic as above and likely contributed to syncope Received IV fluids, no more fluids needed Continue to monitor on telemetry Fall precautions no symptoms since admission (3) Hyperkalemia: resolved for four days was likely combination of taking K supplement and rise in Cr (4) CKD (chronic kidney disease): CKD stage III - IV unsure if patient with KRISTIE, a lot of his Cr readings in past months have been above 2, some as high as 3 Cr stable 2.54 this morning volume appears normal eating and drinking better Continue to hold home diuretics (Bumex), wonder if he needs this terminal supervisor or just use PRN No flank pain or CVA tenderness Urinalysis with nitrates but no WBCs, and has no urinary symptoms (5) Tachycardia: Dr. Rojas feels that this represents an AV node re-entry tachycardia, although at slow rates then went into atrial fibrillation ATRIAL FIBRILLATION treated with Amiodarone drip cardioverted on 03/20 successfully now on Amiodarone 400mg BID, continue Eliquis 2.5mg BID, Diltiazem 30mg TID he is now V paced (6) Coronary artery disease: Status post LAD and circumflex stents x5. No chest pain or tightness during entire admission stop metoprolol due to wheezing, bronchospasm -Continue statin, aspirin, as needed sublingual nitro, and Ranexa (7) COPD (chronic obstructive pulmonary disease): With acute exacerbation here-has diffuse wheezes here and dyspnea with exertion With chronic hypoxic respiratory failure with 2 L nasal cannula nightly and as needed at home increased Solu Medrol to 60mg IV q12 from 40mg on 03/16 far less wheezing for five days, mild episode yesterday morning but quiet since Prednisone 30mg daily, brief taper on discharge no indication for antibiotics (no fever, no infiltrates on CXR, no change in sputum) -Continue albuterol inhaler as needed, and continue budesonide and formoterol nebulizers every 12 hours here (8) GERD (gastroesophageal reflux disease): Continue home dose of pantoprazole No acute symptoms (9) Edema: no further edema (10) Pacemaker: Noted as above Placed for asystole with syncope (11) Aortic stenosis: Mild as noted on echocardiogram from 11/2018-would not contribute to syncope -Follow as an outpatient (12) KRISTIE (acute kidney injury): As above, unsure if this truly represents KRISTIE Cr stable at 2.54 follow UO, repeat BMP in the morning (13) Aortic insufficiency: Mild to moderate as noted on echocardiogram from 11/2018 -Follow as an outpatient (14) Restless leg syndrome: Stable -Continue Mirapex at bedtime -Continue gabapentin at bedtime (15) BPH (benign prostatic hyperplasia): No evidence of urinary retention at this time -Continue BladderScan as needed -Continue tamsulosin with caution as can also contribute to orthostasis (16) DVT prophylaxis: Heparin 5000 units every 12 hours VALENTINE stafford SCDs Disposition-remain on telemetry unit plan for ablation / cardioversion today with Dr. Watts (17) Constipation: use Miralax today Subjective patient feeling really good today, said "can I go home?" he said his breathing is great he did not eat breakfast but ate his lunch, has not moved his bowels, asked for Miralax he did not sleep well last night, asking for Tylenol PM reviewed labs, Cr is 2.54, K normal updated his at the bedside reviewed tele, he is paced, still in sinus d/w Dr. Watts Review of Systems Review of Systems: All systems reviewed & are unremarkable except as noted in HPI & below Constitutional: + insomnia; no fever Respiratory: + cough; no dyspnea, no dyspnea on exertion and no sputum production Cardiovascular: no chest pain and no edema Gastrointestinal: + constipation; no abdominal pain, no nausea, no vomiting and no diarrhea/loose stools Physical Exam Constitutional: WD/WN, vitals as above Eyes: normal visual moura by confrontation, + conjunctival abnormality (subconjunctival hemorrhage on right, improving), PERRL and EOM intact bilaterally; no eyelid abnormality ENMT: external ear and nose normal, oropharynx normal Neck: trachea midline, no thyromegaly Respiratory: normal respiratory effort; no respiratory distress Auscultation: + diminished lung sounds; no crackles, no rales and no wheezes Cardiovascular: Rate/Rhythm: regular rate and regular rhythm Heart Sounds: normal S1 and normal S2; no murmur Vessels: no JVD Extremities: normal capillary refill; no edema Gastrointestinal (Abdomen): Inspection/Auscultation: abdomen normal to inspection and normal bowel sounds Percussion/Palpation: abdomen soft; abdomen nontender, no guarding and abdomen not rigid Musculoskeletal: no cyanosis or clubbing, extremities motor strength 5/5 Skin: no rashes, warm and dry + turgor decreased Neurologic: patellar DTR's 2+ bilat, sensation intact and PERRL, EOMI, accommodation nl, no face palsy, no dysarthria Psychiatric: A+Ox3, euthymic affect Hallucinations: + visual hallucinations Lymphatic: no cervical or axillary lymphadenopathy Results & Data Vital Signs (Past 12 Hours) Vital Signs Temp Pulse Pulse Resp BP BP Pulse Ox 03/21/19 11:31 36.7 C 70 19 112/69 98 03/21/19 08:16 36.4 C L 94 03/21/19 08:00 73 03/21/19 07:03 68 16 98 03/21/19 03:51 36.5 C 69 19 117/68 97 Pulse Ox 03/21/19 11:31 03/21/19 08:16 03/21/19 08:00 94 03/21/19 07:03 03/21/19 03:51 Laboratory Results Laboratory Results - last 24 hr 03/21/19 06:10 Sodium 139 Potassium 4.3 Chloride 103 Carbon Dioxide 28 Anion Gap 8.0 BUN 65 H Creatinine 2.54 H Est Cr Clr Drug Dosing 24.6 Est GFR ( Amer) 26.0 Est GFR (Non-Af Amer) 22.5 BUN/Creatinine Ratio 25.6 H Glucose 107 H Calcium 8.9 Medications Administered Current Inpatient Medications Acetaminophen (Tylenol) 650 mg PO Q4H PRN PRN Reason: Pain or Fever Stop: 04/13/19 13:15 Last Admin: 03/17/19 23:23 Dose: 650 mg Documented by: Al Hydrox/Mg Hydrox/Simethicone (Maalox) 15 ml PO Q6H PRN PRN Reason: Indigestion Stop: 04/14/19 19:29 Last Admin: 03/17/19 21:59 Dose: 15 ml Documented by: Albuterol (Ventolin Hfa) 2 puffs INH Q6H PRN PRN Reason: Shortness Of Breath Stop: 04/13/19 13:15 Last Admin: 03/21/19 08:00 Dose: 2 puffs Documented by: Amiodarone HCl (Cordarone) 400 mg PO BID [facility] Stop: 04/19/19 20:59 Last Admin: 03/21/19 07:57 Dose: 400 mg Documented by: Apixaban (Eliquis) 2.5 mg PO BID [facility] Stop: 04/18/19 20:59 Last Admin: 03/21/19 08:00 Dose: 2.5 mg Documented by: Aspirin Buffered (Ascriptin) 325 mg PO QAM [facility] Stop: 04/14/19 08:59 Last Admin: 03/21/19 07:57 Dose: 325 mg Documented by: Atorvastatin Calcium (Lipitor) 40 mg PO QAM [facility] Stop: 04/14/19 08:59 Last Admin: 03/21/19 07:57 Dose: 40 mg Documented by: Budesonide (Pulmicort Respules) 0.25 mg INH Q12R [facility] Stop: 04/13/19 19:59 Last Admin: 03/21/19 07:02 Dose: 0.25 mg Documented by: Diltiazem HCl (Cardizem) 30 mg PO TID [facility] Stop: 04/15/19 13:59 Last Admin: 03/21/19 07:56 Dose: 30 mg Documented by: Diphenhydramine HCl (Benadryl Capsule) 25 mg PO HSZ PRN PRN Reason: Insomnia Stop: 04/20/19 13:04 Formoterol Fumarate (Perforomist) 20 mcg INH Q12R [facility] Stop: 04/13/19 19:59 Last Admin: 03/21/19 07:03 Dose: 20 mcg Documented by: Gabapentin (Neurontin) 100 mg PO PM NADEEN Stop: 04/13/19 20:59 Last Admin: 03/20/19 20:15 Dose: 100 mg Documented by: Levalbuterol HCl (Xopenex 1.25mg/0.5ml Neb) 1.25 mg INH Q6R [facility] Stop: 04/13/19 13:59 Last Admin: 03/21/19 07:03 Dose: Not Given Documented by: Multivitamins (Multivitamin Tab) [facility] [place]: 04/14/19 08:59 Last Admin: 03/21/19 07:56 Dose: 1 tab Documented by: Nitroglycerin (Nitrostat) 0.4 mg SL UD PRN PRN Reason: Chest Pain Stop: 04/13/19 13:15 Ondansetron HCl (Zofran) 4 mg IV Q6H PRN PRN Reason: Nausea Stop: 04/17/19 00:08 Last Admin: 03/18/19 00:32 Dose: 4 mg Documented by: Pantoprazole Sodium (Protonix) 40 mg PO BID [facility] Stop: 04/13/19 20:59 Last Admin: 03/21/19 07:57 Dose: 40 mg Documented by: Polyethylene Glycol (Miralax Powder Packet) 17 gm PO DAILY PRN PRN Reason: Constipation Stop: 04/13/19 13:15 Pramipexole Dihydrochloride (Mirapex) 0.25 mg PO [facility] Stop: 04/13/19 20:59 Last Admin: 03/20/19 20:15 Dose: 0.25 mg Documented by: Prednisone (Prednisone) 30 mg PO [facility] Stop: 04/20/19 08:59 Last Admin: 03/21/19 07:58 Dose: 30 mg Documented by: Ranolazine (Ranexa) 500 mg PO BID [facility] Stop: 04/13/19 20:59 Last Admin: 03/21/19 08:00 Dose: 500 mg Documented by: Senna/Docusate Sodium (Senokot S) 1 tab PO BID [facility] Stop: 04/13/19 20:59 Last Admin: 03/21/19 07:59 Dose: 1 tab Documented by: Tamsulosin HCl (Flomax) 0.4 mg PO [facility] Stop: 04/13/19 20:59 Last Admin: 03/20/19 20:15 Dose: 0.4 mg Documented by: PG Care Time/CCT Total # of Minutes Spent Total Time Spent with Patient: Total time spent is greater than 50% in coordination of care (as documented) at patient's floor/unit and/or counseling patient: (1) CKD (chronic kidney disease) Chronic kidney disease stage: unspecified stage Qualified Code(s): N18.9 - Chronic kidney disease, unspecified
[2019-03-21] MEDS: GABAPENTIN 100 MG CAP PO SCH (20:30)
[2019-03-21] MEDS: PRAMIPEXOLE DIHYDROCHLO 0.25 MG TAB PO SCH (20:31)
[2019-03-21] MEDS: TAMSULOSIN HCL 0.4 MG CAP PO SCH (20:31)
[2019-03-21] MEDS: ACETAMINOPHEN 325 MG TAB PO PRN (20:34)
[2019-03-22] MEDS: LEVALBUTEROL 1.25MG/0.5ML NEB INH SCH ×2 (01:39→11:33)
[2019-03-22 06:59] LABS: Eosinophils # (auto) 0.08 K/uL (0-0.5); Eosinophils % (auto) 0.6 %; Hematocrit (blood only) 33.5 % (42-52); Hemoglobin 10.9 g/dL (14.0-18.0); Immature Granulocytes # (auto) 0.04 K/uL (0.00-0.02); Immature Granulocytes % (auto) 0.3 %; Lymphocytes # (auto) 0.66 K/uL (1.2-3.4); Lymphocytes % (auto) 4.7 %; Mean Corpuscular Hgb Conc 32.5 g/dL (32-36); Mean Corpuscular Volume 91.8 fL (80-100); Mean Platelet Volume 10.8 fL (7.4-10.4); Monocytes # (auto) 1.03 K/uL (0.11-0.59); Monocytes % (auto) 7.4 %; Platelet Count 189 K/uL (130-400); RDW Coefficient of Variation 16.5 % (11.5-14.5); RDW Standard Deviation 53.7 fL (36.4-46.3); Red Blood Count 3.65 M/uL (4.7-6.1); White Blood Count 14.01 K/uL (4.8-10.8)
[2019-03-22] MEDS: FORMOTEROL 20 MCG/2 ML VIAL INH SCH (07:01)
[2019-03-22] MEDS: BUDESONIDE 0.25 MG/2 ML VIAL (PULMICORT) INH SCH (07:02)
[2019-03-22 07:27] LABS: BUN Creatinine Ratio 26.9 (10-20); Calcium 8.5 mg/dl (8.5-10.1); Creatinine Clr Calc Pharmacy 29.3 ml/min; Est GFR (African American) 30.6; Est GFR (Non-African American) 26.4; Potassium 4.3 mmol/L (3.5-5.1)
[2019-03-22] MEDS: APIXABAN 2.5 MG TAB PO SCH (08:22)
[2019-03-22] MEDS: DOCUSATE SODIUM/SENNA 50/8.6MG TAB PO SCH (08:23)
[2019-03-22] MEDS: RANOLAZINE 500 MG ER TAB PO SCH (08:23)
[2019-03-22] MEDS: AMIODARONE 200 MG TAB PO SCH (08:23)
[2019-03-22] MEDS: ATORVASTATIN 40 MG TAB PO SCH (08:23)
[2019-03-22] MEDS: MULTIVITAMIN TAB PO SCH (08:24)
[2019-03-22] MEDS: predniSONE 20 MG TAB PO SCH (08:24)
[2019-03-22] MEDS: dilTIAZem HCL 30 MG TAB PO SCH (08:24)
[2019-03-22] MEDS: PANTOprazole 40 MG TAB PO SCH (08:24)
[2019-03-22] MEDS: ASPIRIN/ALUM/MAGNES/CAL CARB 325 MG TAB PO SCH (08:25)
--- NOTE | 2019-03-22 10:00 | Cardiology Progress Note ---
Date of Service March 22, 2019 Assessment & Plan (1) Syncope: No recurrent symptoms. He has not been getting his diuretics since he was an inpatient seems to be doing quite well. He is known to have preserved LV systolic function. Perhaps the recurrent tachycardia played a role in some vol ume overload. (2) Tachycardia: He did have some additional atrial fibrillation yesterday. However, his rates are well controlled and he does not appear to have had any recurrent reentrant arrhythmia. I think continuing the current course with amiodarone, pacing and anticoagulation will work for now. Think we can readdress the option of ablation in the outpatient setting. I think he continue amiodarone 400 milligrams twice daily for another 5 days and then reduce to 200 milligrams daily. (3) CAD (coronary artery disease): He does not have symptoms to suggest ischemia. (4) Pacemaker: I switched his pacing mode to DDD with a relatively short AV interval. This hopefully will reduce episodes of reentry. I also activated atrial therapies and preference pacing. Subjective This morning the patient claims to be feeling well. He denied ambulating yesterday but was up in a chair for period of time. He denies any breathing difficulty. He has not been aware of any palpitations. No chest pain. No dizziness recurrent syncope. Review of Systems Review of Systems: Per HPI Physical Exam Physical Exam: The patient is alert and oriented. Mood and affect appeared normal. He answered all questions appropriately. HEENT: Pupils are equal and reactive to light and accommodation. Extraocular movements are intact. The sclerae are anicteric. Neuro: Cranial nerves intact Lungs: Apices were clear. Some mild upper respiratory congestion. No significant wheezing. Normal respiratory effort. Cardiac: Heart demonstrates a regular rate and rhythm. Normal S1 and S2. No murmurs on examination. Pulses: The patient has palpable radial pulses bilaterally that are equal in intensity Extremities: There was no evidence of hypoperfusion. There is no cyanosis or clubbing. There is no edema but he was wearing Teds stockings. Skin: I did not appreciate any rashes on examination today. Results & Data Vital Signs (Past 12 Hours) Vital Signs Temp Pulse Resp BP Pulse Ox Pulse Ox 03/22/19 07:31 36.5 C 20 93 03/22/19 07:02 65 18 96 03/22/19 03:53 36.4 C L 63 19 105/67 97 03/21/19 23:43 36.5 C 72 20 106/67 97 03/21/19 22:27 95 Laboratory Results Abnormal Lab Results 03/22/19 03/22/19 06:40 06:40 WBC 14.01 H RBC 3.65 L Hgb 10.9 L Hct 33.5 L MCV 91.8 MCH 29.9 MCHC 32.5 RDW Std Deviation 53.7 H RDW Coeff of Tim 16.5 H Plt Count 189 MPV 10.8 H Immature Gran % (Auto) 0.3 Neut % (Auto) 87.0 Lymph % (Auto) 4.7 [facility] % (Auto) 7.4 Eos % (Auto) 0.6 Baso % (Auto) 0.0 Immature Gran # (Auto) 0.04 H Neut # (Auto) 12.20 H Lymph # (Auto) 0.66 L [facility] # (Auto) 1.03 H Eos # (Auto) 0.08 Baso # (Auto) 0.00 Sodium 137 Potassium 4.3 Chloride 104 Carbon Dioxide 28 Anion Gap 5.0 BUN 60 H Creatinine 2.22 H D Est Cr Clr Drug Dosing 29.3 Est GFR ( Amer) 30.6 Est GFR (Non-Af Amer) 26.4 BUN/Creatinine Ratio 26.9 H Glucose 95 Calcium 8.5 (1) Syncope Syncope type: unspecified Qualified Code(s): R55 - Syncope and collapse
--- NOTE | 2019-03-22 11:25 | Discharge Summary ---
Date of Service March 22, 2019 Admission HPI Per Admitting Provider This is an 84-year-old male with a past medical history of syncope, status post pacemaker placement secondary to asystole as noted on loop recorder, CAD with 4 previous stents placed, chronic kidney disease with a baseline creatinine of 1.6-1.8, COPD, congestive heart failure, hypertension, hyperlipidemia, restless leg syndrome, GERD, obesity and prior tobacco abuse. He was recently admitted in December for syncope. At that time he had a pacemaker inserted by Dr. Rojas. Prior to having the pacemaker placed he was found to have multiple episodes of asystole on loop recorder secondary to previous synco pe. This morning the patient was getting up to go to the bathroom and had what appeared to be another syncopal event. He states that he was using his walker and was able to get seated on the cushion without a fall. He was brought to the emergency room and found to be orthostatic with an elevated creatinine. Patient's pacemaker was interrogated and had no events. Patient denies any recent illness. He has no chest pain or tightness. He has no unusual shortness of breath, cough, sputum production. He has no recent nausea, vomiting, diarrhea. He was just in to see his primary care provider secondary to conjunctival hemorrhage what appears to be conjunctivitis. He reports that his primary care provider did not start him on any medications for his eye. He denies any change in vision, diplopia, eye pain. Appetite is usual. He has no other acute complaints. Admission Exam Per Admitting Provider GENERAL : No acute distress. Pleasant EYES: No icterus, gaze conjugate. Conjunctivitis/conjunctival hemorrhage right eye. Pupils equal round and reactive to light NOSE: No evidence of epistaxis MOUTH: No lesions or candidiasis. No teeth in place. Tongue midline. Malumpauti score IV NECK: Supple. No JVD LUNGS: Diffuse bronchospasm. Breath sounds equal to bases. HEART: Regular, rate controlled. ABDOMEN: Soft, NT, ND, BS Present. Protuberant EXTREMITIES: Bilateral +1 LE edema, pedal pulses intact and equal bilaterally NEURO: A&OX3. No neurological deficits identified Principal Diagnosis Syncope Discharge Exam Constitutional WD/WN, vitals as above Eyes normal visual moura by confrontation, + conjunctival abnormality (subconjunctival hemorrhage on right, improving), PERRL and EOM intact bilaterally; no eyelid abnormality ENMT external ear and nose normal, oropharynx normal Neck trachea midline, no thyromegaly Respiratory normal respiratory effort; no respiratory distress Auscultation: + diminished lung sounds; no crackles, no rales and no wheezes Cardiovascular Rate/Rhythm: regular rate and regular rhythm Heart Sounds: normal S1 and normal S2; no murmur Vessels: no JVD Extremities: normal capillary refill; no edema Gastrointestinal (Abdomen) Inspection/Auscultation: abdomen normal to inspection and normal bowel sounds Percussion/Palpation: abdomen soft; abdomen nontender, no guarding and abdomen not rigid Musculoskeletal no cyanosis or clubbing, extremities motor strength 5/5 Skin no rashes, warm and dry + turgor decreased Neurologic patellar DTR's 2+ bilat, sensation intact and PERRL, EOMI, accommodation nl, no face palsy, no dysarthria Psychiatric A+Ox3, euthymic affect Lymphatic no cervical or axillary lymphadenopathy Discharge Data Allergies Allergy/AdvReac Type Severity Reaction Status Date / Time Penicillins Allergy Unknown PASSES OUT Verified 03/14/19 11:09 AND LOW HEART RATE Consultations 03/14/19 12:06 ED Decision to Admit Stat 03/14/19 13:16 Consult Cardiology Routine Consult Case Management - Discharge Planning Routine 03/16/19 08:00 Consult Cardiology Routine 03/18/19 10:31 Consult Cardiac Electrophysiology Routine Procedures Performed Operation Date: 03/20/19 15:00 Actual Procedures p Cardioversion - Lorenzo Watts MD Hospital Course (1) Orthostasis: Found to be orthostatic upon admission but orthostatic vitals have resolved with holding Bumex and giving 1 L IV fluids on admission. -Likely cause of recent syncope plan to treat with compression stockings, hold Bumex on discharge educated on changing positions slowly even more important, his HR is now controlled, paced the majority of the time likely that with his tachy arrhythmias he could not compensate for position changes (2) Tachycardia: Dr. Rojas feels that this represents an AV node re-entry tachycardia, although at slow rates then the patient went into atrial fibrillation on 03/19 ATRIAL FIBRILLATION treated with Amiodarone drip cardioverted on 03/20 successfully now on Amiodarone 400mg BID, continue Eliquis 2.5mg BID, Diltiazem 60mg BID he is now V paced the majority of the time, very brief run of afib over night but rates were well controlled plan to follow up with Dr. Hooper soon (3) Syncope and collapse: Prior evidence of asystole with status post pacemaker placement 12/08/2018 Formal interrogation here suggests AV node re entry tachcycardia Patient orthostatic as above and likely contributed to syncope Received IV fluids, no more fluids needed no symptoms since admission in summary, likely a combination of orthostasis and tachyarrhythmia, both of which have been treated (4) Hyperkalemia: resolved for five days was likely combination of taking K supplement and rise in Cr (5) CKD (chronic kidney disease): CKD stage III - IV unsure if patient with KRISTIE, a lot of his Cr readings in past months have been above 2, some as high as 3 Cr down to 2.22 this morning volume has been normal for days eating and drinking better instructed to only use Bumex as needed for edema or weight gain should follow up with Dr. Suarez, toy assembler, in two weeks (6) Coronary artery disease: Status post LAD and circumflex stents x5. No chest pain or tightness during entire admission stop metoprolol due to wheezing, bronchospasm -Continue statin, aspirin, as needed sublingual nitro, and Ranexa aspirin dose reduced to 81mg daily due to starting Eliquis (7) COPD (chronic obstructive pulmonary disease): With mild exacerbation here-had diffuse wheezes here and dyspnea with exertion With chronic hypoxic respiratory failure with 2 L nasal cannula nightly and as needed at home far less wheezing for five days Prednisone 30mg daily taper to 20mg daily x 3 days, 10mg daily x 3 days no indication for antibiotics (no fever, no infiltrates on CXR, no change in sputum) (8) GERD (gastroesophageal reflux disease): Continue home dose of pantoprazole No acute symptoms (9) Edema: no further edema use compression stockings at home (10) Pacemaker: patient now paced Dr. Watts reprogrammed to pace more of the time pacing mode to DDD with a relatively short AV interval. activated atrial therapies and preference pacing follow up with Dr. Hooper (11) Aortic stenosis: Mild as noted on echocardiogram from 11/2018-would not contribute to syncope -Follow as an outpatient (12) KRISTIE (acute kidney injury): As above, unsure if this truly represented KRISTIE Cr down to 2.2 (13) Restless leg syndrome: Stable -Continue Mirapex at bedtime -Continue gabapentin at bedtime (14) BPH (benign prostatic hyperplasia): No evidence of urinary retention at this time -Continue BladderScan as needed -Continue tamsulosin with caution as can also contribute to orthostasis (15) Constipation: use Miralax today (16) DVT prophylaxis: Eliquis Total Time Total Time Spent Total Time Spent (In Minutes): 45 minutes Total Time Includes: Examination of the Patient, Discharge Planning, Medication Reconciliation, Communication With Other Providers (Dr. Watts) and Other (discussed with family) Discharge Plan Discharge Items Patient Disposition: Home - Self-Care Reason For Visit: SYNCOPE Discharge Diagnosis: Atrial fibrillation SVT with re-entry tachycardia Syncope Orthostatic hypotension CKD stage IV Condition: Good Discharge Goals: Improve disease control and Improve function Activity: Resume your previous activity Non-emergency contact: Primary Care Provider, Financial Reporting Accountant and Spray Machine Loader Call non-emergency contact if: you have any medication questions, your symptoms worsen and you have a fever Follow-up/Referrals: Berry Tan MD [Primary Care Provider] - Diet: Heart Healthy Fluids: 2000ml (8 cups) Addtl Provider Instructions: Medications: please note the multiple changes below - AMIODARONE: take 400mg twice a day for 5 days then decrease to 200mg daily - DILTIAZEM: take 60mg twice a day for heart rate control and blood pressure control - ELIQUIS: 2.5mg twice a day for anticoagulation for stroke prevention with recent diagnosis of atrial fibrillation - ASPIRIN: please lower dose to 81mg daily, get this over the counter, dose lowered because you will be on Eliquis now - PREDNISONE: continue taper that was started in the hospital, take 20mg daily x 3 days and then 10mg daily x 3 days and stop - BUMEX: only use NEEDED for swelling/edema in the legs or if your weight is trending up by 2-3 lbs, see below - POTASSIUM: only take with the Bumex Orthostatic hypotension: resolved by holding Bumex but also through better heart rate control no further episodes for several days and you are not having any symptoms recommend that you continue to use the compression stockings every day while you are awake, this helps push blood up to the heart remember to change positions slowly, pause before walking after you stand up, make sure you don't feel light headed Atrial fibrillation, SVT with some re-entry rhythms successful cardioversion on 03/20, you do have very brief occasional runs of afib will continue on Amiodarone 400mg twice a day for 5 more days then 200mg daily continue on Diltiazem 60mg twice a day, this is for heart rate control started on Eliquis for anticoagulation, this helps prevent strokes in setting of afib close follow up with Dr. Hooper and Dr. Watts recommended Chronic kidney disease stage IV Cr is stable, it is 2.2 today, has ranged between 2.0 and 2.8 while admitted recommend close follow up with your toy assembler recommend that you only use the bumex as needed for any swelling in legs or if your weight is trending up by 2-3 lbs you have not been on the Bumex this entire admission and your renal function has been stable your volume status is stable, likely because we have slowed down your heart rate COPD and chronic hypoxia breathing stable, lungs are clear taper the Prednisone as described above continue on oxygen at home FOLLOW UP - recommend close follow up with Dr. Joey Alarcon this week - follow up with Dr. Hooper in 7-10 days, call his office for appt - follow up with your toy assembler in 2 weeks, call for appt Prescriptions: New amiodarone 200 mg Tablet 400 mg PO BID 30 Days Qty: 120 RF: 1 Eliquis 2.5 mg Tablet 2.5 mg PO BID 30 Days Qty: 60 RF: 1 diltiazem HCl 60 mg capsule,extended release 12 hr 60 mg PO BID Qty: 60 RF: 1 prednisone 10 mg tablet 20 mg PO DAILY 6 Days Qty: 9 RF: 0 bumetanide 1 mg tablet 1 mg PO DAILY PRN (Reason: edema) Qty: 30 RF: 0 potassium chloride 20 mEq tablet extended release 20 meq PO DAILY PRN (Reason: with Bumex) Qty: 30 RF: 1 aspirin [Aspirin Low Dose] 81 mg tablet,delayed release (DR/EC) 81 mg PO DAILY Qty: 30 RF: 0 Continued multivitamin Tablet 1 tab PO QAM RF: 0 sennosides-docusate sodium [Stool Softener-Laxative] 8.6-50 mg Tablet 8.6 mg PO BID RF: 0 pantoprazole 40 mg tablet,delayed release (DR/EC) 40 mg PO BID RF: 0 nitroglycerin [Nitrostat] 0.4 mg Tablet, Sublingual 0.4 mg Sublingual DIRECTED PRN (Reason: Chest Pain) RF: 0 ranolazine 500 mg tablet extended release 12 hr 500 mg PO BID RF: 0 budesonide 0.5 mg/2 mL suspension for nebulization 1 ml INH Q12H Qty: 60 RF: 3 ipratropium-albuterol 0.5 mg-3 mg(2.5 mg base)/3 mL solution for nebulization 3 ml inhalation DAILY PRN (Reason: Wheezing) RF: 0 polyethylene glycol 3350 [Miralax] 17 gram Powder In Packet 17 g PO DAILY PRN (Reason: Constipation) RF: 0 tamsulosin 0.4 mg capsule 0.4 mg PO HS RF: 0 gabapentin 100 mg capsule 100 mg PO PM RF: 0 Perforomist 20 mcg/2 mL solution for nebulization 2 ml inhalation Q12 RF: 0 atorvastatin 40 mg Tablet 40 mg PO QAM RF: 0 albuterol sulfate 90 mcg/actuation Hfa Aerosol Inhaler 2 puff INHALATION Q6H PRN (Reason: Shortness Of Breath) RF: 0 pramipexole 0.25 mg tablet 0.25 mg PO HS RF: 0 Discontinued metoprolol succinate 25 mg tablet extended release 24 hr 12.5 mg PO HS RF: 0 potassium chloride [Klor-Con M20] 20 mEq tablet,ER particles/crystals 20 meq PO QAM RF: 0 bumetanide 1 mg tablet 1 mg PO UD RF: 0 aspirin, buffered 325 mg Tablet 325 mg PO QAM RF: 0 Stand-Alone Forms: [facility] Discharge Orders: Discharge Order (Routine); Ordered 03/22/19 Ordered By: Tres Bauman Admission Data Admit Date/Time: 03/15/19 15:59 Attending Provider: Tres Bauman Admit Provider: Tres Bauman Primary Care Provider: Berry Tan Other Providers: Tomasz Rojas ; Catalino Hooper ; Ajith Miner ; Lorenzo Lang ; Sung Bird ; Jeremi Suarez ; Home,Nursing Agency ; Tres Bauman Service: Telemetry Other Interventions: Discharge Summary Assessment (RN) Last Done: 03/22/19 08:00
--- NOTE | 2019-03-30 09:32 | Anesthesiology Progress Note ---
Date of Service March 30, 2019 Anesthesia Post Procedure Transfer of Care Handoff Completed per policy Notes Mental Status: alert / awake / arousable Patient Amnestic to Procedure: Yes Nausea / Vomiting: adequately controlled Pain: adequately controlled Airway Patency, RR, SpO2: stable & adequate BP & HR: stable & adequate Hydration State: stable & adequate Anesthetic Complications: no major complications apparent and Pt Satisfied with anesthetic care
--- NOTE | 2019-04-04 14:50 | Emergency Department Note ---
History of Present Illness General Chief complaint: Syncope Stated complaint: syncope Time Seen by Provider: 03/14/19 09:32 Source: patient and EMS Mode of arrival: EMS Limitations: no limitations History of Present Illness Maximum Pain Intensity: 0 This 84-year-old white male presents by ALS ambulance for evaluation of his syncopal episode that occurred this morning. Patient was sitting in his recliner and got up to weigh himself. He states he weighs himself every morning. When getting out of the chair, he began feeling lightheaded and shaky. His saw him, and helped him to the floor. He did pass out. She states he was out for 3 to 5 minutes. She states that he was pale. He was diaphoretic and clammy. There was no seizure activity. Patient has a history of recent asystole event 3 months ago, found on loop recorder. He has a pacemaker that was placed in early December. Patient states he had no chest pain this morning. He has been having increased shortness of breath over the last week and has known COPD. He has had a cough with some productive mucus. He denies any fevers or chills. No loss of bowel or bladder control. He states he did not feel his pacer go off. He does remember waking up on the floor this morning. He has no distress now. He states other than some minor weakness, he feels fine. Home Medications Home Medications Medication Instructions Recorded Confirmed Type albuterol sulfate 2 puff INHALATION Q6H PRN 06/17/18 03/26/19 History atorvastatin 40 mg PO QAM 06/17/18 03/26/19 History multivitamin 1 tab PO QAM 10/09/18 03/26/19 History nitroglycerin [Nitrostat] 0.4 mg SUBLINGUAL DIRECTED PRN 10/09/18 03/26/19 History pantoprazole 40 mg PO BID 10/09/18 03/26/19 History ranolazine 500 mg PO BID 10/09/18 03/26/19 History sennosides-docusate sodium [Stool 1 tab PO BID 10/09/18 03/26/19 History Softener-Laxative] budesonide 1 ml INH Q12H #60 ml 10/17/18 03/26/19 Rx pramipexole 0.25 mg PO HS 11/10/18 03/26/19 History Perforomist 2 ml INHALATION Q12H 03/14/19 03/26/19 History gabapentin 100 mg PO QPM 03/14/19 03/26/19 History ipratropium-albuterol 3 ml INHALATION DIRECTED PRN 03/14/19 03/26/19 History polyethylene glycol 3350 [Miralax] 17 g PO DAILY PRN 03/14/19 03/26/19 History tamsulosin 0.4 mg PO HS 03/14/19 03/26/19 History amiodarone 400 mg PO BID 30 Days #120 tab 03/22/19 03/26/19 Rx apixaban [Eliquis] 2.5 mg PO BID 30 Days #60 tab 03/22/19 03/26/19 Rx aspirin [Aspirin Low Dose] 81 mg PO DAILY #30 tab 03/22/19 03/26/19 Rx diltiazem HCl 60 mg PO BID #60 cap 03/22/19 03/26/19 Rx bumetanide 1 mg PO Q2D 03/26/19 03/26/19 History potassium chloride 20 meq PO Q2D 03/26/19 03/26/19 History Allergies Allergy/AdvReac Type Severity Reaction Status Date / Time Penicillins Allergy Unknown PASSES OUT Verified 03/26/19 16:57 AND LOW HEART RATE Past Med/Surg History Medical History CHF (congestive heart failure) GERD (gastroesophageal reflux disease) HTN (hypertension) Hyperlipidemia CAD (coronary artery disease) RLS (restless legs syndrome) COPD (chronic obstructive pulmonary disease) (Chronic) 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[place] coronary artery w/angina pectoris (Acute 11/25/14) Coronary arteriosclerosis (Acute 03/30/14) TIA (transient ischemic attack) (Chronic) CKD (chronic kidney disease) Surgical History History of permanent cardiac pacemaker placement p Pacer with A/V Leads (Dual)(Left) - Tomasz Rojas MD 12/08/2018 s Remove Cardiac Event Recorder(Left) - Tomasz Rojas MD 12/08/2018 [employer] pacer: Model: [id number] LINQ; serial number [id number]; implanted 12/08/2018 S/P drug eluting coronary stent placement X4 Family History Father Myocardial infarction Other No pertinent family history Social History Preferred Language: Portuguese Communication Ability: Impaired Beliefs That Will Affect Care: None marital status: Life Partner Current Living Situation: Spouse Current Living Situation Comment: Girlfriend Feels Safe at Home: Yes Smoking Status: Former smoker Tobacco Type: cigarettes Second Hand Exposure: No Hx Alcohol Use: No Hx Substance Use: No Review of Systems A total of 10 systems reviewed and were otherwise negative Physical Exam General: Well-developed, well-nourished, elderly white male. Laying on the bed. Alert and oriented. Skin: Warm and dry with good turgor. No rashes or lesions. No ecchymosis or erythema. The patient is not diaphoretic. No abrasions. HEENT: Normocephalic atraumatic. Eyes PERRLA, EOMI. right-sided conjunctiva and scleral injection. Significant mucopurulent drainage on the lashes of the right eye. Nares patent bilaterally without turbinate enlargement. No significant drainage. No epistaxis. Oropharynx without erythema or exudate. Uvula midline, oral mucosa moist. No lesions present. Heart: regular rhythm, slightly tachycardic. No MGR. Peripheral pulses are 2+. Pacer palpable anterior chest wall. Lungs: Lungs have expiratory wheezing in all moura. No crackles or rhonchi. Fair air movement. The patient is able to take a deep breath. Abdomen: Abdomen was inspected, auscultated, and palpated. Obese. Bowel sounds present x 4. Soft, nontender to palpation. No hepato-splenomegaly. No masses noted. No rebound. No CVA tenderness. Musculoskeletal: Gross motor function of the upper and lower extremities is intact and unremarkable. Patient has 1-2+ pitting edema in both lower extremities. Neurologic: Gross sensation is intact across both upper and lower extremities by soft touch. Course Administered Medications Discontinued Medications Acetaminophen (Tylenol) 650 mg PO Q4H PRN PRN Reason: Pain or Fever Stop: 04/13/19 13:15 Last Admin: 03/21/19 20:34 Dose: 650 mg Documented by: [id number] Admin: 03/17/19 23:23 Dose: 650 mg Documented by: [id number] Al Hydrox/Mg Hydrox/Simethicone (Maalox) 15 ml PO Q6H PRN PRN Reason: Indigestion Stop: 04/14/19 19:29 Last Admin: 03/17/19 21:59 Dose: 15 ml Documented by: [id number] Admin: 03/16/19 21:13 Dose: 15 ml Documented by: [id number] Admin: 03/16/19 09:04 Dose: 15 ml Documented by: [id number] Admin: 03/16/19 01:49 Dose: 15 ml Documented by: [id number] Admin: 03/15/19 19:49 Dose: 15 ml Documented by: [id number] Albuterol (Duoneb) 3 ml NEB NOW STA Stop: 03/14/19 10:46 Last Admin: 03/14/19 10:56 Dose: 3 ml Documented by: [id number] Albuterol (Ventolin Hfa) 2 puffs INH Q6H PRN PRN Reason: Shortness Of Breath Stop: 04/13/19 13:15 Last Admin: 03/21/19 08:00 Dose: 2 puffs Documented by: [id number] Admin: 03/15/19 19:50 Dose: 2 puffs Documented by: [id number] Admin: 03/15/19 09:53 Dose: 2 puffs Documented by: [id number] Admin: 03/15/19 02:13 Dose: 2 puffs Documented by: [id number] Amiodarone HCl (Cordarone Iv Bolus / Drip) 1 ea IV 1229 ONE; Protocol Stop: 03/19/19 12:30 Last Admin: 03/19/19 13:42 Dose: Not Given Documented by: [id number] Amiodarone HCl (Cordarone) 400 mg PO BID [facility] Stop: 04/19/19 20:59 Last Admin: 03/22/19 08:23 Dose: 400 mg Documented by: [id number] Admin: 03/21/19 20:28 Dose: 400 mg Documented by: [id number] Admin: 03/21/19 07:57 Dose: 400 mg Documented by: [id number] Admin: 03/20/19 20:13 Dose: 400 mg Documented by: [id number] Apixaban (Eliquis) 2.5 mg PO BID [facility] Stop: 04/18/19 20:59 Last Admin: 03/22/19 08:22 Dose: 2.5 mg Documented by: [id number] Admin: 03/21/19 20:31 Dose: 2.5 mg Documented by: [id number] Admin: 03/21/19 08:00 Dose: 2.5 mg Documented by: [id number] Admin: 03/20/19 20:14 Dose: 2.5 mg Documented by: [id number] Admin: 03/20/19 09:06 Dose: 2.5 mg Documented by: [id number] Admin: 03/19/19 21:29 Dose: 2.5 mg Documented by: [id number] Aspirin Buffered (Ascriptin) [facility] [place]: 04/14/19 08:59 Last Admin: 03/22/19 08:25 Dose: 325 mg Documented by: [id number] Admin: 03/21/19 07:57 Dose: 325 mg Documented by: [id number] Admin: 03/20/19 09:05 Dose: 325 mg Documented by: [id number] Admin: 03/19/19 09:23 Dose: 325 mg Documented by: [id number] Admin: 03/18/19 10:15 Dose: 325 mg Documented by: [id number] Admin: 03/17/19 08:23 Dose: 325 mg Documented by: [id number] Admin: 03/16/19 10:36 Dose: 325 mg Documented by: [id number] Admin: 03/15/19 07:59 Dose: 325 mg Documented by: [id number] Atorvastatin Calcium (Lipitor) 40 mg PO [facility] Stop: 04/14/19 08:59 Last Admin: 03/22/19 08:23 Dose: 40 mg Documented by: [id number] Admin: 03/21/19 07:57 Dose: 40 mg Documented by: [id number] Admin: 03/20/19 09:06 Dose: 40 mg Documented by: [id number] Admin: 03/19/19 09:24 Dose: 40 mg Documented by: [id number] Admin: 03/18/19 10:15 Dose: 40 mg Documented by: [id number] Admin: 03/17/19 08:23 Dose: 40 mg Documented by: [id number] Admin: 03/16/19 10:37 Dose: 40 mg Documented by: [id number] Admin: 03/15/19 08:00 Dose: 40 mg Documented by: [id number] Budesonide (Pulmicort Respules) 0.25 mg INH Q12R [facility] Stop: 04/13/19 19:59 Last Admin: 03/22/19 07:02 Dose: 0.25 mg Documented by: [id number] Admin: 03/21/19 19:25 Dose: 0.25 mg Documented by: [id number] Admin: 03/21/19 07:02 Dose: 0.25 mg Documented by: [id number] Admin: 03/20/19 19:07 Dose: 0.25 mg Documented by: [id number] Admin: 03/20/19 06:58 Dose: 0.25 mg Documented by: [id number] Admin: 03/19/19 19:17 Dose: 0.25 mg Documented by: [id number] Admin: 03/19/19 07:22 Dose: 0.25 mg Documented by: [id number] Admin: 03/18/19 19:51 Dose: 0.25 mg Documented by: [id number] Admin: 03/18/19 07:11 Dose: 0.25 mg Documented by: [id number] Admin: 03/17/19 19:13 Dose: 0.25 mg Documented by: [id number] Admin: 03/17/19 07:19 Dose: 0.25 mg Documented by: [id number] Admin: 03/16/19 20:12 Dose: 0.25 mg Documented by: [id number] Admin: 03/16/19 07:08 Dose: 0.25 mg Documented by: [id number] Admin: 03/15/19 19:26 Dose: 0.25 mg Documented by: [id number] Admin: 03/15/19 07:12 Dose: 0.25 mg Documented by: [id number] Admin: 03/14/19 20:30 Dose: 0.25 mg Documented by: [id number] Diltiazem HCl (Cardizem) 30 mg PO TID [facility] Stop: 04/15/19 13:59 Last Admin: 03/22/19 08:24 Dose: 30 mg Documented by: [id number] Admin: 03/21/19 20:28 Dose: 30 mg Documented by: [id number] Admin: 03/21/19 14:04 Dose: 30 mg Documented by: [id number] Admin: 03/21/19 07:56 Dose: 30 mg Documented by: [id number] Admin: 03/20/19 20:13 Dose: 30 mg Documented by: [id number] Admin: 03/20/19 14:21 Dose: 30 mg Documented by: [id number] Admin: 03/20/19 09:06 Dose: 30 mg Documented by: [id number] Admin: 03/19/19 21:29 Dose: 30 mg Documented by: [id number] Admin: 03/19/19 15:53 Dose: 30 mg Documented by: [id number] Admin: 03/19/19 09:24 Dose: 30 mg Documented by: [id number] Admin: 03/18/19 20:31 Dose: 30 mg Documented by: [id number] Admin: 03/18/19 16:36 Dose: 30 mg Documented by: [id number] Admin: 03/18/19 10:14 Dose: 30 mg Documented by: [id number] Admin: 03/17/19 20:31 Dose: 30 mg Documented by: [id number] Admin: 03/17/19 14:59 Dose: 30 mg Documented by: [id number] Admin: 03/17/19 08:23 Dose: 30 mg Documented by: [id number] Admin: 03/16/19 20:16 Dose: 30 mg Documented by: [id number] Admin: 03/16/19 13:28 Dose: 30 mg Documented by: [id number] Diphenhydramine HCl (Benadryl Capsule) 25 mg PO HSZ PRN PRN Reason: Insomnia Stop: 04/20/19 13:04 Last Admin: 03/21/19 20:36 Dose: 25 mg Documented by: [id number] Formoterol Fumarate (Perforomist) 20 mcg INH Q12R [facility] Stop: 04/13/19 19:59 Last Admin: 03/22/19 07:01 Dose: 20 mcg Documented by: [id number] Admin: 03/21/19 19:25 Dose: 20 mcg Documented by: [id number] Admin: 03/21/19 07:03 Dose: 20 mcg Documented by: [id number] Admin: 03/20/19 19:04 Dose: 20 mcg Documented by: [id number] Admin: 03/20/19 06:59 Dose: 20 mcg Documented by: [id number] Admin: 03/19/19 19:18 Dose: 20 mcg Documented by: [id number] Admin: 03/19/19 07:23 Dose: 20 mcg Documented by: [id number] Admin: 03/18/19 19:50 Dose: 20 mcg Documented by: [id number] Admin: 03/18/19 07:10 Dose: 20 mcg Documented by: [id number] Admin: 03/17/19 19:12 Dose: 20 mcg Documented by: [id number] Admin: 03/17/19 07:19 Dose: 20 mcg Documented by: [id number] Admin: 03/16/19 20:12 Dose: 20 mcg Documented by: [id number] Admin: 03/16/19 07:08 Dose: 20 mcg Documented by: [id number] Admin: 03/15/19 19:26 Dose: 20 mcg Documented by: [id number] Admin: 03/15/19 07:10 Dose: 20 mcg Documented by: [id number] Admin: 03/14/19 20:29 Dose: 20 mcg Documented by: [id number] Gabapentin (Neurontin) 100 mg PO PM [facility] Stop: 04/13/19 20:59 Last Admin: 03/21/19 20:30 Dose: 100 mg Documented by: [id number] Admin: 03/20/19 20:15 Dose: 100 mg Documented by: [id number] Admin: 03/19/19 21:29 Dose: 100 mg Documented by: [id number] Admin: 03/18/19 20:32 Dose: 100 mg Documented by: [id number] Admin: 03/17/19 20:31 Dose: 100 mg Documented by: [id number] Admin: 03/16/19 20:16 Dose: 100 mg Documented by: [id number] Admin: 03/15/19 20:02 Dose: 100 mg Documented by: [id number] Admin: 03/14/19 21:22 Dose: 100 mg Documented by: [id number] Heparin Sodium (Porcine) (Heparin Sodium (Porcine)) 5,000 units SQ Q12 [facility] Stop: 04/13/19 20:59 Last Admin: 03/19/19 09:25 Dose: 5,000 units Documented by: [id number] Cosigned by: [id number] Admin: 03/18/19 20:32 Dose: 5,000 units Documented by: [id number] Cosigned by: [id number] Admin: 03/18/19 10:16 Dose: 5,000 units Documented by: [id number] Cosigned by: [id number] Admin: 03/17/19 20:30 Dose: 5,000 units Documented by: [id number] Cosigned by: [id number] Admin: 03/17/19 08:24 Dose: 5,000 units Documented by: [id number] Cosigned by: [id number] Admin: 03/16/19 20:17 Dose: 5,000 units Documented by: [id number] Cosigned by: [id number] Admin: 03/16/19 10:35 Dose: 5,000 units Documented by: [id number] Cosigned by: [id number] Admin: 03/15/19 20:05 Dose: 5,000 units Documented by: [id number] Cosigned by: [id number] Admin: 03/15/19 08:01 Dose: 5,000 units Documented by: [id number] Cosigned by: [id number] Admin: 03/14/19 21:25 Dose: 5,000 units Documented by: [id number] Cosigned by: [id number] Sodium Chloride (Nss 1000ml) 250 mls @ 999 mls/hr IV .Q16M ONE Stop: 03/14/19 10:27 Last Infusion: 03/14/19 13:58 Dose: 0 mls/hr Documented by: [id number] Admin: 03/14/19 10:22 Dose: 999 mls/hr Documented by: [id number] Parenteral Electrolytes (Normosol-R) 1,000 mls @ 70 mls/hr IV .[id number] [facility] Stop: 03/15/19 02:37 Last Infusion: 03/15/19 03:53 Dose: 0 mls/hr Documented by: [id number] Admin: 03/14/19 13:35 Dose: 70 mls/hr Documented by: [id number] Methylprednisolone 40 mg/ (Syringe) 0.64 mls @ 1.5 mls/min IV Q12H [facility] Stop: 04/13/19 17:59 Last Admin: 03/16/19 05:45 Dose: 1.5 mls/min Documented by: [id number] Admin: 03/15/19 17:23 Dose: 1.5 mls/min Documented by: [id number] Admin: 03/15/19 05:25 Dose: 1.5 mls/min Documented by: [id number] Admin: 03/14/19 18:33 Dose: 1.5 mls/min Documented by: [id number] Methylprednisolone 60 mg/ (Syringe) 0.96 mls @ 1.5 mls/min IV Q12H [facility] Stop: 04/15/19 17:59 Last Admin: 03/17/19 18:30 Dose: 1.5 mls/min Documented by: [id number] Admin: 03/17/19 05:06 Dose: 1.5 mls/min Documented by: [id number] Admin: 03/16/19 17:09 Dose: 1.5 mls/min Documented by: [id number] Sodium Chloride (Nss) 500 mls @ 80 mls/hr IV .Q6H15M [facility] Stop: 03/17/19 15:59 Last Infusion: 03/17/19 16:47 Dose: 0 mls/hr Documented by: [id number] Admin: 03/17/19 10:04 Dose: 80 mls/hr Documented by: [id number] Amiodarone HCl/Dextrose (Nexterone / D5w) 150 mg in 100 mls @ 600 mls/hr IV ONE ONE Stop: 03/19/19 12:39 Last Infusion: 03/19/19 12:56 Dose: 0 mls/hr Documented by: [id number] Cosigned by: [id number] Admin: 03/19/19 12:40 Dose: 600 mls/hr Documented by: [id number] Cosigned by: [id number] Amiodarone HCl/Dextrose (Nexterone / D5w) 360 mg in 200 mls @ 33.333 mls/hr IV .Q6H [facility] Stop: 03/19/19 18:39 Last Infusion: 03/19/19 23:03 Dose: 0 mg/min, 0 mls/hr Documented by: [id number] Cosigned by: [id number] Admin: 03/19/19 12:56 Dose: 1 mg/min, 33.3 mls/hr Documented by: [id number] Cosigned by: [id number] Amiodarone HCl/Dextrose (Nexterone / D5w) 360 mg in 200 mls @ 16.667 mls/hr IV .Q12H [facility] Stop: 03/20/19 18:39 Last Infusion: 03/20/19 18:38 Dose: 0 mg/min, 0 mls/hr Documented by: [id number] Cosigned by: [id number] Admin: 03/20/19 06:18 Dose: 0.5 mg/min, 16.7 mls/hr Documented by: [id number] Cosigned by: [id number] Infusion: 03/20/19 06:18 Dose: 0.5 mg/min, 16.7 mls/hr Documented by: [id number] Cosigned by: [id number] Admin: 03/19/19 18:39 Dose: 0.5 mg/min, 16.7 mls/hr Documented by: [id number] Cosigned by: [id number] Ipratropium [place] (Atrovent 0.02% 0.5mg/2.5ml) 0.5 mg INH Q6R [facility] Stop: 04/13/19 13:59 Last Admin: 03/15/19 13:43 Dose: 0.5 mg Documented by: [id number] Admin: 03/15/19 07:14 Dose: Not Given Documented by: [id number] Admin: 03/15/19 01:38 Dose: 0.5 mg Documented by: [id number] Admin: 03/14/19 20:33 Dose: 0.5 mg Documented by: [id number] Admin: 03/14/19 14:39 Dose: Not Given Documented by: [id number] Levalbuterol HCl (Xopenex 1.25mg/0.5ml Neb) 1.25 mg INH Q6R [facility] Stop: 04/13/19 13:59 Last Admin: 03/22/19 11:33 Dose: Not Given Documented by: [id number] Admin: 03/22/19 01:39 Dose: Not Given Documented by: [id number] Admin: 03/21/19 20:48 Dose: Not Given Documented by: [id number] Admin: 03/21/19 13:58 Dose: 1.25 mg Documented by: [id number] Admin: 03/21/19 07:03 Dose: Not Given Documented by: [id number] Admin: 03/21/19 01:52 Dose: Not Given Documented by: [id number] Admin: 03/20/19 20:31 Dose: Not Given Documented by: [id number] Admin: 03/20/19 14:25 Dose: 1.25 mg Documented by: [id number] Admin: 03/20/19 06:59 Dose: Not Given Documented by: [id number] Admin: 03/20/19 02:01 Dose: 1.25 mg Documented by: [id number] Admin: 03/19/19 19:19 Dose: Not Given Documented by: [id number] Admin: 03/19/19 13:58 Dose: 1.25 mg Documented by: [id number] Admin: 03/19/19 07:25 Dose: Not Given Documented by: [id number] Admin: 03/19/19 02:14 Dose: Not Given Documented by: [id number] Admin: 03/18/19 19:50 Dose: Not Given Documented by: [id number] Admin: 03/18/19 13:59 Dose: 1.25 mg Documented by: [id number] Admin: 03/18/19 07:11 Dose: Not Given Documented by: [id number] Admin: 03/18/19 02:03 Dose: 1.25 mg Documented by: [id number] Admin: 03/17/19 19:53 Dose: Not Given Documented by: [id number] Admin: 03/17/19 14:19 Dose: 1.25 mg Documented by: [id number] Admin: 03/17/19 07:19 Dose: Not Given Documented by: [id number] Admin: 03/17/19 02:14 Dose: 1.25 mg Documented by: [id number] Admin: 03/16/19 20:06 Dose: Not Given Documented by: [id number] Admin: 03/16/19 14:18 Dose: 1.25 mg Documented by: [id number] Admin: 03/16/19 07:05 Dose: Not Given Documented by: [id number] Admin: 03/16/19 01:55 Dose: 1.25 mg Documented by: [id number] Admin: 03/15/19 20:26 Dose: Not Given Documented by: [id number] Admin: 03/15/19 13:43 Dose: 1.25 mg Documented by: [id number] Admin: 03/15/19 07:14 Dose: Not Given Documented by: [id number] Admin: 03/15/19 01:38 Dose: 1.25 mg Documented by: [id number] Admin: 03/14/19 20:30 Dose: 1.25 mg Documented by: [id number] Admin: 03/14/19 14:38 Dose: Not Given Documented by: [id number] Menthol (Nice) Confirm Administered Dose 24 miranda BUCCAL .STK-MED ONE Stop: 03/15/19 11:17 Last Admin: 03/15/19 12:10 Dose: 24 miranda Documented by: [id number] Methylprednisolone (Solumedrol) 125 mg IV NOW STA Stop: 03/14/19 10:46 Last Admin: 03/14/19 10:52 Dose: 125 mg Documented by: [id number] Metoprolol Succinate (Toprol Xl) 12.5 mg PO HS [facility] Stop: 04/13/19 20:59 Last Admin: 03/14/19 21:24 Dose: 12.5 mg Documented by: [id number] Metoprolol Tartrate (Lopressor) 5 mg IV NOW STA Stop: 03/15/19 13:30 Last Admin: 03/15/19 13:37 Dose: 5 mg Documented by: [id number] Metoprolol Tartrate (Lopressor) 25 mg PO BID [facility] Stop: 04/14/19 13:59 Last Admin: 03/16/19 10:37 Dose: Not Given Documented by: [id number] Admin: 03/15/19 20:37 Dose: 25 mg Documented by: [id number] Admin: 03/15/19 15:17 Dose: 25 mg Documented by: [id number] Multivitamins (Multivitamin Tab) 1 tab PO QAM [facility] Stop: 04/14/19 08:59 Last Admin: 03/22/19 08:24 Dose: 1 tab Documented by: [id number] Admin: 03/21/19 07:56 Dose: 1 tab Documented by: [id number] Admin: 03/20/19 09:07 Dose: 1 tab Documented by: [id number] Admin: 03/19/19 09:24 Dose: 1 tab Documented by: [id number] Admin: 03/18/19 10:15 Dose: 1 tab Documented by: [id number] Admin: 03/17/19 08:23 Dose: 1 tab Documented by: [id number] Admin: 03/16/19 10:36 Dose: 1 tab Documented by: [id number] Admin: 03/15/19 08:00 Dose: 1 tab Documented by: [id number] Ondansetron HCl (Zofran) 4 mg IV Q6H PRN PRN Reason: Nausea Stop: 04/17/19 00:08 Last Admin: 03/18/19 00:32 Dose: 4 mg Documented by: [id number] Pantoprazole Sodium (Protonix) 40 mg PO BID [facility] Stop: 04/13/19 20:59 Last Admin: 03/22/19 08:24 Dose: 40 mg Documented by: [id number] Admin: 03/21/19 20:28 Dose: 40 mg Documented by: [id number] Admin: 03/21/19 07:57 Dose: 40 mg Documented by: [id number] Admin: 03/20/19 20:14 Dose: 40 mg Documented by: [id number] Admin: 03/20/19 09:07 Dose: 40 mg Documented by: [id number] Admin: 03/19/19 21:28 Dose: 40 mg Documented by: [id number] Admin: 03/19/19 09:23 Dose: 40 mg Documented by: [id number] Admin: 03/18/19 20:33 Dose: 40 mg Documented by: [id number] Admin: 03/18/19 10:15 Dose: 40 mg Documented by: [id number] Admin: 03/17/19 20:30 Dose: 40 mg Documented by: [id number] Admin: 03/17/19 08:23 Dose: 40 mg Documented by: [id number] Admin: 03/16/19 20:19 Dose: 40 mg Documented by: [id number] Admin: 03/16/19 10:36 Dose: 40 mg Documented by: [id number] Admin: 03/15/19 20:01 Dose: 40 mg Documented by: [id number] Admin: 03/15/19 08:00 Dose: 40 mg Documented by: [id number] Admin: 03/14/19 21:22 Dose: 40 mg Documented by: [id number] Potassium Chloride (Klor-Con M20) 20 meq PO QAM [facility] Stop: 04/14/19 08:59 Last Admin: 03/17/19 08:23 Dose: 20 meq Documented by: [id number] Admin: 03/16/19 10:36 Dose: 20 meq Documented by: [id number] Admin: 03/15/19 08:00 Dose: 20 meq Documented by: [id number] Pramipexole Dihydrochloride (Mirapex) 0.25 mg PO HS [facility] Stop: 04/13/19 20:59 Last Admin: 03/21/19 20:31 Dose: 0.25 mg Documented by: [id number] Admin: 03/20/19 20:15 Dose: 0.25 mg Documented by: [id number] Admin: 03/19/19 21:29 Dose: 0.25 mg Documented by: [id number] Admin: 03/18/19 20:32 Dose: 0.25 mg Documented by: [id number] Admin: 03/17/19 20:29 Dose: 0.25 mg Documented by: [id number] Admin: 03/16/19 20:16 Dose: 0.25 mg Documented by: [id number] Admin: 03/15/19 20:04 Dose: 0.25 mg Documented by: [id number] Admin: 03/14/19 21:22 Dose: 0.25 mg Documented by: [id number] Prednisone (Prednisone) 50 mg PO QAM [facility] Stop: 04/17/19 08:59 Last Admin: 03/18/19 10:13 Dose: 50 mg Documented by: [id number] [facility] (Pred[facility]one) [facility] [place] [facility] [place]: 04/18/19 08:59 Last Admin: 03/20/19 09:06 Dose: 40 mg Documented by: [id number] Admin: 03/19/19 09:22 Dose: 40 mg Documented by: [id number] Prednisone (Prednisone) 30 mg [facility] [place] [facility] [place]: 04/20/19 08:59 Last Admin: 03/22/19 08:24 Dose: 30 mg Documented by: [id number] Admin: 03/21/19 07:58 Dose: 30 mg Documented by: [id number] Ranolazine (Ranexa) 500 mg PO BID [facility] Stop: 04/13/19 20:59 Last Admin: 03/22/19 08:23 Dose: 500 mg Documented by: [id number] Admin: 03/21/19 20:29 Dose: 500 mg Documented by: [id number] Admin: 03/21/19 08:00 Dose: 500 mg Documented by: [id number] Admin: 03/20/19 20:14 Dose: 500 mg Documented by: [id number] Admin: 03/20/19 09:07 Dose: 500 mg Documented by: [id number] Admin: 03/19/19 21:28 Dose: 500 mg Documented by: [id number] Admin: 03/19/19 09:24 Dose: 500 mg Documented by: [id number] Admin: 03/18/19 20:32 Dose: 500 mg Documented by: [id number] Admin: 03/18/19 10:14 Dose: 500 mg Documented by: [id number] Admin: 03/17/19 20:31 Dose: 500 mg Documented by: [id number] Admin: 03/17/19 08:23 Dose: 500 mg Documented by: [id number] Admin: 03/16/19 20:16 Dose: 500 mg Documented by: [id number] Admin: 03/16/19 10:36 Dose: 500 mg Documented by: [id number] Admin: 03/15/19 20:03 Dose: 500 mg Documented by: [id number] Admin: 03/15/19 08:00 Dose: 500 mg Documented by: [id number] Admin: 03/14/19 21:23 Dose: 500 mg Documented by: [id number] Senna/Docusate Sodium (Senokot S) 1 tab PO BID NADEEN Stop: 04/13/19 20:59 Last Admin: 03/22/19 08:23 Dose: 1 tab Documented by: [id number] Admin: 03/21/19 20:30 Dose: 1 tab Documented by: [id number] Admin: 03/21/19 07:59 Dose: 1 tab Documented by: [id number] Admin: 03/20/19 20:14 Dose: 1 tab Documented by: [id number] Admin: 03/20/19 09:05 Dose: 1 tab Documented by: [id number] Admin: 03/19/19 21:28 Dose: 1 tab Documented by: [id number] Admin: 03/19/19 09:23 Dose: 1 tab Documented by: [id number] Admin: 03/18/19 20:33 Dose: 1 tab Documented by: [id number] Admin: 03/18/19 10:16 Dose: Not Given Documented by: [id number] Admin: 03/17/19 20:29 Dose: Not Given Documented by: [id number] Admin: 03/17/19 08:23 Dose: 1 tab Documented by: [id number] Admin: 03/16/19 20:16 Dose: 1 tab Documented by: [id number] Admin: 03/16/19 10:36 Dose: Not Given Documented by: [id number] Admin: 03/15/19 20:03 Dose: Not Given Documented by: [id number] Admin: 03/15/19 09:54 Dose: Not Given Documented by: [id number] Admin: 03/14/19 21:23 Dose: 1 tab Documented by: [id number] Sodium Polystyrene Sulfonate (Kayexalate) 30 gm PO NOW STA Stop: 03/17/19 09:42 Last Admin: 03/17/19 10:04 Dose: 30 gm Documented by: [id number] Sodium Polystyrene Sulfonate (Kayexalate) 30 gm PO NOW STA Stop: 03/17/19 09:49 Last Admin: 03/17/19 10:02 Dose: 30 gm Documented by: [id number] Tamsulosin HCl (Flomax) 0.4 mg PO HS NADEEN Stop: 04/13/19 20:59 Last Admin: 03/21/19 20:31 Dose: 0.4 mg Documented by: [id number] Admin: 03/20/19 20:15 Dose: 0.4 mg Documented by: [id number] Admin: 03/19/19 21:29 Dose: 0.4 mg Documented by: [id number] Admin: 03/18/19 20:33 Dose: 0.4 mg Documented by: [id number] Admin: 03/17/19 20:28 Dose: 0.4 mg Documented by: [id number] Admin: 03/16/19 20:16 Dose: 0.4 mg Documented by: [id number] Admin: 03/15/19 20:02 Dose: 0.4 mg Documented by: [id number] Admin: 03/14/19 21:21 Dose: 0.4 mg Documented by: [id number] Medical Decision Making Differential Diagnosis Acute AK, cardiac arrhythmia, hypotension, syncope, dehydration Medical Records Attestation: I reviewed the patient's medical records. Home Medications Current Medication List: was personally reviewed by me Laboratory Data Attestation: I reviewed the patient's lab results. CBC, chemistry panel, magnesium, TSH, PT/INR, CK/CK-MB, BNP, and troponin were obtained. H&H are mildly low. WBCs are normal. BUN and creatinine are elevated at 27 and 2.57 respectively. Liver function tests are unremarkable. Troponin is normal along with CK/CK-MB. TSH is also normal. PT/INR are mildly elevated at 12.5 and 1.2. BNP is elevated at 4887. UA was also obtained. It is dark yellow and concentrated with 3+ proteins and positive nitrites. 1+ leukocyte esterase. No bacteria. 5-10 epithelial cells are present. Result diagrams: 03/22/19 06:40 03/22/19 06:40 Lab Results 03/14/19 03/14/19 03/14/19 Range/Units 09:36 09:36 09:36 WBC 7.34 (4.8-10.8) K/uL RBC 3.47 L (4.7-6.1) M/uL Hgb 10.4 L (14.0-18.0) g/dL Hct 32.1 L (42-52) % MCV 92.5 (80-100) fL MCH 30.0 (25-34) pg MCHC 32.4 (32-36) g/dL RDW Std Deviation 51.8 H (36.4-46.3) fL RDW Coeff of Tim 15.5 H (11.5-14.5) % Plt Count 210 (130-400) K/uL MPV 10.5 H (7.4-10.4) fL Immature Gran % (Auto) 0.1 % Neut % (Auto) 77.3 % Lymph % (Auto) 12.9 % [place] % (Auto) 6.8 % Eos % (Auto) 2.6 % Baso % (Auto) 0.3 % Immature Gran # (Auto) 0.01 (0.00-0.02) K/uL Neut # (Auto) 5.67 (1.4-6.5) K/uL Lymph # (Auto) 0.95 L (1.2-3.4) K/uL [place] # (Auto) 0.50 (0.11-0.59) K/uL Eos # (Auto) 0.19 (0-0.5) K/uL Baso # (Auto) 0.02 (0-0.2) K/uL PT (9.0-12.0) Seconds INR (0.9-1.1) Sodium 138 (136-145) mmol/L Potassium (3.5-5.1) mmol/L Chloride 103 (98-107) mmol/L Carbon Dioxide 31 (21-32) mmol/L Anion Gap 4.0 (3-11) BUN 27 H (7-18) mg/dl Creatinine 2.57 H (0.6-1.4) mg/dl Est Cr Clr Drug Dosing Not Reportable Est GFR ( Amer) 25.7 Est GFR (Non-Af Amer) 22.1 BUN/Creatinine Ratio 10.3 (10-20) Glucose 89 (70-99) mg/dl Calcium 9.1 (8.5-10.1) mg/dl Magnesium (1.8-2.4) mg/dl Total Bilirubin 0.9 (0.2-1) mg/dl AST (15-37) U/L ALT 15 (12-78) U/L Alkaline Phosphatase 104 (45-117) U/L Total Creatine Kinase Cancelled (39-308) U/L CK-MB (CK-2) 1.1 (0.5-3.6) ng/ml CK/CKMB % Calc TNP Troponin I 0.035 (0-0.045) ng/ml NT-Pro-B Natriuret Pep (0-1800) pg/ml Total Protein 7.9 (6.4-8.2) gm/dl Albumin 3.0 L (3.4-5.0) gm/dl Globulin 4.9 H (2.5-4.0) gm/dl Albumin/Globulin Ratio 0.6 L (0.9-2) TSH 1.710 (0.300-4.500) uIu/ml Urine Color Urine Appearance (Clear) Urine pH (4.5-7.5) Ur Specific [place] (1.000-1.030) Urine Protein (Negative) Urine Glucose (UA) (Negative) Urine Ketones (Negative) Urine Blood (Negative) Urine Nitrite (Negative) Urine Bilirubin (Negative) Urine Urobilinogen (Negative) Ur Leukocyte Esterase (Negative) Urine WBC (Auto) (0-5) /hpf Urine RBC (Auto) (0-4) /hpf U Hyaline Cast (Auto) (0-5) /lpf U Epithel Cells (Auto) (0-5) /lpf Urine Bacteria (Auto) (Negative) 03/14/19 03/14/19 03/14/19 Range/Units 09:36 09:36 10:51 WBC (4.8-10.8) K/uL RBC (4.7-6.1) M/uL Hgb (14.0-18.0) g/dL Hct (42-52) % MCV (80-100) fL MCH (25-34) pg MCHC (32-36) g/dL RDW Std Deviation (36.4-46.3) fL RDW Coeff of Tim (11.5-14.5) % Plt Count (130-400) K/uL MPV (7.4-10.4) fL Immature Gran % (Auto) % Neut % (Auto) % Lymph % (Auto) % [place] % (Auto) % Eos % (Auto) % Baso % (Auto) % Immature Gran # (Auto) (0.00-0.02) K/uL Neut # (Auto) (1.4-6.5) K/uL Lymph # (Auto) (1.2-3.4) K/uL [place] # (Auto) (0.11-0.59) K/uL Eos # (Auto) (0-0.5) K/uL Baso # (Auto) (0-0.2) K/uL PT 12.5 H (9.0-12.0) Seconds INR 1.2 H (0.9-1.1) Sodium (136-145) mmol/L Potassium 4.2 (3.5-5.1) mmol/L Chloride (98-107) mmol/L Carbon Dioxide (21-32) mmol/L Anion Gap (3-11) BUN (7-18) mg/dl Creatinine (0.6-1.4) mg/dl Est Cr Clr Drug Dosing Est GFR ( Amer) Est GFR (Non-Af Amer) BUN/Creatinine Ratio (10-20) Glucose (70-99) mg/dl Calcium (8.5-10.1) mg/dl Magnesium 2.5 H (1.8-2.4) mg/dl Total Bilirubin (0.2-1) mg/dl AST 13 L (15-37) U/L ALT (12-78) U/L Alkaline Phosphatase (45-117) U/L Total Creatine Kinase 41 (39-308) U/L CK-MB (CK-2) (0.5-3.6) ng/ml CK/CKMB % Calc Troponin I Cancelled (0-0.045) ng/ml NT-Pro-B Natriuret Pep 4887 H (0-1800) pg/ml Total Protein (6.4-8.2) gm/dl Albumin (3.4-5.0) gm/dl Globulin (2.5-4.0) gm/dl Albumin/Globulin Ratio (0.9-2) TSH (0.300-4.500) uIu/ml Urine Color Urine Appearance (Clear) Urine pH (4.5-7.5) Ur Specific [place] (1.000-1.030) Urine Protein (Negative) Urine Glucose (UA) (Negative) Urine Ketones (Negative) Urine Blood (Negative) Urine Nitrite (Negative) Urine Bilirubin (Negative) Urine Urobilinogen (Negative) Ur Leukocyte Esterase (Negative) Urine WBC (Auto) (0-5) /hpf Urine RBC (Auto) (0-4) /hpf U Hyaline Cast (Auto) (0-5) /lpf U Epithel Cells (Auto) (0-5) /lpf Urine Bacteria (Auto) (Negative) 03/14/19 03/15/19 03/15/19 Range/Units 16:37 07:00 07:00 WBC 8.54 (4.8-10.8) K/uL RBC 3.44 L (4.7-6.1) M/uL Hgb 10.4 L (14.0-18.0) g/dL Hct 31.5 L (42-52) % MCV 91.6 (80-100) fL MCH 30.2 (25-34) pg MCHC 33.0 (32-36) g/dL RDW Std Deviation 51.1 H (36.4-46.3) fL RDW Coeff of Tim 15.5 H (11.5-14.5) % Plt Count 229 (130-400) K/uL MPV 10.2 (7.4-10.4) fL Immature Gran % (Auto) 0.2 % Neut % (Auto) 90.0 % Lymph % (Auto) 5.5 % [place] % (Auto) 4.3 % Eos % (Auto) 0.0 % Baso % (Auto) 0.0 % Immature Gran # (Auto) 0.02 (0.00-0.02) K/uL Neut # (Auto) 7.68 H (1.4-6.5) K/uL Lymph # (Auto) 0.47 L (1.2-3.4) K/uL [place] # (Auto) 0.37 (0.11-0.59) K/uL Eos # (Auto) 0.00 (0-0.5) K/uL Baso # (Auto) 0.00 (0-0.2) K/uL PT (9.0-12.0) Seconds INR (0.9-1.1) Sodium 137 (136-145) mmol/L Potassium 4.4 (3.5-5.1) mmol/L Chloride 101 (98-107) mmol/L Carbon Dioxide 29 (21-32) mmol/L Anion Gap 7.0 (3-11) BUN 30 H (7-18) mg/dl Creatinine 2.33 H (0.6-1.4) mg/dl Est Cr Clr Drug Dosing 27.8 Est GFR ( Amer) 28.9 Est GFR (Non-Af Amer) 24.9 BUN/Creatinine Ratio 13.0 (10-20) Glucose 135 H (70-99) mg/dl Calcium 9.5 (8.5-10.1) mg/dl Magnesium (1.8-2.4) mg/dl Total Bilirubin (0.2-1) mg/dl AST (15-37) U/L ALT (12-78) U/L Alkaline Phosphatase (45-117) U/L Total Creatine Kinase (39-308) U/L CK-MB (CK-2) (0.5-3.6) ng/ml CK/CKMB % Calc Troponin I (0-0.045) ng/ml NT-Pro-B Natriuret Pep (0-1800) pg/ml Total Protein (6.4-8.2) gm/dl Albumin (3.4-5.0) gm/dl Globulin (2.5-4.0) gm/dl Albumin/Globulin Ratio (0.9-2) TSH (0.300-4.500) uIu/ml Urine Color Dark Yellow Urine Appearance Clear (Clear) Urine pH 6.5 (4.5-7.5) Ur Specific [place] 1.024 (1.000-1.030) Urine Protein 3+ H (Negative) Urine Glucose (UA) Negative (Negative) Urine Ketones Negative (Negative) Urine Blood Negative (Negative) Urine Nitrite Positive A (Negative) Urine Bilirubin Negative (Negative) Urine Urobilinogen Negative (Negative) Ur Leukocyte Esterase 1+ H (Negative) Urine WBC (Auto) 1-5 (0-5) /hpf Urine RBC (Auto) 0-4 (0-4) /hpf U Hyaline Cast (Auto) 1-5 (0-5) /lpf U Epithel Cells (Auto) 5-10 H (0-5) /lpf Urine Bacteria (Auto) Negative (Negative) Imaging Data Attestation: I personally reviewed and interpreted this imaging study as follows: Radiologist's Impression: Chest x-ray obtained today was reviewed by me and read by radiology. Mild cardiomegaly. Interstitial lung prominence may relate to volume overload/congestive change or interstitial thickening in the setting of an inflammatory process. No focal infiltrate to suggest pneumonia. ECG Data Attestation: I personally reviewed and interpreted this ECG as follows: Blood Pressure Blood Pressure Findings: Low blood pressure MDM Narrative Patient was evaluated in A pod. Patient was educated regarding today's findings. Conservative care measures were discussed. IV was established. Labs were obtained. UA was also obtained. EKG and chest x-ray were also obtained. [employer] was contacted to interrogate his pacer. Patient has not had any significant events since March 08. It did not fire this morning. Orthostatic vitals were obtained. He was found to have a significant drop in systolic pressure of over 30. He was given normal sterile saline 250 mL bolus x2 due to his BUN and creatinine. He was thought to be mildly dry. Given his congestive findings on film, we did not want to tip him into overload. He was also given an albuterol nebulizer treatment and Solu-Medrol 125 mg IV. He remained adequately oxygenated on room air while in the department. No supplementation was needed. [facility]. Please see that dictation for final management. Patient was seen in conjunction with Dr. Riley, who also evaluated the patient and concurred with today's diagnosis and treatment plan. Impression & Plan Syncope, Acute kidney injury, Acute dehydration Discharge Plan Visit Data *Final* Discharge Date/Time: 03/14/19 12:39 Chief Complaint: Syncope Stated Complaint: syncope ED Provider: Meme Riley ED Midlevel Provider: Malachi Urbina Discharge Problem: Syncope, Acute kidney injury, Acute dehydration Patient Disposition: Admitted As Inpatient Condition: Good Discharge Instructions Interventions: ED Discharge Assessment Last Done: 03/14/19 12:39 Discharge Problem: Syncope Qualifiers: Syncope type: unspecified Qualified Code(s): R55 - Syncope and collapse
== END 2019-03-22 13:05 | disposition home health service (06) | DRG 312 ==
LOC: ED 09:27 → 2E 12:39 → SUATTDRO 12:57 → INTOOBSV 12:57 → 2E 12:57 → SUATTDRO 03-15 15:59
DX: G25.81 Restless legs syndrome; R00.0 Tachycardia, unspecified; K59.00 Constipation, unspecified; Z95.0 Presence of cardiac pacemaker; I95.1 Orthostatic hypotension; N17.9 Acute kidney failure, unspecified; I12.9 Hypertensive chronic kidney disease with stage 1 through stage 4 chronic kidney disease, or unspecified chronic kidney disease; N18.4 Chronic kidney disease, stage 4 (severe); Z79.82 Long term (current) use of aspirin; J44.1 Chronic obstructive pulmonary disease with (acute) exacerbation; K21.9 Gastro-esophageal reflux disease without esophagitis; J96.11 Chronic respiratory failure with hypoxia; I25.10 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of native coronary artery without angina pectoris

== ENCOUNTER 2019-04-11 05:31 | Observation (INO) ==
[~2019-04-11 05:31] MED LIST changes: -ADVIN25050 INH; -ALBUAER INH; +AMIODARONE HCL INJ 50 MG/ML 3 ML VIAL IV ONE; -ASPI-232 PO; +CALCIUM CHLORIDE 10% 10 ML SYR IV ONE; -CLOP1TAB15 PO; +DEXTROSE 5% 100 ML BAG IV ONE; -ISOS120T5 PO; -LPT/40 PO; -LSN/10125 PO; -METO50TA16 PO; -MULT-506 PO; -NITR0.4S UT; -PANT40TA PO; -SENNTAB23 PO; +SODIUM BICARB 8.4% INJ 50 MEQ/50 ML SYR IV ONE; +SODIUM CHLORIDE 0.9% 10ML FLUSH IV ONE; +SODIUM CHLORIDE 0.9% 500 ML BAG IV ONE
[2019-04-11] MEDS ORDERED: methylPREDNISolone 125 MG/2 ML VIAL IV STA (05:40)
[2019-04-11] MEDS ORDERED: ALBUT/IPRATROP 3MG/0.5MG NEB 3 ML VIAL INH STA (05:40)
[2019-04-11 06:18] LABS: Albumin Level 2.9 gm/dl (3.4-5.0); BUN Creatinine Ratio 14.6 (10-20); Calcium 8.7 mg/dl (8.5-10.1); Creatinine Clr Calc Pharmacy 18.2 ml/min; Est GFR (African American) 17.5; Est GFR (Non-African American) 15.1; Potassium 5.6 mmol/L (3.5-5.1)
[2019-04-11 06:20] LABS: Albumin Globulin Ratio 0.8 (0.9-2); Basophils # (auto) 0.02 K/uL (0-0.2); Basophils % (auto) 0.2 %; Bilirubin,Total 0.9 mg/dl (0.2-1); Eosinophils % (auto) 1.1 %; Globulin 3.8 gm/dl (2.5-4.0); Hematocrit (blood only) 25.9 % (42-52); Hemoglobin 8.5 g/dL (14.0-18.0); Immature Granulocytes # (auto) 0.02 K/uL (0.00-0.02); Immature Granulocytes % (auto) 0.2 %; Lymphocytes # (auto) 1.05 K/uL (1.2-3.4); Lymphocytes % (auto) 11.1 %; Mean Corpuscular Hgb Conc 32.8 g/dL (32-36); Mean Corpuscular Volume 94.2 fL (80-100); Mean Platelet Volume 12.1 fL (7.4-10.4); Monocytes # (auto) 0.85 K/uL (0.11-0.59); Neutrophils # (auto) 7.42 K/uL (1.4-6.5); Neutrophils % (auto) 78.4 %; Platelet Count 210 K/uL (130-400); RDW Coefficient of Variation 18.3 % (11.5-14.5); Red Blood Count 2.75 M/uL (4.7-6.1); Total Protein 6.7 gm/dl (6.4-8.2); White Blood Count 9.46 K/uL (4.8-10.8)
--- NOTE | 2019-04-11 06:38 | Emergency Department Note ---
Entered by Jenna Cruz acting as a scribe for Margaret Ashley DO History of Present Illness General Chief complaint: Shortness of Breath/Dyspnea Stated complaint: shortness of breath Time Seen by Provider: 04/11/19 05:42 Source: patient and EMS Mode of arrival: EMS History of Present Illness Onset (ago): day(s) 1 Location: left (Lung) and right (Lung) Severity: similar to prior episodes Pain Consistency: + other (Persistent) Quality: + other (Shortness of breath) Relieved By: not by other (Breathing treatment) Exacerbated By: + movement Associated symptoms: + shortness of breath, + weakness (legs) and + other (Fall); no syncope Treatments prior to arrival: other (Breathing treatment) The patient is an 84 year old male who presents to the Emergency Department via EMS complaining of persistent shortness of breath starting 1 day ago. The patient reports that he fell 1 day ago. He states that he fell because his legs were weak. He explains that he has not been able to walk since this fall and trying to walk worsens his shortness of breath. He notes that he has experienced these symptoms before as he was recently admitted to [facility]. The patient reports that he recently stopped taking his Prednisone because he did not want to take it anymore. He states that the Prednisone made him gain weight that he couldnt lose and that he didnt want to deal with it anymore. 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 EMS reports that the patient normally uses 2L of supplemental oxygen via nasal cannula at home. The patient denies syncope. Home Medications Home Medications Medication Instructions Recorded Confirmed Type albuterol sulfate 2 puff INHALATION Q6H PRN 06/17/18 04/11/19 History atorvastatin 40 mg PO HS 06/17/18 04/11/19 History nitroglycerin [Nitrostat] 0.4 mg SUBLINGUAL DIRECTED PRN 10/09/18 04/11/19 History pantoprazole 40 mg PO DAILY 10/09/18 04/11/19 History ranolazine 500 mg PO BID 10/09/18 04/11/19 History sennosides-docusate sodium [Stool 1 tab PO BID 10/09/18 04/11/19 History Softener-Laxative] budesonide 1 ml INH Q12H #60 ml 10/17/18 04/11/19 Rx pramipexole 0.25 mg PO HS 11/10/18 04/11/19 History Perforomist 2 ml INHALATION Q12H 03/14/19 04/11/19 History gabapentin 100 mg PO HS 03/14/19 04/11/19 History polyethylene glycol 3350 [Miralax] 17 g PO DAILY PRN 03/14/19 04/11/19 History tamsulosin 0.4 mg PO DAILY 03/14/19 04/11/19 History apixaban [Eliquis] 2.5 mg PO BID 30 Days #60 tab 03/22/19 04/11/19 Rx bumetanide 2 mg PO DAILY 03/26/19 04/11/19 History potassium chloride 20 meq PO DAILY 03/26/19 04/11/19 History amiodarone 200 mg PO DAILY 04/11/19 04/11/19 History aspirin 81 mg PO DAILY 04/11/19 04/11/19 History Allergies Allergy/AdvReac Type Severity Reaction Status Date / Time Penicillins Allergy Unknown PASSES OUT Verified 04/11/19 06:03 AND LOW HEART RATE Past Med/Surg History Medical History CHF (congestive heart failure) GERD (gastroesophageal reflux disease) HTN (hypertension) Hyperlipidemia CAD (coronary artery disease) RLS (restless legs syndrome) COPD (chronic obstructive pulmonary disease) (Chronic) 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 (Acute 11/25/14) Coronary arteriosclerosis (Acute 03/30/14) TIA (transient ischemic attack) (Chronic) CKD (chronic kidney disease) Surgical History History of permanent cardiac pacemaker placement p Pacer with A/V Leads (Dual)(Left) - Tomasz Rojas MD 12/08/2018 s Remove Cardiac Event Recorder(Left) - Tomasz Rojas MD 12/08/2018 [employer] pacer: Model: [id number] LINQ; serial number [id number]; implanted 12/08/2018 S/P drug eluting coronary stent placement X4 Family History Father Myocardial infarction Other No pertinent family history Social History Preferred Language: Icelandic Communication Ability: Impaired Beliefs That Will Affect Care: None marital status: Life Partner Current Living Situation: Spouse Current Living Situation Comment: Girlfriend Feels Safe at Home: Yes Smoking Status: Former smoker Tobacco Type: cigarettes Second Hand Exposure: No Hx Alcohol Use: No Hx Substance Use: No Review of Systems See HPI for pertinent positives & negatives. and A total of 10 systems reviewed and were otherwise negative Physical Exam Vital Signs Vital Signs - 24 hr 04/11/19 05:41 04/11/19 05:48 04/11/19 05:56 Temperature 36.5 C Temperature Source Oral Sepsis Recent Fever Within 48 Hours No Sepsis Action Taken by Nursing No Action Required Pulse Rate 81 60 Pulse Rate [Right Finger] 60 Pulse Rate from SpO2 Sensor 61 Pulse Rhythm Regular Pulse Strength Normal Respiratory Rate 28 H 14 20 Respiratory Effort / Characteristics Spontaneous Labored Short of Breath Non-Labored Spontaneous Respiratory Depth Normal Respiratory Pattern Regular Blood Pressure 89/56 L 109/75 Blood Pressure Mean 67 86 Blood Pressure Position Sitting Pulse Oximetry 97 92 95 Oxygen Delivery Method Nasal Cannula Nasal Cannula Nasal Cannula Oxygen Flow Rate 2 2 2 04/11/19 06:01 Temperature Temperature Source Sepsis Recent Fever Within 48 Hours Sepsis Action Taken by Nursing Pulse Rate 62 Pulse Rate [Right Finger] Pulse Rate from SpO2 Sensor 62 Pulse Rhythm Pulse Strength Respiratory Rate 16 Respiratory Effort / Characteristics Respiratory Depth Respiratory Pattern Blood Pressure 126/67 Blood Pressure Mean 86 Blood Pressure Position Pulse Oximetry 95 Oxygen Delivery Method Nasal Cannula Oxygen Flow Rate 2 General: The patient appears in moderate respiratory distress. Audible wheezing and rales. HEENT: Head - normocephalic and atraumatic Pupils are equal, round, and reactive to light. Extraocular eye muscles are intact, and sclera are anicteric. Nose - moist nasal mucosa without discharge. Mouth - moist buccal mucosa. Oropharynx is nonerythematous and there is no tonsillar exudate or edema noted. Neck: Supple; no JVD, nuchal rigidity, cervical lymphadenopathy. Heart: Regular rate and rhythm. There is a normal S1 and S2 with no murmurs, clicks, or gallops appreciated. Lungs: Clear to auscultation bilaterally with no wheezes, rales, or rhonchi. Abdomen: Soft, completely nontender, with good bowel sounds. There are no palpab le pulsatile masses or hepatosplenomegaly. There is no guarding, rigidity, or rebound noted. Abdomen is protuberant. Rectal: Dark colored stools that were heme positive. Extremities: No evidence of cyanosis or clubbing.There are easily palpable peripheral pulses. Trace pedal edema. Skin: warm and dry with good turgor and no rashes. Course 0535: The patient was evaluated in room A11B, and a complete history and physical examination were performed. A portable chest x-ray was obtained. The patient was observed on the alarm security or surveillance monitor and pulse oximeter. A twelve-lead EKG was obtained. Multiple previous electronic medical records were reviewed. 0546: Solumedrol 125 mg IV, Duoneb 12 ml INH 0617: I reevaluated the patient at this time who is currently receiving his hour long breathing treatment. He reports that he isnt feeling much better. He states that he continues to take his water pill at home. 0625: I discussed the patient's case with Dr. Phillip PHILLIPS hospitalist. She will evaluate the patient for further management. Consultations Consultation #1: I discussed the patient's case with Dr. Phillip PHILLIPS hospitalist. She will evaluate the patient for further management. Time: 06:25 Administered Medications Discontinued Medications Methylprednisolone (Solumedrol) 125 mg IV NOW STA Stop: 04/11/19 05:41 Last Admin: 04/11/19 05:46 Dose: 125 mg Documented by: [id number] Medical Decision Making Differential Diagnosis The patient is an 84 year old male who presents to the ED with persistent shortness of breath starting 1 day ago. Differential diagnosis includes COPD exacerbation, pulmonary edema, hypoxia and pneumonia among others. Medical Records Attestation: I reviewed the patient's medical records. Home Medications Current Medication List: was personally reviewed by me Laboratory Data Attestation: I reviewed the patient's lab results. Result diagrams: 04/11/19 05:00 04/11/19 05:00 Lab Results 04/11/19 04/11/19 04/11/19 Range/Units 05:00 05:00 05:00 WBC 9.46 (4.8-10.8) K/uL RBC 2.75 L (4.7-6.1) M/uL Hgb 8.5 L (14.0-18.0) g/dL Hct 25.9 L (42-52) % MCV 94.2 (80-100) fL MCH 30.9 (25-34) pg MCHC 32.8 (32-36) g/dL RDW Std Deviation 62.0 H (36.4-46.3) fL RDW Coeff of Tim 18.3 H (11.5-14.5) % Plt Count 210 (130-400) K/uL MPV 12.1 H (7.4-10.4) fL Immature Gran % (Auto) 0.2 % Neut % (Auto) 78.4 % Lymph % (Auto) 11.1 % [place] % (Auto) 9.0 % Eos % (Auto) 1.1 % Baso % (Auto) 0.2 % Immature Gran # (Auto) 0.02 (0.00-0.02) K/uL Neut # (Auto) 7.42 H (1.4-6.5) K/uL Lymph # (Auto) 1.05 L (1.2-3.4) K/uL [place] # (Auto) 0.85 H (0.11-0.59) K/uL Eos # (Auto) 0.10 (0-0.5) K/uL Baso # (Auto) 0.02 (0-0.2) K/uL PT Cancelled INR Cancelled APTT Cancelled PTT Ratio Cancelled Sodium 136 (136-145) mmol/L Potassium 5.6 H (3.5-5.1) mmol/L Chloride 99 (98-107) mmol/L Carbon Dioxide 27 (21-32) mmol/L Anion Gap 10.0 (3-11) BUN 52 H (7-18) mg/dl Creatinine 3.53 H (0.6-1.4) mg/dl Est Cr Clr Drug Dosing 18.2 ml/min Est GFR ( Amer) 17.5 Est GFR (Non-Af Amer) 15.1 BUN/Creatinine Ratio 14.6 (10-20) Glucose 101 H (70-99) mg/dl Calcium 8.7 (8.5-10.1) mg/dl Total Bilirubin 0.9 (0.2-1) mg/dl AST 17 (15-37) U/L ALT 31 (12-78) U/L Alkaline Phosphatase 104 (45-117) U/L Total Protein 6.7 (6.4-8.2) gm/dl Albumin 2.9 L (3.4-5.0) gm/dl Globulin 3.8 (2.5-4.0) gm/dl Albumin/Globulin Ratio 0.8 L (0.9-2) Imaging Data Attestation: I personally reviewed and interpreted this imaging study as follows: My Impression: XR Chest 1V Portable: Pacemaker in place. Moderate right-sided pleural effusion. Cardiomegaly. Moderate pulmonary edema. ECG Data Attestation: I personally reviewed and interpreted this ECG as follows: Indication: SOB/dyspnea Rate (beats per minute): 68 Rhythm: other (Paced rhythm) Findings: no acute ischemic change and no ectopy Blood Pressure Blood Pressure Findings: Normal blood pressure Blood Pressure Disposition: further management by hospitalist MDM Narrative The patient is an 84 year old male who presents to the ED with persistent shortness of breath starting 1 day ago. This is a chronically ill male patient who presents to the emergency department with a history of COPD. The patient recently stopped taking his prednisone because he did not like the weight gain. Patient has audible wheezes and rales on initial exam. Chest x-ray confirms moderate pulmonary edema with pleural effusions. The patient is anemic with a hemoglobin of 8.5. This represents a 3 g drop of hemoglobin over the past 2 to 3 weeks. His stools are heme positive. The patient has an elevated creatinine concerning for acute kidney injury. O2 saturations are stable while the patient received an hour-long nebulizer treatment. He was given IV Solu-Medrol. I discussed the case with the [facility] Hospitalist and they will evaluate for further management. Impression & Plan Pulmonary edema, COPD exacerbation, Acute kidney injury, Anemia Discharge Plan Visit Data Chief Complaint: Shortness of Breath/Dyspnea Stated Complaint: shortness of breath ED Provider: Margaret Ashley Discharge Problem: Pulmonary edema, COPD exacerbation, Acute kidney injury, Anemia Patient Disposition: Being Evaluated by Hospitalist Forms Stand Alone Forms: [facility] Prescriptions Prescriptions: No Action sennosides-docusate sodium [Stool Softener-Laxative] 8.6-50 mg Tablet 1 tab PO BID RF: 0 pantoprazole 40 mg tablet,delayed release (DR/EC) 40 mg PO DAILY RF: 0 nitroglycerin [Nitrostat] 0.4 mg Tablet, Sublingual 0.4 mg Sublingual DIRECTED PRN (Reason: Chest Pain) RF: 0 ranolazine 500 mg tablet extended release 12 hr 500 mg PO BID RF: 0 budesonide 0.5 mg/2 mL suspension for nebulization 1 ml INH Q12H Qty: 60 RF: 3 polyethylene glycol 3350 [Miralax] 17 gram Powder In Packet 17 g PO DAILY PRN (Reason: Constipation) RF: 0 tamsulosin 0.4 mg capsule 0.4 mg PO DAILY RF: 0 gabapentin 100 mg capsule 100 mg PO HS RF: 0 Perforomist 20 mcg/2 mL solution for nebulization 2 ml inhalation Q12H RF: 0 Eliquis 2.5 mg Tablet 2.5 mg PO BID 30 Days Qty: 60 RF: 1 bumetanide 1 mg tablet 2 mg PO DAILY RF: 0 potassium chloride 20 mEq tablet extended release 20 meq PO DAILY RF: 0 atorvastatin 40 mg Tablet 40 mg PO HS RF: 0 albuterol sulfate 90 mcg/actuation Hfa Aerosol Inhaler 2 puff INHALATION Q6H PRN (Reason: Shortness Of Breath) RF: 0 pramipexole 0.25 mg tablet 0.25 mg PO HS RF: 0 amiodarone 200 mg tablet 200 mg PO DAILY RF: 0 aspirin 81 mg Tablet,Chewable 81 mg PO DAILY RF: 0 Referrals Referrals: Berry Tan MD [Primary Care Provider] - Discharge Problem: Pulmonary edema Qualifiers: Chronicity: chronic Qualified Code(s): J81.1 - Chronic pulmonary edema Anemia Qualifiers: Anemia type: unspecified type Qualified Code(s): D64.9 - Anemia, unspecified The scribe's documentation has been prepared under my direction and personally reviewed by me in its entirety. I confirm that the note above accurately reflects all work, treatment, procedures, and medical decision making performed by me.
[2019-04-11 07:41] LABS: INR 1.4 (0.9-1.1); Partial Thromboplastin Ratio 1.2; Partial Thromboplastin Time 31.9 Seconds (21.0-31.0); Prothrombin Time 13.7 Seconds (9.0-12.0)
--- NOTE | 2019-04-11 08:24 | XRay Report ---
XR chest 1V portable HISTORY: Dyspnea COMPARISON: Chest 03/26/2019. FINDINGS: No pneumothorax. Left-sided dual-chamber pacemaker. The heart remains enlarged. Pulmonary e carla and small to moderate pleural effusions have slightly progressed. IMPRESSION: Slight progression of the pulmonary edema and bilateral pleural effusions. Electronically signed by: Lex Sanders M.D. 04/11/2019 8:23 AM
[2019-04-11] MEDS ORDERED: NITROGLYCERIN SL 0.4 MG/TAB TAB SL PRN ×2 (09:22)
[2019-04-11] MEDS ORDERED: ACETAMINOPHEN 325 MG TAB PO PRN (09:22)
[2019-04-11] MEDS ORDERED: MAGNESIUM HYDROXIDE SUSP 30 ML UDC PO PRN (09:22)
[2019-04-11] MEDS ORDERED: ALBUTEROL HFA 8 GM INHALER INH PRN (09:22)
[2019-04-11] MEDS ORDERED: ALUMINUM/MAGNESIUM SUSP 30 ML UDC PO PRN (09:22)
[2019-04-11] MEDS ORDERED: POLYETHYLENE (MIRALAX) 17 GM PACK PO PRN ×2 (09:22)
[2019-04-11] MEDS: FORMOTEROL 20 MCG/2 ML VIAL INH SCH ×2 (10:04→19:26)
[2019-04-11] MEDS: BUDESONIDE 0.25 MG/2 ML VIAL (PULMICORT) INH SCH ×2 (10:04→19:26)
[2019-04-11] MEDS: RANOLAZINE 500 MG ER TAB PO SCH ×2 (10:15→21:31)
[2019-04-11] MEDS ORDERED: BUMETANIDE 1 MG in SYRINGE 0 ML IV ONE (10:15)
[2019-04-11] MEDS: APIXABAN 2.5 MG TAB PO SCH ×2 (10:15→21:32)
[2019-04-11] MEDS: ASPIRIN 81 MG ECTAB PO SCH (10:15)
[2019-04-11] MEDS: PANTOprazole 40 MG TAB PO SCH (10:15)
[2019-04-11] MEDS: TAMSULOSIN HCL 0.4 MG CAP PO SCH (10:15)
[2019-04-11] MEDS: AMIODARONE 200 MG TAB PO SCH (10:15)
[2019-04-11] MEDS: BUMETANIDE 1 MG TAB PO SCH (10:16)
[2019-04-11] MEDS: DOCUSATE SODIUM/SENNA 50/8.6MG TAB PO SCH ×2 (10:16→21:32)
[2019-04-11] MEDS: POTASSIUM CHLORIDE 20 MEQ TABCR PO SCH (10:20)
--- NOTE | 2019-04-11 14:52 | History & Physical Report ---
Date of Service April 11, 2019 Assessment & Plan (1) Weakness: Seems to be multifactorial. Deconditioning, pulmonary edema/hypoxia, and anemia all likely playing a major role. Orthostasis may be playing a role as well. Work on each individual element, PT/OT eval and treat, case management as he may need rehab. (2) Pulmonary edema: Appears to be acute on chronic diastolic CHF. His CHF is mostly driven by his valvular heart disease. Right now he appears to need diuresis, but also seems to have a low threshold to worsen with orthostasis. More than likely right now his worsening of his CKD is from poor forward flow, but we will need to follow closely. Assess dietary intake and educated on the importance of low sodium. (3) Congestive heart failure: See above,HFpEF (4) CKD (chronic kidney disease): See above. He appears to run around stage III CKD baseline, his creatinine is obviously much worse right now, it appears most likely due to poor forward flow from above, follow closely with diuresis. (5) COPD (chronic obstructive pulmonary disease): Does not appear to be an exacerbation right now, but obviously need closely. Continue home inhalers. (6) CAD (coronary artery disease): No notable angina right now. (7) HTN (hypertension): Follow blood pressure with diuresis (8) Hyperlipidemia: Continue home meds (9) Aortic stenosis: See above, this appears to be the main root cause of his heart failure. He may need to have outpatient considerations for a TAVR, especially given how brittle he has been recently. (10) Orthostasis: See above, follow with diuresis. (11) DVT prophylaxis: Continue his apixaban, depending on the status of his anemia (12) Discharge planning issues: PT/OT eval and treat, may need rehab. (13) Anemia: Acute on chronic, ER notes that his stool is heme positive. He notes his last colonoscopy was about 8 years ago and does not remember any significant results. Certainly does not appear to be hemorrhaging, we will continue his api xaban with caution for now, and follow closely. History of Present Illness Chief Complaint: dyspnea, weakness Primary Care Provider: Berry aTn MD Patient presents due to a combination of weakness and dyspnea that this been worsening over the last several days. He just got out of her she may be about a week ago, he is a little bit of a poor historian but describes symptoms consistent with a CHF exacerbation, he notes that his breathing was better than today whenever he was discharged from [facility], but notes that over the last couple days he has been getting weaker falling more easily fell on his knees slid out of his chair, and eventually today was weak enough that he felt like he could not do okay at home. Secondarily he notes worsening dyspnea predominantly with exertion. He has chronic orthopnea so he does not know if it is any better or worse, he notes that his swelling is better than whenever he was admitted to [facility] but may be slightly worse than whenever he was discharged. He notes a little bit of cough but is mostly dry without any sputum. No fevers chills sweats or anything else that makes him feel ill. He notes he had a really bad year being in and out of the hospital several times. He notes his appetite is "so-so" he is not entirely sure of his medications, but notes that he has been taking what he was told to after being discharged from [facility]. He does note that he is still on a water pill. He also notes that at times he has trouble with his blood pressures dropping low causing him to be weak and wonders if that part of his falling as well. Allergies Allergy/AdvReac Type Severity Reaction Status Date / Time Penicillins Allergy Unknown PASSES OUT Verified 04/11/19 06:03 AND LOW HEART RATE Home Medications Home Medications Medication Instructions Recorded Confirmed Type albuterol sulfate 2 puff INHALATION Q6H PRN 06/17/18 04/11/19 History atorvastatin 40 mg PO HS 06/17/18 04/11/19 History nitroglycerin [Nitrostat] 0.4 mg SUBLINGUAL DIRECTED PRN 10/09/18 04/11/19 History pantoprazole 40 mg PO DAILY 10/09/18 04/11/19 History ranolazine 500 mg PO BID 10/09/18 04/11/19 History sennosides-docusate sodium [Stool 1 tab PO BID 10/09/18 04/11/19 History Softener-Laxative] budesonide 1 ml INH Q12H #60 ml 10/17/18 04/11/19 Rx pramipexole 0.25 mg PO HS 11/10/18 04/11/19 History Perforomist 2 ml INHALATION Q12H 03/14/19 04/11/19 History gabapentin 100 mg PO HS 03/14/19 04/11/19 History polyethylene glycol 3350 [Miralax] 17 g PO DAILY PRN 03/14/19 04/11/19 History tamsulosin 0.4 mg PO DAILY 03/14/19 04/11/19 History apixaban [Eliquis] 2.5 mg PO BID 30 Days #60 tab 03/22/19 04/11/19 Rx bumetanide 2 mg PO DAILY 03/26/19 04/11/19 History potassium chloride 20 meq PO DAILY 03/26/19 04/11/19 History amiodarone 200 mg PO DAILY 04/11/19 04/11/19 History aspirin 81 mg PO DAILY 04/11/19 04/11/19 History Past Med/Surg History Medical History CHF (congestive heart failure) GERD (gastroesophageal reflux disease) HTN (hypertension) Hyperlipidemia CAD (coronary artery disease) RLS (restless legs syndrome) COPD (chronic obstructive pulmonary disease) (Chronic) 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[place] coronary artery w/angina pectoris (Acute 11/25/14) Coronary arteriosclerosis (Acute 03/30/14) TIA (transient ischemic attack) (Chronic) CKD (chronic kidney disease) Surgical History History of permanent cardiac pacemaker placement p Pacer with A/V Leads (Dual)(Left) - Tomasz Rojas MD 12/08/2018 s Remove Cardiac Event Recorder(Left) - Tomasz Rojas MD 12/08/2018 [employer] pacer: Model: [id number] [id number]; serial number [id number]; implanted 12/08/2018 S/P drug eluting coronary stent placement X4 Family History Father Myocardial infarction Other No pertinent family history Social History Preferred Language: [place]ian Communication Ability: Effective Adoption Worker Required: No Beliefs That Will Affect Care: None marital status: Life Partner Current Living Situation: Spouse Current Living Situation Comment: Girlfriend Other Information That Helps Us Care for You: No Feels Safe at Home: Yes Safety Concerns: Feels Safe At This Time Smoking Status: Former smoker Tobacco Type: cigarettes Cigarettes Per Day: 30 Do You Dip or Chew Tobacco: No Smoking End Date: about 2010 Second Hand Exposure: No Tobacco Cessation Education Requested by Patient: No Hx Alcohol Use: No Hx Substance Use: No Review of Systems Review of Systems: All systems reviewed & are unremarkable except as noted in HPI & below Physical Exam Physical Exam: In general he is awake and alert pleasant no distress although he does appear quite fatigued. HEENT normocephalic atraumatic mucous members are moist. Lungs are clear to auscultation bilaterally but quite diminished, even with amplification, there may be slightly coarse but no discrete rales rhonchi or wheezes. No accessory muscle use. Cardio is somewhat distant he does have about a 3 out of 6 systolic murmur that seems to be best at the left upper sternal border. Abdomen soft mildly distended nontender no masses or organomegaly. Extremities show no cyanosis or clubbing he has may be trace edema. Skin shows no rashes, pallor, icterus. His right knee has bruising and scraping. Neuro shows cranial nerves II through XII be grossly intact gross motor and sensory are intact, lower extremities show about 4+ out of 5 strength with no asymmetry. Sensation appears equal. Mental status shows fair recent and remote recall normal mood and affect. Musculoskeletal shows no gross deformities in spite of the knee bruising mentioned above Results & Data Vital Signs (Past 12 Hours) Vital Signs Temp Pulse Pulse Resp BP BP Pulse Ox 04/11/19 10:07 67 16 96 04/11/19 09:22 36.7 C 71 70 16 108/41 L 96 04/11/19 08:51 36.5 C 68 24 137/62 98 04/11/19 07:55 68 24 100/60 98 04/11/19 07:12 86 22 122/72 94 04/11/19 06:30 66 16 107/49 L 100 04/11/19 06:01 62 16 126/67 95 04/11/19 05:56 60 20 95 04/11/19 05:48 60 14 109/75 92 04/11/19 05:41 36.5 C 81 28 H 89/56 L 97 Laboratory Results Creatinine higher than previous Diagnostic Findings EKG paced, chest x-ray with pulmonary edema. PG Care Time/CCT Total # of Minutes Spent Total Time Spent with Patient: Total time spent is greater than 50% in coordination of care (as documented) at patient's floor/unit and/or counseling patient: (1) Pulmonary edema Chronicity: chronic Qualified Code(s): J81.1 - Chronic pulmonary edema (2) Congestive heart failure Heart failure type: diastolic Heart failure chronicity: acute on chronic Qualified Code(s): I50.33 - Acute on chronic diastolic (congestive) heart failure (3) CKD (chronic kidney disease) Chronic kidney disease stage: unspecified stage Qualified Code(s): N18.9 - Chronic kidney disease, unspecified (4) Anemia Anemia type: unspecified type Qualified Code(s): D64.9 - Anemia, unspecified
[2019-04-11] MEDS: ATORVASTATIN 40 MG TAB PO SCH (21:31)
[2019-04-11] MEDS: GABAPENTIN 100 MG CAP PO SCH (21:32)
[2019-04-11] MEDS: PRAMIPEXOLE DIHYDROCHLO 0.25 MG TAB PO SCH (21:33)
[2019-04-12 06:56] LABS: Basophils # (auto) 0.01 K/uL (0-0.2); Basophils % (auto) 0.1 %; Eosinophils # (auto) 0.01 K/uL (0-0.5); Eosinophils % (auto) 0.1 %; Hematocrit (blood only) 27.2 % (42-52); Hemoglobin 8.5 g/dL (14.0-18.0); Immature Granulocytes # (auto) 0.04 K/uL (0.00-0.02); Immature Granulocytes % (auto) 0.3 %; Lymphocytes # (auto) 0.67 K/uL (1.2-3.4); Lymphocytes % (auto) 4.9 %; Mean Corpuscular Hgb Conc 31.3 g/dL (32-36); Mean Corpuscular Volume 94.4 fL (80-100); Mean Platelet Volume 11.6 fL (7.4-10.4); Monocytes # (auto) 0.97 K/uL (0.11-0.59); Monocytes % (auto) 7.1 %; Neutrophils # (auto) 11.89 K/uL (1.4-6.5); Neutrophils % (auto) 87.5 %; Platelet Count 244 K/uL (130-400); RDW Coefficient of Variation 18.6 % (11.5-14.5); RDW Standard Deviation 62.3 fL (36.4-46.3); Red Blood Count 2.88 M/uL (4.7-6.1); White Blood Count 13.59 K/uL (4.8-10.8)
[2019-04-12] MEDS: FORMOTEROL 20 MCG/2 ML VIAL INH SCH ×2 (06:58→19:01)
[2019-04-12] MEDS: BUDESONIDE 0.25 MG/2 ML VIAL (PULMICORT) INH SCH ×2 (06:58→19:01)
[2019-04-12 07:26] LABS: BUN Creatinine Ratio 15.5 (10-20); Creatinine Clr Calc Pharmacy 16.8 ml/min; Est GFR (African American) 16.1; Est GFR (Non-African American) 13.9; Potassium 5.6 mmol/L (3.5-5.1)
[2019-04-12] MEDS: POTASSIUM CHLORIDE 20 MEQ TABCR PO SCH (07:57)
[2019-04-12] MEDS: BUMETANIDE 1 MG TAB PO SCH (07:57)
[2019-04-12] MEDS: ASPIRIN 81 MG ECTAB PO SCH (07:57)
[2019-04-12] MEDS: AMIODARONE 200 MG TAB PO SCH (07:57)
[2019-04-12] MEDS: RANOLAZINE 500 MG ER TAB PO SCH ×2 (07:57→20:56)
[2019-04-12] MEDS: TAMSULOSIN HCL 0.4 MG CAP PO SCH (07:57)
[2019-04-12] MEDS: DOCUSATE SODIUM/SENNA 50/8.6MG TAB PO SCH ×2 (07:57→20:57)
[2019-04-12] MEDS: APIXABAN 2.5 MG TAB PO SCH ×2 (07:58→20:57)
[2019-04-12] MEDS: PANTOprazole 40 MG TAB PO SCH (07:58)
--- NOTE | 2019-04-12 09:24 | Ultrasound Report ---
US renal/blad retro comp HISTORY: 84 years-old Male ARF acute renal failure COMPARISON: None available TECHNIQUE: Multiple real time sonographic images of the kidneys and urinary bladder were obtained ass essing grayscale appearance and color flow FINDINGS: Limited exam secondary to patient condition and positioning. Notably the left kidney is not well seen . Mild cortical thinning noted throughout the right kidney. 1.4 cm hypoechoic lesion of the interpolar right kidney is suboptimally visualized however suggestive of probable cyst. No right-sided renal jered culi or hydronephrosis. The left kidney is mostly obscured by bowel gas measuring approximately 9 cm in length. Cortical thin douglas throughout the left kidney also noted without renal calculi or hydronephrosis. The bladder is no t well-distended and therefore difficult to visualize. IMPRESSION: 1. Limited exam without renal calculi or hydronephrosis identified. 2. Decompressed urinary bladder is not well visualized. 3. Mild atrophy with cortical thinning noted about the bilateral kidneys. The above report was generated using voice recognition software. It may contain grammatical, syntax o r spelling errors. Electronically signed by: Shilo Olivo M.D. 04/12/2019 9:22 AM
[2019-04-12] MEDS ORDERED: ONDANSETRON INJ 2 MG/ML 2 ML VIAL IV STA (11:39)
[2019-04-12 14:33] LABS: Appearance Urine Cloudy (Clear); Bacteria Urine Automated Negative (Negative); Blood Urine Negative (Negative); Color Urine Dark Yellow; Epithelial Cell Urine Auto 20-30 /lpf (0-5); Glucose Urine UA Negative (Negative); Ketones Urine Trace (Negative); Leukocyte Esterase Urine 1+ (Negative); Nitrite Urine Positive (Negative); Protein Urine 2+ (Negative); Specific Gravity Urine 1.027 (1.000-1.030); Urobilinogen Urine Negative (Negative)
[2019-04-12 14:35] LABS: Bilirubin Urine Negative (Negative); Ictotest Urine Negative (Negative)
[2019-04-12 14:39] LABS: BUN Creatinine Ratio 16.3 (10-20); Calcium 8.8 mg/dl (8.5-10.1); Creatinine Clr Calc Pharmacy 16.2 ml/min; Est GFR (African American) 15.4; Est GFR (Non-African American) 13.2; Potassium 6.1 mmol/L (3.5-5.1)
[2019-04-12 14:44] LABS: Uric Acid Crystals Urine Present (None Prsent)
[2019-04-12 14:49] LABS: Sodium Random Urine < 5 mmol/L
[2019-04-12] MEDS ORDERED: SODIUM POLYSTYRENE SULFONATE 15G/60ML SUSP PO STA (15:16)
--- NOTE | 2019-04-12 15:34 | Hospitalist Progress Note ---
Date of Service April 12, 2019 Assessment & Plan (1) Weakness: Seems to be multifactorial, with his hypoxia/CHF/CKD/overall difficulties with volume status/deconditioning/overall decline all being contributors (2) Pulmonary edema: Seems to still have ongoing pulmonary edema, but at the same time appears to be intra-arterially dry. Very difficult fluid balance. Given the worsening of his creatinine after IV Bumex, rather than improvement, given the appearance of a degree of volume contraction with his hyperkalemia, will hold off on further diuresis right now maintaining supportive care and asking for assistance from cardiology and nephrology given the difficulty of his fluid balance. (3) Acute kidney injury: See above, acute kidney injury superimposed on baseline probably stage III CKD. Complicating all of this is the fact that he apparently has quite significant right-sided heart failure in addition to his aortic valve/diastolic failure that is more evident on echo. (4) Congestive heart failure: Appears to be acute diastolic heart failure related to his aortic valve disease causing the pulmonary edema, but on review of her she records saw Dr. Rea viera notes that he has significant right-sided CHF to which is probably what is the main compounding/complicating factor in managing his volume. (5) COPD (chronic obstructive pulmonary disease): Does not appear to be in significant exacerbation at this time. His rhonchi sound much more wet, he has no wheezing. Continue his home inhalers, add an anticholinergic. (6) HTN (hypertension): Continue to follow on his regular medicines as (7) Coronary arteriosclerosis: Seems to be asymptomatic. Continue home meds (8) Aortic stenosis: As above (9) DVT prophylaxis: Anticoagulated related to his cardiac rhythm disease (10) Discharge planning issues: PT/OT eval and treat, very well may need rehab once he is well enough to leave the hospital. Subjective Generally seems to feel about the same overall. Does have some nausea and vomiting today which is new, but no other new symptoms. Breathing about the same, still not good but not worse. Leg weakness he may be thinks is little worse but if he describes it it sounds very similar to before. Nursing notes that he actually gets around the room for better whenever it is time to use the restroom than whenever he is just standing for something such as orthostatics. They note that he has a much greater tolerance whenever it is time to actually move with directed purpose rather than simply standing. Swelling not really a whole lot different than yesterday. Labs noted and creatinine climbing With patient's permission, his records at [facility] were opened and reviewed. As best as able to be ascertained, he appeared to have had essentially a fairly typical stay as regards to CHF having been diuresed IV and then sent home on 2 mg of Bumex p.o. daily. I believe his discharge creatinine was somewhere around 2.3-2.5. I did not see that an echocardiogram was done. Review of Systems Review of Systems: All systems reviewed & are unremarkable except as noted in HPI & below Physical Exam Physical Exam: In general he is awake and alert, pleasant, appears quite fatigued but no significant respiratory or pain distress HEENT normocephalic atraumatic mucous membranes are moist Cardio regular somewhat distant may be left upper sternal border systolic murmur Lungs ongoing diffuse wet sounding rhonchi no accessory muscle use no rales no wheeze Extremities show no cyanosis or clubbing ongoing edema Neuro shows no focal deficits No acute abdominal findings Results & Data Vital Signs (Past 12 Hours) Vital Signs Temp Pulse Resp BP Pulse Ox 04/12/19 11:45 36.7 C 60 21 93/58 L 90 04/12/19 08:21 36.6 C 67 22 99/63 L 92 04/12/19 06:59 60 20 100 04/12/19 03:34 36.9 C 67 19 109/49 L 96 PG Care Time/CCT Total # of Minutes Spent Total Time Spent with Patient: Total time spent is greater than 50% in coordination of care (as documented) at patient's floor/unit and/or counseling patient: (1) Pulmonary edema Chronicity: chronic Qualified Code(s): J81.1 - Chronic pulmonary edema (2) Congestive heart failure Heart failure type: diastolic Heart failure chronicity: acute on chronic Qualified Code(s): I50.33 - Acute on chronic diastolic (congestive) heart failure
[2019-04-12] MEDS ORDERED: TIOTROPIUM BROMIDE 5 PUFF/90 MCG INH INH SCH (15:45)
[2019-04-12] MEDS: ONDANSETRON INJ 2 MG/ML 2 ML VIAL IV PRN (18:15)
[2019-04-12] MEDS: GABAPENTIN 100 MG CAP PO SCH (20:56)
[2019-04-12] MEDS: ATORVASTATIN 40 MG TAB PO SCH (20:56)
[2019-04-12] MEDS: PRAMIPEXOLE DIHYDROCHLO 0.25 MG TAB PO SCH (20:57)
[2019-04-13 00:14] VITALS: BP 89/48; PULSE 65; TEMP 98.2; O2SAT 98
[2019-04-13] MEDS: ONDANSETRON INJ 2 MG/ML 2 ML VIAL IV PRN (00:39)
--- NOTE | 2019-04-13 02:19 | Death Summary ---
Date of Service April 13, 2019 Pronouncement Note Date and Time of Date of : 04/13/19 Time of : 01:54 Contributing Factors (1) Weakness: (2) Pulmonary edema: (3) Acute kidney injury: (4) Congestive heart failure: (5) COPD (chronic obstructive pulmonary disease): (6) HTN (hypertension): (7) Coronary arteriosclerosis: (8) Aortic stenosis: (9) DVT prophylaxis: (10) Discharge planning issues: Summary Additional details: Code blue called - patient in PEA arrest, CPR in progress, see code note for additional details Patient coded for 44 minutes Patient declared at 01:54. Patient pulseless, apneic, no pupillary reflex, no withdrawal from painful stimuli Patient's fiance notified at 01:57 at [phone] Additional Data Attending physician: Lebron Salinas DO
--- NOTE | 2019-04-13 05:26 | Procedure Note ---
Procedure Note Date of Service April 13, 2019 I responded to a CODE BLUE that was called in room 206. Upon my arrival cpr was in progress and ACLS had been started by staff and FP resident. Pt was being bagged by RT. I was asked to establish a definitive airway. No suction was mounted to the wall so portable suction was obtained by staff while I set up to intubate. As I got to the head of the bed, pt began having blood coming out of his nose and mouth. I was informed by hospitalist pt does receive asa and eliquis. I began suctioning the patient and to prevent any additional airway trauma which could lead to bleeding and obscure my view of necessary anatomy, I waited until staff performing compressions changed to intubate the patient. Using a 4 MAC, a 7.5 ETT was passed thru the vocal cords while being directly visualized. Color capnography and b/l breath sounds confirmed placement and tube was secured by RT, 23 cm at the lip. Bagging was continued with exception to intermittently use in line suction to clear blood. Equal chest rise and fall noted with bagging. CXR deferred due to critical status and active ongoing resuscitation. Rest of care deferred to the hospitalist at this time. They declined needed any additional interventions while I was there and continued managing the patient. Coding
--- NOTE | 2019-04-13 06:36 | Cardiology Progress Note ---
Date of Service April 13, 2019 Subjective I learned this morning (04/13/19) that a cardiology consultation was placed on 04/12/19 for Mr. Cosme when reviewing my "workload" list. It was noted that he overnight however, before consultation was performed. Results & Data Vital Signs (Past 12 Hours) Vital Signs Temp Pulse Resp BP Pulse Ox 04/13/19 00:13 36.8 C 65 15 89/48 L 98 04/12/19 19:17 36.4 C L 62 15 107/49 L 96 04/12/19 19:04 63 18 93
--- NOTE | 2019-04-14 08:20 | Discharge Summary ---
Date of Service April 13, 2019 Admission HPI Per Admitting Provider Patient presents due to a combination of weakness and dyspnea that this been worsening over the last several days. He just got out of her she may be about a week ago, he is a little bit of a poor historian but describes symptoms consistent with a CHF exacerbation, he notes that his breathing was better than today whenever he was discharged from [facility], but notes that over the last couple days he has been getting weaker falling more easily fell on his knees slid out of his chair, and eventually today was weak enough that he felt like he could not do okay at home. Secondarily he notes worsening dyspnea predominantly with exertion. He has chronic orthopnea so he does not know if it is any better or worse, he notes that his swelling is better than whenever he was admitted to [facility] but may be slightly worse than whenever he was discharged. He notes a little bit of cough but is mostly dry without any sputum. No fevers chills sweats or anything else that makes him feel ill. He notes he had a really bad y ear being in and out of the hospital several times. He notes his appetite is "so-so" he is not entirely sure of his medications, but notes that he has been taking what he was told to after being discharged from [facility]. He does note that he is still on a water pill. He also notes that at times he has trouble with his blood pressures dropping low causing him to be weak and wonders if that part of his falling as well. Principal Diagnosis cardiac arrest - uncertain proximal cause; overall suffered from significant decline w cardiomyopathy and appeared to be deteriorating into cardiorenal syndrome Discharge Data Allergies Allergy/AdvReac Type Severity Reaction Status Date / Time Penicillins Allergy Unknown PASSES OUT Verified 04/11/19 06:03 AND LOW HEART RATE Consultations 04/11/19 06:32 ED Decision to Admit Stat 04/11/19 09:50 Consult Case Management - Discharge Planning Routine 04/11/19 09:51 Consult Health Information Management Routine 04/12/19 15:15 Consult Cardiology Routine Consult Nephrology Routine Ordered Studies 04/12/19 08:13 US renal/blad retro comp Routine Hospital Course (1) Cardiac arrest: unclear etiology. overall pt did appear to be deteriorating into end stage disease, and suspected that during this hospitalization discussions of goals of care, and/or hospice care were highly likely to be entertained. however, had not yet reached a point where rapport and pt readiness were at a point to have said discussions (loosely worked down that avenue during visit of 04/12 and pt's significant other loosely hinted at him being quite anxious about situation - since he overall appeared stable enough to allow time for further discussions, i did not push the matter at that time). -during his stay he appeared both volume depleted intra-arterially and also a degree volume overloaded in terms of pulmonary edema - but with a stability to the situation where he did not show significant oxygen requirements above his baseline/significant dyspnea, nor did he show significant instability in vitals. -had a degree of hyperkalemia - but EKG did not show repolarization abnormalities and kayexalate had been given (which would likely have then been working to reduce K over next ~12hrs, and f/u K check did not show worrisome degree of rise - and again, without significant EKG changes; further, since arrest was not ventricular arrhythmia, hyperkalemia unlikely to have been contributor) -cardiology and nephrology had been consulted to assist in trying to optimize volume status, although it did seem likely that this was going to be an impossible task -in discussions with electrical instrument technician, pt apparently had shahla--> PEA as arrest. ?possible LA but exact etiology unclear (2) Weakness: Seems to be multifactorial, with his hypoxia/CHF/CKD/overall difficulties with volume status/deconditioning/overall decline all being contributors (3) Pulmonary edema: Seemed to still have ongoing pulmonary edema, but at the same time appears to be intra-arterially dry. Very difficult fluid balance. Given the worsening of his creatinine after IV Bumex, rather than improvement, given the appearance of a degree of volume contraction with his hyperkalemia, further diuresis was held and cardio/nephro were requested - but pt did appear to be at a "bad baseline" of stability rather than detriorating rapidly (4) Acute kidney injury: suspected deteriorating into cardiorenal syndrome; w significant R sided CHF, unlikely that pt would have been able to tolerate HD well (5) Congestive heart failure: Appears to be acute diastolic heart failure related to his aortic valve disease causing the pulmonary edema, but on review of [facility] records saw Dr. Fr armenta notes that he has significant right-sided CHF to which is probably what is the main compounding/complicating factor in managing his volume. (6) COPD (chronic obstructive pulmonary disease): Did not appear to be in significant exacerbation at this time. (7) HTN (hypertension): (8) Coronary arteriosclerosis: (9) Aortic stenosis: contributor to CHF (10) DVT prophylaxis: Anticoagulation was utilized during his stay Total Time Total Time Spent Total Time Spent (In Minutes): care provided by electrical instrument technician Discharge Plan Discharge Items Disposition: Admission Data Admit Date/Time: 04/11/19 08:09 Service: Telemetry Other DC Date/Time DO NOT enter until pt leaves facility: 04/13/19 01:54
== END 2019-04-13 01:54 | disposition expired ==
LOC: 2E 05:31 → ED 05:31 → 2E 09:06 → 1E 04-13 02:12